=== PATIENT | female | born 1970 | race Caucasian/White ===

== ENCOUNTER 2024-07-04 08:12 | Outpatient (AMB) | payer OTHER, SELFPAY ==
--- NOTE | 2024-07-04 10:08 | MHC.OFFVISWM ---
Intake Visit Reasons: TV Gastric Balloon *[phone]* Allergies No Known Allergies Allergy (Unknown, Verified 07/04/24 10:08) U Medication List - Last Reconciled 07/04/24 by Anup Montenegro MD hydrochlorothiazide mg PO DAILY lorazepam mg PO melatonin mg PO thyroid (pork) ([place] Thyroid) mg PO DAILY [vitamin b12 PO] HPI HPI TV Gastric Balloon *[phone]*: Details: Start time: 10.01am, End time: 11.01am ?I spent 55 minutes speaking with the patient on the phone plus an additional 5 minutes reviewing and updating records for a total of 60 minutes HPI Comments Details: Previous weight loss efforts: self diet and exercise Wakes up: 5am, Sleeps: 9pm Breakfast: 9am (yogurt and granola bar, waffles x2) Lunch: 1pm (chicken salad, or tuna sandwich) Dinner: 5-6pm (pork chops or cereal) Snacks: 11am (Kind bar), 4pm (Kind bar or cheese with crackers), 7pm (popcorn, dips with crackers) Exercise: stationary bike and rowing machine at home Fluids: Coffee: (2 cups per day with sweetener, or hazelnut creamer), tea: 3-4/wk (plain), soda: rarely, juice: 8oz/day, ETOH: from none to 5 glasses/week PFSH Medical History (Updated 07/04/24 @ 10:57 by nAup Montenegro MD) Hypothyroidism Hyperlipidemia Hypertension Insomnia Obesity Surgical History (Updated 06/28/24 @ 09:06 by Mirella Romero CMA) Hx of cone biopsy of cervix Hx of cosmetic surgery History of wisdom tooth extraction, class I edentulism Family History (Updated 06/28/24 @ 08:17 by Mirella Romero CMA) Mother Cancer of kidney Hyperthyroidism Father Diabetes Social History (Updated 06/28/24 @ 08:16 by Mirella Romero CMA) Alcohol intake: current Alcohol intake frequency: a few times a month Patient Tobacco Use Status: Never used Tobacco Telehealth Telehealth Telehealth Platform: Telephone Location of provider rendering services: practice address Location of patient: address on file Patient Identification confirmed using: Name, : Yes Telehealth method: voice only Patient verbally consented to treatment: Yes Patient verbally consented to billing insurance company: Yes Patient informed of any privacy concerns related to visit: Yes Minutes spent on Phone/Video with Pt.: 60 Assessment & Plan Assessment & Plan (1) Obesity: Code(s): E66.9 - Obesity, unspecified Category: Medical Qualifiers: Obesity type: due to excess calories Obesity classification: adult class 1 (BMI 30 - 34.9) Serious obesity comorbidity presence: with serious comorbidity Body mass index: BMI 34.0-34.9 Qualified Code(s): E66.811 - Obesity, class 1; E66.09 - Other obesity due to excess calories; Z68.34 - Body mass index [BMI] 34.0-34.9, adult Plan: We discussed in detail the options of GLP-1 agonists, sleeve gastrectomy as well as the gastric balloon. For GLP-1 agonists, she would need to participate in a 3 month MWL program first. We discussed the preop lifestyle program for surgery and testing as well as the recovery time. We also discussed the weight loss results with the Orbera balloon, as well as the possibility of premature removal and symptoms of nausea, vomiting and cramping after placement. We also discussed the need for an endoscopy to have it placed and removed. All questions were answered. The patient will get back to me when she decides which option she would like to follow.
== END 2024-07-04 11:02 | disposition home or self-care (01) ==
LOC: HO.HBS 08:12
PROVIDERS: PCP Nurse Practitioner Acute Care; Visit Provider Surgery
DX: E66.811 Obesity, class 1 (principal); Z68.34 Body mass index [BMI] 34.0-34.9, adult
CPT/HCPCS: 98011

== ENCOUNTER 2024-07-13 07:56 | Outpatient (AMB) | payer OTHER, SELFPAY ==
--- OUTSIDE RECORDS SUMMARY | 2024-07-13 08:00 | XMS_ITS | Clinical Summary ---
Author Organization [facility] Address [address] [place] [address] Phone Care Team Providers Care President Educational Institution Name Role Phone Harry Coto MD Primary Care Provider [phone] Encounters Date Type Department Care Team Description 04/23/2024 12:55 PM EST - 04/23/2024 11:59 PM EST Hospital Encounter [facility] Ultrasound [address] [place] [address] Breast nodule Discharge Disposition: Home or Self Care from Last 3 Months Social History Tobacco Use Types Packs/Day Years Used Date Smoking Tobacco: Never Assessed Sex and Gender Information Value Date Recorded Sex Assigned at Not on file Gender Identity Not on file Sexual Orientation Not on file Job Start Date Occupation Industry Not on file Not on file Not on file Plan of Treatment Upcoming Encounters Date Type Department Care Team (Late st Contact Info) Description 10/23/2024 8:00 AM EDT [facility]ointment [facility] [address] [place] [address] Health Maintenance Due Date Last Done Comments Pneumococcal Vaccine: Pediatrics (0 to 5 Years) and At-Risk Patients (6 to 64 Years) (1 of 2 - PCV) 1978 DTaP,Tdap,and Td Vaccines (1 - Tdap) 12/17/1991 Hepatitis B Vaccines (1 of 3 - 19+ 3-dose series) 12/17/1991 Zoster Vaccines (1 of 2) 12/17/1991 Cervical Cancer Screening: Pap Smear 1993 COVID-19 Vaccine (3 - Pfizer risk series) 02/19/2021 01/22/2021, 01/01/2021 Cholesterol Screening (Lipid Panel) 05/15/2022 Colorectal Cancer Screening: Colonoscopy 05/15/2022 Depression Screening 05/15/2022 HIV Screening 05/15/2022 Hepatitis C Screening 05/15/2022 Social Influencers of Health Screening 05/15/2022 Influenza Vaccine (#1) 2024 04/06/2023 Breast Cancer Screening 04/11/2026 04/11/20 24, 09/25/2022, 05/04/2021, Additional history exists HIB Vaccines Aged Out No longer eligi ble based on patient's age to complete this topic HPV Vaccines Aged Out No longer eligi ble based on patient's age to complete this topic Hepatitis A Vaccines Aged Out No long er eligible based on patient's age to complete this topic IPV Vaccines Aged Out No longer eligi ble based on patient's age to complete this topic MMR Vaccines Aged Out No longer eligi ble based on patient's age to complete this topic Meningococcal ACWY Vaccine Aged Out N o longer eligible based on patient's age to complete this topic RSV Immunization Patients Under 20 months Aged Out No longer eligible based on patient's age to complete this topic Varicella Vaccines Aged Out No longer eligible based on patient's age to complete this topic Procedures Procedure Name Priority Date/Time Associated Diagnosis Comments US BREAST LIMITED LEFT Routine 04/23/2024 1:34 PM EST Breast nodule VANNA SCREENING DIGITAL Routine 04/11/2024 1:36 PM EDT from Last 3 Months or Most Recently Relevant to Health Maintenance Results * US Breast Limited Left (04/23/2024 1:34 PM EST) Anatomical Region Laterality Modality Breast Left Ultrasound 04/23/2024 1:33 PM EST Impressions 04/23/2024 1:36 PM EST 1. 7 mm simple cyst in the 6:00 position of the left breast, likely accounting for the larger of the 2 mammographic findings, benign. 2. No sonographic correlate for the smaller, probably benign retroareolar nodule is seen. A follow-up left mammogram is recommended in 6 months. BI-RADS CATEGORY: 3 - PROBABLY BENIGN RECOMMENDATION: Short Interval Follow-up is recommended for the left breast in 6 months. -------- FINAL REPORT -------- Dictated By: Rayna Alanis Dictated Date: 04/23/2024 13:33 ET Assigned Physician: Rayna Alanis Reviewed and Electronically Signed By: Rayna Alanis Signed Date: 04/23/2024 13:36 ET Workstation ID: [id number] Transcribed By: Self Edit Transcribed Date: 04/23/2024 13:33 ET Narrative 04/23/2024 1:36 PM EST HISTORY: Abnormal screening mammogram showing 2 subcentimeter left breast nodules. The patient returns for targeted ultrasound. COMPARISON: Screening mammogram 04/11/24 ?? TECHNIQUE: High resolution real-time imaging of the left breast was performed, targeted to the areas of mammographic concern. FINDINGS: A 7 x 3 x 3 mm simple cyst is present at 6:00, approximately 2 to 3 cm from the nipple, likely accounting for the larger of the 2 mammographic findings. There is no definite sonographic correlate for the smaller, 4 mm nodule in the retroareolar area. The mammographic features suggest a benign process. A follow-up left mammogram is recommended in 6 months to reassess these areas. Procedure Note Rayna Alanis MD - 04/23/2024 HISTORY: Abnormal screening mammogram showing 2 subcentimeter left breastnodules. The patient returns for targeted ultrasound. COMPARISON: Screening mammogram 04/11/24 TECHNIQUE: High resolution real-time imaging of the left breast wasperformed, targeted to the areas of mammographic concern. FINDINGS: A 7 x 3 x 3 mm simple cyst is present at 6:00, approximately 2 to 3 cmfrom the nipple, likely accounting for the larger of the 2 mammographicfindings. There is no definite sonographic correlate for the smaller, 4 mm nodule inthe retroareolar area. The mammographic features suggest a benignprocess. A follow-up left mammogram is recommended in 6 months to reassess theseareas. IMPRESSION: 1. 7 mm simple cyst in the 6:00 position of the left breast, likelyaccounting for the larger of the 2 mammographic findings, benign. 2. No sonographic correlate for the smaller, probably benign retroareolarnodule is seen. A follow-up left mammogram is recommended in 6 months. BI-RADS CATEGORY: 3 - PROBABLY BENIGN RECOMMENDATION: Short Interval Follow-up is recommended for the left breast in 6 months. -------- FINAL REPORT -------- Dictated By: Rayna Alanis Dictated Date: 04/23/2024 13:33 ET Assigned Physician: Rayna Alanis Reviewed and Electronically Signed By: Rayna Alanis Signed Date: 04/23/2024 13:36 ET Workstation ID: [id number] Transcribed By: Self Edit Transcribed Date: 04/23/2024 13:33 ET Rayna Alanis MD IMG US PROCEDURES * VANNA SCREENING DIGITAL (04/11/2024 1:36 PM EDT) Anatomical Region Laterality Modality Mammography 04/11/2024 9:56 AM EDT Narrative 04/11/2024 1:[address] [facility] Diagnostic Imaging Department [address] [place] [address] Patient: ??RENNY SAMPSON ?/Age/Sex: 1970 - Unit#: ??[id number] ? Location/Status: ??SPDIMAM/REG CLI ? Mnemonic/Ordering Site: ??DIGSC/SPMAM Ordering Physician: ??LINA COTO MD [facility] Screening Digital - 04/11/24 - 1025 Report Status:Signed EXAM: [facility] Screening Digital EXAM DATE AND TIME: 04/11/2024 10:26 AM HISTORY: ??Screening. Paternal cousin had breast carcinoma. COMPARISON: ??09/22/22, 05/04/21, 05/02/20, 09/08/18, 07/22/17 TECHNIQUE: Bilateral digital breast tomosynthesis was performed in the CC and MLO projections. Computer aided detection with USB Promos 3D 3.1 was employed. TISSUE DENSITY: b. There are scattered areas of fibroglandular density. FINDINGS: Two circumscribed subcentimeter nodules are seen in the anterior left breast, for which targeted ultrasound is recommended. These include a 4 mm nodule in the retroareolar approximately 9:00 area and a 7 mm nodule at 6-7 o'clock, 4 cm from the nipple. Nodular asymmetry in the upper outer left breast is long-term stable, considered benign. No grouped microcalcifications or areas of architectural distortion are seen. The skin and vascularity are unremarkable. IMPRESSION: 1. 2 subcentimeter left breast nodules, for which targeted ultrasound is recommended. The patient will be called back. 2. Stable mammographic appearance of the right breast. No evidence of malignancy is seen. BI-RADS: ??Category 0: Incomplete - Need Additional Imaging Evaluation RECOMMENDATION(S): 1: Ultrasound follow-up LEFT Mammogram performed at [facility] [address] [place] [address] Dictating Physician: ??RAYNA ALANIS MD Electronically Signed by: ??RAYNA ALANIS MD Dic Date/Time: ??04/11/24 1331 Sign date/Time: ??04/11/24 1336 Procedure Note Rayna Alanis MD - 04/14/2024 [facility] Diagnostic Imaging Department [address] [place] [id number] Patient: RENNY SAMPSON /Age/Sex: 1970 - 53 - F Unit#: [id number] Location/Status: SPDIMAM/REG CLI Mnemonic/Ordering Site: [facility] Ordering Physician: LINA COTO MD [facility] Screening Digital - 04/11/24 - 1025 Report Status:Signed EXAM: [facility] Screening Digital EXAM DATE AND TIME: 04/11/2024 10:26 AM HISTORY: Screening. Paternal cousin had breast carcinoma. COMPARISON: 09/22/22, 05/04/21, 05/02/20, 09/08/18, 07/22/17 TECHNIQUE: Bilateral digital breast tomosynthesis was performed in the CCand MLO projections. Computer aided detection with USB Promos 3D 3.1was employed. TISSUE DENSITY: b. There are scattered areas of fibroglandular density. FINDINGS: Two circumscribed subcentimeter nodules are seen in the anterior leftbreast, for which targeted ultrasound is recommended. These include a 4 mm nodulein the retroareolar approximately 9:00 area and a 7 mm nodule at 6-7 o'clock, 4cm from the nipple. Nodular asymmetry in the upper outer left breast is long-term stable, considered benign. No grouped microcalcifications or areas ofarchitectural distortion are seen. The skin and vascularity are unremarkable. IMPRESSION: 1. 2 subcentimeter left breast nodules, for which targeted ultrasound is recommended. The patient will be called back. 2. Stable mammographic appearance of the right breast. No evidence of malignancy is seen. BI-RADS: Category 0: Incomplete - Need Additional Imaging Evaluation RECOMMENDATION(S): 1: Ultrasound follow-up LEFT Mammogram performed at [facility] [address], [place] [address] Dictating Physician: RAYNA ALANIS MD Electronically Signed by: RAYNA ALANIS MD Dic Date/Time: 04/11/24 1331 Sign date/Time: 04/11/24 1336 Lina Coto MD IMG BI PROCEDURES from Last 3 Months or Most Recently Relevant to Health Maintenance Care Teams President Educational Institution Relationship Specialty Start Date End Date Harry Coto MD [address] [facility] [address] [place] [address] PCP - General 05/03/22
[2024-07-13 12:43] VITALS: BMI 34.0
--- NOTE | 2024-07-13 12:43 | A.OFFVIS_ITS ---
VS Expanded 07/13/24 12:43 Height 5 ft 5 in Weight 204 lb 6 oz BMI 34.0 Intake Visit Reasons: TV Follow Up SWL *[phone]* Allergies No Known Allergies Allergy (Unknown, Verified 07/04/24 10:08) U HPI HPI TV Follow Up SWL *[phone]*: Details: Start time: 12.30pm, End time: 1pm ?I spent 25 minutes speaking with the patient on the phone plus an additional 5 minutes reviewing and updating records for a total of 30 minutes [facility] Medical History (Updated 07/04/24 @ 10:57 by Anup Montenegro MD) Hypothyroidism Hyperlipidemia Hypertension Insomnia Obesity Surgical History (Updated 06/28/24 @ 09:06 by Mirella Romero CMA) Hx of cone biopsy of cervix Hx of cosmetic surgery History of wisdom tooth extraction, class I edentulism Family History (Updated 06/28/24 @ 08:17 by Mirella Romero CMA) Mother Cancer of kidney Hyperthyroidism Father Diabetes Social History (Updated 06/28/24 @ 08:16 by Mirella Romero CMA) Alcohol intake: current Alcohol intake frequency: a few times a month Patient Tobacco Use Status: Never used Tobacco Telehealth Telehealth Telehealth Platform: Telephone Location of provider rendering services: practice address Location of patient: address on file Patient Identification confirmed using: Name, : Yes Telehealth method: voice only Patient verbally consented to treatment: Yes Patient verbally consented to billing insurance company: Yes Patient informed of any privacy concerns related to visit: Yes Minutes spent on Phone/Video with Pt.: 30 Assessment & Plan Assessment & Plan (1) Obesity: Code(s): E66.9 - Obesity, unspecified Category: Medical Qualifiers: Obesity type: due to excess calories Obesity classification: adult class 1 (BMI 30 - 34.9) Serious obesity comorbidity presence: with serious comorbidity Body mass index: BMI 34.0-34.9 Qualified Code(s): E66.811 - Obesity, class 1; E66.09 - Other obesity due to excess calories; Z68.34 - Body mass index [BMI] 34.0-34.9, adult Plan: 1.? Plan for lap sleeve gastrectomy. If diaphragmatic or ventral hernias are present at time of surgery, these will be repaired laparoscopically as well. I emphasized the importance of close follow-up, adherence to instructions and good communication. The surgery does not replace the need to change your lifestlyle which is the cause of the obesity problem. The surgery provides the motivation to try again to change your lifestyle, it reduces the appetite and make the transition to a better lifestyle easier and doubles the amount of weight you would lose compared to doing the lifestyle change without the surgery. You will need to be on a liquid diet with protein shakes for 2 weeks before surgery to maximize weight loss and boost your nutritional status to recover better from surgery and also for the first two weeks after surgery to let the stomach heal before we introduce other foods. After the first 2 weeks we will introduce protein bars and soft foods like scrambled eggs, cottage cheese and yogurt and after the 6th week will introduce meat, fish and cooked vegetables in small amounts. Over time you should be able to eat everything in small amounts. Side effects like nausea, vomiting, heartburn or abdominal pain are not common in the practice unless you are not following in the practice. This operation requires lifetime commitment to following in our practice and communication with me. You will much less weight and experience side effects if you don?t communicate or not following in the practice. Complications are rare and in our practice is about 1/10 of the national average. However, you can develop bleeding that may require transfusion (hasn?t happened for year in the practice), you may from complications (we did not have any deaths in the practice) and infections. Infections are usually a result of breakdown in communication or not understanding or following directions correctly. They are difficult to treat, they can happen during the first 6 weeks, they may require to be in the hospital for weeks or even months, not being able to eat by mouth and you may have drains and surgeries to try and correct the issue. Other risks and complications include possible conversion to an open procedure, leaks, small bowel obstruction, blood clots, cardiac, or pulmonary complications, as chair car attendant complications such as ulcers, insufficient weight loss and vitamin deficiencies. 2. You will receive a link of our software tate to generate an individualized nutritional and exercise plan specific for you. Please send me a screenshot of the plans you will generate Meal to include lean meat (beef, fish, pork, turkey, chicken), or z[place]an yogurt, or egg whites, or beans with a salad with olive oil and fruits (berries, pears, apples, kiwi). Avoid salt, breads, potatoes, rice, pasta, desserts. ?3. If you choose shakes, each shake would be drunk slowly, like coffee in a pe riod of 2 hours. ?4. If you choose bars, cut each bar in 4 pieces and eat each piece in 30min ?to make each bar last 2 hours. ?5. I emphasized the importance of measuring accurately the food portion and measure it when serving the food in plate ?6. The meal portions include a specific number of forks of meat and salad. You always eat the meat portion but you can replace up to half of salad/vegetables portion with rice, potatoes or pasta, or a fruit ?if you like. The less you do it the better weight loss will be. ?7. One full-size fork is what it can be scooped on the fork without falling a side and not what can be bit with the fork. Use regular forks like those you find in a typical restaurant. ?8.? Please buy the body composition scale we discussed and send me weight measurements as soon as possible and then once a week. Always include your diet and exercise plan. 9. The best choice would be to purchase a stationary bike, elliptical or treadmill at home that can track calories. Let me know if you do so I can give you an exercise plan. ?10.?It is important of avoiding and for at least 18 months postoperatively and has been discussed at the infosession. ?11. Goal is to lose at least 1.5-2lbs per week ?12. Goal to lose 10% of your weight before surgery, which is about 20lbs. Ultimate weight goal: 184lbs before surgery 13. Please follow the diet plan exactly without any change. If you don't like something about the plan or you feel hungry you need to communicate with me so I can help you revise the plan. You should not change the plan yourself. 14. To be scheduled for EGD to assess the stomach's anatomy. The possibility of biopsies was discussed. Patient needs to avoid use of NSAIDs and aspirin for 1 week prior to EGD. You must be on liquids only the day before your endoscopy. Risks of perforation and bleeding was discussed with the patient. This will be an outpatient procedure with IV sedation. Orders: Orders Hemoglobin A1c Today E03.9 - Hypothyroidism, unspecified, E66.09 - Other obesity due to excess calories, E66.811 - Obesity, class 1, E78.5 - Hyperlipidemia, unspecified, I10 - Essential (primary) hypertension, Z68.34 - Body mass index [BMI] 34.0-34.9, adult Comprehensive Met. Panel Today E03.9 - Hypothyroidism, unspecified, E66.09 - Other obesity due to excess calories, E66.811 - Obesity, class 1, E78.5 - Hyperlipidemia, unspecified, I10 - Essential (primary) hypertension, Z68.34 - B desean mass index [BMI] 34.0-34.9, adult Zinc Today E03.9 - Hypothyroidism, unspecified, E66.09 - Other obesity due to excess calories, E66.811 - Obesity, class 1, E78.5 - Hyperlipidemia, unspecified, I10 - Essential (primary) hypertension, Z68.34 - Body mass index [BMI] 34.0-34.9, adult TSH reflex Free T4 Today E03.9 - Hypothyroidism, unspecified, E66.09 - Other obesity due to excess calories, E66.811 - Obesity, class 1, E78.5 - Hyperlipidemia, unspecified, I10 - Essential (primary) hypertension, Z68.34 - Body mass index [BMI] 34.0-34.9, adult Ferritin Today E03.9 - Hypothyroidism, unspecified, E66.09 - Other obesity due to excess calories, E66.811 - Obesity, class 1, E78.5 - Hyperlipidemia, unspecified, I10 - Essential (primary) hypertension, Z68.34 - Body mass index [BMI] 34.0-34.9, adult Vitamin D 25-OH Total Today E03.9 - Hypothyroidism, unspecified, E66.09 - Other obesity due to excess calories, E66.811 - Obesity, class 1, E78.5 - Hyperlipidemia, unspecified, I10 - Essential (primary) hypertension, Z68.34 - Body mass index [BMI] 34.0-34.9, adult Insulin Today E03.9 - Hypothyroidism, unspecified, E66.09 - Other obesity due to excess calories, E66.811 - Obesity, class 1, E78.5 - Hyperlipidemia, unspecified, I10 - Essential (primary) hypertension, Z68.34 - Body mass index [BMI] 34.0-34.9, adult H Pylori Breath Test Today E03.9 - Hypothyroidism, unspecified, E66.09 - Other obesity due to excess calories, E66.811 - Obesity, class 1, E78.5 - Hyperlipidemia, unspecified, I10 - Essential (primary) hypertension, Z68.34 - Body mass index [BMI] 34.0-34.9, adult Complete Blood Count Auto Diff Today E03.9 - Hypothyroidism, unspecified, E66.09 - Other obesity due to excess calories, E66.811 - Obesity, class 1, E78.5 - Hyperlipidemia, unspecified, I10 - Essential (primary) hypertension, Z68.34 - Body mass index [BMI] 34.0-34.9, adult Lipid Panel Today E03.9 - Hypothyroidism, unspecified, E66.09 - Other obesity due to excess calories, E66.811 - Obesity, class 1, E78.5 - Hyperlipidemia, unspecified, I10 - Essential (primary) hypertension, Z68.34 - Body mass index [BMI] 34.0-34.9, adult IRON PROFILE Today E03.9 - Hypothyroidism, unspecified, E66.09 - Other obesity due to excess calories, E66.811 - Obesity, class 1, E78.5 - Hyperlipidemia, unspecified, I10 - Essential (primary) hypertension, Z68.34 - Body mass index [BMI] 34.0-34.9, adult Vitamin B12 and Folate Today E03.9 - Hypothyroidism, unspecified, E66.09 - Other obesity due to excess calories, E66.811 - Obesity, class 1, E78.5 - Hyperlipidemia, unspecified, I10 - Essential (primary) hypertension, Z68.34 - Body mass index [BMI] 34.0-34.9, adult C Reactive Protein Today E03.9 - Hypothyroidism, unspecified, E66.09 - Other obesity due to excess calories, E66.811 - Obesity, class 1, E78.5 - Hyperlipidemia, unspecified, I10 - Essential (primary) hypertension, Z68.34 - Body mass index [BMI] 34.0-34.9, adult Vitamin B1 Today E03.9 - Hypothyroidism, unspecified, E66.09 - Other obesity due to excess calories, E66.811 - Obesity, class 1, E78.5 - Hyperlipidemia, unspecified, I10 - Essential (primary) hypertension, Z68.34 - Body mass index [BMI] 34.0-34.9, adult Vitamin A Today E03.9 - Hypothyroidism, unspecified, E66.09 - Other obesity due to excess calories, E66.811 - Obesity, class 1, E78.5 - Hyperlipidemia, unspecified, I10 - Essential (primary) hypertension, Z68.34 - Body mass index [BMI] 34.0-34.9, adult US abdomen comp w elastography Today E03.9 - Hypothyroidism, unspecified, E66.09 - Other obesity due to excess calories, E66.811 - Obesity, class 1, E78.5 - Hyperlipidemia, unspecified, I10 - Essential (primary) hypertension, Z68.34 - Body mass index [BMI] 34.0-34.9, adult XR chest 2V Today E03.9 - Hypothyroidism, unspecified, E66.09 - Other obesity due to excess calories, E66.811 - Obesity, class 1, E78.5 - Hyperlipidemia, unspecified, I10 - Essential (primary) hypertension, Z68.34 - Body mass index [BMI] 34.0-34.9, adult ECG 12 lead EKG Today E03.9 - Hypothyroidism, unspecified, E66.09 - Other obesity due to excess calories, E66.811 - Obesity, class 1, E78.5 - Hyperlipidemia, unspecified, I10 - Essential (primary) hypertension, Z68.34 - Body mass index [BMI] 34.0-34.9, adult FL upper GI w air Today E03.9 - Hypothyroidism, unspecified, E66.09 - Other obesity due to excess calories, E66.811 - Obesity, class 1, E78.5 - Hyperlipi demia, unspecified, I10 - Essential (primary) hypertension, Z68.34 - Body mass index [BMI] 34.0-34.9, adult Referrals Behavioral Health Referral E03.9 - Hypothyroidism, unspecified, E66.09 - Other obesity due to excess calories, E66.811 - Obesity, class 1, E78.5 - Hyperlipidemia, unspecified, I10 - Essential (primary) hypertension, Z68.34 - B desean mass index [BMI] 34.0-34.9, adult Nutrition/Dietitian Referral E03.9 - Hypothyroidism, unspecified, E66.09 - Other obesity due to excess calories, E66.811 - Obesity, class 1, E78.5 - Hyperlipidemia, unspecified, I10 - Essential (primary) hypertension, Z68.34 - Body mass index [BMI] 34.0-34.9, adult
== END 2024-07-13 13:01 | disposition home or self-care (01) ==
LOC: HO.HBS 07:56
PROVIDERS: PCP Nurse Practitioner Acute Care; Visit Provider Surgery
DX: E66.811 Obesity, class 1 (principal); Z68.34 Body mass index [BMI] 34.0-34.9, adult
CPT/HCPCS: 98013

== ENCOUNTER → 2024-07-25 12:32 | Outpatient (BNV) | payer OTHER, SELFPAY | PROVIDERS: PCP Internal Medicine; Visit Provider Surgery | DX: K44.9 Diaphragmatic hernia without obstruction or gangrene (principal) | CPT/HCPCS: 43239 ==

== ENCOUNTER → 2024-07-25 12:32 | Day surgery (SDC) | payer OTHER, SELFPAY ==
[2024-07-23 13:12] VITALS: BMI 33.9
--- NOTE | 2024-07-24 09:49 | P.CONAN_ITS ---
HPI - Anesthesia Eval Consult details Narrative: 53yo F for Upper Endoscopy PMFSH Active Problems Active Problems: All Active Problems Hypothyroidism (Acute) Hyperlipidemia (Acute) Hypertension (Acute) Insomnia (Acute) BMI 34.0-34.9,adult (Acute) Obesity (Acute) Past Medical History Medical History (System 07/18/24 @ 14:36 by Sylwia Ceja) Hypothyroidism Hyperlipidemia Hypertension Insomnia Obesity Family History Family History (System 07/18/24 @ 14:36 by Sylwia Ceja) Mother Cancer of kidney Hyperthyroidism Father Diabetes Surgical History Surgical History (System 07/18/24 @ 14:36 by Sylwia Ceja) Hx of cone biopsy of cervix Hx of cosmetic surgery History of wisdom tooth extraction, class I edentulism Social History Social History (System 07/18/24 @ 14:36 by Sylwia Ceja) Alcohol intake: current Alcohol intake frequency: a few times a month Patient Tobacco Use Status: Never used Tobacco Meds Allergies Allergy/AdvReac Type Severity Reaction Status Date / Time No Known Allergies Allergy Unknown U Verified 07/18/24 14:36 Home Medications ?Medication ?Instructions ?Recorded ?Confirmed ?Last Taken ?Type hydrochlorothiazide 12.5 mg tablet mg PO DAILY 06/28/24 07/04/24 Unknown History lorazepam 0.5 mg tablet mg PO 06/28/24 07/04/24 Unknown History melatonin 5 mg capsule mg PO 06/28/24 07/04/24 Unknown History thyroid (pork) 90 mg tablet mg PO DAILY 06/28/24 07/04/24 Unknown History ([place] Thyroid) vitamin b12 PO 06/28/24 07/04/24 Unknown History Exam Height,Weight and Vital Signs: Height 5 ft 5 in Weight 92.533 kg Assessment and Plan Assessment Anesthesia Assessment: Chart Reviewed
[2024-07-25 13:38] VITALS: BMI 33.0
[2024-07-25 13:40] VITALS: BP 150/95; PULSE 78; RESP 16; TEMP 37.3; O2SAT 98
[2024-07-25] MEDS: Lactated Ringers 1,000 ML 80 ML IVCONT (13:42)
--- OUTSIDE RECORDS SUMMARY | 2024-07-25 13:58 | XMS_ITS | Encounter Summary ---
Author Organization [facility] Address [address] [place] [address] Care Team Providers Care Neck Cutter Name Role Phone Harry Coto MD Primary Care Provider [phone] Encounter Details Date Type Department Care Team (Latest Contact Info) Description 07/19/2024 8:46 AM EST - 07/19/2024 11:59 PM EST Hospital Encounter [facility] [address] [place] [id number] Obesity, class 1; Other obesity due to excess calories; Body mass index (BMI) 34.0-34.9, adult; Hypothyroidism, unspecified; Hyperlipidemia, unspecified; Essential (primary) hypertension Discharge Disposition: Home or Self Care Social History Tobacco Use Types Packs/Day Years Used Date Smoking Tobacco: Never Assessed Comments Unknown Sex and Gender Information Value Date Recorded Sex Assigned at Not on file Legal Sex Female 9:31 PM EST Gender Identity Not on file Sexual Orientation Not on file documented as of this encounter Discharge Disposition Disposition Code Departure Means Destination Home or Self Care documented in this encounter Plan of Treatment Upcoming Encounters Date Type Department Care Team (Late st Contact Info) Description 10/23/2024 8:00 AM EDT Appointment [facility] [address] [place] [address] documented as of this encounter Procedures Procedure Name Priority Date/Time Associated Diagnosis Comments ECG 12-LEAD Routine 07/19/2024 9:04 AM EST Obesity, class 1 Other obesity due to excess calories Body mass index (BMI) 34.0-34.9, adult Hypothyroidism, unspecified Hyperlipidemia, unspecified Essential (primary) hypertension documented in this encounter Results * ECG 12 lead (07/19/2024 9:04 AM EST) Ventricular Rate ECG 74 BPM GEMUSE Atrial Rate 74 BPM GEMUSE P-R Interval 164 ms GEMUSE QRS Duration 80 ms GEMUSE Q-T Interval 386 ms GEMUSE QTc 428 ms GEMUSE P Wave [place] 20 degrees GEMUSE R [place] -97 degrees GEMUSE T [place] 29 degrees GEMUSE ECG Interpretation Normal sinus rhythm Right superior axis deviation Low voltage QRS Poor R wave progression Abnormal ECG When compared with ECG of 20-JUL-2023 13:24, No significant change was found Confirmed by Diego GRIMM YUFENG ([id number]) on 07/19/2024 3:09:35 PM GEMUSE 07/19/2024 9:04 AM EST 07/19/2024 3:09 PM EST us Anup Montenegro MD ECG ORDERABLES Final Res ult GEMUSE documented in this encounter Visit Diagnoses Diagnosis Obesity, class 1 Other obesity due to excess calories Body mass index (BMI) 34.0-34.9, adult Hypothyroidism, unspecified Hyperlipidemia, unspecified Essential (primary) hypertension Unspecified essential hypertension documented in this encounter Care Teams Neck Cutter Relationship Specialty Start Date End Date Harry Coto MD [address] [place] [address] PCP - General 05/03/22 documented as of this encounter
--- OUTSIDE RECORDS SUMMARY | 2024-07-25 13:59 | XMS_ITS | Clinical Summary ---
Author Organization [facility] Address [address] [place] [address] Phone Care Team Providers Care Germ Drier Name Role Phone Harry Coot MD Primary Care Provider [phone] Encounters Date Type Department Care Team Description 07/19/2024 8:46 AM EST - 07/19/2024 11:59 PM EST Hospital Encounter [facility] Non-Invasive Cardiology [address] [place] [phone] Obesity, class 1; Other obesity due to excess calories; Body mass index (BMI) 34.0-34.9, adult; Hypothyroidism, unspecified; Hyperlipidemia, unspecified; Essential (primary) hypertension Discharge Disposition: Home or Self Care 07/19/2024 8:43 AM EST - 07/19/2024 11:59 PM EST Hospital Encounter [facility] Xray [address] [place] [phone] Bariatric surgery status Discharge Disposition: Home or Self Care from Last 3 Months Social History Tobacco Use Types Packs/Day Years Used Date Smoking Tobacco: Never Assessed Comments Unknown Sex and Gender Information Value Date Recorded Sex Assigned at Not on file Legal Sex Female 9:31 PM EST Gender Identity Not on file Sexual Orientation Not on file Plan of Treatment Upcoming Encounters Date Type Department Care Team (Late st Contact Info) Description 10/23/2024 8:00 AM EDT Appointment [facility] at [address] [phone] Health Maintenance Due Date Last Done Comments DTaP,Tdap,and Td Vaccines (1 - Tdap) 12/17/1991 Hepatitis B Vaccines (1 of 3 - 19+ 3-dose series) 12/17/1991 Pneumococcal Vaccine: 50+ Years (1 of 2 - PCV) 12/17/1991 Pneumococcal Vaccine: Pediatrics (0 to 5 Years) and At-Risk Patients (6 to 64 Years) (1 of 2 - PCV) 12/17/1991 Zoster Vaccines (1 of 2) 12/17/1991 Cervical Cancer Screening: Pap Smear 1993 COVID-19 Vaccine (3 - Pfizer risk series) 02/19/2021 01/22/2021, 01/01/2021 Colorectal Cancer Screening: Colonoscopy 05/15/2022 Depression Screening 05/15/2022 HIV Screening 05/15/2022 Hepatitis C Screening 05/15/2022 Social Influencers of Health Screening 05/15/2022 Influenza Vaccine (#1) 2024 04/06/2023 Hypertension/CHF/CAD Annual BMP Blood Test 07/19/2025 07/19/2024 Breast Cancer Screening 04/11/2026 04/11/20 24, 09/25/2022, 05/04/2021, Additional history exists Cholesterol Screening (Lipid Panel) 07/19/2029 07/19/2024 HIB Vaccines Aged Out No longer eligi [...] patient's age to complete this topic Meningococcal B Vacine Aged Out No lo nger eligible based on patient's age to complete this topic RSV Immunization Patients Under 20 months Aged Out No longer eligible based on patient's age to complete this topic Varicella Vaccines Aged Out No longer eligible based on patient's age to complete this topic Procedures Procedure Name Priority Date/Time Associated Diagnosis Comments XR UGI W AIR CONTRAST Routine 07/19/2024 9:27 AM EST Bariatric surgery status XR CHEST 2 VIEWS Routine 07/19/2024 9:27 AM EST Obesity, class 1 Other obesity due to excess calories Body mass index (BMI) 34.0-34.9, adult Hypothyroidism, unspecified Hyperlipidemia, unspecified Essential (primary) hypertension ECG 12-LEAD Routine 07/19/2024 9:04 AM EST Obesity, class 1 Other obesity due to excess calories Body mass index (BMI) 34.0-34.9, adult Hypothyroidism, unspecified Hyperlipidemia, unspecified Essential (primary) hypertension TRIIODOTHYRONINE FREE Routine 07/19/2024 8:12 AM EST Obesity, Class I, BMI 30-34.9 Obesity due to excess calories Body mass index 34.0-34.9, adult Hypothyroidism, adult Hyperlipemia Hypertension, essential FREE THYROXINE WITH REFLEX TO FREE TRIIODOTHYRONINE Routine 07/19/2024 8:12 AM EST Obesity, Class I, BMI 30-34.9 Obesity due to excess calories Body mass index 34.0-34.9, adult Hypothyroidism, adult Hyperlipemia Hypertension, essential COMPREHENSIVE METABOLIC PANEL Routine 07/19/2024 8:12 AM EST Obesity, Class I, BMI 30-34.9 Obesity due to excess calories Body mass index 34.0-34.9, adult Hypothyroidism, adult Hyperlipemia Hypertension, essential LIPID PANEL WITH REFLEX TO DIRECT LDL Routine 07/19/2024 8:12 AM EST Obesity, Class I, BMI 30-34.9 Obesity due to excess calories Body mass index 34.0-34.9, adult Hypothyroidism, adult Hyperlipemia Hypertension, essential FOLATE Routine 07/19/2024 8:12 AM EST Obesity, Class I, BMI 30-34.9 Obesity due to excess calories Body mass index 34.0-34.9, adult Hypothyroidism, adult Hyperlipemia Hypertension, essential VITAMIN B12 Routine 07/19/2024 8:12 AM EST Obesity, Class I, BMI 30-34.9 Obesity due to excess calories Body mass index 34.0-34.9, adult Hypothyroidism, adult Hyperlipemia Hypertension, essential ZINC Routine 07/19/2024 8:12 AM EST Obesity, Class I, BMI 30-34.9 Obesity due to excess calories Body mass index 34.0-34.9, adult Hypothyroidism, adult Hyperlipemia Hypertension, essential VITAMIN D 25 HYDROXY Routine 07/19/2024 8:12 AM EST Obesity, Class I, BMI 30-34.9 Obesity due to excess calories Body mass index 34.0-34.9, adult Hypothyroidism, adult Hyperlipemia Hypertension, essential FERRITIN Routine 07/19/2024 8:12 AM EST Obesity, Class I, BMI 30-34.9 Obesity due to excess calories Body mass index 34.0-34.9, adult Hypothyroidism, adult Hyperlipemia Hypertension, essential THYROID STIMULATING HORMONE WITH REFLEX TO FREE T4 AND FREE T3 Routine 07/19/2024 8:12 AM EST Obesity, Class I, BMI 30-34.9 Obesity due to excess calories Body mass index 34.0-34.9, adult Hypothyroidism, adult Hyperlipemia Hypertension, essential IRON Routine 07/19/2024 8:12 AM EST Obesity, Class I, BMI 30-34.9 Obesity due to excess calories Body mass index 34.0-34.9, adult Hypothyroidism, adult Hyperlipemia Hypertension, essential C-REACTIVE PROTEIN Routine 07/19/2024 8: 12 AM EST Obesity, Class I, BMI 30-34.9 Obesity due to excess calories Body mass index 34.0-34.9, adult Hypothyroidism, adult Hyperlipemia Hypertension, essential VITAMIN A Routine 07/19/2024 8:12 AM EST Obesity, Class I, BMI 30-34.9 Obesity due to excess calories Body mass index 34.0-34.9, adult Hypothyroidism, adult Hyperlipemia Hypertension, essential COMPLETE BLOOD COUNT Routine 07/19/2024 8:12 AM EST Obesity, Class I, BMI 30-34.9 Obesity due to excess calories Body mass index 34.0-34.9, adult Hypothyroidism, adult Hyperlipemia Hypertension, essential HEMOGLOBIN A1C Routine 07/19/2024 8:12 AM EST Obesity, Class I, BMI 30-34.9 Obesity due to excess calories Body mass index 34.0-34.9, adult Hypothyroidism, adult Hyperlipemia Hypertension, essential INSULIN ANTIBODY Routine 07/19/2024 8:12 AM EST Obesity, Class I, BMI 30-34.9 Obesity due to excess calories Body mass index 34.0-34.9, adult Hypothyroidism, adult Hyperlipemia Hypertension, essential VITAMIN B1 Routine 07/19/2024 8:12 AM EST Obesity, Class I, BMI 30-34.9 Obesity due to excess calories Body mass index 34.0-34.9, adult Hypothyroidism, adult Hyperlipemia Hypertension, essential VANNA SCREENING DIGITAL Routine 04/11/2024 1:36 PM EDT from Last 3 Months or Most Recently Relevant to Health Maintenance Results * XR UGI w Air Contrast (07/19/2024 9:27 AM EST) Anatomical Region Laterality Modality Body Radiographic Iris ging 07/19/2024 10:2 6 AM EST Impressions 07/19/2024 10:33 AM EST 1. Tiny, sliding, axial hiatal hernia with associated small, nonobstructing distal esophageal web and small amounts of spontaneous gastroesophageal reflux. 2. Otherwise normal double contrast upper GI exam. CT Teleradiology -------- FINAL REPORT -------- Dictated By: Sydnie David Dictated Date: 07/19/2024 10:26 ET Assigned Physician: Brenden Morocho Reviewed and Electronically Signed By: Brenden Morocho Signed Date: 07/19/2024 10:33 ET Workstation ID: [id number] Transcribed By: Self Edit Transcribed Date: 07/19/2024 10:30 ET Resident/PA/SERVICE PARTS COORDINATOR: Sydnie David Narrative 07/19/2024 10:33 AM EST FINDINGS: Double contrast UGI performed. COMPARISON: None. HISTORY: Patient is a 53-year-old female with no significant past medical history. Preop bariatric surgery. IMPLEMENTATION DIRECTOR radiographs: Shirt Hemmer AP radiograph of the abdomen obtained. Bowel gas pattern is nonobstructive. Osseous structures are overall unremarkable. FINDINGS: Effervescent crystals were administered orally. Thick and thin barium was then administered orally under fluoroscopic control. Esophagus: Normal distensibility, motility and mucosal pattern. There is no evidence of obstruction. There is a tiny, sliding axial hiatal hernia with associated small, nonobstructing distal esophageal web. Stomach: Normal distensibility and motility. Prompt passage of contrast from the stomach into the duodenal bulb and sweep. No gastric mass or ulceration. Visualization of proximal small bowel is within normal limits. ?? Gastroesophageal reflux: Small amounts of spontaneous gastroesophageal reflux visualized DAP: 955.2 Gycm^2 Procedure Note Brenden Morocho MD - 07/19/2024 FINDINGS: Double contrast UGI performed. COMPARISON: None. HISTORY: Patient is a 53-year-old female with no significant past medicalhistory. Preop bariatric surgery. IMPLEMENTATION DIRECTOR radiographs: Shirt Hemmer AP radiograph of the abdomen obtained. Bowel gaspattern is nonobstructive. Osseous structures are overall unremarkable. FINDINGS: Effervescent crystals were administered orally. Thick and thinbarium was then administered orally under fluoroscopic control. Esophagus: Normal distensibility, motility and mucosal pattern. There isno evidence of obstruction. There is a tiny, sliding axial hiatal herniawith associated small, nonobstructing distal esophageal web. Stomach: Normal distensibility and motility. Prompt passage of contrastfrom the stomach into the duodenal bulb and sweep. No gastric mass orulceration. Visualization of proximal small bowel is within normal limits. Gastroesophageal reflux: Small amounts of spontaneous gastroesophagealreflux visualized DAP: 955.2 Gycm^2 IMPRESSION: 1. Tiny, sliding, axial hiatal hernia with associated small,nonobstructing distal esophageal web and small amounts of spontaneousgastroesophageal reflux. 2. Otherwise normal double contrast upper GI exam. CT Teleradiology -------- FINAL REPORT -------- Dictated By: Sydnie David Dictated Date: 07/19/2024 10:26 ET Assigned Physician: Brenden Morocho Reviewed and Electronically Signed By: Brenden Morocho Signed Date: 07/19/2024 10:33 ET Workstation ID: [id number] Transcribed By: Self Edit Transcribed Date: 07/19/2024 10:30 ET Resident/PA/SERVICE PARTS COORDINATOR: Sydnie David us Anup Montenegro MD IMG FLUOROSCOPY PROCEDURE S Final Result * XR Chest 2 Views (07/19/2024 9:27 AM EST) Anatomical Region Laterality Modality Body Radiographic Iris ging 07/19/2024 9:34 AM EST Addenda Addendum by Brenden Morocho MD on 07/19/2024 9:[address] Teleradiology -------- ADDENDUM -------- Dictated By: Brenden Morocho Dictated Date: 07/19/2024 09:53 ET Assigned Physician: Brenden Mroocho Reviewed and Electronically Signed By: Brenden Morocho Signed Date: 07/19/2024 09:53 ET Workstation ID: [id number] Transcribed By: Self Edit Transcribed Date: 07/19/2024 09:53 ET Impressions 07/19/2024 9:35 AM EST Normal examination. ??No change since the prior study performed 07/20/2023. Code 09286 -------- FINAL REPORT -------- Dictated By: Brenden Morocho Dictated Date: 07/19/2024 09:34 ET Assigned Physician: Brenden Morocho Reviewed and Electronically Signed By: Brenden Morocho Signed Date: 07/19/2024 09:35 ET Workstation ID: [id number] Transcribed By: Self Edit Transcribed Date: 07/19/2024 09:34 ET Narrative 07/19/2024 9:35 AM EST HISTORY: The patient is a 53-year-old female with hypertension. FINDINGS: PA and lateral radiographs of the chest demonstrate normal appearance of the bony structures. ??The cardiac and mediastinal contours are within normal limits. ??The lungs and costophrenic angles are clear. Procedure Note Brenden Morocho MD - 07/19/2024 HISTORY: The patient is a 53-year-old female with hypertension. FINDINGS: PA and lateral radiographs of the chest demonstrate normalappearance of the bony structures. The cardiac and mediastinal contoursare within normal limits. The lungs and costophrenic angles are clear. IMPRESSION: Normal examination. No change since the prior study performed 07/20/2023. Code 28236 -------- FINAL REPORT -------- Dictated By: Brenden Morocho Dictated Date: 07/19/2024 09:34 ET Assigned Physician: Brenden Morocho Reviewed and Electronically Signed By: Brenden Morocho Signed Date: 07/19/2024 09:35 ET Workstation ID: [id number] Transcribed By: Self Edit Transcribed Date: 07/19/2024 09:34 ET Anup Montenegro MD IMG XR PROCEDURES Edited Result - Final * ECG 12 lead (07/19/2024 9:04 AM EST) Ventricular Rate ECG 74 BPM GEMUSE Atrial Rate 74 BPM GEMUSE P-R Interval 164 ms GEMUSE QRS Duration 80 ms GEMUSE Q-T Interval 386 ms GEMUSE QTc 428 ms GEMUSE P Wave Buford 20 degrees GEMUSE R Buford -97 degrees GEMUSE T Buford 29 degrees GEMUSE ECG Interpretation Normal sinus rhythm Right superior axis deviation Low voltage QRS Poor R wave progression Abnormal ECG When compared with ECG of 20-JUL-2023 13:24, No significant change was found Confirmed by Diego GRMIM, STACY ([id number]) on 07/19/2024 3:09:35 PM GEMUSE 07/19/2024 9:04 AM EST 07/19/2024 3:09 PM EST us Anup Montenegro MD ECG ORDERABLES Final Res ult KAREEMUSE * (ABNORMAL) Thyroid stimulating hormone with reflex to free t4 and free t3 (07/19/2024 8:12 AM EST) TSH 12.06(H) 0.40 - 4.00 mcIU/mL LAB CHEMISTRY METHOD 07/19/2024 9:17 AM EST [facility] Blood Venous blood specimen / Unknown Venipuncture / Unknown 07/19/2024 8:12 AM EST 07/19/2024 8:28 AM EST Anup Montenegro MD LAB BLOOD ORDERABLES Suyapa l Result Performing Organization Address [facility] [[email or web address]] de Phone Number [facility] [address] [place] [address], [place] [phone] * Free thyroxine with reflex to free triiodothyronine (07/19/2024 8:12 AM EST) [facility] Free T4 0.78 0.70 - 1.80 ng/dL LAB CHEMISTRY METHOD 07/19/2024 9:44 AM EST [facility] Blood Venous blood specimen / Unknown Venipuncture / Unknown 07/19/2024 8:12 AM EST 07/19/2024 8:28 AM EST Anup Montenegro MD LAB BLOOD ORDERABLES Suyapa l Result Performing Organization Address [facility] [[email or web address]] de Phone Number [facility] [address] [place] [address], [place] [phone] * (ABNORMAL) Lipid panel with reflex to direct LDL (07/19/2024 8:12 AM EST) Cholesterol 282(H) 0 - 200 mg/dL LAB CHEMISTRY METHOD 07/19/2024 9:11 AM EST [facility] Triglycerides 102 0 - 150 mg/dL LAB CHEMISTRY METHOD 07/19/2024 9:11 AM EST [facility] HDL 109 >=40 mg/dL LAB CHEMISTRY METHOD 07/19/2024 9:11 AM EST [facility] LDL Calculated 153(H) 0 - 100 mg/dL LAB CHEMISTRY METHOD 07/19/2024 9:[address] [facility] VLDL Cholesterol Ruddy 20.4 mg/dL LAB CHEMISTRY METHOD 07/19/2024 9:[address] [facility] Non HDL Chol. (LDL+VLDL) 173(H) <145 mg/dL LAB CHEMISTRY METHOD 07/19/2024 9:[address] [facility] Chol/HDL Ratio 2.6 0.0 - 4.4 LAB CHEMISTRY METHOD 07/19/2024 9:[address] [facility] Blood Venous blood specimen / Unknown Venipuncture / Unknown 07/19/2024 8:12 AM EST 07/19/2024 8:28 AM EST Anup Montenegro MD LAB BLOOD ORDERABLES Suyapa l Result [facility] [address] [place] [address], * Insulin antibody (07/19/2024 8:12 AM EST) Insulin Antibody <0.4 0.0 - 0.4 U/mL 07/23/2024 11:51 PM EST [facility] Comment: INTERPRETIVE INFORMATION: Insulin Antibody A value greater than 0.4 Kronus Units/mL is considered positive for Insulin Antibody. Kronus units are arbitrary. Kronus Units = U/mL. This assay is intended for the semi-quantitative determination of antibodies to endogenous insulin or antibodies to exogenous insulin in human serum. Antibodies to exogenous insulin therapies may be detected using this method. The magnitude of the measured result is not related to disease progression. Results should be interpreted within the context of clinical symptoms. Performed By: [facility] [address] [place] [address] [employer] Specialist: Krishan Villagomez MD, PhD CLIA Number: [id number] Blood Venous blood specimen / Unknown Venipuncture / Unknown 07/19/2024 8:12 AM EST 07/19/2024 8:28 AM EST Anup Montenegro MD LAB BLOOD ORDERABLES Suyapa l Result Performing Organization Address [facility] Co de Phone Number [facility] [address] [place] [address] * Zinc (07/19/2024 8:12 AM EST) Zinc 86 60 - 130 ug/dL 07/23/2024 12:57 PM EST [facility] Comment: Elevated results may be due to sample collected in a non-certified trace element-free tube. This test was developed and the performance characteristics determined by [facility]. It has not been cleared or approved by the FDA. The laboratory is regulated under CLIA as qualified to perform high-complexity testing. This test is used for patient testing purposes. It should not be regarded as investigational or for research. Test performed at [facility], [address], [place] ??[address] ? [phone] Shwetha Donahue MD, PhD - [employer] Blood Venous blood specimen / Unknown Venipuncture / Unknown 07/19/2024 8:12 AM EST 07/19/2024 8:28 AM EST Anup Montenegro MD LAB BLOOD ORDERABLES Suyapa l Result Performing Organization Address [facility]/ZIP Co de Phone Number [facility] [address] [place] [address] * Vitamin A (07/19/2024 8:12 AM EST) Vitamin A 56 38 - 106 ug/dL 07/25/2024 6:21 AM EST [facility] Comment: This test was developed and the performance characteristics determined by [facility]. It has not been cleared or approved by the FDA. The laboratory is regulated under CLIA as qualified to perform high-complexity testing. This test is used for patient testing purposes. It should not be regarded as investigational or for research. Test performed at [facility], [address] , [place], [place] ??[address] ? [phone] Shwetha Donahue MD, PhD - [employer] Blood Venous blood specimen / Unknown Venipuncture / Unknown 07/19/2024 8:12 AM EST 07/19/2024 8:29 AM EST Anup Montenegro MD LAB BLOOD ORDERABLES Suyapa l Result [facility] [address] [place] [address] * (ABNORMAL) Vitamin D 25 hydroxy (07/19/2024 8:12 AM EST) Vit D, 25-Hydroxy 24.6(L) 30.0 - 80.0 ng/mL LAB CHEMISTRY METHOD 07/19/2024 9:17 AM EST [facility] Blood Venous blood specimen / Unknown Venipuncture / Unknown 07/19/2024 8:12 AM EST 07/19/2024 8:28 AM EST Anup Montenegro MD LAB BLOOD ORDERABLES Suyapa l Result Performing Organization Address City/[facility]/ZIP Co de Phone Number [facility] [address] [place] [address], [place] [phone] * (ABNORMAL) Complete blood count (07/19/2024 8:12 AM EST) WBC 4.6(L) 4.8 - 10.8 K/[facility] LAB HEMETOLOGY METHOD 07/19/2024 8:43 AM EST [facility] RBC 4.80 3.80 - 4.80 M/mcL LAB HEMETOLOGY METHOD 07/19/2024 8:43 AM EST [facility] Hemoglobin 15.0 11.5 - 16.0 g/dL LAB HEMETOLOGY METHOD 07/19/2024 8:[address] [facility] Hematocrit 43.7 35.0 - 47.0 % LAB HEMETOLOGY METHOD 07/19/2024 8:[address] [facility] MCV 90.7 79.0 - 98.0 FL LAB HEMETOLOGY METHOD 07/19/2024 8:[address] [facility] MCH 31.1 27.0 - 32.0 pcg LAB HEMETOLOGY METHOD 07/19/2024 8:[address] [facility] MCHC 34.3 32.0 - 37.0 g/dL LAB HEMETOLOGY METHOD 07/19/2024 8:[address] [facility] RDW 12.9 11.0 - 15.0 % LAB HEMETOLOGY METHOD 07/19/2024 8:[address] [facility] Platelets 301 130 - 400 K/mcL LAB HEMETOLOGY METHOD 07/19/2024 8:[address] [facility] MPV 10.9 7.0 - 11.0 FL LAB HEMETOLOGY METHOD 07/19/2024 8:[address] [facility] NRBC 0.0 <1.0 % LAB HEMETOLOGY METHOD 07/19/2024 8:[address] [facility] NRBC Absolute 0.00 <0.10 K/mcL LAB HEMETOLOGY METHOD 07/19/2024 8:[address] [facility] Blood Venous blood specimen / Unknown Venipuncture / Unknown 07/19/2024 8:12 AM EST 07/19/2024 8:28 AM EST us Anup Montenegro MD LAB BLOOD ORDERABLES Suyapa l Result [facility] [address] [place] [address], * (ABNORMAL) C-reactive protein (07/19/2024 8:12 AM EST) [facility] C-Reactive Protein 0.79(H) <=0.50 mg/dL LAB CHEMISTRY METHOD 07/19/2024 9:10 AM EST [facility] Blood Venous blood specimen / Unknown Venipuncture / Unknown 07/19/2024 8:12 AM EST 07/19/2024 8:28 AM EST Anup Montenegro MD LAB BLOOD ORDERABLES Suyapa l Result Performing Organization Address City/[facility]/ZIP Co de Phone Number [facility] [address] [place] [address], * Triiodothyronine free (07/19/2024 8:12 AM EST) [facility] T3, Free 270 230 - 420 pcg/dL LAB CHEMISTRY METHOD 07/19/2024 10:10 AM EST [facility] Blood Venous blood specimen / Unknown Venipuncture / Unknown 07/19/2024 8:12 AM EST 07/19/2024 8:28 AM EST Anup Montenegro MD LAB BLOOD ORDERABLES Suyapa l Result Performing Organization Address City/[facility]/ZIP Co de Phone Number [facility] [address] [place] [address], [place] [phone] * Vitamin B1 (07/19/2024 8:12 AM EST) [facility] Vitamin B1 Whole Blood 101 38 - 122 ug/L 07/24/2024 5:27 AM EST [facility] Comment: This test was developed and the performance characteristics determined by [facility]. It has not been cleared or approved by the FDA. The laboratory is regulated under CLIA as qualified to perform high-complexity testing. This test is used for patient testing purposes. It should not be regarded as investigational or for research. Test performed at [facility], [address], [place], [place] ??[address] ? [phone] Shwetha Donahue MD, PhD - [employer] Blood Venous blood specimen / Unknown Venipuncture / Unknown 07/19/2024 8:12 AM EST 07/19/2024 8:28 AM EST Anup Montenegro MD LAB BLOOD ORDERABLES Suyapa l Result [facility] [address] [place] [address] * Iron (07/19/2024 8:12 AM EST) Pathologist [facility] Iron 146 40 - 150 mcg/dL LAB CHEMISTRY METHOD 07/19/2024 9:10 AM EST [facility] Blood Venous blood specimen / Unknown Venipuncture / Unknown 07/19/2024 8:12 AM EST 07/19/2024 8:28 AM EST Anup Montenegro MD LAB BLOOD ORDERABLES Suyapa l Result [facility] [address] [place] [address], [place] [phone] * Hemoglobin A1c (07/19/2024 8:12 AM EST) [facility] Hemoglobin A1C 5.5 <6.5 % LAB CHEMISTRY METHOD 07/19/2024 12:00 PM EST [facility] Mean Bld Glu Estim. 111 mg/dL LAB CHEMISTRY METHOD 07/19/2024 12:00 PM EST [facility] Blood Venous blood specimen / Unknown Venipuncture / Unknown 07/19/2024 8:12 AM EST 07/19/2024 8:28 AM EST Anup Montenegro MD LAB BLOOD ORDERABLES Suyapa l Result Performing Organization Address [facility]/ZIP Co de Phone Number [facility] [address] [place] [address], * (ABNORMAL) Folate (07/19/2024 8:12 AM EST) [facility] Folate >20.0(H) 2.8 - 17.0 ng/ml LAB CHEMISTRY METHOD 07/19/2024 9:32 AM EST [facility] Blood Venous blood specimen / Unknown Venipuncture / Unknown 07/19/2024 8:12 AM EST 07/19/2024 8:28 AM EST Anup Montenegro MD LAB BLOOD ORDERABLES Suyapa l Result Performing Organization Address [facility] Co de Phone Number [facility] [address] [place] [address], * Ferritin (07/19/2024 8:12 AM EST) [facility] Ferritin 108 8 - 252 ng/mL LAB CHEMISTRY METHOD 07/19/2024 9:32 AM EST [facility] Blood Venous blood specimen / Unknown Venipuncture / Unknown 07/19/2024 8:12 AM EST 07/19/2024 8:28 AM EST Anup Montenegro MD LAB BLOOD ORDERABLES Suyapa l Result Performing Organization Address City/[facility]/ZIP Co de Phone Number [facility] [address] [place] [address], [place] [phone] * Vitamin B12 (07/19/2024 8:12 AM EST) [facility] Vitamin B-12 723 250 - 900 pcg/mL LAB CHEMISTRY METHOD 07/19/2024 9:32 AM EST [facility] Blood Venous blood specimen / Unknown Venipuncture / Unknown 07/19/2024 8:12 AM EST 07/19/2024 8:28 AM EST Anup Montenegro MD LAB BLOOD ORDERABLES Suyapa jin Result [facility] [address] [place] [address], [place] [phone] * Comprehensive metabolic panel (07/19/2024 8:12 AM EST) Sodium 138 133 - 145 mmol/L LAB CHEMISTRY METHOD 07/19/2024 9:[address] [facility] Potassium 3.9 3.5 - 5.5 mmol/L LAB CHEMISTRY METHOD 07/19/2024 9:[address] [facility] Chloride 105 96 - 110 mmol/L LAB CHEMISTRY METHOD 07/19/2024 9:[address] [facility] CO2 27 21 - 32 mmol/L LAB CHEMISTRY METHOD 07/19/2024 9:[address] [facility] Anion Gap 6 3 - 11 LAB CHEMISTRY METHOD 07/19/2024 9:[address] [facility] Glucose 93 70 - 100 mg/dL LAB CHEMISTRY METHOD 07/19/2024 9:[address] [facility] BUN 7 5 - 25 mg/dL LAB CHEMISTRY METHOD 07/19/2024 9:[address] [facility] Creatinine 0.92 0.50 - 1.10 mg/dL LAB CHEMISTRY METHOD 07/19/2024 9:[address] [facility] eGFR 76 >=60 mL/min/1. 73m2 LAB CHEMISTRY METHOD 07/19/2024 9:[address] [facility] Comment:Calculation based on the??Chronic Kidney Disease Epidemiology Collaboration (CKD-EPI) equation refit??without adjustment for race. BUN/Creatinine Ratio 7.6 LAB CHEMISTRY METHOD 07/19/2024 9:[address] [facility] Calcium 9.4 8.5 - 10.5 mg/dL LAB CHEMISTRY METHOD 07/19/2024 9:[address] [facility] AST (SGOT) 26 10 - 42 unit/L LAB CHEMISTRY METHOD 07/19/2024 9:[address] [facility] ALT (SGPT) 47 10 - 60 unit/L LAB CHEMISTRY METHOD 07/19/2024 9:[address] [facility] Alkaline Phosphatase 80 42 - 121 unit/L LAB CHEMISTRY METHOD 07/19/2024 9:[address] [facility] Total Protein 7.5 6.0 - 8.0 g/dL LAB CHEMISTRY METHOD 07/19/2024 9:[address] [facility] Albumin 4.2 3.2 - 5.0 g/dL LAB CHEMISTRY METHOD 07/19/2024 9:[address] [facility] Total Bilirubin 0.7 0.0 - 1.4 mg/dL LAB CHEMISTRY METHOD 07/19/2024 9:[address] [facility] Blood Venous blood specimen / Unknown Venipuncture / Unknown 07/19/2024 8:12 AM EST 07/19/2024 8:28 AM EST us Anup Montenegro MD LAB BLOOD ORDERABLES Suyapa l Result [facility] [address] [place] [address], * VANNA SCREENING DIGITAL (04/11/2024 1:36 PM EDT) Anatomical Region Laterality Modality Mammography 04/11/2024 9:56 AM EDT Narrative 04/11/2024 1:36 PM EDT [facility] Diagnostic Imaging Department [address] [place] [address] Patient: ??RENNY SAMPSON ?/Age/Sex: 1970 - 53 - F Unit#: ??[id number] ? Location/Status: ??SPDIMAM/REG CLI ? Mnemonic/Ordering Site: ??DIGSC/SPMAM Ordering Physician: ??LINA COTO MD Vanna Screening Digital - 04/11/24 - 1025 Report Status:Signed EXAM: [facility] Screening Digital EXAM DATE AND TIME: 04/11/2024 10:26 AM HISTORY: ??Screening. Paternal cousin had breast carcinoma. COMPARISON: ??09/22/22, 05/04/21, 05/02/20, 09/08/18, 07/22/17 TECHNIQUE: Bilateral digital breast tomosynthesis was performed in the CC and MLO projections. Computer aided detection with [employer] 3D 3.1 was employed. TISSUE DENSITY: b. [...] Mammogram performed at [facility] [address] [place] [address] Dictating Physician: ??RAYNA ALANIS MD Electronically Signed by: ??RAYNA ALANIS MD Dic Date/Time: ??04/11/24 1331 Sign date/Time: ??04/11/24 1336 Procedure Note Rayna Alanis MD - 04/14/2024 [facility] Diagnostic Imaging Department [address] [place] [address] Patient: SHADIJustinoRENNY VOGEL D.O.B./Age/Sex: 1970 - 53 - F Unit#: [id number] Location/Status: [facility] Mnemonic/Ordering Site: [facility] Ordering Physician: LINA COTO MD [facility] Screening Digital - 04/11/24 - 1025 Report Status:Signed EXAM: [facility] Screening Digital EXAM DATE AND TIME: 04/11/2024 10:26 AM HISTORY: Screening. Paternal cousin had breast carcinoma. COMPARISON: 09/22/22, 05/04/21, 05/02/20, 09/08/18, 07/22/17 TECHNIQUE: Bilateral digital breast tomosynthesis was performed in the CCand MLO projections. Computer aided detection with [employer] AI 3D 3.1was employed. TISSUE DENSITY: b. There [...] Mammogram performed at [place] [address] Dictating Physician: RAYNA ALANIS MD Electronically Signed by: RAYNA ALANIS MD Dic Date/Time: 04/11/24 1331 Sign date/Time: 04/11/24 1336 Lina Coto MD IMG BI PROCEDURES Final Result from Last 3 Months or Most Recently Relevant to Health Maintenance Insurance [facility] Care Teams Germ Drier Relationship Specialty Start Date End Date Harry Coto MD [address] [place] [id number] PCP - General 05/03/22
--- OUTSIDE RECORDS SUMMARY | 2024-07-25 13:59 | XMS_ITS | Patient Health Record ---
Author Organization [facility] Address [address] [place] [address] Care Team Providers Care Special Investigation Unit Investigator Name Role Phone YUNG DAMICO Unavailable [phone] CHRISTINE DAVENPORT Unavailable [phone] ALLERGIES No Known Allergies RESULTS Component Value Reference Range Notes Vanna Screening Digital Reviewed date:04/12/2024 11:27:03 AM Interpretation: Performing Lab: Notes/Report: Original Ordering Provider: CHRISTINE DAVENPORT MD [facility] REASON FOR REFERRAL No Information MEDICATIONS Medication SIG (Take, Route, Frequency, Duration) Notes Start Date End Date Status Nystatin 065845 UNIT/ML 4 mL Mouth/Throa t Four times a day for 14 day(s) 09/15/2023 Active Escitalopram Oxalate 10 MG 1 tablet Oral ly Once a day for 90 days Active LORazepam 0.5 MG 1 tablet at bedtime as needed Orally Once a day for 90 days 01/31/2024 Active Vitamin B Complex - as directed Orally Active Wegovy 1 MG/0.5ML 1mg Subcutaneous weekly for 30 days Not-Taking hydroCHLOROthiazide 12.5 MG 1 tablet in the morning Orally Once a day for 90 days 01/31/2024 Active Torrey Thyroid 90 MG 1 tablet on an empt y stomach Orally Once a day for 90 days 11/03/2022 Active SOCIAL HISTORY Tobacco Use: Social History Observation Description Date Details (start date - stop date) Never Smoker NA - NA Sex Assigned At : Social History Observation Description Sex Assigned At Unknown Tobacco Use/Smoking Question Answer Notes Are you a nonsmoker PROBLEMS Problem Type ICD Code Onset Dates Problem Status W/U Status Risk SNOMED Code Notes Problem Vitamin D deficiency, unspecified (E55.9) Active confirmed Vitamin D deficiency (53373798) Problem Encounter for general adult medical examination without abnormal findings (Z00.00) Active confirmed Adult heal th examination (056706706) Problem Encounter for screening for diabetes mellitus (Z13.1) Active confirmed 371155628 Problem Pure hypercholesterole chasity, unspecified (E78.00) Active confirmed 966246774 Problem Hyperlipidemia, unspecified hyperlipidemia type (E78.5) Active confirmed Hyperlipidaemia (65894374) Problem Acquired hypothyroidism (E03.9) Active confirmed 100792914 Problem Obesity (BMI 30.0-34.9) (E66.9) Active confirmed [id number] Problem Pre-diabetes (R73.03) Active confirmed Prediabetes (636652664) Problem Vitamin B 12 deficiency (E53.8) Active confirmed Vitamin B12 deficiency (non anemic) (51208121) Problem BMI 33.0-33.9,adult (Z68.33) Active confirmed 545400370 Problem BMI 32.0-32.9,adult (Z68.32) Active confirmed 319623412 Problem Anemia due to vitamin B12 deficiency, unspecified B12 deficiency type (D51.9) Active confirmed 70436180 Problem BMI 34.0-34.9,adult (Z68.34) Active confirmed 914076039 VITAL SIGNS Heart Rate 85 /min 01/31/2024 Oximetry 99 % 01/31/2024 Blood pressure diastolic 70 mm Hg 01/31/2024 Height 65 in 01/31/2024 Blood pressure systolic 116 mm Hg 01/31/2024 Weight 203 lbs 01/31/2024 BMI 33.78 kg/m2 01/31/2024 Encounters Encounter Location Date Provider Diagnosis [facility] [address] [place] [address] 08/02/2023 CHRISTINE DAVENPORT [facility] [address] [facility] [address] [address] 09/02/[address] [facility] [address] [facility] [address] [address] 10/18/2023 YUNG DAMICO Acquired hypothyroid ism E03.9 ; Obesity (BMI 30.0-34.9) E66.9 ; Pure hypercholesterolemia, unspecified E78.00 ; BMI 32.0-32.9,adult Z68.32 and Vitamin B [address] [facility] [address] [facility] [address] [address] 12/07/2023 [facility] [address] [place] [address] 06/09/2024 [facility] [address] [facility] [address] [place] [address] 08/02/2023 CHRISTINE DAVENPORT Palpitations R00.2 a nd Acquired hypothyroidism E03.9 [facility] [address] [facility] [address] [address] 09/01/2023 [facility] Acquired hypothyroid ism E03.9 ; Obesity (BMI 30.0-34.9) E66.9 ; Pure hypercholesterolemia, unspecified E78.00 ; Vitamin D deficiency, unspecified E55.9 ; BMI 32.0-32.9,adult Z68.32 and Vitamin B 12 deficiency E53.8 [facility] [address] [facility] [address] 01/31/2024 [facility] BMI 33.0-33.9,adult Z68.33 ; Obesity (BMI 30.0-34.9) E66.9 ; Dietary counseling and surveillance Z71.3 ; Acquired hypothyroidism E03.9 ; Pure hypercholesterolemia, unspecified E78.00 and Vitamin B 12 deficiency E53.8 [facility] [address] [facility] [address] [address] 07/20/[address] [facility] [address] [facility] [address] [facility] [address] [address] 08/26/2023 [facility] [address] [facility] [address] [address] 09/01/2023 [facility] [address] [place] [address] 09/08/2023 [facility] [address] [facility] [address] [address] 09/15/2023 [facility] [address] [facility] [address] [address] 06/08/2024 [facility] [address] [facility] [address] [address] 09/15/2023 YUNG DAMICO ASSESSMENTS Encounter Date Diagnosis Assessment Notes Treatment Notes Treatment Clinical Notes Section Notes 08/02/2023 Palpitations (ICD-10 - R00.2) .Palpitations c ould always be from atrial fibrillation another without arrhythmias heart disease needs to be ruled out as well discussed differential diagnosis but for now it seems like stress and anxiety with treatment lorazepam as needed but will need to monitor this problem 08/02/2023 Acquired hypothyroidism (ICD-10 - E03.9) .Palpitations c ould always be from atrial fibrillation another without arrhythmias heart disease needs to be ruled out as well discussed differential diagnosis but for now it seems like stress and anxiety with treatment lorazepam as needed but will need to monitor this problem 09/01/2023 Acquired hypothyroidism (ICD-10 - E03.9) #Weight Management 09/02/2023 Continue Ativan as needed Discussed other SSRI options Will transition to Wegovy 1 mg PA will be required likely Discussed importance of protein consumption for muscle maintenance, strength and resistance training as well as probiotics, B12 complex biotin , iron and other nutrients, To also help avoid telogen effluvium while on weight loss medications f/u scheduled for 6 weeks Total time spent today was 30 minutes of which greater than 50% was spent on coordinating and counseling Patient has been found to be obese with a BMI of (32). Patient has class (1) obesity. We are a board certified obesity and weight management practice Patient has trialed behavioral modification, dietary restrictions and exercise for a minimum of 6 months The most recent [place] [employer] of clinical endocrinologists and [place] [employer] endocrin[employer] guidelines recommend patients who have overweight BMI or obesity BMI, who also have metabolic syndrome, prediabetes, HLD, and other comorbidities or at risk of developing type 2 diabetes should aim for a weight loss goal of at least 10% of the baseline body weight Patient counseled regarding effects of GLP/GIP-1 agonists, and other FDA approved wgt loss meds with regards to a multifactorial approach of weight loss as mentioned above and not solely appetite suppression. We have discussed the mechanism of GLP-1's/GIP, dual incretins, appetitite suppressants I think this would be fantastic option for her given her metabolic workup and body composition We have discussed the risks and benefits and side effects including/and not limited to Sarcopenia, intestinal obstruction, constipation, nausea, lethargy, headache Discussed importance of protein consumption for muscle maintenance as well as strength and resistance training ,probiotics, B12 complex biotin , iron and other nutrients, To help avoid telogen effluvium We have discussed the lifelong requirement of nutritional supplementation And adherence to an exercise regimen as well as importance of follow-up The patient understands and agrees There is no history of medullary thyroid cancer or multiple endocrine neoplasia There is also no history of cardiovascular disease, hypertension, palpitations, or arrhythmias In the setting of potential stimulant/amphetami ne use such as phentermine We have also discussed risks and benefits, and the use of compounded medications to help offset the national shortages as well as financial implications vs trade name drugs Patient was reassured and welcomed to the practice. We discussed that we stress a hollistic medical approach with emphasis on lifestyle modification. Patient was informed that a healthy lifestyle with exercise and good eating habits can help reduce his risk of medical complications. He is explained that obesity increases his risk of diabetes, cardiovascular disease, or organ damage. We spent a lot of time discussing the relationship between food, exercise, sleep, mental health and obesity. Patient was counseled on the importance EATING local, organic food when possible. Patient was educated on clean 15 and dirty dozen. I provided information about reading books called The Food Rules by Prateek Rodriguez and Eat Fat Get Lean by Dr Freddy Leroy. Self education is important in the journey for weight management. Patient was offered diagnostic testing. We want to measure visceral adiposity, advanced body composition, adverse lipids, fatty acid balance, risk for heart disease and atherosclerosis, markers of inflammation and genetic susceptibility. Patient was counseled on weight management and was advised to lose weight using A. Meal Replacement Products We discussed the lifelong requirement of nutritional supplementation and adherence to an exercise regimen as well as importance of dietary follow-up Patient was educated on the replacement products called optifast. This is a good way of taking fixed amount of calories. It has been shown in studies to be ineffective weight management tool. We also recommend maintaining adequate protein intake and muscle composition, 1.5mg/kg This however has to be coupled with lifestyle intervention as well as laboratory data and EKG monitoring. It is impossible to know how a person will tolerate complete meal replacement. The side effects of meal replacement and weight loss could include syncopal attacks, dizziness, gallstones, potential cholecystectomy, possible heart attack and even . The benefits of meal replacement would be potential weight loss but no guarantees can be made. Meal replacement products are not covered by insurance. Once the patient has bought these products we cannot return them B. Lifestyle management which includes several strategies as below 1. Eat a low carbohydrate good fat good protein diet. Eliminate refined carbohydrates from the diet. Continue blood sugar and sugared beverages. Eat local organic when possible. Cook your own meals. Read food labels. None about healthy snacks. Portion control and food with low glycemic index 2. Exercise regularly. Try to get at least 6000 steps a day. Use a predominant to track activity level. Consider using apps like Appfolio, [employer], lose it, stick as needed for self-monitoring and weight management. Consider group exercises. Consider hiring a personal lines account manager. Regular exercise is felton to sustainable health and prevents as a buffer against weight regain 3. Sleep is most important for healing. Tried to sleep at least 8 hours a night. A good quality sleep needs a sleep ritual with ideal room temperature of around 68. It might help to take a shower and have no electronics in the room and sleep in a very dark room without artificial light. Start her sleep routine and get up early in the morning and go to bed on time 4. Make a social connection. Surround yourself with positive people with positive energy. Connect with friends and family. 5. Get into the habit of meditating and mindfulness while doing everything. 6. Go outside and connect with nature. C. Prescription medications Patient was educated on the use of prescription medications for medical weight loss. This is a growing list and includes phentermine, Topamax,Qsymia, contrave, belviq and saxenda. All prescription medications could have side effects including but not limited to kidney stones, seizure disorder cardiac arrhythmias heart attack pancreatitis etc. etc.. Patient was encouraged to read the prescription insert and have coaching with their pharmacist and make an informed decision about taking medication and know that these medications are being prescribed with good intentions and we do not know how a patient would react to her medication. Sudden medications are FDA approved for weight loss and there is also off label use depending on patient's inability to afford medications in an attempt to lose weight D. Behavioral counseling was done to establish a relationship between food and an mood. Patient was provided information about local counseling and psychiatry and Dr Gloria at [email or web address]. We would like to cover regular topics and build on low glycemic eating exercise mindful eating, using yoga and meditation along with deep breathing and connecting with friends and family. E. MASS PAT reviewed, Patient's current medications were reviewed and opinion was given on medication that can cause weight gain and can be substituted F. Patient was assessed for risk with obesity including and not limiting to atherosclerosis heart disease stroke kidney disease, restrictive lung disease, irritable bowel syndrome and overall mortality. Risk of developing prediabetes diabetes and metabolic syndrome was discussed G. Therapeutic plan: We have decided to make therapeutic plan which would include choosing wisely on calories restricting portion getting active, tracking weight, getting good quality sleep and working on time management H. Patient will follow up in (4) weeks for weight management Safety and Effectiveness of Longer-Term Phentermine Use: Clinical Outcomes from an Electronic Health Record CohortMethods: Obesity ([place]es). 2019 Sep;27(4):591-602. doi: [email or web address].[email or web address] Using electronic health record data [id number] adults were identified with a first phentermine fill in 2009 to 2014, creating exposure categories according to a patient's duration of use (referent: = 3 months). Multivariable linear models were used to compare percent weight loss across categories at 6, 12, and 24 months, and García proportional hazards models were used to compare risk of composite CVD or , up to 3 years after starting phentermine. Results: The cohort was 84% female and 45% white, with a mean (SD) baseline age 43.5 (10.7) years and BMI of 37.8 (7.2) kg/m2 .In multivariable models, longer-term users of phentermine experienced more weight loss; patients using continuously for > 12 months lost 7.4% more than the referent group at 24 months (P < 0.001) .The composite CVD or outcome was rare (0.3%, 41 events), with no significant difference in hazard ratios between groups. Conclusions: Greater weight loss without increased risk of incident CVD or was observed in patients using phentermine monotherapy for longer than 3 months. Despite the limitations of the observational design, this study supports the effectiveness and safety of longer-term phentermine use for low-risk individuals. (c) 2019 The Obesity Society. Of note, some information is being carried forward from prior records for informational purposes only and is being cited so that efficiency, safety and quality of the patient's care is not compromised This note was prepared using voice recognition software and direct typing Please excuse inadvertent electric trucker or typing errors, or uncorrected word substitutions Although every attempt has been made by the provider to proofread this document, occasional misspellings and typographical errors may still be present Due to the previous pandemic, and the use of personal protective equipment (PPE) This may decrease voice recognition accuracy Inadvertent electric trucker errors may occur 09/01/2023 Obesity (BMI 30.0-34.9) (ICD-10 - E66.9) #Weight Management 09/02/2023 Continue Ativan as needed Discussed other SSRI options Will transition to Wegovy 1 mg PA will be required likely Discussed importance of protein consumption for muscle maintenance, strength and resistance training as well as probiotics, B12 complex biotin , iron and other nutrients, To also help avoid telogen effluvium while on weight loss medications f/u scheduled for 6 weeks Total time spent today was 30 minutes of which greater than 50% was spent on coordinating and counseling Patient has been found to be obese with a BMI of (32). Patient has class (1) obesity. We are a board certified obesity and weight management practice Patient has trialed behavioral modification, dietary restrictions and exercise for a minimum of 6 months The most recent [place] [employer] of clinical endocrinologists and [place] [employer] of endocrinology guidelines recommend patients who have overweight BMI or obesity BMI, who also have metabolic syndrome, prediabetes, HLD, and other comorbidities or at risk of developing type 2 diabetes should aim for a weight loss goal of at least 10% of the baseline body weight Patient counseled regarding effects of GLP/GIP-1 agonists, and other FDA approved wgt loss meds with regards to a multifactorial approach of weight loss as mentioned above and not solely appetite suppression. We have discussed the mechanism of GLP-1's/GIP, dual incretins, appetitite suppressants I think this would be fantastic option for her given her metabolic workup and body composition We have discussed the risks and benefits and side effects including/and not limited to Sarcopenia, intestinal obstruction, constipation, nausea, lethargy, headache Discussed importance of protein consumption for muscle maintenance as well as strength and resistance training ,probiotics, B12 complex biotin , iron and other nutrients, To help avoid telogen effluvium We have discussed the lifelong requirement of nutritional supplementation And adherence to an exercise regimen as well as importance of follow-up The patient understands and agrees There is no history of medullary thyroid cancer or multiple endocrine neoplasia There is also no history of cardiovascular disease, hypertension, palpitations, or arrhythmias In the setting of potential stimulant/amphetami ne use such as phentermine We have also discussed risks and benefits, and the use of compounded medications to help offset the national shortages as well as financial implications vs trade name drugs Patient was reassured and welcomed to the practice. We discussed that we stress a hollistic medical approach with emphasis on lifestyle modification. Patient was informed that a healthy lifestyle with exercise and good eating habits can help reduce his risk of medical complications. He is explained that obesity increases his risk of diabetes, cardiovascular disease, or organ damage. We spent a lot of time discussing the relationship between food, exercise, sleep, mental health and obesity. Patient was counseled on the importance EATING local, organic food when possible. Patient was educated on clean 15 and dirty dozen. I provided information about reading books called The Food Rules by Prateek Rodriguez and Eat Fat Get Lean by Dr Freddy Leroy. Self education is important in the journey for weight management. Patient was offered diagnostic testing. We want to measure visceral adiposity, advanced body composition, adverse lipids, fatty acid balance, risk for heart disease and atherosclerosis, markers of inflammation and genetic susceptibility. Patient was counseled on weight management and was advised to lose weight using A. Meal Replacement Products We discussed the lifelong requirement of nutritional supplementation and adherence to an exercise regimen as well as importance of dietary follow-up Patient was educated on the replacement products called optifast. This is a good way of taking fixed amount of calories. It has been shown in studies to be ineffective weight management tool. We also recommend maintaining adequate protein intake and muscle composition, 1.5mg/kg This however has to be coupled with lifestyle intervention as well as laboratory data and EKG monitoring. It is impossible to know how a person will tolerate complete meal replacement. The side effects of meal replacement and weight loss could include syncopal attacks, dizziness, gallstones, potential cholecystectomy, possible heart attack and even . The benefits of meal replacement would be potential weight loss but no guarantees can be made. Meal replacement products are not covered by insurance. Once the patient has bought these products we cannot return them B. Lifestyle management which includes several strategies as below 1. Eat a low carbohydrate good fat good protein diet. Eliminate refined carbohydrates from the diet. Continue blood sugar and sugared beverages. Eat local organic when possible. Cook your own meals. Read food labels. None about healthy snacks. Portion control and food with low glycemic index 2. Exercise regularly. Try to get at least 6000 steps a day. Use a predominant to track activity level. Consider using apps like Appfolio, [employer] System[employer], lose it, stick as needed for self-monitoring and weight management. Consider group exercises. Consider hiring a personal lines account manager. Regular exercise is felton to sustainable health and prevents as a buffer against weight regain 3. Sleep is most important for healing. Tried to sleep at least 8 hours a night. A good quality sleep needs a sleep ritual with ideal room temperature of around 68. It might help to take a shower and have no electronics in the room and sleep in a very dark room without artificial light. Start her sleep routine and get up early in the morning and go to bed on time 4. Make a social connection. Surround yourself with positive people with positive energy. Connect with friends and family. 5. Get into the habit of meditating and mindfulness while doing everything. 6. Go outside and connect with nature. C. Prescription medications Patient was educated on the use of prescription medications for medical weight loss. This is a growing list and includes phentermine, Topamax,Qsymia, contrave, belviq and saxenda. All prescription medications could have side effects including but not limited to kidney stones, seizure disorder cardiac arrhythmias heart attack pancreatitis etc. etc.. Patient was encouraged to read the prescription insert and have coaching with their pharmacist and make an informed decision about taking medication and know that these medications are being prescribed with good intentions and we do not know how a patient would react to her medication. Sudden medications are FDA approved for weight loss and there is also off label use depending on patient's inability to afford medications in an attempt to lose weight D. Behavioral counseling was done to establish a relationship between food and an mood. Patient was provided information about local counseling and psychiatry and Dr Gloria at [employer]. We would like to cover regular topics and build on low glycemic eating exercise mindful eating, using yoga and meditation along with deep breathing and connecting with friends and family. E. MASS PAT reviewed, Patient's current medications were reviewed and opinion was given on medication that can cause weight gain and can be substituted F. Patient was assessed for risk with obesity including and not limiting to atherosclerosis heart disease stroke kidney disease, restrictive lung disease, irritable bowel syndrome and overall mortality. Risk of developing prediabetes diabetes and metabolic syndrome was discussed G. Therapeutic plan: We have decided to make therapeutic plan which would include choosing wisely on calories restricting portion getting active, tracking weight, getting good quality sleep and working on time management H. Patient will follow up in (4) weeks for weight management Safety and Effectiveness of Longer-Term Phentermine Use: Clinical Outcomes from an Electronic Health Record CohortMethods: Obesity ([place]). 2019 Sep;27(4):591-602. doi: [email or web address] Using electronic health record data [id number] adults were identified with a first phentermine fill in 2009 to 2014, creating exposure categories according to a patient's duration of use (referent: = 3 months). Multivariable linear models were used to compare percent weight loss across categories at 6, 12, and 24 months, and García proportional hazards models were used to compare risk of composite CVD or , up to 3 years after starting phentermine. Results: The cohort was 84% female and 45% white, with a mean (SD) baseline age 43.5 (10.7) years and BMI of 37.8 (7.2) kg/m2 .In multivariable models, longer-term users of phentermine experienced more weight loss; patients using continuously for > 12 months lost 7.4% more than the referent group at 24 months (P < 0.001) .The composite CVD or outcome was rare (0.3%, 41 events), with no significant difference in hazard ratios between groups. Conclusions: Greater weight loss without increased risk of incident CVD or was observed in patients using phentermine monotherapy for longer than 3 months. Despite the limitations of the observational design, this study supports the effectiveness and safety of longer-term phentermine use for low-risk individuals. (c) 2019 The Obesity Society. Of note, some information is being carried forward from prior records for informational purposes only and is being cited so that efficiency, safety and quality of the patient's care is not compromised This note was prepared using voice recognition software and direct typing Please excuse inadvertent electric trucker or typing errors, or uncorrected word substitutions Although every attempt has been made by the provider to proofread this document, occasional misspellings and typographical errors may still be present Due to the previous pandemic, and the use of personal protective equipment (PPE) This may decrease voice recognition accuracy Inadvertent electric trucker errors may occur 10/18/2023 Acquired hypothyroidism (ICD-10 - E03.9) #Weight Management 10/18/2023 Continue Ativan as needed Discussed other SSRI options Will transition to Wegovy 1 mg PA will be required likely Discussed importance of protein consumption for muscle maintenance, strength and resistance training as well as probiotics, B12 complex biotin , iron and other nutrients, To also help avoid telogen effluvium while on weight loss medications f/u scheduled for 6 weeks Total time spent today was 30 minutes of which greater than 50% was spent on coordinating and counseling Patient has been found to be obese with a BMI of (32). Patient has class (1) obesity. We are a board certified obesity and weight management practice Patient has trialed behavioral modification, dietary restrictions and exercise for a minimum of 6 months The most recent [place] [employer] endocrinologists and [place] [employer] guidelines recommend patients who have overweight BMI or obesity BMI, who also have metabolic syndrome, prediabetes, HLD, and other comorbidities or at risk of developing type 2 diabetes should aim for a weight loss goal of at least 10% of the baseline body weight Patient counseled regarding effects of GLP/GIP-1 agonists, and other FDA approved wgt loss meds with regards to a multifactorial approach of weight loss as mentioned above and not solely appetite suppression. We have discussed the mechanism of GLP-1's/GIP, dual incretins, appetitite suppressants I think this would be fantastic option for her given her metabolic workup and body composition We have discussed the risks and benefits and side effects including/and not limited to Sarcopenia, intestinal obstruction, constipation, nausea, lethargy, headache Discussed importance of protein consumption for muscle maintenance as well as strength and resistance training ,probiotics, B12 complex biotin , iron and other nutrients, To help avoid telogen effluvium We have discussed the lifelong requirement of nutritional supplementation And adherence to an exercise regimen as well as importance of follow-up The patient understands and agrees There is no history of medullary thyroid cancer or multiple endocrine neoplasia There is also no history of cardiovascular disease, hypertension, palpitations, or arrhythmias In the setting of potential stimulant/amphetami ne use such as phentermine We have also discussed risks and benefits, and the use of compounded medications to help offset the national shortages as well as financial implications vs trade name drugs Patient was reassured and welcomed to the practice. We discussed that we stress a hollistic medical approach with emphasis on lifestyle modification. Patient was informed that a healthy lifestyle with exercise and good eating habits can help reduce his risk of medical complications. He is explained that obesity increases his risk of diabetes, cardiovascular disease, or organ damage. We spent a lot of time discussing the relationship between food, exercise, sleep, mental health and obesity. Patient was counseled on the importance EATING local, organic food when possible. Patient was educated on clean 15 and dirty dozen. I provided information about reading books called The Food Rules by Prateek Rodriguez and Eat Fat Get Lean by Dr Freddy Leroy. Self education is important in the journey for weight management. Patient was offered diagnostic testing. We want to measure visceral adiposity, advanced body composition, adverse lipids, fatty acid balance, risk for heart disease and atherosclerosis, markers of inflammation and genetic susceptibility. Patient was counseled on weight management and was advised to lose weight using A. Meal Replacement Products We discussed the lifelong requirement of nutritional supplementation and adherence to an exercise regimen as well as importance of dietary follow-up Patient was educated on the replacement products called optifast. This is a good way of taking fixed amount of calories. It has been shown in studies to be ineffective weight management tool. We also recommend maintaining adequate protein intake and muscle composition, 1.5mg/kg This however has to be coupled with lifestyle intervention as well as laboratory data and EKG monitoring. It is impossible to know how a person will tolerate complete meal replacement. The side effects of meal replacement and weight loss could include syncopal attacks, dizziness, gallstones, potential cholecystectomy, possible heart attack and even . The benefits of meal replacement would be potential weight loss but no guarantees can be made. Meal replacement products are not covered by insurance. Once the patient has bought these products we cannot return them B. Lifestyle management which includes several strategies as below 1. Eat a low carbohydrate good fat good protein diet. Eliminate refined carbohydrates from the diet. Continue blood sugar and sugared beverages. Eat local organic when possible. Cook your own meals. Read food labels. None about healthy snacks. Portion control and food with low glycemic index 2. Exercise regularly. Try to get at least 6000 steps a day. Use a predominant to track activity level. Consider using apps like Appfolio, myfitnesspal, lose it, stick as needed for self-monitoring and weight management. Consider group exercises. Consider hiring a personal lines account manager. Regular exercise is felton to sustainable health and prevents as a buffer against weight regain 3. Sleep is most important for healing. Tried to sleep at least 8 hours a night. A good quality sleep needs a sleep ritual with ideal room temperature of around 68. It might help to take a shower and have no electronics in the room and sleep in a very dark room without artificial light. Start her sleep routine and get up early in the morning and go to bed on time 4. Make a social connection. Surround yourself with positive people with positive energy. Connect with friends and family. 5. Get into the habit of meditating and mindfulness while doing everything. 6. Go outside and connect with nature. C. Prescription medications Patient was educated on the use of prescription medications for medical weight loss. This is a growing list and includes phentermine, Topamax,Qsymia, contrave, belviq and saxenda. All prescription medications could have side effects including but not limited to kidney stones, seizure disorder cardiac arrhythmias heart attack pancreatitis etc. etc.. Patient was encouraged to read the prescription insert and have coaching with their pharmacist and make an informed decision about taking medication and know that these medications are being prescribed with good intentions and we do not know how a patient would react to her medication. Sudden medications are FDA approved for weight loss and there is also off label use depending on patient's inability to afford medications in an attempt to lose weight D. Behavioral counseling was done to establish a relationship between food and an mood. Patient was provided information about local counseling and psychiatry and Dr Gloria at [facility]. We would like to cover regular topics and build on low glycemic eating exercise mindful eating, using yoga and meditation along with deep breathing and connecting with friends and family. E. MASS PAT reviewed, Patient's current medications were reviewed and opinion was given on medication that can cause weight gain and can be substituted F. Patient was assessed for risk with obesity including and not limiting to atherosclerosis heart disease stroke kidney disease, restrictive lung disease, irritable bowel syndrome and overall mortality. Risk of developing prediabetes diabetes and metabolic syndrome was discussed G. Therapeutic plan: We have decided to make therapeutic plan which would include choosing wisely on calories restricting portion getting active, tracking weight, getting good quality sleep and working on time management H. Patient will follow up in (4) weeks for weight management Safety and Effectiveness of Longer-Term Phentermine Use: Clinical Outcomes from an Electronic Health Record CohortMethods: Obesity ([facility]es). 2019 Sep;27(4):591-602. doi: [email or web address] Using electronic health record data [id number] adults were identified with a first phentermine fill in 2009 to 2014, creating exposure categories according to a patient's duration of use (referent: = 3 months). Multivariable linear models were used to compare percent weight loss across categories at 6, 12, and 24 months, and García proportional hazards models were used to compare risk of composite CVD or , up to 3 years after starting phentermine. Results: The cohort was 84% female and 45% white, with a mean (SD) baseline age 43.5 (10.7) years and BMI of 37.8 (7.2) kg/m2 .In multivariable models, longer-term users of phentermine experienced more weight loss; patients using continuously for > 12 months lost 7.4% more than the referent group at 24 months (P < 0.001) .The composite CVD or outcome was rare (0.3%, 41 events), with no significant difference in hazard ratios between groups. Conclusions: Greater weight loss without increased risk of incident CVD or was observed in patients using phentermine monotherapy for longer than 3 months. Despite the limitations of the observational design, this study supports the effectiveness and safety of longer-term phentermine use for low-risk individuals. (c) 2019 The Obesity Society. Of note, some information is being carried forward from prior records for informational purposes only and is being cited so that efficiency, safety and quality of the patient's care is not compromised This note was prepared using voice recognition software and direct typing Please excuse inadvertent electric trucker or typing errors, or uncorrected word substitutions Although every attempt has been made by the provider to proofread this document, occasional misspellings and typographical errors may still be present Due to the previous pandemic, and the use of personal protective equipment (PPE) This may decrease voice recognition accuracy Inadvertent electric trucker errors may occur 01/31/2024 BMI 33.0-33.9,adult (ICD-10 - Z68.33) #Weight Management 01/31/2024 Continue Ativan as needed _update thyroid function labs and other comprehensive labs CPE in the upcoming months Of note, some information is being carried forward from prior records for informational purposes only and is being cited so that efficiency, safety and quality of the patient's care is not compromised This note was prepared using voice recognition software and direct typing Please excuse inadvertent electric trucker or typing errors, or uncorrected word substitutions Although every attempt has been made by the provider to proofread this document, occasional misspellings and typographical errors may still be present Due to the previous pandemic, and the use of personal protective equipment (PPE) This may decrease voice recognition accuracy Inadvertent electric trucker errors may occur 01/31/2024 Obesity (BMI 30.0-34.9) (ICD-10 - E66.9) #Weight Management 01/31/2024 Continue Ativan as needed _update thyroid function labs and other comprehensive labs CPE in the upcoming months Of note, some information is being carried forward from prior records for informational purposes only and is being cited so that efficiency, safety and quality of the patient's care is not compromised This note was prepared using voice recognition software and direct typing Please excuse inadvertent electric trucker or typing errors, or uncorrected word substitutions Although every attempt has been made by the provider to proofread this document, occasional misspellings and typographical errors may still be present Due to the previous pandemic, and the use of personal protective equipment (PPE) This may decrease voice recognition accuracy Inadvertent electric trucker errors may occur 10/18/2023 Obesity (BMI 30.0-34.9) (ICD-10 - E66.9) #Weight Management 10/18/2023 Continue Ativan as needed Discussed other SSRI options Will transition to Wegovy 1 mg PA will be required likely Discussed importance of protein consumption for muscle maintenance, strength and resistance training as well as probiotics, B12 complex biotin , iron and other nutrients, To also help avoid telogen effluvium while on weight loss medications f/u scheduled for 6 weeks Total time spent today was 30 minutes of which greater than 50% was spent on coordinating and counseling Patient has been found to be obese with a BMI of (32). Patient has class (1) obesity. We are a board certified obesity and weight management practice Patient has trialed behavioral modification, dietary restrictions and exercise for a minimum of 6 months The most recent [place] [employer] clinical endocrinologists and [place] [employer] guidelines recommend patients who have overweight BMI or obesity BMI, who also have metabolic syndrome, prediabetes, HLD, and other comorbidities or at risk of developing type 2 diabetes should aim for a weight loss goal of at least 10% of the baseline body weight Patient counseled regarding effects of GLP/GIP-1 agonists, and other FDA approved wgt loss meds with regards to a multifactorial approach of weight loss as mentioned above and not solely appetite suppression. We have discussed the mechanism of GLP-1's/GIP, dual incretins, appetitite suppressants I think this would be fantastic option for her given her metabolic workup and body composition We have discussed the risks and benefits and side effects including/and not limited to Sarcopenia, intestinal obstruction, constipation, nausea, lethargy, headache Discussed importance of protein consumption for muscle maintenance as well as strength and resistance training ,probiotics, B12 complex biotin , iron and other nutrients, To help avoid telogen effluvium We have discussed the lifelong requirement of nutritional supplementation And adherence to an exercise regimen as well as importance of follow-up The patient understands and agrees There is no history of medullary thyroid cancer or multiple endocrine neoplasia There is also no history of cardiovascular disease, hypertension, palpitations, or arrhythmias In the setting of potential stimulant/amphetami ne use such as phentermine We have also discussed risks and benefits, and the use of compounded medications to help offset the national shortages as well as financial implications vs trade name drugs Patient was reassured and welcomed to the practice. We discussed that we stress a hollistic medical approach with emphasis on lifestyle modification. Patient was informed that a healthy lifestyle with exercise and good eating habits can help reduce his risk of medical complications. He is explained that obesity increases his risk of diabetes, cardiovascular disease, or organ damage. We spent a lot of time discussing the relationship between food, exercise, sleep, mental health and obesity. Patient was counseled on the importance EATING local, organic food when possible. Patient was educated on clean 15 and dirty dozen. I provided information about reading books called The Food Rules by Prateek Rodriguez and Eat Fat Get Lean by Dr Freddy Leroy. Self education is important in the journey for weight management. Patient was offered diagnostic testing. We want to measure visceral adiposity, advanced body composition, adverse lipids, fatty acid balance, risk for heart disease and atherosclerosis, markers of inflammation and genetic susceptibility. Patient was counseled on weight management and was advised to lose weight using A. Meal Replacement Products We discussed the lifelong requirement of nutritional supplementation and adherence to an exercise regimen as well as importance of dietary follow-up Patient was educated on the replacement products called optifast. This is a good way of taking fixed amount of calories. It has been shown in studies to be ineffective weight management tool. We also recommend maintaining adequate protein intake and muscle composition, 1.5mg/kg This however has to be coupled with lifestyle intervention as well as laboratory data and EKG monitoring. It is impossible to know how a person will tolerate complete meal replacement. The side effects of meal replacement and weight loss could include syncopal attacks, dizziness, gallstones, potential cholecystectomy, possible heart attack and even . The benefits of meal replacement would be potential weight loss but no guarantees can be made. Meal replacement products are not covered by insurance. Once the patient has bought these products we cannot return them B. Lifestyle management which includes several strategies as below 1. Eat a low carbohydrate good fat good protein diet. Eliminate refined carbohydrates from the diet. Continue blood sugar and sugared beverages. Eat local organic when possible. Cook your own meals. Read food labels. None about healthy snacks. Portion control and food with low glycemic index 2. Exercise regularly. Try to get at least 6000 steps a day. Use a predominant to track activity level. Consider using apps like Appfolio, [employer] Systemsp[employer], lose it, stick as needed for self-monitoring and weight management. Consider group exercises. Consider hiring a personal lines account manager. Regular exercise is fel[place] to sustainable health and prevents as a buffer against weight regain 3. Sleep is most important for healing. Tried to sleep at least 8 hours a night. A good quality sleep needs a sleep ritual with ideal room temperature of around 68. It might help to take a shower and have no electronics in the room and sleep in a very dark room without artificial light. Start her sleep routine and get up early in the morning and go to bed on time 4. Make a social connection. Surround yourself with positive people with positive energy. Connect with friends and family. 5. Get into the habit of meditating and mindfulness while doing everything. 6. Go outside and connect with nature. C. Prescription medications Patient was educated on the use of prescription medications for medical weight loss. This is a growing list and includes phentermine, Topamax,Qsymia, contrave, belviq and saxenda. All prescription medications could have side effects including but not limited to kidney stones, seizure disorder cardiac arrhythmias heart attack pancreatitis etc. etc.. Patient was encouraged to read the prescription insert and have coaching with their pharmacist and make an informed decision about taking medication and know that these medications are being prescribed with good intentions and we do not know how a patient would react to her medication. Sudden medications are FDA approved for weight loss and there is also off label use depending on patient's inability to afford medications in an attempt to lose weight D. Behavioral counseling was done to establish a relationship between food and an mood. Patient was provided information about local counseling and psychiatry and Dr Gloria at [facility]. We would like to cover regular topics and build on low glycemic eating exercise mindful eating, using yoga and meditation along with deep breathing and connecting with friends and family. E. MASS PAT reviewed, Patient's current medications were reviewed and opinion was given on medication that can cause weight gain and can be substituted F. Patient was assessed for risk with obesity including and not limiting to atherosclerosis heart disease stroke kidney disease, restrictive lung disease, irritable bowel syndrome and overall mortality. Risk of developing prediabetes diabetes and metabolic syndrome was discussed G. Therapeutic plan: We have decided to make therapeutic plan which would include choosing wisely on calories restricting portion getting active, tracking weight, getting good quality sleep and working on time management H. Patient will follow up in (4) weeks for weight management Safety and Effectiveness of Longer-Term Phentermine Use: Clinical Outcomes from an Electronic Health Record CohortMethods: Obesity ([place]es). 2019 Sep;27(4):591-602. doi: [email or web address] Using electronic health record data [id number] adults were identified with a first phentermine fill in 2009 to 2014, creating exposure categories according to a patient's duration of use (referent: = 3 months). Multivariable linear models were used to compare percent weight loss across categories at 6, 12, and 24 months, and García proportional hazards models were used to compare risk of composite CVD or , up to 3 years after starting phentermine. Results: The cohort was 84% female and 45% white, with a mean (SD) baseline age 43.5 (10.7) years and BMI of 37.8 (7.2) kg/m2 .In multivariable models, longer-term users of phentermine experienced more weight loss; patients using continuously for > 12 months lost 7.4% more than the referent group at 24 months (P < 0.001) .The composite CVD or outcome was rare (0.3%, 41 events), with no significant difference in hazard ratios between groups. Conclusions: Greater weight loss without increased risk of incident CVD or was observed in patients using phentermine monotherapy for longer than 3 months. Despite the limitations of the observational design, this study supports the effectiveness and safety of longer-term phentermine use for low-risk individuals. (c) 2019 The [employer]. Of note, some information is being carried forward from prior records for informational purposes only and is being cited so that efficiency, safety and quality of the patient's care is not compromised This note was prepared using voice recognition software and direct typing Please excuse inadvertent electric trucker or typing errors, or uncorrected word substitutions Although every attempt has been made by the provider to proofread this document, occasional misspellings and typographical errors may still be present Due to the previous pandemic, and the use of personal protective equipment (PPE) This may decrease voice recognition accuracy Inadvertent electric trucker errors may occur 01/31/2024 Dietary counseling and surveillance (ICD-10 - Z71.3) #Weight Management 01/31/2024 Continue Ativan as needed _update thyroid function labs and other comprehensive labs CPE in the upcoming months Of note, some information is being carried forward from prior records for informational purposes only and is being cited so that efficiency, safety and quality of the patient's care is not compromised This note was prepared using voice recognition software and direct typing Please excuse inadvertent electric trucker or typing errors, or uncorrected word substitutions Although every attempt has been made by the provider to proofread this document, occasional misspellings and typographical errors may still be present Due to the previous pandemic, and the use of personal protective equipment (PPE) This may decrease voice recognition accuracy Inadvertent electric trucker errors may occur 09/01/2023 Pure hypercholesterole chasity, unspecified (ICD-10 - E78.00) #Weight Management 09/02/2023 Continue Ativan as needed Discussed other SSRI options Will transition to Wegovy 1 mg PA will be required likely Discussed importance of protein consumption for muscle maintenance, strength and resistance training as well as probiotics, B12 complex biotin , iron and other nutrients, To also help avoid telogen effluvium while on weight loss medications f/u scheduled for 6 weeks Total time spent today was 30 minutes of which greater than 50% was spent on coordinating and counseling Patient has been found to be obese with a BMI of (32). Patient has class (1) obesity. We are a board certified obesity and weight management practice Patient has trialed behavioral modification, dietary restrictions and exercise for a minimum of 6 months The most recent [place] [employer] endocrinologists and [place] [employer] guidelines recommend patients who have overweight BMI or obesity BMI, who also have metabolic syndrome, prediabetes, HLD, and other comorbidities or at risk of developing type 2 diabetes should aim for a weight loss goal of at least 10% of the baseline body weight Patient counseled regarding effects of GLP/GIP-1 agonists, and other FDA approved wgt loss meds with regards to a multifactorial approach of weight loss as mentioned above and not solely appetite suppression. We have discussed the mechanism of GLP-1's/GIP, dual incretins, appetitite suppressants I think this would be fantastic option for her given her metabolic workup and body composition We have discussed the risks and benefits and side effects including/and not limited to Sarcopenia, intestinal obstruction, constipation, nausea, lethargy, headache Discussed importance of protein consumption for muscle maintenance as well as strength and resistance training ,probiotics, B12 complex biotin , iron and other nutrients, To help avoid telogen effluvium We have discussed the lifelong requirement of nutritional supplementation And adherence to an exercise regimen as well as importance of follow-up The patient understands and agrees There is no history of medullary thyroid cancer or multiple endocrine neoplasia There is also no history of cardiovascular disease, hypertension, palpitations, or arrhythmias In the setting of potential stimulant/amphetami ne use such as phentermine We have also discussed risks and benefits, and the use of compounded medications to help offset the national shortages as well as financial implications vs trade name drugs Patient was reassured and welcomed to the practice. We discussed that we stress a hollistic medical approach with emphasis on lifestyle modification. Patient was informed that a healthy lifestyle with exercise and good eating habits can help reduce his risk of medical complications. He is explained that obesity increases his risk of diabetes, cardiovascular disease, or organ damage. We spent a lot of time discussing the relationship between food, exercise, sleep, mental health and obesity. Patient was counseled on the importance EATING local, organic food when possible. Patient was educated on clean 15 and dirty dozen. I provided information about reading books called The Food Rules by Prateek Rodriguez and Eat Fat Get Lean by Dr Freddy Leroy. Self education is important in the journey for weight management. Patient was offered diagnostic testing. We want to measure visceral adiposity, advanced body composition, adverse lipids, fatty acid balance, risk for heart disease and atherosclerosis, markers of inflammation and genetic susceptibility. Patient was counseled on weight management and was advised to lose weight using A. Meal Replacement Products We discussed the lifelong requirement of nutritional supplementation and adherence to an exercise regimen as well as importance of dietary follow-up Patient was educated on the replacement products called optifast. This is a good way of taking fixed amount of calories. It has been shown in studies to be ineffective weight management tool. We also recommend maintaining adequate protein intake and muscle composition, 1.5mg/kg This however has to be coupled with lifestyle intervention as well as laboratory data and EKG monitoring. It is impossible to know how a person will tolerate complete meal replacement. The side effects of meal replacement and weight loss could include syncopal attacks, dizziness, gallstones, potential cholecystectomy, possible heart attack and even . The benefits of meal replacement would be potential weight loss but no guarantees can be made. Meal replacement products are not covered by insurance. Once the patient has bought these products we cannot return them B. Lifestyle management which includes several strategies as below 1. Eat a low carbohydrate good fat good protein diet. Eliminate refined carbohydrates from the diet. Continue blood sugar and sugared beverages. Eat local organic when possible. Cook your own meals. Read food labels. None about healthy snacks. Portion control and food with low glycemic index 2. Exercise regularly. Try to get at least 6000 steps a day. Use a predominant to track activity level. Consider using apps like Appfolio, Cranite Systemspal, lose it, stick as needed for self-monitoring and weight management. Consider group exercises. Consider hiring a personal lines account manager. Regular exercise is felton to sustainable health and prevents as a buffer against weight regain 3. Sleep is most important for healing. Tried to sleep at least 8 hours a night. A good quality sleep needs a sleep ritual with ideal room temperature of around 68. It might help to take a shower and have no electronics in the room and sleep in a very dark room without artificial light. Start her sleep routine and get up early in the morning and go to bed on time 4. Make a social connection. Surround yourself with positive people with positive energy. Connect with friends and family. 5. Get into the habit of meditating and mindfulness while doing everything. 6. Go outside and connect with nature. C. Prescription medications Patient was educated on the use of prescription medications for medical weight loss. This is a growing list and includes phentermine, Topamax,Qsymia, contrave, belviq and saxenda. All prescription medications could have side effects including but not limited to kidney stones, seizure disorder cardiac arrhythmias heart attack pancreatitis etc. etc.. Patient was encouraged to read the prescription insert and have coaching with their pharmacist and make an informed decision about taking medication and know that these medications are being prescribed with good intentions and we do not know how a patient would react to her medication. Sudden medications are FDA approved for weight loss and there is also off label use depending on patient's inability to afford medications in an attempt to lose weight D. Behavioral counseling was done to establish a relationship between food and an mood. Patient was provided information about local counseling and psychiatry and Dr Gloria at [facility]. We would like to cover regular topics and build on low glycemic eating exercise mindful eating, using yoga and meditation along with deep breathing and connecting with friends and family. E. MASS PAT reviewed, Patient's current medications were reviewed and opinion was given on medication that can cause weight gain and can be substituted F. Patient was assessed for risk with obesity including and not limiting to atherosclerosis heart disease stroke kidney disease, restrictive lung disease, irritable bowel syndrome and overall mortality. Risk of developing prediabetes diabetes and metabolic syndrome was discussed G. Therapeutic plan: We have decided to make therapeutic plan which would include choosing wisely on calories restricting portion getting active, tracking weight, getting good quality sleep and working on time management H. Patient will follow up in (4) weeks for weight management Safety and Effectiveness of Longer-Term Phentermine Use: Clinical Outcomes from an Electronic Health Record CohortMethods: Obesity ([place]). 2019 Sep;27(4):591-602. doi: [email or web address] Using electronic health record data [id number] adults were identified with a first phentermine fill in 2009 to 2014, creating exposure categories according to a patient's duration of use (referent: = 3 months). Multivariable linear models were used to compare percent weight loss across categories at 6, 12, and 24 months, and García proportional hazards models were used to compare risk of composite CVD or , up to 3 years after starting phentermine. Results: The cohort was 84% female and 45% white, with a mean (SD) baseline age 43.5 (10.7) years and BMI of 37.8 (7.2) kg/m2 .In multivariable models, longer-term users of phentermine experienced more weight loss; patients using continuously for > 12 months lost 7.4% more than the referent group at 24 months (P < 0.001) .The composite CVD or outcome was rare (0.3%, 41 events), with no significant difference in hazard ratios between groups. Conclusions: Greater weight loss without increased risk of incident CVD or was observed in patients using phentermine monotherapy for longer than 3 months. Despite the limitations of the observational design, this study supports the effectiveness and safety of longer-term phentermine use for low-risk individuals. (c) 2019 The Obesity Society. Of note, some information is being carried forward from prior records for informational purposes only and is being cited so that efficiency, safety and quality of the patient's care is not compromised This note was prepared using voice recognition software and direct typing Please excuse inadvertent electric trucker or typing errors, or uncorrected word substitutions Although every attempt has been made by the provider to proofread this document, occasional misspellings and typographical errors may still be present Due to the previous pandemic, and the use of personal protective equipment (PPE) This may decrease voice recognition accuracy Inadvertent electric trucker errors may occur 09/01/2023 Vitamin D deficiency, unspecified (ICD-10 - E55.9) #Weight Management 09/02/2023 Continue Ativan as needed Discussed other SSRI options Will transition to Wegovy 1 mg PA will be required likely Discussed importance of protein consumption for muscle maintenance, strength and resistance training as well as probiotics, B12 complex biotin , iron and other nutrients, To also help avoid telogen effluvium while on weight loss medications f/u scheduled for 6 weeks Total time spent today was 30 minutes of which greater than 50% was spent on coordinating and counseling Patient has been found to be obese with a BMI of (32). Patient has class (1) obesity. We are a board certified obesity and weight management practice Patient has trialed behavioral modification, dietary restrictions and exercise for a minimum of 6 months The most recent [place] [employer] of clinical endocrinologists and [place] [employer] guidelines recommend patients who have overweight BMI or obesity BMI, who also have metabolic syndrome, prediabetes, HLD, and other comorbidities or at risk of developing type 2 diabetes should aim for a weight loss goal of at least 10% of the baseline body weight Patient counseled regarding effects of GLP/GIP-1 agonists, and other FDA approved wgt loss meds with regards to a multifactorial approach of weight loss as mentioned above and not solely appetite suppression. We have discussed the mechanism of GLP-1's/GIP, dual incretins, appetitite suppressants I think this would be fantastic option for her given her metabolic workup and body composition We have discussed the risks and benefits and side effects including/and not limited to Sarcopenia, intestinal obstruction, constipation, nausea, lethargy, headache Discussed importance of protein consumption for muscle maintenance as well as strength and resistance training ,probiotics, B12 complex biotin , iron and other nutrients, To help avoid telogen effluvium We have discussed the lifelong requirement of nutritional supplementation And adherence to an exercise regimen as well as importance of follow-up The patient understands and agrees There is no history of medullary thyroid cancer or multiple endocrine neoplasia There is also no history of cardiovascular disease, hypertension, palpitations, or arrhythmias In the setting of potential stimulant/amphetami ne use such as phentermine We have also discussed risks and benefits, and the use of compounded medications to help offset the national shortages as well as financial implications vs trade name drugs Patient was reassured and welcomed to the practice. We discussed that we stress a hollistic medical approach with emphasis on lifestyle modification. Patient was informed that a healthy lifestyle with exercise and good eating habits can help reduce his risk of medical complications. He is explained that obesity increases his risk of diabetes, cardiovascular disease, or organ damage. We spent a lot of time discussing the relationship between food, exercise, sleep, mental health and obesity. Patient was counseled on the importance EATING local, organic food when possible. Patient was educated on clean 15 and dirty dozen. I provided information about reading books called The Food Rules by Prateek Rodriguez and Eat Fat Get Lean by Dr Freddy Leroy. Self education is important in the journey for weight management. Patient was offered diagnostic testing. We want to measure visceral adiposity, advanced body composition, adverse lipids, fatty acid balance, risk for heart disease and atherosclerosis, markers of inflammation and genetic susceptibility. Patient was counseled on weight management and was advised to lose weight using A. Meal Replacement Products We discussed the lifelong requirement of nutritional supplementation and adherence to an exercise regimen as well as importance of dietary follow-up Patient was educated on the replacement products called optifast. This is a good way of taking fixed amount of calories. It has been shown in studies to be ineffective weight management tool. We also recommend maintaining adequate protein intake and muscle composition, 1.5mg/kg This however has to be coupled with lifestyle intervention as well as laboratory data and EKG monitoring. It is impossible to know how a person will tolerate complete meal replacement. The side effects of meal replacement and weight loss could include syncopal attacks, dizziness, gallstones, potential cholecystectomy, possible heart attack and even . The benefits of meal replacement would be potential weight loss but no guarantees can be made. Meal replacement products are not covered by insurance. Once the patient has bought these products we cannot return them B. Lifestyle management which includes several strategies as below 1. Eat a low carbohydrate good fat good protein diet. Eliminate refined carbohydrates from the diet. Continue blood sugar and sugared beverages. Eat local organic when possible. Cook your own meals. Read food labels. None about healthy snacks. Portion control and food with low glycemic index 2. Exercise regularly. Try to get at least 6000 steps a day. Use a predominant to track activity level. Consider using apps like [employer] mionute exceAdTapsyise, myfitnesspal, lose it, stick as needed for self-monitoring and weight management. Consider group exercises. Consider hiring a personal lines account manager. Regular exercise is felton to sustainable health and prevents as a buffer against weight regain 3. Sleep is most important for healing. Tried to sleep at least 8 hours a night. A good quality sleep needs a sleep ritual with ideal room temperature of around 68. It might help to take a shower and have no electronics in the room and sleep in a very dark room without artificial light. Start her sleep routine and get up early in the morning and go to bed on time 4. Make a social connection. Surround yourself with positive people with positive energy. Connect with friends and family. 5. Get into the habit of meditating and mindfulness while doing everything. 6. Go outside and connect with nature. C. Prescription medications Patient was educated on the use of prescription medications for medical weight loss. This is a growing list and includes phentermine, Topamax,Qsymia, contrave, belviq and saxenda. All prescription medications could have side effects including but not limited to kidney stones, seizure disorder cardiac arrhythmias heart attack pancreatitis etc. etc.. Patient was encouraged to read the prescription insert and have coaching with their pharmacist and make an informed decision about taking medication and know that these medications are being prescribed with good intentions and we do not know how a patient would react to her medication. Sudden medications are FDA approved for weight loss and there is also off label use depending on patient's inability to afford medications in an attempt to lose weight D. Behavioral counseling was done to establish a relationship between food and an mood. Patient was provided information about local counseling and psychiatry and Dr Gloria at [facility]. We would like to cover regular topics and build on low glycemic eating exercise mindful eating, using yoga and meditation along with deep breathing and connecting with friends and family. E. MASS PAT reviewed, Patient's current medications were reviewed and opinion was given on medication that can cause weight gain and can be substituted F. Patient was assessed for risk with obesity including and not limiting to atherosclerosis heart disease stroke kidney disease, restrictive lung disease, irritable bowel syndrome and overall mortality. Risk of developing prediabetes diabetes and metabolic syndrome was discussed G. Therapeutic plan: We have decided to make therapeutic plan which would include choosing wisely on calories restricting portion getting active, tracking weight, getting good quality sleep and working on time management H. Patient will follow up in (4) weeks for weight management Safety and Effectiveness of Longer-Term Phentermine Use: Clinical Outcomes from an Electronic Health Record CohortMethods: Obesity ([place]). 2019 Sep;27(4):591-602. doi: [email or web address] Using electronic health record data [id number] adults were identified with a first phentermine fill in 2009 to 2014, creating exposure categories according to a patient's duration of use (referent: = 3 months). Multivariable linear models were used to compare percent weight loss across categories at 6, 12, and 24 months, and García proportional hazards models were used to compare risk of composite CVD or , up to 3 years after starting phentermine. Results: The cohort was 84% female and 45% white, with a mean (SD) baseline age 43.5 (10.7) years and BMI of 37.8 (7.2) kg/m2 .In multivariable models, longer-term users of phentermine experienced more weight loss; patients using continuously for > 12 months lost 7.4% more than the referent group at 24 months (P < 0.001) .The composite CVD or outcome was rare (0.3%, 41 events), with no significant difference in hazard ratios between groups. Conclusions: Greater weight loss without increased risk of incident CVD or was observed in patients using phentermine monotherapy for longer than 3 months. Despite the limitations of the observational design, this study supports the effectiveness and safety of longer-term phentermine use for low-risk individuals. (c) 2019 The Obesity Society. Of note, some information is being carried forward from prior records for informational purposes only and is being cited so that efficiency, safety and quality of the patient's care is not compromised This note was prepared using voice recognition software and direct typing Please excuse inadvertent electric trucker or typing errors, or uncorrected word substitutions Although every attempt has been made by the provider to proofread this document, occasional misspellings and typographical errors may still be present Due to the previous pandemic, and the use of personal protective equipment (PPE) This may decrease voice recognition accuracy Inadvertent electric trucker errors may occur 10/18/2023 Pure hypercholesterole chasity, unspecified (ICD-10 - E78.00) #Weight Management 10/18/2023 Continue Ativan as needed Discussed other SSRI options Will transition to Wegovy 1 mg PA will be required likely Discussed importance of protein consumption for muscle maintenance, strength and resistance training as well as probiotics, B12 complex biotin , iron and other nutrients, To also help avoid telogen effluvium while on weight loss medications f/u scheduled for 6 weeks Total time spent today was 30 minutes of which greater than 50% was spent on coordinating and counseling Patient has been found to be obese with a BMI of (32). Patient has class (1) obesity. We are a board certified obesity and weight management practice Patient has trialed behavioral modification, dietary restrictions and exercise for a minimum of 6 months The most recent [place] [employer] of clinical endocrinologists and [place] [employer] guidelines recommend patients who have overweight BMI or obesity BMI, who also have metabolic syndrome, prediabetes, HLD, and other comorbidities or at risk of developing type 2 diabetes should aim for a weight loss goal of at least 10% of the baseline body weight Patient counseled regarding effects of GLP/GIP-1 agonists, and other FDA approved wgt loss meds with regards to a multifactorial approach of weight loss as mentioned above and not solely appetite suppression. We have discussed the mechanism of GLP-1's/GIP, dual incretins, appetitite suppressants I think this would be fantastic option for her given her metabolic workup and body composition We have discussed the risks and benefits and side effects including/and not limited to Sarcopenia, intestinal obstruction, constipation, nausea, lethargy, headache Discussed importance of protein consumption for muscle maintenance as well as strength and resistance training ,probiotics, B12 complex biotin , iron and other nutrients, To help avoid telogen effluvium We have discussed the lifelong requirement of nutritional supplementation And adherence to an exercise regimen as well as importance of follow-up The patient understands and agrees There is no history of medullary thyroid cancer or multiple endocrine neoplasia There is also no history of cardiovascular disease, hypertension, palpitations, or arrhythmias In the setting of potential stimulant/amphetami ne use such as phentermine We have also discussed risks and benefits, and the use of compounded medications to help offset the national shortages as well as financial implications vs trade name drugs Patient was reassured and welcomed to the practice. We discussed that we stress a hollistic medical approach with emphasis on lifestyle modification. Patient was informed that a healthy lifestyle with exercise and good eating habits can help reduce his risk of medical complications. He is explained that obesity increases his risk of diabetes, cardiovascular disease, or organ damage. We spent a lot of time discussing the relationship between food, exercise, sleep, mental health and obesity. Patient was counseled on the importance EATING local, organic food when possible. Patient was educated on clean 15 and dirty dozen. I provided information about reading books called The Food Rules by Prateek Rodriguez and Eat Fat Get Lean by Dr Freddy Leroy. Self education is important in the journey for weight management. Patient was offered diagnostic testing. We want to measure visceral adiposity, advanced body composition, adverse lipids, fatty acid balance, risk for heart disease and atherosclerosis, markers of inflammation and genetic susceptibility. Patient was counseled on weight management and was advised to lose weight using A. Meal Replacement Products We discussed the lifelong requirement of nutritional supplementation and adherence to an exercise regimen as well as importance of dietary follow-up Patient was educated on the replacement products called optifast. This is a good way of taking fixed amount of calories. It has been shown in studies to be ineffective weight management tool. We also recommend maintaining adequate protein intake and muscle composition, 1.5mg/kg This however has to be coupled with lifestyle intervention as well as laboratory data and EKG monitoring. It is impossible to know how a person will tolerate complete meal replacement. The side effects of meal replacement and weight loss could include syncopal attacks, dizziness, gallstones, potential cholecystectomy, possible heart attack and even . The benefits of meal replacement would be potential weight loss but no guarantees can be made. Meal replacement products are not covered by insurance. Once the patient has bought these products we cannot return them B. Lifestyle management which includes several strategies as below 1. Eat a low carbohydrate good fat good protein diet. Eliminate refined carbohydrates from the diet. Continue blood sugar and sugared beverages. Eat local organic when possible. Cook your own meals. Read food labels. None about healthy snacks. Portion control and food with low glycemic index 2. Exercise regularly. Try to get at least 6000 steps a day. Use a predominant to track activity level. Consider using apps like Appfolio, myfitArtistForcepal, lose it, stick as needed for self-monitoring and weight management. Consider group exercises. Consider hiring a personal lines account manager. Regular exercise is fel[place] to sustainable health and prevents as a buffer against weight regain 3. Sleep is most important for healing. Tried to sleep at least 8 hours a night. A good quality sleep needs a sleep ritual with ideal room temperature of around 68. It might help to take a shower and have no electronics in the room and sleep in a very dark room without artificial light. Start her sleep routine and get up early in the morning and go to bed on time 4. Make a social connection. Surround yourself with positive people with positive energy. Connect with friends and family. 5. Get into the habit of meditating and mindfulness while doing everything. 6. Go outside and connect with nature. C. Prescription medications Patient was educated on the use of prescription medications for medical weight loss. This is a growing list and includes phentermine, Topamax,Qsymia, contrave, belviq and saxenda. All prescription medications could have side effects including but not limited to kidney stones, seizure disorder cardiac arrhythmias heart attack pancreatitis etc. etc.. Patient was encouraged to read the prescription insert and have coaching with their pharmacist and make an informed decision about taking medication and know that these medications are being prescribed with good intentions and we do not know how a patient would react to her medication. Sudden medications are FDA approved for weight loss and there is also off label use depending on patient's inability to afford medications in an attempt to lose weight D. Behavioral counseling was done to establish a relationship between food and an mood. Patient was provided information about local counseling and psychiatry and Dr Gloria at [facility]. We would like to cover regular topics and build on low glycemic eating exercise mindful eating, using yoga and meditation along with deep breathing and connecting with friends and family. E. MASS PAT reviewed, Patient's current medications were reviewed and opinion was given on medication that can cause weight gain and can be substituted F. Patient was assessed for risk with obesity including and not limiting to atherosclerosis heart disease stroke kidney disease, restrictive lung disease, irritable bowel syndrome and overall mortality. Risk of developing prediabetes diabetes and metabolic syndrome was discussed G. Therapeutic plan: We have decided to make therapeutic plan which would include choosing wisely on calories restricting portion getting active, tracking weight, getting good quality sleep and working on time management H. Patient will follow up in (4) weeks for weight management Safety and Effectiveness of Longer-Term Phentermine Use: Clinical Outcomes from an Electronic Health Record CohortMethods: Obesity ([place]). 2019 Sep;27(4):591-602. doi: [email or web address] Using electronic health record data [id number] adults were identified with a first phentermine fill in 2009 to 2014, creating exposure categories according to a patient's duration of use (referent: = 3 months). Multivariable linear models were used to compare percent weight loss across categories at 6, 12, and 24 months, and García proportional hazards models were used to compare risk of composite CVD or , up to 3 years after starting phentermine. Results: The cohort was 84% female and 45% white, with a mean (SD) baseline age 43.5 (10.7) years and BMI of 37.8 (7.2) kg/m2 .In multivariable models, longer-term users of phentermine experienced more weight loss; patients using continuously for > 12 months lost 7.4% more than the referent group at 24 months (P < 0.001) .The composite CVD or outcome was rare (0.3%, 41 events), with no significant difference in hazard ratios between groups. Conclusions: Greater weight loss without increased risk of incident CVD or was observed in patients using phentermine monotherapy for longer than 3 months. Despite the limitations of the observational design, this study supports the effectiveness and safety of longer-term phentermine use for low-risk individuals. (c) 2019 The Obesity Society. Of note, some information is being carried forward from prior records for informational purposes only and is being cited so that efficiency, safety and quality of the patient's care is not compromised This note was prepared using voice recognition software and direct typing Please excuse inadvertent electric trucker or typing errors, or uncorrected word substitutions Although every attempt has been made by the provider to proofread this document, occasional misspellings and typographical errors may still be present Due to the previous pandemic, and the use of personal protective equipment (PPE) This may decrease voice recognition accuracy Inadvertent electric trucker errors may occur 01/31/2024 Acquired hypothyroidism (ICD-10 - E03.9) #Weight Management 01/31/2024 Continue Ativan as needed _update thyroid function labs and other comprehensive labs CPE in the upcoming months Of note, some information is being carried forward from prior records for informational purposes only and is being cited so that efficiency, safety and quality of the patient's care is not compromised This note was prepared using voice recognition software and direct typing Please excuse inadvertent electric trucker or typing errors, or uncorrected word substitutions Although every attempt has been made by the provider to proofread this document, occasional misspellings and typographical errors may still be present Due to the previous pandemic, and the use of personal protective equipment (PPE) This may decrease voice recognition accuracy Inadvertent electric trucker errors may occur 10/18/2023 BMI 32.0-32.9,adult (ICD-10 - Z68.32) #Weight Management 10/18/2023 Continue Ativan as needed Discussed other SSRI options Will transition to Wegovy 1 mg PA will be required likely Discussed importance of protein consumption for muscle maintenance, strength and resistance training as well as probiotics, B12 complex biotin , iron and other nutrients, To also help avoid telogen effluvium while on weight loss medications f/u scheduled for 6 weeks Total time spent today was 30 minutes of which greater than 50% was spent on coordinating and counseling Patient has been found to be obese with a BMI of (32). Patient has class (1) obesity. We are a board certified obesity and weight management practice Patient has trialed behavioral modification, dietary restrictions and exercise for a minimum of 6 months The most recent [place] [employer] endocrinologists and [place] [employer] guidelines recommend patients who have overweight BMI or obesity BMI, who also have metabolic syndrome, prediabetes, HLD, and other comorbidities or at risk of developing type 2 diabetes should aim for a weight loss goal of at least 10% of the baseline body weight Patient counseled regarding effects of GLP/GIP-1 agonists, and other FDA approved wgt loss meds with regards to a multifactorial approach of weight loss as mentioned above and not solely appetite suppression. We have discussed the mechanism of GLP-1's/GIP, dual incretins, appetitite suppressants I think this would be fantastic option for her given her metabolic workup and body composition We have discussed the risks and benefits and side effects including/and not limited to Sarcopenia, intestinal obstruction, constipation, nausea, lethargy, headache Discussed importance of protein consumption for muscle maintenance as well as strength and resistance training ,probiotics, B12 complex biotin , iron and other nutrients, To help avoid telogen effluvium We have discussed the lifelong requirement of nutritional supplementation And adherence to an exercise regimen as well as importance of follow-up The patient understands and agrees There is no history of medullary thyroid cancer or multiple endocrine neoplasia There is also no history of cardiovascular disease, hypertension, palpitations, or arrhythmias In the setting of potential stimulant/amphetami ne use such as phentermine We have also discussed risks and benefits, and the use of compounded medications to help offset the national shortages as well as financial implications vs trade name drugs Patient was reassured and welcomed to the practice. We discussed that we stress a hollistic medical approach with emphasis on lifestyle modification. Patient was informed that a healthy lifestyle with exercise and good eating habits can help reduce his risk of medical complications. He is explained that obesity increases his risk of diabetes, cardiovascular disease, or organ damage. We spent a lot of time discussing the relationship between food, exercise, sleep, mental health and obesity. Patient was counseled on the importance EATING local, organic food when possible. Patient was educated on clean 15 and dirty dozen. I provided information about reading books called The Food Rules by Prateek Rodriguez and Eat Fat Get Lean by Dr Freddy Leroy. Self education is important in the journey for weight management. Patient was offered diagnostic testing. We want to measure visceral adiposity, advanced body composition, adverse lipids, fatty acid balance, risk for heart disease and atherosclerosis, markers of inflammation and genetic susceptibility. Patient was counseled on weight management and was advised to lose weight using A. Meal Replacement Products We discussed the lifelong requirement of nutritional supplementation and adherence to an exercise regimen as well as importance of dietary follow-up Patient was educated on the replacement products called optifast. This is a good way of taking fixed amount of calories. It has been shown in studies to be ineffective weight management tool. We also recommend maintaining adequate protein intake and muscle composition, 1.5mg/kg This however has to be coupled with lifestyle intervention as well as laboratory data and EKG monitoring. It is impossible to know how a person will tolerate complete meal replacement. The side effects of meal replacement and weight loss could include syncopal attacks, dizziness, gallstones, potential cholecystectomy, possible heart attack and even . The benefits of meal replacement would be potential weight loss but no guarantees can be made. Meal replacement products are not covered by insurance. Once the patient has bought these products we cannot return them B. Lifestyle management which includes several strategies as below 1. Eat a low carbohydrate good fat good protein diet. Eliminate refined carbohydrates from the diet. Continue blood sugar and sugared beverages. Eat local organic when possible. Cook your own meals. Read food labels. None about healthy snacks. Portion control and food with low glycemic index 2. Exercise regularly. Try to get at least 6000 steps a day. Use a predominant to track activity level. Consider using apps like Appfolio, Cran[employer] Systemspal, lose it, stick as needed for self-monitoring and weight management. Consider group exercises. Consider hiring a personal lines account manager. Regular exercise is fel[place] to sustainable health and prevents as a buffer against weight regain 3. Sleep is most important for healing. Tried to sleep at least 8 hours a night. A good quality sleep needs a sleep ritual with ideal room temperature of around 68. It might help to take a shower and have no electronics in the room and sleep in a very dark room without artificial light. Start her sleep routine and get up early in the morning and go to bed on time 4. Make a social connection. Surround yourself with positive people with positive energy. Connect with friends and family. 5. Get into the habit of meditating and mindfulness while doing everything. 6. Go outside and connect with nature. C. Prescription medications Patient was educated on the use of prescription medications for medical weight loss. This is a growing list and includes phentermine, Topamax,Qsymia, contrave, belviq and saxenda. All prescription medications could have side effects including but not limited to kidney stones, seizure disorder cardiac arrhythmias heart attack pancreatitis etc. etc.. Patient was encouraged to read the prescription insert and have coaching with their pharmacist and make an informed decision about taking medication and know that these medications are being prescribed with good intentions and we do not know how a patient would react to her medication. Sudden medications are FDA approved for weight loss and there is also off label use depending on patient's inability to afford medications in an attempt to lose weight D. Behavioral counseling was done to establish a relationship between food and an mood. Patient was provided information about local counseling and psychiatry and Dr Gloria at [facility]. We would like to cover regular topics and build on low glycemic eating exercise mindful eating, using yoga and meditation along with deep breathing and connecting with friends and family. E. MASS PAT reviewed, Patient's current medications were reviewed and opinion was given on medication that can cause weight gain and can be substituted F. Patient was assessed for risk with obesity including and not limiting to atherosclerosis heart disease stroke kidney disease, restrictive lung disease, irritable bowel syndrome and overall mortality. Risk of developing prediabetes diabetes and metabolic syndrome was discussed G. Therapeutic plan: We have decided to make therapeutic plan which would include choosing wisely on calories restricting portion getting active, tracking weight, getting good quality sleep and working on time management H. Patient will follow up in (4) weeks for weight management Safety and Effectiveness of Longer-Term Phentermine Use: Clinical Outcomes from an Electronic Health Record CohortMethods: Obesity ([place]). 2019 Sep;27(4):591-602. doi: [email or web address] Using electronic health record data [id number] adults were identified with a first phentermine fill in 2009 to 2014, creating exposure categories according to a patient's duration of use (referent: = 3 months). Multivariable linear models were used to compare percent weight loss across categories at 6, 12, and 24 months, and García proportional hazards models were used to compare risk of composite CVD or , up to 3 years after starting phentermine. Results: The cohort was 84% female and 45% white, with a mean (SD) baseline age 43.5 (10.7) years and BMI of 37.8 (7.2) kg/m2 .In multivariable models, longer-term users of phentermine experienced more weight loss; patients using continuously for > 12 months lost 7.4% more than the referent group at 24 months (P < 0.001) .The composite CVD or outcome was rare (0.3%, 41 events), with no significant difference in hazard ratios between groups. Conclusions: Greater weight loss without increased risk of incident CVD or was observed in patients using phentermine monotherapy for longer than 3 months. Despite the limitations of the observational design, this study supports the effectiveness and safety of longer-term phentermine use for low-risk individuals. (c) 2019 The Obesity Society. Of note, some information is being carried forward from prior records for informational purposes only and is being cited so that efficiency, safety and quality of the patient's care is not compromised This note was prepared using voice recognition software and direct typing Please excuse inadvertent electric trucker or typing errors, or uncorrected word substitutions Although every attempt has been made by the provider to proofread this document, occasional misspellings and typographical errors may still be present Due to the previous pandemic, and the use of personal protective equipment (PPE) This may decrease voice recognition accuracy Inadvertent electric trucker errors may occur 09/01/2023 BMI 32.0-32.9,adult (ICD-10 - Z68.32) #Weight Management 09/02/2023 Continue Ativan as needed Discussed other SSRI options Will transition to Wegovy 1 mg PA will be required likely Discussed importance of protein consumption for muscle maintenance, strength and resistance training as well as probiotics, B12 complex biotin , iron and other nutrients, To also help avoid telogen effluvium while on weight loss medications f/u scheduled for 6 weeks Total time spent today was 30 minutes of which greater than 50% was spent on coordinating and counseling Patient has been found to be obese with a BMI of (32). Patient has class (1) obesity. We are a board certified obesity and weight management practice Patient has trialed behavioral modification, dietary restrictions and exercise for a minimum of 6 months The most recent [place] [employer] clinical endocrinologists and [place] [employer] guidelines recommend patients who have overweight BMI or obesity BMI, who also have metabolic syndrome, prediabetes, HLD, and other comorbidities or at risk of developing type 2 diabetes should aim for a weight loss goal of at least 10% of the baseline body weight Patient counseled regarding effects of GLP/GIP-1 agonists, and other FDA approved wgt loss meds with regards to a multifactorial approach of weight loss as mentioned above and not solely appetite suppression. We have discussed the mechanism of GLP-1's/GIP, dual incretins, appetitite suppressants I think this would be fantastic option for her given her metabolic workup and body composition We have discussed the risks and benefits and side effects including/and not limited to Sarcopenia, intestinal obstruction, constipation, nausea, lethargy, headache Discussed importance of protein consumption for muscle maintenance as well as strength and resistance training ,probiotics, B12 complex biotin , iron and other nutrients, To help avoid telogen effluvium We have discussed the lifelong requirement of nutritional supplementation And adherence to an exercise regimen as well as importance of follow-up The patient understands and agrees There is no history of medullary thyroid cancer or multiple endocrine neoplasia There is also no history of cardiovascular disease, hypertension, palpitations, or arrhythmias In the setting of potential stimulant/amphetami ne use such as phentermine We have also discussed risks and benefits, and the use of compounded medications to help offset the national shortages as well as financial implications vs trade name drugs Patient was reassured and welcomed to the practice. We discussed that we stress a hollistic medical approach with emphasis on lifestyle modification. Patient was informed that a healthy lifestyle with exercise and good eating habits can help reduce his risk of medical complications. He is explained that obesity increases his risk of diabetes, cardiovascular disease, or organ damage. We spent a lot of time discussing the relationship between food, exercise, sleep, mental health and obesity. Patient was counseled on the importance EATING local, organic food when possible. Patient was educated on clean 15 and dirty dozen. I provided information about reading books called The Food Rules by Prateek Rodriguez and Eat Fat Get Lean by Dr Freddy Leroy. Self education is important in the journey for weight management. Patient was offered diagnostic testing. We want to measure visceral adiposity, advanced body composition, adverse lipids, fatty acid balance, risk for heart disease and atherosclerosis, markers of inflammation and genetic susceptibility. Patient was counseled on weight management and was advised to lose weight using A. Meal Replacement Products We discussed the lifelong requirement of nutritional supplementation and adherence to an exercise regimen as well as importance of dietary follow-up Patient was educated on the replacement products called optifast. This is a good way of taking fixed amount of calories. It has been shown in studies to be ineffective weight management tool. We also recommend maintaining adequate protein intake and muscle composition, 1.5mg/kg This however has to be coupled with lifestyle intervention as well as laboratory data and EKG monitoring. It is impossible to know how a person will tolerate complete meal replacement. The side effects of meal replacement and weight loss could include syncopal attacks, dizziness, gallstones, potential cholecystectomy, possible heart attack and even . The benefits of meal replacement would be potential weight loss but no guarantees can be made. Meal replacement products are not covered by insurance. Once the patient has bought these products we cannot return them B. Lifestyle management which includes several strategies as below 1. Eat a low carbohydrate good fat good protein diet. Eliminate refined carbohydrates from the diet. Continue blood sugar and sugared beverages. Eat local organic when possible. Cook your own meals. Read food labels. None about healthy snacks. Portion control and food with low glycemic index 2. Exercise regularly. Try to get at least 6000 steps a day. Use a predominant to track activity level. Consider using apps like Appfolio, myfitnesspal, lose it, stick as needed for self-monitoring and weight management. Consider group exercises. Consider hiring a personal lines account manager. Regular exercise is fel[place] to sustainable health and prevents as a buffer against weight regain 3. Sleep is most important for healing. Tried to sleep at least 8 hours a night. A good quality sleep needs a sleep ritual with ideal room temperature of around 68. It might help to take a shower and have no electronics in the room and sleep in a very dark room without artificial light. Start her sleep routine and get up early in the morning and go to bed on time 4. Make a social connection. Surround yourself with positive people with positive energy. Connect with friends and family. 5. Get into the habit of meditating and mindfulness while doing everything. 6. Go outside and connect with nature. C. Prescription medications Patient was educated on the use of prescription medications for medical weight loss. This is a growing list and includes phentermine, Topamax,Qsymia, contrave, belviq and saxenda. All prescription medications could have side effects including but not limited to kidney stones, seizure disorder cardiac arrhythmias heart attack pancreatitis etc. etc.. Patient was encouraged to read the prescription insert and have coaching with their pharmacist and make an informed decision about taking medication and know that these medications are being prescribed with good intentions and we do not know how a patient would react to her medication. Sudden medications are FDA approved for weight loss and there is also off label use depending on patient's inability to afford medications in an attempt to lose weight D. Behavioral counseling was done to establish a relationship between food and an mood. Patient was provided information about local counseling and psychiatry and Dr Gloria at [facility]. We would like to cover regular topics and build on low glycemic eating exercise mindful eating, using yoga and meditation along with deep breathing and connecting with friends and family. E. MASS PAT reviewed, Patient's current medications were reviewed and opinion was given on medication that can cause weight gain and can be substituted F. Patient was assessed for risk with obesity including and not limiting to atherosclerosis heart disease stroke kidney disease, restrictive lung disease, irritable bowel syndrome and overall mortality. Risk of developing prediabetes diabetes and metabolic syndrome was discussed G. Therapeutic plan: We have decided to make therapeutic plan which would include choosing wisely on calories restricting portion getting active, tracking weight, getting good quality sleep and working on time management H. Patient will follow up in (4) weeks for weight management Safety and Effectiveness of Longer-Term Phentermine Use: Clinical Outcomes from an Electronic Health Record CohortMethods: Obesity ([place]). 2019 Sep;27(4):591-602. doi: [email or web address] Using electronic health record data [id number] adults were identified with a first phentermine fill in 2009 to 2014, creating exposure categories according to a patient's duration of use (referent: = 3 months). Multivariable linear models were used to compare percent weight loss across categories at 6, 12, and 24 months, and García proportional hazards models were used to compare risk of composite CVD or , up to 3 years after starting phentermine. Results: The cohort was 84% female and 45% white, with a mean (SD) baseline age 43.5 (10.7) years and BMI of 37.8 (7.2) kg/m2 .In multivariable models, longer-term users of phentermine experienced more weight loss; patients using continuously for > 12 months lost 7.4% more than the referent group at 24 months (P < 0.001) .The composite CVD or outcome was rare (0.3%, 41 events), with no significant difference in hazard ratios between groups. Conclusions: Greater weight loss without increased risk of incident CVD or was observed in patients using phentermine monotherapy for longer than 3 months. Despite the limitations of the observational design, this study supports the effectiveness and safety of longer-term phentermine use for low-risk individuals. (c) 2019 The Obesity Society. Of note, some information is being carried forward from prior records for informational purposes only and is being cited so that efficiency, safety and quality of the patient's care is not compromised This note was prepared using voice recognition software and direct typing Please excuse inadvertent electric trucker or typing errors, or uncorrected word substitutions Although every attempt has been made by the provider to proofread this document, occasional misspellings and typographical errors may still be present Due to the previous pandemic, and the use of personal protective equipment (PPE) This may decrease voice recognition accuracy Inadvertent electric trucker errors may occur 01/31/2024 Pure hypercholesterole chasity, unspecified (ICD-10 - E78.00) #Weight Management 01/31/2024 Continue Ativan as needed _update thyroid function labs and other comprehensive labs CPE in the upcoming months Of note, some information is being carried forward from prior records for informational purposes only and is being cited so that efficiency, safety and quality of the patient's care is not compromised This note was prepared using voice recognition software and direct typing Please excuse inadvertent electric trucker or typing errors, or uncorrected word substitutions Although every attempt has been made by the provider to proofread this document, occasional misspellings and typographical errors may still be present Due to the previous pandemic, and the use of personal protective equipment (PPE) This may decrease voice recognition accuracy Inadvertent electric trucker errors may occur 10/18/2023 Vitamin B 12 deficiency (ICD-10 - E53.8) #Weight Management 10/18/2023 Continue Ativan as needed Discussed other SSRI options Will transition to Wegovy 1 mg PA will be required likely Discussed importance of protein consumption for muscle maintenance, strength and resistance training as well as probiotics, B12 complex biotin , iron and other nutrients, To also help avoid telogen effluvium while on weight loss medications f/u scheduled for 6 weeks Total time spent today was 30 minutes of which greater than 50% was spent on coordinating and counseling Patient has been found to be obese with a BMI of (32). Patient has class (1) obesity. We are a board certified obesity and weight management practice Patient has trialed behavioral modification, dietary restrictions and exercise for a minimum of 6 months The most recent [place] [employer] endocrin[employer] and [place] [employer] guidelines recommend patients who have overweight BMI or obesity BMI, who also have metabolic syndrome, prediabetes, HLD, and other comorbidities or at risk of developing type 2 diabetes should aim for a weight loss goal of at least 10% of the baseline body weight Patient counseled regarding effects of GLP/GIP-1 agonists, and other FDA approved wgt loss meds with regards to a multifactorial approach of weight loss as mentioned above and not solely appetite suppression. We have discussed the mechanism of GLP-1's/GIP, dual incretins, appetitite suppressants I think this would be fantastic option for her given her metabolic workup and body composition We have discussed the risks and benefits and side effects including/and not limited to Sarcopenia, intestinal obstruction, constipation, nausea, lethargy, headache Discussed importance of protein consumption for muscle maintenance as well as strength and resistance training ,probiotics, B12 complex biotin , iron and other nutrients, To help avoid telogen effluvium We have discussed the lifelong requirement of nutritional supplementation And adherence to an exercise regimen as well as importance of follow-up The patient understands and agrees There is no history of medullary thyroid cancer or multiple endocrine neoplasia There is also no history of cardiovascular disease, hypertension, palpitations, or arrhythmias In the setting of potential stimulant/amphetami ne use such as phentermine We have also discussed risks and benefits, and the use of compounded medications to help offset the national shortages as well as financial implications vs trade name drugs Patient was reassured and welcomed to the practice. We discussed that we stress a hollistic medical approach with emphasis on lifestyle modification. Patient was informed that a healthy lifestyle with exercise and good eating habits can help reduce his risk of medical complications. He is explained that obesity increases his risk of diabetes, cardiovascular disease, or organ damage. We spent a lot of time discussing the relationship between food, exercise, sleep, mental health and obesity. Patient was counseled on the importance EATING local, organic food when possible. Patient was educated on clean 15 and dirty dozen. I provided information about reading books called The Food Rules by Prateek Rodriguez and Eat Fat Get Lean by Dr Freddy Leroy. Self education is important in the journey for weight management. Patient was offered diagnostic testing. We want to measure visceral adiposity, advanced body composition, adverse lipids, fatty acid balance, risk for heart disease and atherosclerosis, markers of inflammation and genetic susceptibility. Patient was counseled on weight management and was advised to lose weight using A. Meal Replacement Products We discussed the lifelong requirement of nutritional supplementation and adherence to an exercise regimen as well as importance of dietary follow-up Patient was educated on the replacement products called optifast. This is a good way of taking fixed amount of calories. It has been shown in studies to be ineffective weight management tool. We also recommend maintaining adequate protein intake and muscle composition, 1.5mg/kg This however has to be coupled with lifestyle intervention as well as laboratory data and EKG monitoring. It is impossible to know how a person will tolerate complete meal replacement. The side effects of meal replacement and weight loss could include syncopal attacks, dizziness, gallstones, potential cholecystectomy, possible heart attack and even . The benefits of meal replacement would be potential weight loss but no guarantees can be made. Meal replacement products are not covered by insurance. Once the patient has bought these products we cannot return them B. Lifestyle management which includes several strategies as below 1. Eat a low carbohydrate good fat good protein diet. Eliminate refined carbohydrates from the diet. Continue blood sugar and sugared beverages. Eat local organic when possible. Cook your own meals. Read food labels. None about healthy snacks. Portion control and food with low glycemic index 2. Exercise regularly. Try to get at least 6000 steps a day. Use a predominant to track activity level. Consider using apps like Appfolio, myfitnesspal, lose it, stick as needed for self-monitoring and weight management. Consider group exercises. Consider hiring a personal lines account manager. Regular exercise is fel[place] to sustainable health and prevents as a buffer against weight regain 3. Sleep is most important for healing. Tried to sleep at least 8 hours a night. A good quality sleep needs a sleep ritual with ideal room temperature of around 68. It might help to take a shower and have no electronics in the room and sleep in a very dark room without artificial light. Start her sleep routine and get up early in the morning and go to bed on time 4. Make a social connection. Surround yourself with positive people with positive energy. Connect with friends and family. 5. Get into the habit of meditating and mindfulness while doing everything. 6. Go outside and connect with nature. C. Prescription medications Patient was educated on the use of prescription medications for medical weight loss. This is a growing list and includes phentermine, Topamax,Qsymia, contrave, belviq and saxenda. All prescription medications could have side effects including but not limited to kidney stones, seizure disorder cardiac arrhythmias heart attack pancreatitis etc. etc.. Patient was encouraged to read the prescription insert and have coaching with their pharmacist and make an informed decision about taking medication and know that these medications are being prescribed with good intentions and we do not know how a patient would react to her medication. Sudden medications are FDA approved for weight loss and there is also off label use depending on patient's inability to afford medications in an attempt to lose weight D. Behavioral counseling was done to establish a relationship between food and an mood. Patient was provided information about local counseling and psychiatry and Dr Gloria at [facility]. We would like to cover regular topics and build on low glycemic eating exercise mindful eating, using yoga and meditation along with deep breathing and connecting with friends and family. E. MASS PAT reviewed, Patient's current medications were reviewed and opinion was given on medication that can cause weight gain and can be substituted F. Patient was assessed for risk with obesity including and not limiting to atherosclerosis heart disease stroke kidney disease, restrictive lung disease, irritable bowel syndrome and overall mortality. Risk of developing prediabetes diabetes and metabolic syndrome was discussed G. Therapeutic plan: We have decided to make therapeutic plan which would include choosing wisely on calories restricting portion getting active, tracking weight, getting good quality sleep and working on time management H. Patient will follow up in (4) weeks for weight management Safety and Effectiveness of Longer-Term Phentermine Use: Clinical Outcomes from an Electronic Health Record CohortMethods: Obesity ([place]). 2019 Sep;27(4):591-602. doi: [email or web address] Using electronic health record data [id number] adults were identified with a first phentermine fill in 2009 to 2014, creating exposure categories according to a patient's duration of use (referent: = 3 months). Multivariable linear models were used to compare percent weight loss across categories at 6, 12, and 24 months, and García proportional hazards models were used to compare risk of composite CVD or , up to 3 years after starting phentermine. Results: The cohort was 84% female and 45% white, with a mean (SD) baseline age 43.5 (10.7) years and BMI of 37.8 (7.2) kg/m2 .In multivariable models, longer-term users of phentermine experienced more weight loss; patients using continuously for > 12 months lost 7.4% more than the referent group at 24 months (P < 0.001) .The composite CVD or outcome was rare (0.3%, 41 events), with no significant difference in hazard ratios between groups. Conclusions: Greater weight loss without increased risk of incident CVD or was observed in patients using phentermine monotherapy for longer than 3 months. Despite the limitations of the observational design, this study supports the effectiveness and safety of longer-term phentermine use for low-risk individuals. (c) 2019 The Obesity Society. Of note, some information is being carried forward from prior records for informational purposes only and is being cited so that efficiency, safety and quality of the patient's care is not compromised This note was prepared using voice recognition software and direct typing Please excuse inadvertent electric trucker or typing errors, or uncorrected word substitutions Although every attempt has been made by the provider to proofread this document, occasional misspellings and typographical errors may still be present Due to the previous pandemic, and the use of personal protective equipment (PPE) This may decrease voice recognition accuracy Inadvertent electric trucker errors may occur 09/01/2023 Vitamin B 12 deficiency (ICD-10 - E53.8) #Weight Management 09/02/2023 Continue Ativan as needed Discussed other SSRI options Will transition to Wegovy 1 mg PA will be required likely Discussed importance of protein consumption for muscle maintenance, strength and resistance training as well as probiotics, B12 complex biotin , iron and other nutrients, To also help avoid telogen effluvium while on weight loss medications f/u scheduled for 6 weeks Total time spent today was 30 minutes of which greater than 50% was spent on coordinating and counseling Patient has been found to be obese with a BMI of (32). Patient has class (1) obesity. We are a board certified obesity and weight management practice Patient has trialed behavioral modification, dietary restrictions and exercise for a minimum of 6 months The most recent [place] [employer] of clinical endocrinologists and [place] [employer] guidelines recommend patients who have overweight BMI or obesity BMI, who also have metabolic syndrome, prediabetes, HLD, and other comorbidities or at risk of developing type 2 diabetes should aim for a weight loss goal of at least 10% of the baseline body weight Patient counseled regarding effects of GLP/GIP-1 agonists, and other FDA approved wgt loss meds with regards to a multifactorial approach of weight loss as mentioned above and not solely appetite suppression. We have discussed the mechanism of GLP-1's/GIP, dual incretins, appetitite suppressants I think this would be fantastic option for her given her metabolic workup and body composition We have discussed the risks and benefits and side effects including/and not limited to Sarcopenia, intestinal obstruction, constipation, nausea, lethargy, headache Discussed importance of protein consumption for muscle maintenance as well as strength and resistance training ,probiotics, B12 complex biotin , iron and other nutrients, To help avoid telogen effluvium We have discussed the lifelong requirement of nutritional supplementation And adherence to an exercise regimen as well as importance of follow-up The patient understands and agrees There is no history of medullary thyroid cancer or multiple endocrine neoplasia There is also no history of cardiovascular disease, hypertension, palpitations, or arrhythmias In the setting of potential stimulant/amphetami ne use such as phentermine We have also discussed risks and benefits, and the use of compounded medications to help offset the national shortages as well as financial implications vs trade name drugs Patient was reassured and welcomed to the practice. We discussed that we stress a hollistic medical approach with emphasis on lifestyle modification. Patient was informed that a healthy lifestyle with exercise and good eating habits can help reduce his risk of medical complications. He is explained that obesity increases his risk of diabetes, cardiovascular disease, or organ damage. We spent a lot of time discussing the relationship between food, exercise, sleep, mental health and obesity. Patient was counseled on the importance EATING local, organic food when possible. Patient was educated on clean 15 and dirty dozen. I provided information about reading books called The Food Rules by Parteek Rodriguez and Eat Fat Get Lean by Dr Freddy Leroy. Self education is important in the journey for weight management. Patient was offered diagnostic testing. We want to measure visceral adiposity, advanced body composition, adverse lipids, fatty acid balance, risk for heart disease and atherosclerosis, markers of inflammation and genetic susceptibility. Patient was counseled on weight management and was advised to lose weight using A. Meal Replacement Products We discussed the lifelong requirement of nutritional supplementation and adherence to an exercise regimen as well as importance of dietary follow-up Patient was educated on the replacement products called optifast. This is a good way of taking fixed amount of calories. It has been shown in studies to be ineffective weight management tool. We also recommend maintaining adequate protein intake and muscle composition, 1.5mg/kg This however has to be coupled with lifestyle intervention as well as laboratory data and EKG monitoring. It is impossible to know how a person will tolerate complete meal replacement. The side effects of meal replacement and weight loss could include syncopal attacks, dizziness, gallstones, potential cholecystectomy, possible heart attack and even . The benefits of meal replacement would be potential weight loss but no guarantees can be made. Meal replacement products are not covered by insurance. Once the patient has bought these products we cannot return them B. Lifestyle management which includes several strategies as below 1. Eat a low carbohydrate good fat good protein diet. Eliminate refined carbohydrates from the diet. Continue blood sugar and sugared beverages. Eat local organic when possible. Cook your own meals. Read food labels. None about healthy snacks. Portion control and food with low glycemic index 2. Exercise regularly. Try to get at least 6000 steps a day. Use a predominant to track activity level. Consider using apps like Appfolio, [employer] Systemspal, lose it, stick as needed for self-monitoring and weight management. Consider group exercises. Consider hiring a personal lines account manager. Regular exercise is fel[place] to sustainable health and prevents as a buffer against weight regain 3. Sleep is most important for healing. Tried to sleep at least 8 hours a night. A good quality sleep needs a sleep ritual with ideal room temperature of around 68. It might help to take a shower and have no electronics in the room and sleep in a very dark room without artificial light. Start her sleep routine and get up early in the morning and go to bed on time 4. Make a social connection. Surround yourself with positive people with positive energy. Connect with friends and family. 5. Get into the habit of meditating and mindfulness while doing everything. 6. Go outside and connect with nature. C. Prescription medications Patient was educated on the use of prescription medications for medical weight loss. This is a growing list and includes phentermine, Topamax,Qsymia, contrave, belviq and saxenda. All prescription medications could have side effects including but not limited to kidney stones, seizure disorder cardiac arrhythmias heart attack pancreatitis etc. etc.. Patient was encouraged to read the prescription insert and have coaching with their pharmacist and make an informed decision about taking medication and know that these medications are being prescribed with good intentions and we do not know how a patient would react to her medication. Sudden medications are FDA approved for weight loss and there is also off label use depending on patient's inability to afford medications in an attempt to lose weight D. Behavioral counseling was done to establish a relationship between food and an mood. Patient was provided information about local counseling and psychiatry and Dr Gloria at [facility]. We would like to cover regular topics and build on low glycemic eating exercise mindful eating, using yoga and meditation along with deep breathing and connecting with friends and family. E. MASS PAT reviewed, Patient's current medications were reviewed and opinion was given on medication that can cause weight gain and can be substituted F. Patient was assessed for risk with obesity including and not limiting to atherosclerosis heart disease stroke kidney disease, restrictive lung disease, irritable bowel syndrome and overall mortality. Risk of developing prediabetes diabetes and metabolic syndrome was discussed G. Therapeutic plan: We have decided to make therapeutic plan which would include choosing wisely on calories restricting portion getting active, tracking weight, getting good quality sleep and working on time management H. Patient will follow up in (4) weeks for weight management Safety and Effectiveness of Longer-Term Phentermine Use: Clinical Outcomes from an Electronic Health Record CohortMethods: Obesity (Hayes). 2019 Sep;27(4):591-602. doi: 10.1002/marva.83756 Using electronic health record data 13,972 adults were identified with a first phentermine fill in 2009 to 2014, creating exposure categories according to a patient's duration of use (referent: = 3 months). Multivariable linear models were used to compare percent weight loss across categories at 6, 12, and 24 months, and García proportional hazards models were used to compare risk of composite CVD or , up to 3 years after starting phentermine. Results: The cohort was 84% female and 45% white, with a mean (SD) baseline age 43.5 (10.7) years and BMI of 37.8 (7.2) kg/m2 .In multivariable models, longer-term users of phentermine experienced more weight loss; patients using continuously for > 12 months lost 7.4% more than the referent group at 24 months (P < 0.001) .The composite CVD or outcome was rare (0.3%, 41 events), with no significant difference in hazard ratios between groups. Conclusions: Greater weight loss without increased risk of incident CVD or was observed in patients using phentermine monotherapy for longer than 3 months. Despite the limitations of the observational design, this study supports the effectiveness and safety of longer-term phentermine use for low-risk individuals. (c) 2019 The Obesity Society. Of note, some information is being carried forward from prior records for informational purposes only and is being cited so that efficiency, safety and quality of the patient's care is not compromised This note was prepared using voice recognition software and direct typing Please excuse inadvertent electric trucker or typing errors, or uncorrected word substitutions Although every attempt has been made by the provider to proofread this document, occasional misspellings and typographical errors may still be present Due to the previous pandemic, and the use of personal protective equipment (PPE) This may decrease voice recognition accuracy Inadvertent electric trucker errors may occur 01/31/2024 Vitamin B 12 deficiency (ICD-10 - E53.8) #Weight Management 01/31/2024 Continue Ativan as needed _update thyroid function labs and other comprehensive labs CPE in the upcoming months Of note, some information is being carried forward from prior records for informational purposes only and is being cited so that efficiency, safety and quality of the patient's care is not compromised This note was prepared using voice recognition software and direct typing Please excuse inadvertent electric trucker or typing errors, or uncorrected word substitutions Although every attempt has been made by the provider to proofread this document, occasional misspellings and typographical errors may still be present Due to the previous pandemic, and the use of personal protective equipment (PPE) This may decrease voice recognition accuracy Inadvertent electric trucker errors may occur PLAN OF TREATMENT Pending Test Test Name Order Date 25OH VITAMIN D 09/16/2022 CBC (COMPLETE BLOOD COUNT) 09/16/2022 COMPREHENSIVE METABOLIC PANEL 09/16/2022 HEMOGLOBIN A1C 09/16/2022 LIPID PANEL 09/16/2022 T4, TOTAL 09/16/2022 T4, TOTAL 11/03/2022 T4, TOTAL 05/18/2023 TSH 11/03/2022 TSH 05/18/2023 TSH 09/16/2022 VITAMIN B12 09/16/2022 VITAMIN B12 05/18/2023 Insulin Level 09/16/2022 LIPID PANEL, STANDARD 01/31/2024 COMPREHENSIVE METABOLIC PANEL 01/31/2024 CBC (INCLUDES DIFF/PLT) 01/31/2024 URINALYSIS, COMPLETE 01/31/2024 HEMOGLOBIN A1c 01/31/2024 VITAMIN B12 01/31/2024 T4, FREE 01/31/2024 TSH 01/31/2024 VITAMIN D,25-OH,TOTAL,IA 01/31/2024 COMPLETE URINALYSIS 09/16/2022 Next Appt Details Provider Name:YUNG DAMICO, 08/02/2024 08:15:00 AM, [address] [place] [address] [address], [place], [address], Insurance Providers Payer Name Payer Address Payer Phone Subscriber Number Group Number Insured Name Patient Relationship to Insured Coverage Start Date Coverage End Date [facility] [address] [place] [address] [id number] Kanika Staton Self - patient is the insured 3 MEDICATIONS ADMINISTERED Medication Instructions Date of Administration Dosage Notes MICC B12 INJECTION 02/03/2023 MEDICAL (GENERAL) HISTORY Medical History History ICD Code high cholesterol seasonal allergies thyroid disease depression Surgical History Surgery Date(Month/Year) wisdom teeth extraction 1989
--- OUTSIDE RECORDS SUMMARY | 2024-07-25 13:59 | XMS_ITS ---
Author Organization [facility] Address [address] [place] [address] Care Team Providers Care Project Accountant Name Role Phone JADIELMaritza YUNG Unavailable [phone] Encounters Encounter Location Date Provider Diagnosis [facility] [address] [facility] [address] [place] [address] 07/20/2024 YUNG DAMICO PLAN OF TREATMENT Next Appt Details Provider Name:YUNG DAMICO, 08/02/2024 08:15:00 AM, [address] [facility], [facility] 119, [place], [address], Progress Notes * Kanika SAMPSONDOB: 3 (53 yo F)Acc No.[id number]:07/20/2024 Patient:??Kanika SAMPSON :1970?Age:53 Y?Sex:Fe male Address:[facility] [place] [address] * * Date:??
--- OUTSIDE RECORDS SUMMARY | 2024-07-25 13:59 | XMS_ITS ---
Author Organization [facility] Address [address] [place] [address] Care Team Providers Care Cleaning Manager Name Role Phone JADIELMaritza YUNG Unavailable [phone] Encounters Encounter Location Date Provider Diagnosis [facility] [address] [facility] [address] [place] [address] 06/08/2024 YUNG DAMICO PLAN OF TREATMENT Next Appt Details Provider Name:YUNG DAMICO, 08/02/2024 08:15:00 AM, [address] [facility], [facility] [address], [place], [address], Progress Notes * Kanika SAMPSONDOB: 3 (53 yo F)Acc No.[id number]:06/08/2024 Patient:??Kanika SAMPSON :1970?Age:53 Y?Sex:Fe male Address:[facility] [address] * true * Date:??
--- OUTSIDE RECORDS SUMMARY | 2024-07-25 13:59 | XMS_ITS | Encounter Summary ---
Author Organization [facility] Address [address] [place] [address] Care Team Providers Care Insulation Estimator Name Role Phone Harry Coto MD Primary Care Provider [phone] Reason for Visit * Imaging (Routine) - Pending Review Specialty Diagnoses / Procedures Referred By Tenzin krishna Referred To Contact Radiology Diagnoses Bariatric surgery status Procedures XR UGI w Air Contrast XR UGI w Single Contrast Anup Montenegro MD [address] [place] [address] [address] [place] [address] Phone: tel: fax: [facility] Referral ID Status Reason Start Date Expiration Date V isits Requested Visits Authorized [id number] Pending Review 07/18/2024 07/18/2025 1 1 Encounter Details Date Type Department Care Team (Latest Contact Info) Description 07/19/2024 8:43 AM EST - 07/19/2024 11:59 PM EST Hospital Encounter [facility] [address] [place] [phone] Bariatric surgery status Discharge Disposition: Home or Self Care Social [...] AM EDT Appointment [facility] at [address] [phone] documented as of this encounter Procedures Procedure Name Priority Date/Time Associated Diagnosis Comments XR CHEST 2 VIEWS Routine 07/19/2024 9:27 AM EST Obesity, class 1 Other obesity due to excess calories Body mass index (BMI) 34.0-34.9, adult Hypothyroidism, unspecified Hyperlipidemia, unspecified Essential (primary) hypertension XR UGI W AIR CONTRAST Routine 07/19/2024 9:27 AM EST Bariatric surgery status documented in this encounter Results * XR UGI w Air Contrast [...] Signed Date: 07/19/2024 10:33 ET Workstation ID: [id number] Transcribed By: Self Edit Transcribed Date: 07/19/2024 10:30 ET Resident/PA/BEEF BREAKER: Sydnie David Narrative 07/19/2024 10:33 AM EST FINDINGS: Double contrast UGI performed. COMPARISON: None. HISTORY: Patient is a 53-year-old female with no significant past medical history. Preop bariatric surgery. SHOVE UP radiographs: [employer] radiograph of the abdomen obtained. Bowel [...] no significant past medicalhistory. Preop bariatric surgery. SHOVE UP radiographs: [employer] radiograph of the abdomen obtained. Bowel [...] Signed Date: 07/19/2024 10:33 ET Workstation ID: [id number] Transcribed By: Self Edit Transcribed Date: 07/19/2024 10:30 ET Resident/PA/BEEF BREAKER: Sydnie David Anup Montenegro MD IMG FLUOROSCOPY PROCEDURE S Final Result documented in this encounter Visit Diagnoses Diagnosis Bariatric surgery status documented in this encounter Administered Medications Inactive Administered Medications - up to 3 most recent administrations Medication Order MAR Action Action Date Dose Rate Site barium sulfate (E-Z-HD) 98 % suspension 143 mL 143 mL (rounded from 142.8571 mL = 340 g), oral, Once in imaging, Starting on Frida 07/19/24 at 0927, For 1 dose Given 07/19/2024 9:29 AM EST 143 mL barium sulfate (E-Z-PAQUE) 96 % (w/w) suspension 183 mL 183 mL (rounded from 183.3333 mL = 176 g), oral, Once in imaging, Starting on Frida 07/19/24 at 0928, For 1 dose Given 07/19/2024 9:28 AM EST 183 mL sod bicarb-citric ac-simeth 2.21-1.53 gram/4 gram packet 2 packet 2 packet, oral, Once, On Frida 07/19/24 at 0945, For 1 dose, Dissolve the contents of a half of a packet on the back of the tongue, wash down with 15 mL of water or juice and repeat with remaining contents. Given 07/19/2024 9:28 AM EST 2 packets documented in this encounter Care Teams Insulation Estimator Relationship Specialty Start Date End Date Harry Coto MD [address] [place] [address] PCP - General 05/03/22 documented as of this encounter
--- OUTSIDE RECORDS SUMMARY | 2024-07-25 14:00 | XMS_ITS ---
Author Organization [facility] Address [address] [place] [address] Care Team Providers Care Skein Dyer Name Role Phone YUNG DAMICO Unavailable [phone] REASON FOR VISIT flu like snptoms Encounters Encounter Location Date Provider Diagnosis [facility] [address] [place] [address] 06/09/2024 YUNG DAMICO PLAN OF TREATMENT Next Appt Details Provider Name:YUNG DAMICO, 08/02/2024 08:15:00 AM, [address] [facility], [facility] 119, [place], [address], Progress Notes * Kanika SAMPSONDOB: 3 (53 yo F)Acc No.[id number]:06/09/2024 Progress Notes Patient:??Kanika SAMPSON Provider:??YUNG DAMICO NP :1970?Age:53 Y?Sex:Fe male Date:06/09/2024 Address:[id number] Subjective: * Chief Complaints: * ?1. Flu like snptoms. * Medical History:?? Objective: Assessment: Plan: * Treatment: Care Plan: * Problems:?? * Images: Billing Information: * Visit Code:?? * Procedure Codes:?? Care Plan Details* * Sign off status: Pending * Provider:??YUNG DAMICO NP Date:??05/14
--- NOTE | 2024-07-25 14:06 | MHC.SHP ---
Pre-Procedural Eval Section A - 24 Hr Update-Section A only Date of Service: 07/25/24 The patient is an INPATIENT: No The patient has been examined within 24 hours of the surgical procedure. The History & Physical has been completed within 30 days and I have reviewed it.: Yes Section B - Complete if H&P > 30 days Chief Complaint: Obesity, unspecified Relevant Family History (Specify if Yes): No Relevant Social History: None Present Medications: None Medical History: No relevant PMH History of Previous Operations: No relevant previous surgery Allergies: Allergies Allergy/AdvReac Type Severity Reaction Status Date / Time No Known Allergies Allergy Unknown U Verified 07/18/24 14:36 Review of Systems Sugical H&P ROS: Negative: Constitution, Cardiovascular, Respiratory, Neurological, Psychiatric, Hem-Onc, Allergic/Immunologic, Gastrointestinal, Genitourinary, Musculoskeletal, Integumentary, Endocrine and Eyes/Ears/Nose/Throat Exam Surgical H&P Exam: Normal: HEENT, Normal: Heart, Normal: Lungs, Normal: Extremities, Normal: Abdomen, Normal: Skin and Normal: Neurological Plan Diagnosis/Plan: Unchanged (EGD to assess the stomach's anatomy. Risks of bleeding and perforation were discussed with the patient and she is in agreement with the plan.) I have reviewed the history and physical and performed a pertinent physical examination on my patient. No changes have occurred unless specified. Time Spent With Patient Time: Total time managing care of this patient today ____ minutes.
--- NOTE | 2024-07-25 14:07 | P.BOP_ITS ---
Brief Operative Note Date of Service: 07/25/24 Pre-op diagnosis: Obesity Post-op diagnosis: same Procedure: PROCEDURE DATE: 07/25/2024 PREOPERATIVE DIAGNOSIS: Obesity POSTOPERATIVE DIAGNOSIS: ?Same as above. 1) small hiatal hernia PROCEDURE: Qfdqfdvb-qdvsdl-eyaqgnltqdms with biopsies Surgeon: Paul Montenegro M.D.. Ph.D. [employer]room Foundry Laborer: None ? Anesthesia: IV sedation Estimated blood loss: ?Minimal FINDINGS AND PROCEDURE: ? OPERATIVE INDICATIONS: ?The patient is a 53 year old female known to me who is interested in bariatric surgery. Based on this information I recommended an upper endoscopy to evaluate the stomach's anatomy. Risks and complications of the surgery were discussed with the patient in advance particularly the possibility of perforation or bleeding that may require surgical intervention. The patient understood the risks and was in agreement with the plan. ? PROCEDURE: After informed consent was obtained by the patient, the patient was ?transferred to the Operating Room and was placed in the supine position.? After successful induction of IV sedation, a mouth block was inserted and the patient was placed in the left lateral decubitus position. An upper endoscopy was performed next, the oropharynx and esophagus appeared within the normal limits. There was a small 1-2cm hiatal hernia. The z-line was smooth. Two biopsies were obtained from the distal esophagus 2-3 cm proximal to the GE junction and two additional biopsies from the GE junction. The stomach was entered and it appeared to be of normal size. There was no gastritis. There was no stricture or ulcer. A biopsy was obtained from the gastric fundus and the antrum. No significant bleeding was noted from any of the biopsy sites. Retroflexion of the scope confirmed the presence of a small diaphragmatic hernia. The scope was then advanced into the duodenum which appeared to be normal as well. At that point the duodenum ?and the stomach were decompressed and the scope was withdrawn from the patient's mouth. The patient extubated and was transferred in stable condition to the Recovery Room for further care. I was present and performed all steps of the procedure. There were no residents to assist with this case. Lew Montenegro M.D., Ph.D. Surgeon: Anup Montenegro MD Anesthesia: MAC Was an Coreroom Foundry Laborer used for this Procedure?: No Estimated blood loss (mL): 0 IV fluids (mL): 400 Urine output (mL): 0 (No Barrett to record output) Pathology: other (1) antrum x1, 2) fundus x1, 3) GE junction x2, 4) distal esophagus x2) Condition: stable Disposition: PACU
[2024-07-25 14:31] VITALS: BP 117/70; PULSE 102; RESP 18; TEMP 36.5; O2SAT 99
[2024-07-25 14:46] VITALS: BP 134/66; PULSE 90; RESP 20; TEMP 36.4; O2SAT 99
== END | disposition home or self-care (01) ==
PROVIDERS: PCP Internal Medicine; Visit Provider Surgery
PROC: 0DJ08ZZ Inspection of Upper Intestinal Tract, Via Natural or Artificial Opening Endoscopic (ICD-10-PCS; CPT 43235; principal; 2024-07-25 15:40)
DX: E66.09 Other obesity due to excess calories (principal); Z68.34 Body mass index [BMI] 34.0-34.9, adult; K44.9 Diaphragmatic hernia without obstruction or gangrene; E78.5 Hyperlipidemia, unspecified; I10 Essential (primary) hypertension; E03.9 Hypothyroidism, unspecified; G47.00 Insomnia, unspecified; Z79.899 Other long term (current) drug therapy; Z98.890 Other specified postprocedural states
CPT/HCPCS: 43239; 88305; 88313; 88342; J2003; J2704

== ENCOUNTER 2024-08-01 11:09 | Outpatient (AMB) | payer OTHER, SELFPAY ==
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
--- OUTSIDE RECORDS SUMMARY | 2024-08-01 11:54 | XMS_ITS ---
Author Organization [facility] Address [address] [place] [address] Care Team Providers Care Kick Boxer Name Role Phone JADIELMaritza YUNG Unavailable [phone] Encounters Encounter Location Date Provider Diagnosis [facility] [address] [facility] [address] [place] [address] 06/08/2024 YUNG DAMICO PLAN OF TREATMENT Next Appt Details Provider Name:YUNG DAMICO, 08/02/2024 08:15:00 AM, [address] [facility], [facility] [address], [place], [address], Progress Notes * Kanika SAMPSONDOB: 3 (53 yo F)Acc No.[id number]:06/08/2024 Patient:??Kanika SAMPSON :1970?Age:53 Y?Sex:Fe male Address:[facility] [place] [address] * true * Date:??
--- OUTSIDE RECORDS SUMMARY | 2024-08-01 11:54 | XMS_ITS | Encounter Summary ---
Author Organization [facility] Address [address] [place] [address] Care Team Providers Care Director Of Philanthropy Name Role Phone Harry Coto MD Primary Care Provider [phone] Reason for Visit * Imaging (Routine) - Pending Review Specialty Diagnoses / Procedures Referred By Tenzin krishna Referred To Contact Radiology Diagnoses Bariatric surgery status Procedures XR UGI w Air Contrast XR UGI w Single Contrast Anup Montenegro MD [address] [place] [address] [address] [place] [address] Phone: tel: fax: [facility] Referral ID Status Reason Start Date Expiration Date V isits Requested Visits Authorized [id number] Pending Review 07/18/2024 07/18/2025 1 1 Encounter Details Date Type Department Care Team (Latest Contact Info) Description 07/19/2024 8:43 AM EST - 07/19/2024 11:59 PM EST Hospital Encounter [facility] Xray [address] [place] [phone] Bariatric surgery status Discharge Disposition: Home or [...] AM EDT Appointment [facility] at [address] [phone] documented as of this encounter Procedures Procedure [...] Signed Date: 07/19/2024 10:33 ET Workstation ID: [id number] Transcribed By: Self Edit Transcribed Date: 07/19/2024 10:30 ET Resident/PA/FIELD REPRESENTATIVE/HEALTH EDUCATION: Sydnie David Narrative 07/19/2024 10:33 AM EST FINDINGS: Double contrast UGI performed. COMPARISON: None. HISTORY: Patient is a 53-year-old female with no significant past medical history. Preop bariatric surgery. PHOTOCOPY OPERATOR radiographs: Operations Chief AP radiograph of the abdomen obtained. Bowel [...] no significant past medicalhistory. Preop bariatric surgery. PHOTOCOPY OPERATOR radiographs: Operations Chief AP radiograph of the abdomen obtained. Bowel [...] Signed Date: 07/19/2024 10:33 ET Workstation ID: [id number] Transcribed By: Self Edit Transcribed Date: 07/19/2024 10:30 ET Resident/PA/FIELD REPRESENTATIVE/HEALTH EDUCATION: Sydnie David Anup Montenegro MD IMG FLUOROSCOPY [...] packets documented in this encounter Care Teams Director Of Philanthropy Relationship Specialty Start Date End Date Harry Coto MD [address] [place] [address] PCP - General 05/03/22 documented as of this encounter
--- OUTSIDE RECORDS SUMMARY | 2024-08-01 11:54 | XMS_ITS | Clinical Summary ---
Author Organization [facility] Address [address] [place] [address] Phone Care Team Providers Care Section Hand Helper Name Role Phone Harry Coto MD Primary Care Provider [phone] Encounters Date Type Department Care Team Description 07/19/2024 8:46 AM EST - 07/19/2024 11:59 PM EST Hospital Encounter [facility] Non-Invasive Cardiology [address] [place] [phone] Obesity, class 1; Other obesity due to excess calories; Body mass index (BMI) 34.0-34.9, adult; Hypothyroidism, unspecified; Hyperlipidemia, unspecified; Essential (primary) hypertension Discharge Disposition: Home or Self Care 07/19/2024 8:43 AM EST - 07/19/2024 11:59 PM EST Hospital Encounter [facility] Xray [address] [place] [phone] Bariatric surgery status Discharge Disposition: Home or [...] AM EDT [facility]ment [facility] [address] [address] Health Maintenance Due Date Last [...] Signed Date: 07/19/2024 10:33 ET Workstation ID: [id number] Transcribed By: Self Edit Transcribed Date: 07/19/2024 10:30 ET Resident/PA/CARPENTER ROUGH: Sydnie David Narrative 07/19/2024 10:33 AM EST FINDINGS: Double contrast UGI performed. COMPARISON: None. HISTORY: Patient is a 53-year-old female with no significant past medical history. Preop bariatric surgery. LENS POLISHER HAND radiographs: Security Officer Supervisor AP radiograph of the abdomen obtained. Bowel [...] no significant past medicalhistory. Preop bariatric surgery. LENS POLISHER HAND radiographs: Security Officer Supervisor AP radiograph of the abdomen obtained. Bowel [...] Signed Date: 07/19/2024 10:33 ET Workstation ID: [id number] Transcribed By: Self Edit Transcribed Date: 07/19/2024 10:30 ET Resident/PA/CARPENTER ROUGH: Sydnie David us Anup Montenegro MD IMG FLUOROSCOPY PROCEDURE S Final Result * XR Chest 2 Views (07/19/2024 9:27 AM EST) Anatomical Region Laterality Modality Body Radiographic Iris ging 07/19/2024 9:34 AM EST Addenda Addendum by Brenden Morocho MD on 07/19/2024 9:[address] Teleradiology -------- ADDENDUM -------- Dictated By: Brenden Morocho Dictated Date: 07/19/2024 09:53 ET Assigned Physician: Brenden Morocoh Reviewed and Electronically Signed By: Brenden Morocho Signed Date: 07/19/2024 09:53 ET Workstation ID: [id number] Transcribed By: Self Edit Transcribed Date: 07/19/2024 09:53 ET Impressions 07/19/2024 9:35 AM EST Normal examination. ??No change since the prior study performed 07/20/2023. Code 77766 -------- FINAL REPORT -------- Dictated By: Brenden Morocho Dictated Date: 07/19/2024 09:34 ET Assigned Physician: Brenden Morocho Reviewed and Electronically Signed By: Brenden Morocho Signed Date: 07/19/2024 09:35 ET Workstation ID: [id number] Transcribed By: Self Edit Transcribed Date: 07/19/2024 [...] since the prior study performed 07/20/2023. Code 85298 -------- FINAL REPORT -------- Dictated By: Brenden Morocho Dictated Date: 07/19/2024 09:34 ET Assigned Physician: Brenden Morocho Reviewed and Electronically Signed By: Brenden Morocho Signed Date: 07/19/2024 09:35 ET Workstation ID: [id number] Transcribed By: Self Edit Transcribed Date: 07/19/2024 09:34 ET Anup Montenegro MD IMG XR PROCEDURES Edited Result - Final * ECG 12 lead (07/19/2024 9:04 AM EST) Ventricular Rate ECG 74 BPM GEMUSE Atrial Rate 74 BPM GEMUSE P-R Interval 164 ms GEMUSE QRS Duration 80 ms GEMUSE Q-T Interval 386 ms GEMUSE QTc 428 ms GEMUSE P Wave [place] 20 degrees GEMUSE R [place] -97 degrees GEMUSE T [place] 29 degrees GEMUSE ECG Interpretation Normal sinus rhythm Right superior axis deviation Low voltage QRS Poor R wave progression Abnormal ECG When compared with ECG of 20-JUL-2023 13:24, No significant change was found Confirmed by Diego GRIMM, STACY ([id number]) on 07/19/2024 3:09:35 PM GEMUSE 07/19/2024 9:04 AM EST 07/19/2024 3:09 PM EST us Anup Montenegro MD ECG ORDERABLES Final Res ult KAREEMUSE * (ABNORMAL) Thyroid stimulating hormone with reflex to free t4 and free t3 (07/19/2024 8:12 AM EST) TSH 12.06(H) 0.40 - 4.00 mcIU/mL LAB CHEMISTRY METHOD 07/19/2024 9:17 AM EST [facility] Blood Venous blood specimen / Unknown Venipuncture / Unknown 07/19/2024 8:12 AM EST 07/19/2024 8:28 AM EST Anup Montenegro MD LAB BLOOD ORDERABLES Suyapa l Result Performing Organization Address [facility] de Phone Number [facility] [address] [place] [address], [place] [phone] * Free thyroxine with reflex to free triiodothyronine (07/19/2024 8:12 AM EST) [facility] Free T4 0.78 0.70 - 1.80 ng/dL LAB CHEMISTRY METHOD 07/19/2024 9:44 AM EST [facility] Blood Venous blood specimen / Unknown Venipuncture / Unknown 07/19/2024 8:12 AM EST 07/19/2024 8:28 AM EST Anup Montenegro MD LAB BLOOD ORDERABLES Suyapa l Result Performing Organization Address [facility] de Phone Number [facility] [address] [place] [address], [place] [phone] * (ABNORMAL) Lipid panel with reflex to direct LDL (07/19/2024 8:12 AM EST) Cholesterol 282(H) 0 - 200 mg/dL LAB CHEMISTRY METHOD 07/19/2024 9:11 AM EST [facility] Triglycerides 102 0 - 150 mg/dL LAB CHEMISTRY METHOD 07/19/2024 9:11 AM EST [facility] HDL 109 >=40 mg/dL LAB CHEMISTRY METHOD 07/19/2024 9:11 AM EST [facility] LDL Calculated 153(H) 0 - 100 mg/dL LAB CHEMISTRY METHOD 07/19/2024 9:11 AM [facility] VLDL Cholesterol Ruddy 20.4 mg/dL LAB CHEMISTRY METHOD 07/19/2024 9:11 AM [facility] Non HDL Chol. (LDL+VLDL) 173(H) <145 mg/dL LAB CHEMISTRY METHOD 07/19/2024 9:11 AM [facility] Chol/HDL Ratio 2.6 0.0 - 4.4 LAB CHEMISTRY METHOD 07/19/2024 9:11 AM [facility] Blood Venous blood specimen / Unknown Venipuncture / Unknown 07/19/2024 8:12 AM EST 07/19/2024 8:28 AM EST Anup Montenegro MD LAB BLOOD ORDERABLES Suyapa l Result [facility] [address] [place] [address], * Insulin antibody (07/19/2024 8:12 AM EST) [...] the context of clinical symptoms. Performed By: [employer] [address] [place] [address] Diversity Specialist: Krishan Villagomez MD, PhD CLIA Number: [id number] Blood Venous blood specimen / Unknown Venipuncture / Unknown 07/19/2024 8:12 AM EST 07/19/2024 8:28 AM EST Anup Montenegro MD LAB BLOOD ORDERABLES Suyapa l Result Performing Organization Address [facility] Co de Phone Number [facility] [address] [place] [address] * Zinc (07/19/2024 8:12 AM EST) Zinc 86 60 - 130 ug/dL 07/23/2024 12:57 PM EST [facility] Comment: Elevated results may be due to sample collected in a non-certified trace element-free tube. This test was developed and the performance characteristics determined by [facility]. It has not been cleared or approved by the FDA. The laboratory is regulated under CLIA as qualified to perform high-complexity testing. This test is used for patient testing purposes. It should not be regarded as investigational or for research. Test performed at [facility], [address], [place] ??[address] ? [phone] Shwetha Donahue MD, PhD - Host Hostess Blood Venous blood specimen / Unknown Venipuncture / Unknown 07/19/2024 8:12 AM EST 07/19/2024 8:28 AM EST Anup Montenegro MD LAB BLOOD ORDERABLES Suyapa l Result Performing Organization Address [facility]/ZIP Co de Phone Number [facility] [address] [place] [address] * Vitamin A (07/19/2024 8:12 AM EST) Vitamin A 56 38 - 106 ug/dL 07/25/2024 6:21 AM EST [facility] Comment: This test was developed and the performance characteristics determined by [facility]. It has not been cleared or approved by the FDA. The laboratory is regulated under CLIA as qualified to perform high-complexity testing. This test is used for patient testing purposes. It should not be regarded as investigational or for research. Test performed at [facility], [address] , [place], [place] ??[address] ? [phone] Shwetha Donahue MD, PhD - Host Hostess Blood Venous blood specimen / Unknown Venipuncture / Unknown 07/19/2024 8:12 AM EST 07/19/2024 8:29 AM EST Anup Montenegro MD LAB BLOOD ORDERABLES Suyapa l Result [facility] [address] [place] [address] * (ABNORMAL) Vitamin D 25 hydroxy (07/19/2024 8:12 AM EST) Vit D, 25-Hydroxy 24.6(L) 30.0 - 80.0 ng/mL LAB CHEMISTRY METHOD 07/19/2024 9:17 AM EST [facility] Blood Venous blood specimen / Unknown Venipuncture / Unknown 07/19/2024 8:12 AM EST 07/19/2024 8:28 AM EST Anup Montenegro MD LAB BLOOD ORDERABLES Suyapa l Result Performing Organization Address City/[facility]/ZIP Co de Phone Number [facility] [address] [place] [address], [place] [phone] * (ABNORMAL) Complete blood count (07/19/2024 8:12 AM EST) WBC 4.6(L) 4.8 - 10.8 K/[facility] LAB HEMETOLOGY METHOD 07/19/2024 8:43 AM EST [facility] RBC 4.80 3.80 - 4.80 M/mcL LAB HEMETOLOGY METHOD 07/19/2024 8:43 AM EST [facility] Hemoglobin 15.0 11.5 - 16.0 g/dL LAB HEMETOLOGY METHOD 07/19/2024 8:43 AM [facility] Hematocrit 43.7 35.0 - 47.0 % LAB HEMETOLOGY METHOD 07/19/2024 8:43 AM [facility] MCV 90.7 79.0 - 98.0 FL LAB HEMETOLOGY METHOD 07/19/2024 8:43 AM [facility] MCH 31.1 27.0 - 32.0 pcg LAB HEMETOLOGY METHOD 07/19/2024 8:43 AM [facility] MCHC 34.3 32.0 - 37.0 g/dL LAB HEMETOLOGY METHOD 07/19/2024 8:43 AM [facility] RDW 12.9 11.0 - 15.0 % LAB HEMETOLOGY METHOD 07/19/2024 8:43 AM [facility] Platelets 301 130 - 400 K/mcL LAB HEMETOLOGY METHOD 07/19/2024 8:43 AM [facility] MPV 10.9 7.0 - 11.0 FL LAB HEMETOLOGY METHOD 07/19/2024 8:43 AM [facility] NRBC 0.0 <1.0 % LAB HEMETOLOGY METHOD 07/19/2024 8:43 AM [facility] NRBC Absolute 0.00 <0.10 K/mcL LAB HEMETOLOGY METHOD 07/19/2024 8:43 AM [facility] Blood Venous blood specimen / Unknown Venipuncture / Unknown 07/19/2024 8:12 AM EST 07/19/2024 8:28 AM EST us Anup Montenegro MD LAB BLOOD ORDERABLES Suyapa l Result [facility] [address] [place] [address], * (ABNORMAL) C-reactive protein (07/19/2024 8:12 AM EST) [facility] C-Reactive Protein 0.79(H) <=0.50 mg/dL LAB CHEMISTRY METHOD 07/19/2024 9:10 AM EST [facility] Blood Venous blood specimen / Unknown Venipuncture / Unknown 07/19/2024 8:12 AM EST 07/19/2024 8:28 AM EST Anup Montenegro MD LAB BLOOD ORDERABLES Suyapa l Result Performing Organization Address City/[facility]/ZIP Co de Phone Number [facility] [address] [place] [address], * Triiodothyronine free (07/19/2024 8:12 AM EST) [facility] T3, Free 270 230 - 420 pcg/dL LAB CHEMISTRY METHOD 07/19/2024 10:10 AM EST [facility] Blood Venous blood specimen / Unknown Venipuncture / Unknown 07/19/2024 8:12 AM EST 07/19/2024 8:28 AM EST Anup Montenegro MD LAB BLOOD ORDERABLES Suyapa l Result Performing Organization Address City/[facility]/ZIP Co de Phone Number [facility] [address] [place] [address], [place] [phone] * Vitamin B1 (07/19/2024 8:12 AM EST) [facility] Vitamin B1 Whole Blood 101 38 - 122 ug/L 07/24/2024 5:27 AM EST [facility] Comment: This test was developed and the performance characteristics determined by [facility]. It has not been cleared or approved by the FDA. The laboratory is regulated under CLIA as qualified to perform high-complexity testing. This test is used for patient testing purposes. It should not be regarded as investigational or for research. Test performed at [facility], [address], [place], [place] ??[address] ? [phone] Shwetha Donahue MD, PhD - Host Hostess Blood Venous blood specimen / Unknown Venipuncture / Unknown 07/19/2024 8:12 AM EST 07/19/2024 8:28 AM EST Anup Montenegro MD LAB BLOOD ORDERABLES Suyapa l Result [facility] [address] [place] [address] * Iron (07/19/2024 8:12 AM EST) Pathologist [facility] Iron 146 40 - 150 mcg/dL LAB CHEMISTRY METHOD 07/19/2024 9:10 AM EST [facility] Blood Venous blood specimen / Unknown Venipuncture / Unknown 07/19/2024 8:12 AM EST 07/19/2024 8:28 AM EST Anup Montenegro MD LAB BLOOD ORDERABLES Suyapa l Result [facility] [address] [place] [address], [place] [phone] * Hemoglobin A1c (07/19/2024 8:12 AM EST) [facility] Hemoglobin A1C 5.5 <6.5 % LAB CHEMISTRY METHOD 07/19/2024 12:00 PM EST [facility] Mean Bld Glu Estim. 111 mg/dL LAB CHEMISTRY METHOD 07/19/2024 12:00 PM EST [facility] Blood Venous blood specimen / Unknown Venipuncture / Unknown 07/19/2024 8:12 AM EST 07/19/2024 8:28 AM EST Anup Montenegro MD LAB BLOOD ORDERABLES Suyapa l Result Performing Organization Address [facility]/ZIP Co de Phone Number [facility] [address] [place] [address], * (ABNORMAL) Folate (07/19/2024 8:12 AM EST) [facility] Folate >20.0(H) 2.8 - 17.0 ng/ml LAB CHEMISTRY METHOD 07/19/2024 9:32 AM EST [facility] Blood Venous blood specimen / Unknown Venipuncture / Unknown 07/19/2024 8:12 AM EST 07/19/2024 8:28 AM EST Anup Montenegro MD LAB BLOOD ORDERABLES Suyapa l Result Performing Organization Address [facility] Co de Phone Number [facility] [address] [place] [address], * Ferritin (07/19/2024 8:12 AM EST) [facility] Ferritin 108 8 - 252 ng/mL LAB CHEMISTRY METHOD 07/19/2024 9:32 AM EST [facility] Blood Venous blood specimen / Unknown Venipuncture / Unknown 07/19/2024 8:12 AM EST 07/19/2024 8:28 AM EST Anup Montenegro MD LAB BLOOD ORDERABLES Suyapa l Result Performing Organization Address City/[facility]/ZIP Co de Phone Number [facility] [address] [place] [address], [place] [phone] * Vitamin B12 (07/19/2024 8:12 AM EST) [facility] Vitamin B-12 723 250 - 900 pcg/mL LAB CHEMISTRY METHOD 07/19/2024 9:32 AM EST [facility] Blood Venous blood specimen / Unknown Venipuncture / Unknown 07/19/2024 8:12 AM EST 07/19/2024 8:28 AM EST Anup Montenegro MD LAB BLOOD ORDERABLES Suyapa jin Result [facility] [address] [place] [address], [place] [phone] * Comprehensive metabolic panel (07/19/2024 8:12 AM EST) Sodium 138 133 - 145 mmol/L LAB CHEMISTRY METHOD 07/19/2024 9:10 AM [facility] Potassium 3.9 3.5 - 5.5 mmol/L LAB CHEMISTRY METHOD 07/19/2024 9:10 AM [facility] Chloride 105 96 - 110 mmol/L LAB CHEMISTRY METHOD 07/19/2024 9:10 AM [facility] CO2 27 21 - 32 mmol/L LAB CHEMISTRY METHOD 07/19/2024 9:10 AM [facility] Anion Gap 6 3 - 11 LAB CHEMISTRY METHOD 07/19/2024 9:10 AM [facility] Glucose 93 70 - 100 mg/dL LAB CHEMISTRY METHOD 07/19/2024 9:10 AM [facility] BUN 7 5 - 25 mg/dL LAB CHEMISTRY METHOD 07/19/2024 9:10 AM [facility] Creatinine 0.92 0.50 - 1.10 mg/dL LAB CHEMISTRY METHOD 07/19/2024 9:10 AM [facility] eGFR 76 >=60 mL/min/1. 73m2 LAB CHEMISTRY METHOD 07/19/2024 9:10 AM [facility] Comment:Calculation based on the??Chronic Kidney Disease Epidemiology Collaboration (CKD-EPI) equation refit??without adjustment for race. BUN/Creatinine Ratio 7.6 LAB CHEMISTRY METHOD 07/19/2024 9:10 AM [facility] Calcium 9.4 8.5 - 10.5 mg/dL LAB CHEMISTRY METHOD 07/19/2024 9:10 AM [facility] AST (SGOT) 26 10 - 42 unit/L LAB CHEMISTRY METHOD 07/19/2024 9:10 AM [facility] ALT (SGPT) 47 10 - 60 unit/L LAB CHEMISTRY METHOD 07/19/2024 9:10 AM [facility] Alkaline Phosphatase 80 42 - 121 unit/L LAB CHEMISTRY METHOD 07/19/2024 9:10 AM [facility] Total Protein 7.5 6.0 - 8.0 g/dL LAB CHEMISTRY METHOD 07/19/2024 9:10 AM [facility] Albumin 4.2 3.2 - 5.0 g/dL LAB CHEMISTRY METHOD 07/19/2024 9:10 AM [facility] Total Bilirubin 0.7 0.0 - 1.4 mg/dL LAB CHEMISTRY METHOD 07/19/2024 9:10 AM [facility] Blood Venous blood specimen / Unknown Venipuncture / Unknown 07/19/2024 8:12 AM EST 07/19/2024 8:28 AM EST us Anup Montenegro MD LAB BLOOD ORDERABLES Suyapa l Result [facility] [address] [place] [address], * VANNA SCREENING DIGITAL (04/11/2024 1:36 PM EDT) Anatomical Region Laterality Modality Mammography 04/11/2024 9:56 AM EDT Narrative 04/11/2024 1:36 PM EDT [facility] Diagnostic Imaging Department [address] [place] [address] Patient: ??RENNY SAMPSON ?/Age/Sex: 1970 - 53 - F Unit#: ??[id number] ? Location/Status: ??SPDIMAM/REG CLI ? Mnemonic/Ordering Site: ??DIGSC/SPMAM Ordering Physician: ??LINA COTO MD Vanna Screening Digital - 04/11/24 - 1025 Report Status:Signed EXAM: [facility] Screening Digital EXAM DATE AND TIME: 04/11/2024 10:26 AM HISTORY: ??Screening. Paternal cousin had breast carcinoma. COMPARISON: ??09/22/22, 05/04/21, 05/02/20, 09/08/18, 07/22/17 TECHNIQUE: Bilateral digital breast tomosynthesis was performed in the CC and MLO projections. Computer aided detection with RedLasso 3D 3.1 was employed. TISSUE DENSITY: b. [...] Mammogram performed at [facility] [address] [place] [address] Dictating Physician: ??RAYNA ALANIS MD Electronically Signed by: ??RAYNA ALANIS MD Dic Date/Time: ??04/11/24 1331 Sign date/Time: ??04/11/24 1336 Procedure Note Rayna Alanis MD - 04/14/2024 [facility] Diagnostic Imaging Department [address] [place] [address] Patient: SHADIJustinoRENNY VOGEL D.O.B./Age/Sex: 1970 - 53 - F Unit#: [id number] Location/Status: [facility] Mnemonic/Ordering Site: [facility] Ordering Physician: LINA COTO MD [facility] Screening Digital - 04/11/24 - 1025 Report Status:Signed EXAM: [facility] Screening Digital EXAM DATE AND TIME: [...] Mammogram performed at [facility] [place] [address] Dictating Physician: RAYNA ALANIS MD Electronically Signed by: RAYNA ALANIS MD Dic Date/Time: 04/11/24 1331 Sign date/Time: 04/11/24 1336 Lina Coto MD IMG BI PROCEDURES Final Result from Last 3 Months or Most Recently Relevant to Health Maintenance Insurance [facility] Care Teams Section Hand Helper Relationship Specialty Start Date End Date Harry Coto MD [address] [place] [id number] PCP - General 05/03/22
--- OUTSIDE RECORDS SUMMARY | 2024-08-01 11:54 | XMS_ITS | Encounter Summary ---
Author Organization [employer] Address [address] [place] [address] Care Team Providers Care Strip Polisher Name Role Phone Harry Coto MD Primary Care Provider [phone] Encounter Details Date Type Department Care Team (Latest Contact Info) Description 07/19/2024 8:46 AM EST - 07/19/2024 11:59 PM EST Hospital Encounter [facility] Non-Invasive Cardiology [address] [place] [phone] Obesity, class 1; Other obesity due [...] AM EDT Appointment [facility] [address] [place] [address] documented as of this encounter [...] GEMUSE QTc 428 ms GEMUSE P Wave [place] 20 degrees GEMUSE R [place] -97 degrees GEMUSE T [place] 29 degrees GEMUSE ECG Interpretation Normal sinus [...] hypertension documented in this encounter Care Teams Strip Polisher Relationship Specialty Start Date End Date Harry Coto MD [address] [place] [address] PCP - General 05/03/22 documented as of this encounter
--- OUTSIDE RECORDS SUMMARY | 2024-08-01 11:54 | XMS_ITS | Patient Health Record ---
Author Organization [facility] Address [address] [place] [address] Care Team Providers Care Document Control Supervisor Name Role Phone YUNG DAMICO Unavailable [phone] CHRISTINE DAVENPORT Unavailable [phone] ALLERGIES No Known Allergies RESULTS Component Value Reference Range Notes Vanna Screening Digital Reviewed date:04/12/2024 11:27:03 AM Interpretation: Performing Lab: Notes/Report: Original Ordering Provider: CHRISTINE DAVENPORT MD [facility] REASON FOR REFERRAL No Information MEDICATIONS Medication SIG (Take, Route, Frequency, Duration) Notes Start Date End Date Status Nystatin 228459 UNIT/ML 4 mL Mouth/Throa t Four times [...] a day for 90 days 01/31/2024 Active [place] Thyroid 90 MG 1 tablet on an empt y stomach Orally Once a day for 90 days 11/03/2022 Active Levothyroxine Sodium 88 MCG 1 tablet in the morning on an empty stomach Orally Once a day for 30 days 07/25/2024 Active SOCIAL HISTORY Tobacco Use: Social History [...] unspecified (E55.9) Active confirmed Vitamin D deficiency (17475258) Problem Encounter for general adult medical examination without abnormal findings (Z00.00) Active confirmed Adult heal th examination (061207672) Problem Encounter for screening for diabetes mellitus (Z13.1) Active confirmed 458291523 Problem Pure hypercholesterole chasity, unspecified (E78.00) Active confirmed 668031346 Problem Hyperlipidemia, unspecified hyperlipidemia type (E78.5) Active confirmed Hyperlipidaemia (66644368) Problem Acquired hypothyroidism (E03.9) Active confirmed 699420325 Problem Obesity (BMI 30.0-34.9) (E66.9) Active confirmed [id number] Problem Pre-diabetes (R73.03) Active confirmed Prediabetes (255629098) Problem Vitamin B 12 deficiency (E53.8) Active confirmed Vitamin B12 deficiency (non anemic) (95306069) Problem BMI 33.0-33.9,adult (Z68.33) Active confirmed 634752921 Problem BMI 32.0-32.9,adult (Z68.32) Active confirmed 444321206 Problem Anemia due to vitamin B12 deficiency, unspecified B12 deficiency type (D51.9) Active confirmed 77857785 Problem BMI 34.0-34.9,adult (Z68.34) Active confirmed 194265997 VITAL SIGNS Heart Rate 85 /min 01/31/2024 Oximetry 99 % 01/31/2024 Blood pressure diastolic 70 mm Hg 01/31/2024 Height 65 in 01/31/2024 Blood pressure systolic 116 mm Hg 01/31/2024 Weight 203 lbs 01/31/2024 BMI 33.78 kg/m2 01/31/2024 Encounters Encounter Location Date Provider Diagnosis [facility] [address] [place] [address] 08/02/[address] [address] [facility] [address] [place] [address] 09/02/[address] [facility] [address] [place] [address] 10/18/2023 YUNG DAMICO Acquired hypothyroid ism E03.9 ; Obesity (BMI 30.0-34.9) E66.9 ; Pure hypercholesterolemia, unspecified E78.00 ; BMI 32.0-32.9,adult Z68.32 and Vitamin B 12 deficiency E53.8 [facility] [address] [address] 12/07/2023 [facility] [address] [place] [address] 06/09/2024 [facility] [address] [place] [address] 08/02/2023 CHRISTINE DAVENPORT Palpitations R00.2 a nd Acquired hypothyroidism E03.9 [facility] [address] 09/01/2023 [facility] Acquired hypothyroid ism E03.9 ; Obesity (BMI 30.0-34.9) E66.9 ; Pure hypercholesterolemia, unspecified E78.00 ; Vitamin D deficiency, unspecified E55.9 ; BMI 32.0-32.9,adult Z68.32 and Vitamin B 12 deficiency E53.8 [facility] [address] [address] 01/31/2024 [facility] BMI 33.0-33.9,adult Z68.33 ; Obesity (BMI 30.0-34.9) E66.9 ; Dietary counseling and surveillance Z71.3 ; Acquired hypothyroidism E03.9 ; Pure hypercholesterolemia, unspecified E78.00 and Vitamin B 12 deficiency E53.8 [facility] [address] [address] 08/26/2023 [facility] [address] [address] 09/01/2023 [facility] [address] [place] [address] 09/08/2023 [facility] [address] [address] 09/15/2023 [facility] [address] [address] 06/08/2024 [facility] [address] [address] 07/20/2024 YUNG DAMICO Acquired hypothyroid ism E03.9 [address] [facility] [address] [place] [address] 09/15/2023 YUNG DUVALLMaritza ASSESSMENTS Encounter Date Diagnosis Assessment Notes Treatment [...] minimum of 6 months The most recent [place] [employer] of clinical endocrinologists and [place] [employer] of endocrin[employer] guidelines recommend patients who [...] track activity level. Consider using apps like [employer], KnowNowpal, lose it, stick as needed for self-monitoring and weight management. Consider group exercises. Consider hiring a program trainer. Regular exercise is [place] to sustainable health [...] counseling and psychiatry and Dr Gloria at [facility]. We would like to cover regular topics [...] from an Electronic Health Record CohortMethods: Obesity ([place]). 2019 Sep;27(4):591-602. doi: [email or web address] Using electronic health record data 13,972 adults [...] software and direct typing Please excuse inadvertent employee communications specialist or typing errors, or uncorrected word substitutions Although every attempt has been made by the provider to proofread this document, occasional misspellings and typographical errors may still be present Due to the previous pandemic, and the use of personal protective equipment (PPE) This may decrease voice recognition accuracy Inadvertent employee communications specialist errors may occur 09/01/2023 Obesity (BMI 30.0-34.9) [...] minimum of 6 months The most recent [place] [employer] of clinical endocrinologists and [place] [employer] of endocrin[employer] guidelines recommend patients who [...] track activity level. Consider using apps like [employer], KnowNowpal, lose it, stick as needed for self-monitoring and weight management. Consider group exercises. Consider hiring a program trainer. Regular exercise is [place] to sustainable health [...] counseling and psychiatry and Dr Gloria at [facility]. We would like to cover regular topics [...] from an Electronic Health Record CohortMethods: Obesity ([place]). 2019 Sep;27(4):591-602. doi: [email or web address].57363 Using electronic health record data 13,972 adults [...] software and direct typing Please excuse inadvertent employee communications specialist or typing errors, or uncorrected word substitutions Although every attempt has been made by the provider to proofread this document, occasional misspellings and typographical errors may still be present Due to the previous pandemic, and the use of personal protective equipment (PPE) This may decrease voice recognition accuracy Inadvertent employee communications specialist errors may occur 10/18/2023 Acquired hypothyroidism (ICD-10 [...] minimum of 6 months The most recent [place] [employer] of clinical endocrinologists and [place] [employer] of endocrinology guidelines recommend patients who [...] track activity level. Consider using apps like [employer], KnowNowpal, lose it, stick as needed for self-monitoring and weight management. Consider group exercises. Consider hiring a program trainer. Regular exercise is [place] to sustainable health [...] counseling and psychiatry and Dr Gloria at [facility]. We would like to cover regular topics [...] from an Electronic Health Record CohortMethods: Obesity ([place]). 2019 Sep;27(4):591-602. doi: [email or web address].18889 Using electronic health record data 13,972 adults [...] software and direct typing Please excuse inadvertent employee communications specialist or typing errors, or uncorrected word substitutions Although every attempt has been made by the provider to proofread this document, occasional misspellings and typographical errors may still be present Due to the previous pandemic, and the use of personal protective equipment (PPE) This may decrease voice recognition accuracy Inadvertent employee communications specialist errors may occur 01/31/2024 BMI 33.0-33.9,adult (ICD-10 [...] software and direct typing Please excuse inadvertent employee communications specialist or typing errors, or uncorrected word substitutions Although every attempt has been made by the provider to proofread this document, occasional misspellings and typographical errors may still be present Due to the previous pandemic, and the use of personal protective equipment (PPE) This may decrease voice recognition accuracy Inadvertent employee communications specialist errors may occur 07/20/2024 Acquired hypothyroidism (ICD-10 - E03.9) 01/31/2024 Obesity (BMI 30.0-34.9) (ICD-10 - E66.9) [...] software and direct typing Please excuse inadvertent employee communications specialist or typing errors, or uncorrected word substitutions Although every attempt has been made by the provider to proofread this document, occasional misspellings and typographical errors may still be present Due to the previous pandemic, and the use of personal protective equipment (PPE) This may decrease voice recognition accuracy Inadvertent employee communications specialist errors may occur 10/18/2023 Obesity (BMI 30.0-34.9) [...] minimum of 6 months The most recent [place] [employer] of clinical endocrinologists and [place] [employer] of endocrinology guidelines recommend patients who [...] track activity level. Consider using apps like [employer] miwishkickerise, myfitnesspal, lose it, stick as needed for self-monitoring and weight management. Consider group exercises. Consider hiring a program trainer. Regular exercise is [place] to sustainable health [...] counseling and psychiatry and Dr Gloria at [facility]. We would like to cover regular topics [...] from an Electronic Health Record CohortMethods: Obesity ([place]). 2019 Sep;27(4):591-602. doi: [email or web address].00501 Using electronic health record data 13,972 adults [...] software and direct typing Please excuse inadvertent employee communications specialist or typing errors, or uncorrected word substitutions Although every attempt has been made by the provider to proofread this document, occasional misspellings and typographical errors may still be present Due to the previous pandemic, and the use of personal protective equipment (PPE) This may decrease voice recognition accuracy Inadvertent employee communications specialist errors may occur 01/31/2024 Dietary counseling and [...] software and direct typing Please excuse inadvertent employee communications specialist or typing errors, or uncorrected word substitutions Although every attempt has been made by the provider to proofread this document, occasional misspellings and typographical errors may still be present Due to the previous pandemic, and the use of personal protective equipment (PPE) This may decrease voice recognition accuracy Inadvertent employee communications specialist errors may occur 09/01/2023 Pure hypercholesterole chasity, [...] minimum of 6 months The most recent [place] [employer] of clinical endocrinologists and [place] [employer] of endocrinology guidelines recommend patients who [...] track activity level. Consider using apps like [employer] [email or web address] excercise, myfitnesspal, lose it, stick as needed for self-monitoring and weight management. Consider group exercises. Consider hiring a program trainer. Regular exercise is [place] to sustainable health [...] counseling and psychiatry and Dr Gloria at [facility]. We would like to cover regular topics [...] from an Electronic Health Record CohortMethods: Obesity ([place]). 2019 Sep;27(4):591-602. doi: [email or web address].48556 Using electronic health record data 13,972 adults [...] software and direct typing Please excuse inadvertent employee communications specialist or typing errors, or uncorrected word substitutions Although every attempt has been made by the provider to proofread this document, occasional misspellings and typographical errors may still be present Due to the previous pandemic, and the use of personal protective equipment (PPE) This may decrease voice recognition accuracy Inadvertent employee communications specialist errors may occur 09/01/2023 Vitamin D deficiency, [...] minimum of 6 months The most recent [place] [employer] of clinical endocrinologists and [place] [employer] of endocrinology guidelines recommend patients who [...] track activity level. Consider using apps like [employer], KnowNowpal, lose it, stick as needed for self-monitoring and weight management. Consider group exercises. Consider hiring a program trainer. Regular exercise is fel[place] to sustainable health [...] counseling and psychiatry and Dr Gloria at [facility]. We would like to cover regular topics [...] from an Electronic Health Record CohortMethods: Obesity ([place]). 2019 Sep;27(4):591-602. doi: [email or web address].22212 Using electronic health record data 13,972 adults [...] software and direct typing Please excuse inadvertent employee communications specialist or typing errors, or uncorrected word substitutions Although every attempt has been made by the provider to proofread this document, occasional misspellings and typographical errors may still be present Due to the previous pandemic, and the use of personal protective equipment (PPE) This may decrease voice recognition accuracy Inadvertent employee communications specialist errors may occur 10/18/2023 Pure hypercholesterole chasity, [...] minimum of 6 months The most recent [place] [employer] of clinical endocrinologists and [place] [employer] of endocrinology guidelines recommend patients who [...] track activity level. Consider using apps like Plain Vanillaise, myfitnesspal, lose it, stick as needed for self-monitoring and weight management. Consider group exercises. Consider hiring a program trainer. Regular exercise is fel[place] to sustainable health [...] counseling and psychiatry and Dr Gloria at [facility]. We would like to cover regular topics [...] from an Electronic Health Record CohortMethods: Obesity ([place]). 2019 Sep;27(4):591-602. doi: [email or web address].36583 Using electronic health record data 13,972 adults [...] software and direct typing Please excuse inadvertent employee communications specialist or typing errors, or uncorrected word substitutions Although every attempt has been made by the provider to proofread this document, occasional misspellings and typographical errors may still be present Due to the previous pandemic, and the use of personal protective equipment (PPE) This may decrease voice recognition accuracy Inadvertent employee communications specialist errors may occur 01/31/2024 Acquired hypothyroidism (ICD-10 [...] software and direct typing Please excuse inadvertent employee communications specialist or typing errors, or uncorrected word substitutions Although every attempt has been made by the provider to proofread this document, occasional misspellings and typographical errors may still be present Due to the previous pandemic, and the use of personal protective equipment (PPE) This may decrease voice recognition accuracy Inadvertent employee communications specialist errors may occur 10/18/2023 BMI 32.0-32.9,adult (ICD-10 [...] minimum of 6 months The most recent [place] [employer] of clinical endocrinologists and [place] [employer] of endocrinology guidelines recommend patients who [...] track activity level. Consider using apps like [employer], myfitnesspal, lose it, stick as needed for self-monitoring and weight management. Consider group exercises. Consider hiring a program trainer. Regular exercise is fel[place] to sustainable health [...] counseling and psychiatry and Dr Gloria at [facility]. We would like to cover regular topics [...] from an Electronic Health Record CohortMethods: Obesity ([place]). 2019 Sep;27(4):591-602. doi: [email or web address].26787 Using electronic health record data 13,972 adults [...] software and direct typing Please excuse inadvertent employee communications specialist or typing errors, or uncorrected word substitutions Although every attempt has been made by the provider to proofread this document, occasional misspellings and typographical errors may still be present Due to the previous pandemic, and the use of personal protective equipment (PPE) This may decrease voice recognition accuracy Inadvertent employee communications specialist errors may occur 09/01/2023 BMI 32.0-32.9,adult (ICD-10 [...] minimum of 6 months The most recent [place] [employer] of clinical endocrinologists and [place] [employer] of endocrinology guidelines recommend patients who [...] track activity level. Consider using apps like [employer] Machine mionute exceGraphenicsise, KnowNowpal, lose it, stick as needed for self-monitoring and weight management. Consider group exercises. Consider hiring a program trainer. Regular exercise is fel[place] to sustainable health [...] counseling and psychiatry and Dr Gloria at [facility]. We would like to cover regular topics [...] from an Electronic Health Record CohortMethods: Obesity ([place]). 2019 Sep;27(4):591-602. doi: [email or web address].67132 Using electronic health record data 13,972 adults [...] software and direct typing Please excuse inadvertent employee communications specialist or typing errors, or uncorrected word substitutions Although every attempt has been made by the provider to proofread this document, occasional misspellings and typographical errors may still be present Due to the previous pandemic, and the use of personal protective equipment (PPE) This may decrease voice recognition accuracy Inadvertent employee communications specialist errors may occur 01/31/2024 Pure hypercholesterole chasity, [...] software and direct typing Please excuse inadvertent employee communications specialist or typing errors, or uncorrected word substitutions Although every attempt has been made by the provider to proofread this document, occasional misspellings and typographical errors may still be present Due to the previous pandemic, and the use of personal protective equipment (PPE) This may decrease voice recognition accuracy Inadvertent employee communications specialist errors may occur 10/18/2023 Vitamin B 12 [...] minimum of 6 months The most recent [place] [employer] of clinical endocrinologists and [place] [employer] of endocrinology guidelines recommend patients who [...] track activity level. Consider using apps like [employer], KnowNowpal, lose it, stick as needed for self-monitoring and weight management. Consider group exercises. Consider hiring a program trainer. Regular exercise is fel[place] to sustainable health [...] counseling and psychiatry and Dr Gloria at [facility]. We would like to cover regular topics [...] from an Electronic Health Record CohortMethods: Obesity ([place]). 2019 Sep;27(4):591-602. doi: [email or web address].13556 Using electronic health record data 13,972 adults [...] software and direct typing Please excuse inadvertent employee communications specialist or typing errors, or uncorrected word substitutions Although every attempt has been made by the provider to proofread this document, occasional misspellings and typographical errors may still be present Due to the previous pandemic, and the use of personal protective equipment (PPE) This may decrease voice recognition accuracy Inadvertent employee communications specialist errors may occur 09/01/2023 Vitamin B 12 [...] minimum of 6 months The most recent [place] [employer] of clinical endocrinologists and [place] [employer] of endocrinology guidelines recommend patients who [...] track activity level. Consider using apps like [employer], myfitnesspal, lose it, stick as needed for self-monitoring and weight management. Consider group exercises. Consider hiring a program trainer. Regular exercise is fel[place] to sustainable health [...] counseling and psychiatry and Dr Gloria at [facility]. We would like to cover regular topics [...] from an Electronic Health Record CohortMethods: Obesity ([place]). 2019 Sep;27(4):591-602. doi: [email or web address].53362 Using electronic health record data 13,972 adults [...] software and direct typing Please excuse inadvertent employee communications specialist or typing errors, or uncorrected word substitutions Although every attempt has been made by the provider to proofread this document, occasional misspellings and typographical errors may still be present Due to the previous pandemic, and the use of personal protective equipment (PPE) This may decrease voice recognition accuracy Inadvertent employee communications specialist errors may occur 01/31/2024 Vitamin B 12 [...] software and direct typing Please excuse inadvertent employee communications specialist or typing errors, or uncorrected word substitutions Although every attempt has been made by the provider to proofread this document, occasional misspellings and typographical errors may still be present Due to the previous pandemic, and the use of personal protective equipment (PPE) This may decrease voice recognition accuracy Inadvertent employee communications specialist errors may occur PLAN OF TREATMENT Pending Test Test Name Order Date 25OH VITAMIN D 09/16/2022 CBC (COMPLETE BLOOD COUNT) 09/16/2022 COMPREHENSIVE METABOLIC PANEL 09/16/2022 HEMOGLOBIN A1C 09/16/2022 LIPID PANEL 09/16/2022 T4, TOTAL 09/16/2022 T4, TOTAL 11/03/2022 T4, TOTAL 05/18/2023 TSH 11/03/2022 TSH 05/18/2023 TSH 09/16/2022 TSH 07/20/2024 TSH WITH REFLEX TO FT4 07/20/2024 VITAMIN B12 09/16/2022 VITAMIN B12 05/18/2023 Insulin Level 09/16/2022 LIPID PANEL, STANDARD 01/31/2024 COMPREHENSIVE METABOLIC PANEL 01/31/2024 CBC (INCLUDES DIFF/PLT) 01/31/2024 URINALYSIS, COMPLETE 01/31/2024 HEMOGLOBIN A1c 01/31/2024 VITAMIN B12 01/31/2024 T4, FREE 01/31/2024 TSH 01/31/2024 VITAMIN D,25-OH,TOTAL,IA 01/31/2024 COMPLETE URINALYSIS 09/16/2022 Next Appt Details Provider Name:YUNG MOOKIE, 08/02/2024 08:15:00 AM, [address] [facility] [address], [place], [address], Insurance Providers Payer Name Payer Address Payer Phone Subscriber Number Group Number Insured Name Patient Relationship to Insured Coverage Start Date Coverage End Date [facility] [address] [place] [address] [id number] Kanika Staton Self - patient is the insured 3 MEDICATIONS ADMINISTERED Medication Instructions Date of Administration Dosage Notes MICC B12 INJECTION 02/03/2023 MEDICAL (GENERAL) HISTORY Medical History History ICD Code high cholesterol seasonal allergies thyroid disease depression Surgical History Surgery Date(Month/Year) wisdom teeth extraction 1989
--- OUTSIDE RECORDS SUMMARY | 2024-08-01 11:55 | XMS_ITS ---
Author Organization [facility] Address [address] [place] [address] Care Team Providers Care Application Design Engineer Name Role Phone YUNG DAMICO Unavailable [phone] REASON FOR VISIT flu like snptoms Encounters Encounter Location Date Provider Diagnosis [facility] [address] [place] [address] 06/09/2024 YUNG DAMICO PLAN OF TREATMENT Next Appt Details Provider Name:YUNG DAMICO, 08/02/2024 08:15:00 AM, [address] [facility], [facility] [address], [place], [address], Progress Notes * Kanika SAMPSONDOB: 3 (53 yo F)Acc No.[id number]:06/09/2024 Progress Notes Patient:??Kanika SAMPSON Provider:??YUNG DAMICO NP :1970?Age:53 Y?Sex:Fe male Date:06/09/2024 Address:[address] [id number] Subjective: * Chief Complaints: * ?1. Flu like snptoms. * Medical History:?? Objective: Assessment: Plan: * Treatment: Care Plan: * Problems:?? * Images: Billing Information: * Visit Code:?? * Procedure Codes:?? Care Plan Details* * Sign off status: Pending * Provider:??YUNG DAMICO NP Date:??05/14
--- OUTSIDE RECORDS SUMMARY | 2024-08-01 11:55 | XMS_ITS ---
Author Organization [facility] Address [address] [place] [address] Care Team Providers Care Agricultural Education Professor Name Role Phone YUNG DAMICO Unavailable [phone] MEDICATIONS Medication SIG (Take, Route, Frequency, Duration) Notes Start Date End Date Status Levothyroxine Sodium 88 MCG 1 tablet in the morning on an empty stomach Orally Once a day for 30 days 07/25/2024 Active Encounters Encounter Location Date Provider Diagnosis [facility] [address] [facility] [address] [place] [address] 07/20/2024 YUNG DAMICO Acquired hypothyroid ism E03.9 ASSESSMENTS Encounter Date Diagnosis Assessment Notes Treatment Notes Treatment Clinical Notes Section Notes 07/20/2024 Acquired hypothyroidism (ICD-10 - E03.9) PLAN OF TREATMENT Medication Medication Name Sig Start Date Stop Date Notes Levothyroxine Sodium 88 MCG 1 tablet in the morning on an empty stomach Orally Once a day for 30 days 07/25/2024 Pending Test Test Name Order Date TSH 07/20/2024 TSH WITH REFLEX TO FT4 07/20/2024 Next Appt Details Provider Name:YUNG DAMICO, 08/02/2024 08:15:00 AM, [address] [facility], [facility] [address], [place], [address], Progress Notes * Kanika STATONDOB: 3 (53 yo F)Acc No.[id number]:07/20/2024 Patient:??Kanika STATON :1970?Age:53 Y?Sex:Fe male Address:[address] [place], [place] [address]ris[place] [address] * Refills?? Start Levothyroxine Sodium Tablet, 88 MCG, Orally, 30 Tablet, 1 tablet in the morning on an empty stomach, Once a day, 30 days, Refills=1 Subjective: * Chief Complaints: * ? * Medical History:?? * Surgical History:?? * Hospitalization/Major Diagno stic Procedure:?? * Medications:?? Objective: Assessment: * Assessment: 1.??Acquired hypothyroidism - E03.9?? Plan: * Treatment: 2.??Others?? Start Levothyroxine Sodium Tablet, 88 MCG, 1 tablet in the morning on an empty stomach, Orally, Once a day, 30 days, 30 Tablet, Refills 1.? * Procedure Codes:?? * true * Date:??
== END 2024-08-01 13:16 | disposition home or self-care (01) ==
LOC: HO.HBST 11:09
PROVIDERS: PCP Internal Medicine; Visit Provider Counselor Mental Health
DX: F43.10 Post-traumatic stress disorder, unspecified (principal)
CPT/HCPCS: 90791

== ENCOUNTER 2024-08-16 07:58 | Outpatient (REF) | payer OTHER, SELFPAY ==
--- NOTE | ~2024-08-16 | US_ITS ---
EXAMINATION: US ABDOMEN COMPLETE WITH LIVER ELASTOGRAPHY HISTORY: E66.811 - Obesity, class 1 TECHNIQUE: Real-time grayscale ultrasound imaging of the abdomen was performed and images were reviewed. COMPARISON: There are no prior studies for comparison. FINDINGS: Liver: The right lobe of the liver measures 15.0 cm in size. The left lobe of the liver measures 10.1 cm in size. The liver demonstrates increased echotexture, consistent with steatosis. There is a 1.7 x 1.0 x 1.4 cm cyst in the right lobe demonstrating thin septations. A 2.3 x 1.3 x 2.1 cm cyst in the left lobe also demonstrates thin septations. An additional 2.1 x 1.8 x 1.9 cm simple cyst is noted in the right lobe. No intrahepatic biliary ductal dilatation is identified. There is normal hepatopedal flow in the portal vein. Ultrasound elastography of the liver was performed with 10 separate measurements of the liver parenchyma with the patient in the supine position. Measurements were obtained approximately 2 cm below Colten's capsule and perpendicular to the capsule. Images are of satisfactory quality. The median shear wave velocity is 0.95 m/s. The interquartile range/median (IQR/median) is 0.05. Gallbladder and biliary tree: The gallbladder is unremarkable, without evidence of calculi, wall thickening, or pericholecystic fluid. There is no sonographic Ramesh sign. The common bile duct is normal in caliber measuring 2 mm. Kidneys: The right kidney measures 10.8 cm in length and demonstrates a 7 x 6 x 7 mm rounded echogenic lesion at the lower pole which could represent an angiomyolipoma. There is no hydronephrosis. The left kidney measures 10.7 cm in length and demonstrates a 4 x 4 by 4 mm echogenic focus at the lower pole which could represent an angiomyolipoma. There is no hydronephrosis. Pancreas: The pancreatic head, neck, and body are unremarkable. The pancreatic tail is obscured by bowel gas. Spleen: The spleen is normal in size and contour, measuring 8.8 cm in length. Abdominal aorta and inferior vena cava: The visualized portions of the abdominal aorta and inferior vena cava are normal in caliber. There is no free fluid in the abdomen. US/US abdomen comp w elastography IMPRESSION: 1. Mild hepatomegaly. Mildly complicated hepatic cysts as described. Follow-up is recommended. 2. Subcentimeter echogenic lesions in both kidneys which could represent angiomyolipomas. CT or MRI is suggested for confirmation. The median shear wave velocity of the liver is 0.95 m/s, corresponding to a median liver stiffness of 2.7 kPa. The IQR/median value is 0.05. This is indicative of a quality data set. Findings are indicative of a normal elastography value with a low likelihood of severe fibrosis or cirrhosis. REFERENCE: Society of Radiologists in Ultrasound Liver Stiffness Thresholds (2020): LIVER STIFFNESS THRESHOLDS: *Shear wave velocity less than 1.3 m/s (Liver Stiffness equal or less than 5 kPa): High probability of being normal. *Shear wave velocity less than 1.7 m/s (Liver Stiffness less than 9 kPa): In the absence of other known clinical signs, rules out compensated advanced chronic liver disease. *Shear wave velocity between 1.7-2.1 m/s (Liver Stiffness 9-13 kPa): Suggestive of compensated advanced chronic liver disease but need further test for confirmation. *Shear wave velocity between 2.1-2.4 m/s (Liver Stiffness 13-17 kPa): Rules in compensated advanced chronic liver disease. *Shear wave velocity greater than 2.4 m/s (Liver Stiffness over 17 kPa): Suggestive of clinically significant portal hypertension. QUALITY OF DATA SET: *IQR/Median value equal or less than 0.15 implies a quality data set. *IQR/Median value over 0.15 implies a poor quality data set. SIGNIFICANT CHANGE FROM PRIOR EXAM: Significant change if liver stiffness measurement is 10% or greater from prior exam. OTHER CONSIDERATIONS: The stage of liver fibrosis may be overestimated in the setting of acute hepatitis, liver inflammation, elevated liver function tests, hepatic vascular congestion, obstructive cholestasis, non-fasting state, and infiltrative diseases such as amyloidosis and lymphoma. In some patients with NAFLD, the liver stiffness thresholds for compensated advanced chronic liver disease may be lower. In causes other than viral hepatitis and NAFLD, liver stiffness thresholds are not well established. Electronically signed by: Ian Smalls MD 08/17/2024 08:17 AM [facility]
--- OUTSIDE RECORDS SUMMARY | 2024-08-16 08:05 | XMS_ITS | Encounter Summary ---
Author Organization [facility] Address [address] [place] [address] Care Team Providers Care Shoes Hand Sewer Name Role Phone Harry Coto MD Primary Care Provider [phone] Encounter Details Date Type Department Care Team (Latest Contact Info) Description 07/19/2024 8:46 AM EST - 07/19/2024 11:59 PM EST Hospital Encounter [facility] Non-Invasive Cardiology [address] [place] [phone] Obesity, class 1; Other obesity due [...] EDT Appointment [facility] [address] [place] [address] documented as of this encounter [...] GEMUSE QTc 428 ms GEMUSE P Wave Warner 20 degrees GEMUSE R Warner -97 degrees GEMUSE T Warner 29 degrees GEMUSE ECG Interpretation Normal sinus [...] hypertension documented in this encounter Care Teams Shoes Hand Sewer Relationship Specialty Start Date End Date Harry Coto MD [address] [place] [address] PCP - General 05/03/22 08/01/24 documented as of this encounter
--- OUTSIDE RECORDS SUMMARY | 2024-08-16 08:05 | XMS_ITS | Encounter Summary ---
Author Organization [facility] Address [address] [place] [address] Care Team Providers Care Web Production Designer Name Role Phone Harry Coto MD Primary Care Provider [phone] Reason for Visit * Imaging (Routine) - Pending Review Specialty Diagnoses / Procedures Referred By Tenzin krishna Referred To Contact Radiology Diagnoses Bariatric surgery status Procedures XR UGI w Air Contrast XR UGI w Single Contrast Anup Montenegro MD [address] [place] [address] [address] [place] [address] Phone: tel: fax: [facility] Referral ID Status Reason Start Date Expiration Date V isits Requested Visits Authorized [id number] Pending Review 07/18/2024 07/18/2025 1 1 Encounter Details Date Type Department Care Team (Latest Contact Info) Description 07/19/2024 8:43 AM EST - 07/19/2024 11:59 PM EST Hospital Encounter [facility] Xray [address] [place] [id number] Bariatric surgery status Discharge Disposition: Home or [...] AM EDT Appointment [facility] [address] [phone] documented as of this encounter Procedures Procedure [...] Signed Date: 07/19/2024 10:33 ET Workstation ID: [id number] Transcribed By: Self Edit Transcribed Date: 07/19/2024 10:30 ET Resident/PA/HAND TOOL FILER: Sydnie David Narrative 07/19/2024 10:33 AM EST FINDINGS: Double contrast UGI performed. COMPARISON: None. HISTORY: Patient is a 53-year-old female with no significant past medical history. Preop bariatric surgery. TECHNICAL APPLICATIONS SCIENTIST radiographs: Chicken Cleaner AP radiograph of the abdomen obtained. Bowel [...] no significant past medicalhistory. Preop bariatric surgery. TECHNICAL APPLICATIONS SCIENTIST radiographs: Chicken Cleaner AP radiograph of the abdomen obtained. Bowel [...] Signed Date: 07/19/2024 10:33 ET Workstation ID: [id number] Transcribed By: Self Edit Transcribed Date: 07/19/2024 10:30 ET Resident/PA/HAND TOOL FILER: Sydnie David Anup Montenegro MD IMG FLUOROSCOPY [...] packets documented in this encounter Care Teams Web Production Designer Relationship Specialty Start Date End Date Harry Coto MD [address] [place] [address] PCP - General 05/03/22 08/01/24 documented as of this encounter
--- OUTSIDE RECORDS SUMMARY | 2024-08-16 08:05 | XMS_ITS ---
Author Organization [facility] Address [address] [place] [address] Care Team Providers Care Garde Manager Name Role Phone YUNG DAMICO Unavailable [phone] MEDICATIONS Medication SIG (Take, Route, Frequency, Duration) Notes Start Date End Date Status Levothyroxine Sodium 88 MCG 1 tablet in the morning on an empty stomach Orally Once a day for 30 days 07/25/2024 Active Encounters Encounter Location Date Provider Diagnosis [facility] [address] [facility] [address] [place] [address] 07/20/2024 YUNG DAMICO Acquired hypothyroid ism E03.9 [...] 07/20/2024 Next Appt Details Provider Name:YUNG DAMICO, 11/30/2024 08:15:00 AM, [address] [facility], [facility] [address], [place], [address], Progress Notes * Kanika STATONDOB: 3 (53 yo F)Acc No.[id number]:07/20/2024 Patient:??Kanika STATON :1970?Age:53 Y?Sex:Fe male Address:[address] [place], [place] [address] [address] * Refills?? Start Levothyroxine Sodium Tablet, 88 [...]
--- OUTSIDE RECORDS SUMMARY | 2024-08-16 08:05 | XMS_ITS | Patient Health Record ---
Author Organization [facility] Address [address] [place] [address] Care Team Providers [employer] Name Role Phone YUNG DAMICO Unavailable [phone] ALLERGIES No Known Allergies RESULTS Component Value Reference Range Notes Vanna Screening Digital Reviewed date:04/12/2024 11:27:03 AM Interpretation: Performing Lab: Notes/Report: Original Ordering Provider: CHRISTINE DAVENPORT MD [facility] REASON FOR REFERRAL No Information MEDICATIONS Medication SIG (Take, Route, Frequency, Duration) Notes Start Date End Date Status Levothyroxine Sodium 88 MCG 1 tablet in the morning on an empty stomach Orally Once a day for 30 days 07/25/2024 Active Millsap Thyroid 90 MG 1 tablet on an empt y stomach Orally Once a day for 90 days Active hydroCHLOROthiazide 12.5 MG 1 tablet in the morning Orally Once a day for 90 days Active LORazepam 0.5 MG 1 tablet at bedtime as needed Orally Once a day for 90 days Active Vitamin B Complex - as directed Orally Active SOCIAL HISTORY Tobacco Use: Social History [...] unspecified (E55.9) Active confirmed Vitamin D deficiency (42392531) Problem Encounter for general adult medical examination without abnormal findings (Z00.00) Active confirmed Adult heal th examination (429259460) Problem Encounter for screening for diabetes mellitus (Z13.1) Active confirmed 620478378 Problem Pure hypercholesterole chasity, unspecified (E78.00) Active confirmed 783018149 Problem Hyperlipidemia, unspecified hyperlipidemia type (E78.5) Active confirmed Hyperlipidaemia (56799161) Problem Acquired hypothyroidism (E03.9) Active confirmed 641703138 Problem Obesity (BMI 30.0-34.9) (E66.9) Active confirmed 110432370091447 Problem Pre-diabetes (R73.03) Active confirmed Prediabetes (933210991) Problem Vitamin B 12 deficiency (E53.8) Active confirmed Vitamin B12 deficiency (non anemic) (71785735) Problem BMI 33.0-33.9,adult (Z68.33) Active confirmed 127326003 Problem BMI 32.0-32.9,adult (Z68.32) Active confirmed 481325008 Problem Anemia due to vitamin B12 deficiency, unspecified B12 deficiency type (D51.9) Active confirmed 23571733 Problem BMI 34.0-34.9,adult (Z68.34) Active confirmed 311322920 VITAL SIGNS Heart Rate 75 /min 08/02/2024 Oximetry 98 % 08/02/2024 Blood pressure diastolic 82 mm Hg 08/02/2024 Height 65 in 08/02/2024 Blood pressure systolic 126 mm Hg 08/02/2024 Weight 196 lbs 08/02/2024 BMI 32.61 kg/m2 08/02/2024 Encounters Encounter Location Date Provider Diagnosis [place] [address] [address] 09/02/2023 YUNG DAMICO [place] [address] [address] 10/18/2023 YUNG DAMICO Acquired hypothyroid ism E03.9 ; Obesity (BMI 30.0-34.9) E66.9 ; Pure hypercholesterolemia, unspecified E78.00 ; BMI 32.0-32.9,adult Z68.32 and Vitamin B 12 deficiency E53.8 [place] [address] [address] 12/07/2023 YUNG DAMICO [facility] [address] [place] [address] 06/09/2024 YUNG DAMICO [place] [address] [address] 09/01/2023 YUNG DAMICO Acquired hypothyroid ism E03.9 ; Obesity (BMI 30.0-34.9) E66.9 ; Pure hypercholesterolemia, unspecified E78.00 ; Vitamin D deficiency, unspecified E55.9 ; BMI 32.0-32.9,adult Z68.32 and Vitamin B 12 deficiency E53.8 [place] [address] [address] 01/31/2024 YUNG DUVALL BMI 33.0-33.9,adult Z68.33 ; Obesity (BMI 30.0-34.9) E66.9 ; Dietary counseling and surveillance Z71.3 ; Acquired hypothyroidism E03.9 ; Pure hypercholesterolemia, unspecified E78.00 and Vitamin B 12 deficiency E53.8 [place] [address] [address] 08/02/2024 YUNG DUVALL Obesity (BMI 30.0-34 .9) E66.9 ; Annual physical exam Z00.00 ; Dietary counseling and surveillance Z71.3 ; Acquired hypothyroidism E03.9 ; Pure hypercholesterolemia, unspecified E78.00 and Vitamin B 12 deficiency E53.8 [place] [address] [address] 08/26/2023 [facility] [address] [address] 09/01/2023 [facility] [address] [place] [address] 09/08/2023 [facility] [address] [address] 09/15/2023 [place] [address] [address] 06/08/2024 [place] [address] [address] 07/20/2024 YUNG DUVALL Acquired hypothyroid ism E03.9 [address] [address] 09/15/2023 YUNG DAMICO ASSESSMENTS Encounter Date Diagnosis Assessment Notes Treatment Notes Treatment Clinical Notes Section Notes 09/01/2023 Acquired hypothyroidism (ICD-10 - E03.9) #Weight [...] minimum of 6 months The most recent [place] Association of clinical endocrinologists and [place] College of endocrinology guidelines recommend patients who [...] track activity level. Consider using apps like Liligo.com, Embarkepal, lose it, stick as needed for self-monitoring and weight management. Consider group exercises. Consider hiring a personal driver. Regular exercise is fel[place] to sustainable health [...] counseling and psychiatry and Dr Gloria at [facility]. We would like to cover regular topics [...] from an Electronic Health Record CohortMethods: Obesity ([place]). 2019 Sep;27(4):591-602. doi: [email or web address].75937 Using electronic health record data 13,972 adults [...] software and direct typing Please excuse inadvertent retail salesman or typing errors, or uncorrected word substitutions Although every attempt has been made by the provider to proofread this document, occasional misspellings and typographical errors may still be present Due to the previous pandemic, and the use of personal protective equipment (PPE) This may decrease voice recognition accuracy Inadvertent retail salesman errors may occur 09/01/2023 Obesity (BMI 30.0-34.9) [...] minimum of 6 months The most recent [place] Association of clinical endocrinologists and [place] College of endocrinology guidelines recommend patients who [...] track activity level. Consider using apps like Playrcart[employer], [email or web address], lose it, stick as needed for self-monitoring and weight management. Consider group exercises. Consider hiring a personal driver. Regular exercise is fel[place] to sustainable health [...] counseling and psychiatry and Dr Gloria at [facility]. We would like to cover regular topics [...] from an Electronic Health Record CohortMethods: Obesity ([place]). 2019 Sep;27(4):591-602. doi: [email or web address].54895 Using electronic health record data 13,972 adults [...] software and direct typing Please excuse inadvertent retail salesman or typing errors, or uncorrected word substitutions Although every attempt has been made by the provider to proofread this document, occasional misspellings and typographical errors may still be present Due to the previous pandemic, and the use of personal protective equipment (PPE) This may decrease voice recognition accuracy Inadvertent retail salesman errors may occur 10/18/2023 Acquired hypothyroidism (ICD-10 [...] minimum of 6 months The most recent [place] Association of clinical endocrinologists and [place] College of endocrinology guidelines recommend patients who [...] track activity level. Consider using apps like Liligo.com, myfitnesspal, lose it, stick as needed for self-monitoring and weight management. Consider group exercises. Consider hiring a personal driver. Regular exercise is fel[place] to sustainable health [...] counseling and psychiatry and Dr Gloria at [facility]. We would like to cover regular topics [...] from an Electronic Health Record CohortMethods: Obesity ([place]). 2019 Apr;27(4):591-602. doi: [email or web address].69044 Using electronic health record data 13,972 adults [...] software and direct typing Please excuse inadvertent retail salesman or typing errors, or uncorrected word substitutions Although every attempt has been made by the provider to proofread this document, occasional misspellings and typographical errors may still be present Due to the previous pandemic, and the use of personal protective equipment (PPE) This may decrease voice recognition accuracy Inadvertent retail salesman errors may occur 01/31/2024 BMI 33.0-33.9,adult (ICD-10 [...] software and direct typing Please excuse inadvertent retail salesman or typing errors, or uncorrected word substitutions Although every attempt has been made by the provider to proofread this document, occasional misspellings and typographical errors may still be present Due to the previous pandemic, and the use of personal protective equipment (PPE) This may decrease voice recognition accuracy Inadvertent retail salesman errors may occur 07/20/2024 Acquired hypothyroidism (ICD-10 - E03.9) 08/02/2024 Obesity (BMI 30.0-34.9) (ICD-10 - E66.9) Acute Concerns/Problem List: 08/02/2024 Comprehensive labs reviewed as well as bariatric workup Will update thyroid function studies 3 to 4 weeks likely getting sleeve gastrectomy in the near future Of note, some information is being carried forward from prior records for informational purposes only and is being cited so that efficiency, safety and quality of the patient's care is not compromised This note was prepared using voice recognition software and direct typing Please excuse inadvertent retail salesman or typing errors, or uncorrected word substitutions Although every attempt has been made by the provider to proofread this document, occasional misspellings and typographical errors may still be present Due to the previous pandemic, and the use of personal protective equipment (PPE) This may decrease voice recognition accuracy Inadvertent retail salesman errors may occur 08/02/2024 Annual physical exam (ICD-10 - Z00.00) Acute Concerns/Problem List: 08/02/2024 Comprehensive labs reviewed as well as bariatric workup Will update thyroid function studies 3 to 4 weeks likely getting sleeve gastrectomy in the near future Of note, some information is being carried forward from prior records for informational purposes only and is being cited so that efficiency, safety and quality of the patient's care is not compromised This note was prepared using voice recognition software and direct typing Please excuse inadvertent retail salesman or typing errors, or uncorrected word substitutions Although every attempt has been made by the provider to proofread this document, occasional misspellings and typographical errors may still be present Due to the previous pandemic, and the use of personal protective equipment (PPE) This may decrease voice recognition accuracy Inadvertent retail salesman errors may occur 08/02/2024 Dietary counseling and surveillance (ICD-10 - Z71.3) Acute Concerns/Problem List: 08/02/2024 Comprehensive labs reviewed as well as bariatric workup Will update thyroid function studies 3 to 4 weeks likely getting sleeve gastrectomy in the near future Of note, some information is being carried forward from prior records for informational purposes only and is being cited so that efficiency, safety and quality of the patient's care is not compromised This note was prepared using voice recognition software and direct typing Please excuse inadvertent retail salesman or typing errors, or uncorrected word substitutions Although every attempt has been made by the provider to proofread this document, occasional misspellings and typographical errors may still be present Due to the previous pandemic, and the use of personal protective equipment (PPE) This may decrease voice recognition accuracy Inadvertent retail salesman errors may occur 01/31/2024 Obesity (BMI 30.0-34.9) [...] software and direct typing Please excuse inadvertent retail salesman or typing errors, or uncorrected word substitutions Although every attempt has been made by the provider to proofread this document, occasional misspellings and typographical errors may still be present Due to the previous pandemic, and the use of personal protective equipment (PPE) This may decrease voice recognition accuracy Inadvertent retail salesman errors may occur 10/18/2023 Obesity (BMI 30.0-34.9) [...] minimum of 6 months The most recent [place] Association of clinical endocrinologists and [place] College of endocrinology guidelines recommend patients who [...] track activity level. Consider using apps like Liligo.com, Embarkepal, lose it, stick as needed for self-monitoring and weight management. Consider group exercises. Consider hiring a personal driver. Regular exercise is fel[place] to sustainable health [...] counseling and psychiatry and Dr Gloria at [facility]. We would like to cover regular topics [...] from an Electronic Health Record CohortMethods: Obesity ([place]). 2019 Sep;27(4):591-602. doi: [email or web address].16743 Using electronic health record data 13,972 adults [...] software and direct typing Please excuse inadvertent retail salesman or typing errors, or uncorrected word substitutions Although every attempt has been made by the provider to proofread this document, occasional misspellings and typographical errors may still be present Due to the previous pandemic, and the use of personal protective equipment (PPE) This may decrease voice recognition accuracy Inadvertent retail salesman errors may occur 01/31/2024 Dietary counseling and [...] software and direct typing Please excuse inadvertent retail salesman or typing errors, or uncorrected word substitutions Although every attempt has been made by the provider to proofread this document, occasional misspellings and typographical errors may still be present Due to the previous pandemic, and the use of personal protective equipment (PPE) This may decrease voice recognition accuracy Inadvertent retail salesman errors may occur 09/01/2023 Pure hypercholesterole chasity, [...] minimum of 6 months The most recent [place] Association of clinical endocrinologists and [place] College of endocrinology guidelines recommend patients who [...] track activity level. Consider using apps like Liligo.com, myfitnesspal, lose it, stick as needed for self-monitoring and weight management. Consider group exercises. Consider hiring a personal driver. Regular exercise is fel[place] to sustainable health [...] counseling and psychiatry and Dr Gloria at [facility]. We would like to cover regular topics [...] from an Electronic Health Record CohortMethods: Obesity ([place]). 2019 Apr;27(4):591-602. doi: [email or web address].89281 Using electronic health record data 13,972 adults [...] software and direct typing Please excuse inadvertent retail salesman or typing errors, or uncorrected word substitutions Although every attempt has been made by the provider to proofread this document, occasional misspellings and typographical errors may still be present Due to the previous pandemic, and the use of personal protective equipment (PPE) This may decrease voice recognition accuracy Inadvertent retail salesman errors may occur 09/01/2023 Vitamin D deficiency, [...] minimum of 6 months The most recent [place] Association of clinical endocrinologists and [place] College of endocrinology guidelines recommend patients who [...] track activity level. Consider using apps like Liligo.com, myfitgamesGRABRpal, lose it, stick as needed for self-monitoring and weight management. Consider group exercises. Consider hiring a personal driver. Regular exercise is fel[place] to sustainable health [...] counseling and psychiatry and Dr Gloria at [facility]. We would like to cover regular topics [...] from an Electronic Health Record CohortMethods: Obesity ([place]). 2019 Sep;27(4):591-602. doi: [email or web address].98647 Using electronic health record data 13,972 adults [...] software and direct typing Please excuse inadvertent retail salesman or typing errors, or uncorrected word substitutions Although every attempt has been made by the provider to proofread this document, occasional misspellings and typographical errors may still be present Due to the previous pandemic, and the use of personal protective equipment (PPE) This may decrease voice recognition accuracy Inadvertent retail salesman errors may occur 10/18/2023 Pure hypercholesterole chasity, [...] minimum of 6 months The most recent [place] Association of clinical endocrinologists and [place] College of endocrinology guidelines recommend patients who [...] track activity level. Consider using apps like Liligo.com, [employer], lose it, stick as needed for self-monitoring and weight management. Consider group exercises. Consider hiring a personal driver. Regular exercise is felton to sustainable health [...] counseling and psychiatry and Dr Gloria at [facility]. We would like to cover regular topics [...] from an Electronic Health Record CohortMethods: Obesity ([place]). 2019 Sep;27(4):591-602. doi: [email or web address].77945 Using electronic health record data 13,972 adults [...] software and direct typing Please excuse inadvertent retail salesman or typing errors, or uncorrected word substitutions Although every attempt has been made by the provider to proofread this document, occasional misspellings and typographical errors may still be present Due to the previous pandemic, and the use of personal protective equipment (PPE) This may decrease voice recognition accuracy Inadvertent retail salesman errors may occur 01/31/2024 Acquired hypothyroidism (ICD-10 [...] software and direct typing Please excuse inadvertent retail salesman or typing errors, or uncorrected word substitutions Although every attempt has been made by the provider to proofread this document, occasional misspellings and typographical errors may still be present Due to the previous pandemic, and the use of personal protective equipment (PPE) This may decrease voice recognition accuracy Inadvertent retail salesman errors may occur 08/02/2024 Acquired hypothyroidism (ICD-10 - E03.9) Acute Concerns/Problem List: 08/02/2024 Comprehensive labs reviewed as well as bariatric workup Will update thyroid function studies 3 to 4 weeks likely getting sleeve gastrectomy in the near future Of note, some information is being carried forward from prior records for informational purposes only and is being cited so that efficiency, safety and quality of the patient's care is not compromised This note was prepared using voice recognition software and direct typing Please excuse inadvertent retail salesman or typing errors, or uncorrected word substitutions Although every attempt has been made by the provider to proofread this document, occasional misspellings and typographical errors may still be present Due to the previous pandemic, and the use of personal protective equipment (PPE) This may decrease voice recognition accuracy Inadvertent retail salesman errors may occur 10/18/2023 BMI 32.0-32.9,adult (ICD-10 [...] minimum of 6 months The most recent [place] Association of clinical endocrinologists and [place] College of endocrinology guidelines recommend patients who [...] track activity level. Consider using apps like Liligo.com, myfitnesspal, lose it, stick as needed for self-monitoring and weight management. Consider group exercises. Consider hiring a personal driver. Regular exercise is fel[place] to sustainable health [...] counseling and psychiatry and Dr Gloria at [facility]. We would like to cover regular topics [...] from an Electronic Health Record CohortMethods: Obesity ([place]). 2019 Sep;27(4):591-602. doi: [email or web address].18057 Using electronic health record data 13,972 adults [...] software and direct typing Please excuse inadvertent retail salesman or typing errors, or uncorrected word substitutions Although every attempt has been made by the provider to proofread this document, occasional misspellings and typographical errors may still be present Due to the previous pandemic, and the use of personal protective equipment (PPE) This may decrease voice recognition accuracy Inadvertent retail salesman errors may occur 08/02/2024 Pure hypercholesterole chasity, unspecified (ICD-10 - E78.00) Acute Concerns/Problem List: 08/02/2024 Comprehensive labs reviewed as well as bariatric workup Will update thyroid function studies 3 to 4 weeks likely getting sleeve gastrectomy in the near future Of note, some information is being carried forward from prior records for informational purposes only and is being cited so that efficiency, safety and quality of the patient's care is not compromised This note was prepared using voice recognition software and direct typing Please excuse inadvertent retail salesman or typing errors, or uncorrected word substitutions Although every attempt has been made by the provider to proofread this document, occasional misspellings and typographical errors may still be present Due to the previous pandemic, and the use of personal protective equipment (PPE) This may decrease voice recognition accuracy Inadvertent retail salesman errors may occur 09/01/2023 BMI 32.0-32.9,adult (ICD-10 [...] minimum of 6 months The most recent [place] Association of clinical endocrinologists and [place] College of endocrinology guidelines recommend patients who [...] track activity level. Consider using apps like Liligo.com, Embarkepal, lose it, stick as needed for self-monitoring and weight management. Consider group exercises. Consider hiring a personal driver. Regular exercise is fel[place] to sustainable health [...] counseling and psychiatry and Dr Gloria at [facility]. We would like to cover regular topics [...] from an Electronic Health Record CohortMethods: Obesity ([place]). 2019 Sep;27(4):591-602. doi: [email or web address].42212 Using electronic health record data 13,972 adults [...] software and direct typing Please excuse inadvertent retail salesman or typing errors, or uncorrected word substitutions Although every attempt has been made by the provider to proofread this document, occasional misspellings and typographical errors may still be present Due to the previous pandemic, and the use of personal protective equipment (PPE) This may decrease voice recognition accuracy Inadvertent retail salesman errors may occur 01/31/2024 Pure hypercholesterole chasity, [...] software and direct typing Please excuse inadvertent retail salesman or typing errors, or uncorrected word substitutions Although every attempt has been made by the provider to proofread this document, occasional misspellings and typographical errors may still be present Due to the previous pandemic, and the use of personal protective equipment (PPE) This may decrease voice recognition accuracy Inadvertent retail salesman errors may occur 10/18/2023 Vitamin B 12 [...] minimum of 6 months The most recent [place] Association of clinical endocrinologists and [place] College of endocrinology guidelines recommend patients who [...] track activity level. Consider using apps like Liligo.com, Embarkepal, lose it, stick as needed for self-monitoring and weight management. Consider group exercises. Consider hiring a personal driver. Regular exercise is fel[place] to sustainable health [...] counseling and psychiatry and Dr Gloria at [facility]. We would like to cover regular topics [...] from an Electronic Health Record CohortMethods: Obesity ([place]). 2019 Sep;27(4):591-602. doi: [email or web address].13469 Using electronic health record data 13,972 adults [...] software and direct typing Please excuse inadvertent retail salesman or typing errors, or uncorrected word substitutions Although every attempt has been made by the provider to proofread this document, occasional misspellings and typographical errors may still be present Due to the previous pandemic, and the use of personal protective equipment (PPE) This may decrease voice recognition accuracy Inadvertent retail salesman errors may occur 09/01/2023 Vitamin B 12 [...] minimum of 6 months The most recent [place] Association of clinical endocrinologists and [place] College of endocrinology guidelines recommend patients who [...] track activity level. Consider using apps like [email or web address], Embarkepal, lose it, stick as needed for self-monitoring and weight management. Consider group exercises. Consider hiring a personal driver. Regular exercise is [place] to sustainable health [...] counseling and psychiatry and Dr Gloria at [facility]. We would like to cover regular topics [...] from an Electronic Health Record CohortMethods: Obesity ([place]). 2019 Sep;27(4):591-602. doi: [email or web address] Using electronic health record data 13,972 adults [...] software and direct typing Please excuse inadvertent retail salesman or typing errors, or uncorrected word substitutions Although every attempt has been made by the provider to proofread this document, occasional misspellings and typographical errors may still be present Due to the previous pandemic, and the use of personal protective equipment (PPE) This may decrease voice recognition accuracy Inadvertent retail salesman errors may occur 01/31/2024 Vitamin B 12 [...] software and direct typing Please excuse inadvertent retail salesman or typing errors, or uncorrected word substitutions Although every attempt has been made by the provider to proofread this document, occasional misspellings and typographical errors may still be present Due to the previous pandemic, and the use of personal protective equipment (PPE) This may decrease voice recognition accuracy Inadvertent retail salesman errors may occur 08/02/2024 Vitamin B 12 deficiency (ICD-10 - E53.8) Acute Concerns/Problem List: 08/02/2024 Comprehensive labs reviewed as well as bariatric workup Will update thyroid function studies 3 to 4 weeks likely getting sleeve gastrectomy in the near future Of note, some information is being carried forward from prior records for informational purposes only and is being cited so that efficiency, safety and quality of the patient's care is not compromised This note was prepared using voice recognition software and direct typing Please excuse inadvertent retail salesman or typing errors, or uncorrected word substitutions Although every attempt has been made by the provider to proofread this document, occasional misspellings and typographical errors may still be present Due to the previous pandemic, and the use of personal protective equipment (PPE) This may decrease voice recognition accuracy Inadvertent retail salesman errors may occur PLAN OF TREATMENT Pending Test Test Name Order Date 25OH VITAMIN D 09/16/2022 CBC (COMPLETE BLOOD COUNT) 09/16/2022 COMPREHENSIVE METABOLIC PANEL 09/16/2022 HEMOGLOBIN A1C 09/16/2022 LIPID PANEL 09/16/2022 T4, TOTAL 09/16/2022 T4, TOTAL 11/03/2022 T4, TOTAL 05/18/2023 TSH 11/03/2022 TSH 05/18/2023 TSH 09/16/2022 TSH 07/20/2024 TSH WITH REFLEX TO FT4 07/20/2024 VITAMIN B12 09/16/2022 VITAMIN B12 05/18/2023 Insulin Level 09/16/2022 TOTAL T4 08/02/2024 LIPID PANEL, STANDARD 01/31/2024 COMPREHENSIVE METABOLIC PANEL 01/31/2024 CBC (INCLUDES DIFF/PLT) 01/31/2024 URINALYSIS, COMPLETE 01/31/2024 HEMOGLOBIN A1c 01/31/2024 VITAMIN B12 01/31/2024 T4, FREE 01/31/2024 TSH 08/02/2024 TSH 01/31/2024 VITAMIN D,25-OH,TOTAL,IA 01/31/2024 COMPLETE URINALYSIS 09/16/2022 Next Appt Details Provider Name:YUNG DAMICO, 11/30/2024 08:15:00 AM, [address] [place] [address], [id number], Insurance Providers Payer Name Payer Address Payer Phone Subscriber Number Group Number Insured Name Patient Relationship to Insured Coverage Start Date Coverage End Date [facility] [address] [place] [address] [id number] Kanika Staton Self - patient is the insured 3 MEDICATIONS ADMINISTERED Medication Instructions Date of Administration Dosage Notes MICC B12 INJECTION 02/03/2023 MEDICAL (GENERAL) HISTORY Medical History History ICD Code high cholesterol seasonal allergies thyroid disease depression Surgical History Surgery Date(Month/Year) wisdom teeth extraction 1989
--- OUTSIDE RECORDS SUMMARY | 2024-08-16 08:05 | XMS_ITS | Clinical Summary ---
Author Organization [facility] Address [address] [place] [address] Phone Care Team Providers Care Steam Pressure Chamber Operator Name Role Phone Christine Coto MD Primary Care Provider [phone] Medications Hospital, Clinic, or Other Facility Administered Medication Ordered Dose Route Frequency Start Date End Date Status perflutren lipid microsphere (DEFINITY) 1.3 mL in sodium chloride 0.9% 8.7 mL injection 10 mL IV Once in imaging 08/08/2024 08/08/2024 Ended perflutren lipid microsphere (DEFINITY) 1.3 mL in sodium chloride 0.9% 8.7 mL injectionIndications:Ab normal electrocardiogram 10 mL IV Once 08/14/2024 08/14/2024 Ended Encounters Date Type Department Care Team Description 08/14/2024 3:30 PM EST Ancillary Procedure [facility] - [address] [place] [address] [place] [phone] Abnormal electrocardiogram 08/08/2024 2:30 PM EST Ancillary Procedure [facility] - [address] [place] [address] [place] [phone] Abnormal electrocardiogram 07/19/2024 8:46 AM EST - 07/19/2024 11:59 PM EST Hospital Encounter [facility] Non-Invasive Cardiology [address] [place] [address] Obesity, class 1; Other obesity due to excess calories; Body mass index (BMI) 34.0-34.9, adult; Hypothyroidism, unspecified; Hyperlipidemia, unspecified; Essential (primary) hypertension Discharge Disposition: Home or Self Care 07/19/2024 8:43 AM EST - 07/19/2024 11:59 PM EST Hospital Encounter [facility] Xray [address] [place] [address] Bariatric surgery status Discharge Disposition: Home or Self Care from Last 3 Months Social History Tobacco Use Types Packs/Day Years Used Date Smoking Tobacco: Never Assessed Comments Unknown Sex and Gender Information Value Date Recorded Sex Assigned at Not on file Legal Sex Female 9:31 PM EST Gender Identity Not on file Sexual Orientation Not on file Last Filed Vital Signs Vital Sign Reading Time Taken Comments Blood Pressure 112/72 08/14/2024 3:51 PM EST Pulse - - Temperature - - Respiratory Rate - - Oxygen Saturation - - Inhaled Oxygen Concentration - - Weight 88.9 kg (196 lb) 08/14/2024 3:51 PM EST Height 165.1 cm (5' 5 ) 08/14/2024 3:51 PM EST Body Mass Index 32.62 08/14/2024 3:51 PM EST Plan of Treatment Upcoming Encounters Date Type Department Care Team (Late st Contact Info) Description 10/23/2024 8:00 AM EDT Appointment [facility] at [address] [phone] Health Maintenance Due Date Last Done Comments [...] Procedure Name Priority Date/Time Associated Diagnosis Comments TRANSTHORACIC ECHOCARDIOGRAM (TTE) COMPLETE W/ CONTRAST Routine 08/14/2024 4:10 PM EST Abnormal electrocardiogram STRESS ECHOCARDIOGRAM EXERCISE WITH CONTRAST Routine 08/08/2024 3:37 PM EST Abnormal electrocardiogram Procedure Note - Ge Rubio MD / Jes aZmora PA - 08/08/2024 3:37 PM ESTThis note is in progress. ? ? Stress ECG was normal. ? ? Exercise stress test was performed. Patient reported no symptoms duringthe stress test. Exercise capacity was average. Normal blood pressureresponse. Findings Study Details Overall the study quality was adequate. Definity contrast was given to enhance imaging. Study was difficult due to: poor endocardial visualization. Stress Findings A Evan protocol stress test was performed. Overall, the patient's exercise capacity was average. Total stress time was 6 min and 51 sec. The patient experienced no angina during the test. The test was stopped because the patient experienced fatigue. The Franklin Treadmill Score is 7. The patient's hemodynamic response was adequate for diagnosis. Blood pressure demonstrated a normal response. Heart rate demonstrated a normal response. The patient reported no symptoms during the stress test. ECG 53 yo female with abnormal EKG. The ECG shows normal sinus rhythm. Poor R wave progression across precordial leads. R axis deviation. Low voltage. There were no arrhythmias during stress. There is no ST segment changes during stress. There were no arrhythmias during recovery. The result of the stress ECG was negative for ischemia. XR UGI W AIR CONTRAST Routine 07/19/2024 [...] Hyperlipemia Hypertension, essential C-REACTIVE PROTEIN Routine 07/19/2024 8:12 AM EST Obesity, Class [...] Recently Relevant to Health Maintenance Results * TRANSTHORACIC ECHOCARDIOGRAM (TTE) COMPLETE W/ CONTRAST (08/14/2024 4:10 PM EST) Left Atrium Minor [place] 5.3 cm CV PACS Left Atrium Major [place] 5.4 cm CV PACS LA Area Sys (A2C) 16 cm2 CV PACS LA Area Sys (A4C) 18 cm2 CV PACS LA Volume (BP) 44 mL CV PACS RA Area 13.8 cm2 CV PACS RA 2D Volume 33 mL CV PACS AV Mean Gradient 2 mmHg CV PACS Ao VTI 23.8 cm CV PACS AV Peak Oz 1.0 m/s CV PACS AV Peak Gradient 4 mmHg CV PACS AV Area Continuity Equation 2.6 cm2 CV PACS AV Area Peak Velocity 2.6 cm2 CV PACS Aortic Arch 2.6 cm CV PACS Ascending Aorta 3.0 cm CV PACS Aortic Sinus Valsalva 2.7 cm CV PACS IVC Proximal 1.3 cm CV PACS IVSD 0.9 0.6 - 0.9 cm CV PACS LVIDD 4.5 3.8 - 5.2 cm CV PACS LVIDS 2.7 2.2 - 3.5 cm CV PACS LVOT Diameter 2.0 cm CV PACS LVOT Mean Oz 0.6 m/s CV PACS LVOT Mean Grad 2 mmHg CV PACS LVOT Peak VTI 20.0 cm CV PACS LVOT Peak Oz 0.8 m/s CV PACS LVOT Peak Gradient 3 mmHg CV PACS LVPWD 0.9 0.6 - 0.9 cm CV PACS MV E' Tissue Velocity Lateral 9 cm/s CV PACS MV E' Tissue Velocity Septal 9 cm/s CV PACS LVOT Area 3.1 cm2 CV PACS LVOT Stroke Volume 63 mL CV PACS MV Deceleration [place] 3.9 m/s2 CV PACS E Wave Deceleration Time 218 119 - 242 ms CV PACS MV PHT 64 ms CV PACS MV Peak A Oz 0.68 m/s CV PACS MV Peak E Oz 0.85 m/s CV PACS MV Area PHT 3.4 cm2 CV PACS PV Acceleration Time 180 ms CV PACS RV Diastolic Basal Dimension 3.8 2.5 - 4.1 cm CV PACS RV S' 12 cm/s CV PACS TAPSE 25 mm CV PACS E/E' Ratio Septal 9 CV PACS E/E' Ratio Averaged 9 CV PACS LVOT Stroke Index 32 mL/m2 CV PACS Relative Wall Thickness ratio 0.40 CV PACS LVOT:AV VTI Index 0.84 CV PACS FS 40 % CV PACS LV Mass 2D 133 g CV PACS Ascending Aorta Index 1.53 cm/m2 CV PACS LVOT flow 188 mL/s CV PACS RA 2D Volume Index 17 mL/m2 CV PACS MILES Index (VTI) 1.35 cm2/m2 CV PACS MILES Index (Pk Oz) 1.33 cm2/m2 CV PACS LVIDD Index 2.30 cm/m2 CV PACS LVIDS Index 1.38 cm/m2 CV PACS AV Velocity Ratio 0.80 CV PACS E/A Ratio 1.3 CV PACS E/E' Ratio Lateral 9 CV PACS LA Volume Index (BP) 22 mL/m2 CV PACS LV Mass Index 2D 68 g/m2 CV PACS BSA 2.02 m2 CV PACS Anatomical Region Laterality Modality Ultrasound Narrative 08/15/2024 2:00 PM EST ?Left??Ventricle: Left ventricle cavity size is normal. Wall thickness is normal. Systolic function is normal with an ejection fraction of 60-65%. There are no regional LV wall motion abnormalities. There is no diastolic dysfunction. ?Left??Atrium: Left atrium cavity size is normal. ?Right??Ventricle: Right ventricle cavity appears normal. Systolic function is normal. ?Right??Atrium: Right atrium cavity is normal. ?Mitral??Valve: There is trace regurgitation. Left Ventricle Left ventricle cavity size is normal. Wall thickness is normal. Systolic function is normal with an ejection fraction of 60-65%. There are no regional LV wall motion abnormalities. There is no diastolic dysfunction. Right Ventricle Right ventricle cavity appears normal. Systolic function is normal. Left Atrium Left atrium cavity size is normal. Right Atrium Right atrium cavity is normal. IVC/SVC RA pressures is estimated to be 3 mmHg (IVC diameter <21 mm and decreases >50% during inspiration). Mitral Valve The leaflets are mildly thickened. There is annular calcification. There is trace regurgitation. There is no evidence of mitral valve stenosis. Tricuspid Valve Tricuspid valve structure is normal. Tricuspid regurgitation is inadequate for estimation of right ventricular systolic pressure. Aortic Valve The aortic valve is trileaflet. There is no regurgitation or stenosis. Pulmonic Valve Pulmonic valve structure is normal. There is trace pulmonic valve regurgitation. Ascending Aorta The aorta appears normal in size. Pericardium Pericardium appears normal. There is no pericardial effusion. Study Details Overall the study quality was adequate. Definity contrast was given to enhance imaging. Anup Montenegro MD CV ECHO PROCEDURES Final Result * XR UGI w Air Contrast (07/19/2024 [...] Signed Date: 07/19/2024 10:33 ET Workstation ID: [id number] Transcribed By: Self Edit Transcribed Date: 07/19/2024 10:30 ET Resident/PA/ENGINE TESTING SUPERVISOR: Sydnie David Narrative 07/19/2024 10:33 AM EST FINDINGS: Double contrast UGI performed. COMPARISON: None. HISTORY: Patient is a 53-year-old female with no significant past medical history. Preop bariatric surgery. FOREST ENGINEER radiographs: Plastic Card Grader Cardroom AP radiograph of the abdomen obtained. Bowel [...] no significant past medicalhistory. Preop bariatric surgery. FOREST ENGINEER radiographs: Plastic Card Grader Cardroom AP radiograph of the abdomen obtained. Bowel [...] Signed Date: 07/19/2024 10:33 ET Workstation ID: [id number] Transcribed By: Self Edit Transcribed Date: 07/19/2024 10:30 ET Resident/PA/ENGINE TESTING SUPERVISOR: Sydnie David us Anup Montenegro MD IMG FLUOROSCOPY PROCEDURE S Final Result * XR Chest 2 Views (07/19/2024 9:27 AM EST) Anatomical Region Laterality Modality Body Radiographic Iris ging 07/19/2024 9:34 AM EST Addenda Addendum by Brenden Morocho MD on 07/19/2024 9:[address] Teleradiology -------- ADDENDUM -------- Dictated By: Brenden Morocho Dictated Date: 07/19/2024 09:53 ET Assigned Physician: Brenden Morocho Reviewed and Electronically Signed By: Brenden Morocho Signed Date: 07/19/2024 09:53 ET Workstation ID: [id number] Transcribed By: Self Edit Transcribed Date: 07/19/2024 09:53 ET Impressions 07/19/2024 9:35 AM EST Normal examination. ??No change since the prior study performed 07/20/2023. Code 05965 -------- FINAL REPORT -------- Dictated By: Brenden Morocho Dictated Date: 07/19/2024 09:34 ET Assigned Physician: Brenden Morocho Reviewed and Electronically Signed By: Brenden Morocho Signed Date: 07/19/2024 09:35 ET Workstation ID: [id number] Transcribed By: Self Edit Transcribed Date: 07/19/2024 [...] since the prior study performed 07/20/2023. Code 24235 -------- FINAL REPORT -------- Dictated By: Brenden Morocho Dictated Date: 07/19/2024 09:34 ET Assigned Physician: Brenden Morocho Reviewed and Electronically Signed By: Brenden Morocho Signed Date: 07/19/2024 09:35 ET Workstation ID: [id number] Transcribed By: Self Edit Transcribed Date: 07/19/2024 09:34 ET Anup Montenegro MD IMG XR PROCEDURES Edited Result - Final * ECG 12 lead (07/19/2024 9:04 AM EST) Ventricular Rate ECG 74 BPM GEMUSE Atrial Rate 74 BPM GEMUSE P-R Interval 164 ms GEMUSE QRS Duration 80 ms GEMUSE Q-T Interval 386 ms GEMUSE QTc 428 ms GEMUSE P Wave [place] 20 degrees GEMUSE R [place] -97 degrees GEMUSE T [place] 29 degrees GEMUSE ECG Interpretation Normal sinus rhythm Right superior axis deviation Low voltage QRS Poor R wave progression Abnormal ECG When compared with ECG of 20-JUL-2023 13:24, No significant change was found Confirmed by Diego GRIMM YUFENG ([id number]) on 07/19/2024 3:09:35 PM GEMUSE 07/19/2024 9:04 AM EST 07/19/2024 3:09 PM EST Anup Montenegro MD ECG ORDERABLES Final Res ult GEMUSE * (ABNORMAL) Thyroid stimulating hormone with reflex to free t4 and free t3 (07/19/2024 8:12 AM EST) TSH 12.06(H) 0.40 - 4.00 mcIU/mL LAB CHEMISTRY METHOD 07/19/2024 9:17 AM EST [facility] Blood Venous blood specimen / Unknown Venipuncture / Unknown 07/19/2024 8:12 AM EST 07/19/2024 8:28 AM EST Anup Montenegro MD LAB BLOOD ORDERABLES Suyapa l Result [facility] [address] [place] [address], [place] [phone] * Free thyroxine with reflex to free triiodothyronine (07/19/2024 8:12 AM EST) Free T4 0.78 0.70 - 1.80 ng/dL LAB CHEMISTRY METHOD 07/19/2024 9:44 AM [facility] Blood Venous blood specimen / Unknown Venipuncture / Unknown 07/19/2024 8:12 AM EST 07/19/2024 8:28 AM EST us Anup Montenegro MD LAB BLOOD ORDERABLES Suyapa l Result [facility] [address] [place] [address], [place] [phone] * (ABNORMAL) Lipid panel with reflex to direct LDL (07/19/2024 8:12 AM EST) Cholesterol 282(H) 0 - 200 mg/dL LAB CHEMISTRY METHOD 07/19/2024 9:11 AM [facility] Triglycerides 102 0 - 150 mg/dL LAB CHEMISTRY METHOD 07/19/2024 9:11 AM [facility] HDL 109 >=40 mg/dL LAB CHEMISTRY METHOD 07/19/2024 9:11 AM [facility] LDL Calculated 153(H) 0 - 100 mg/dL LAB CHEMISTRY METHOD 07/19/2024 9:11 AM [facility] VLDL Cholesterol Ruddy 20.4 mg/dL LAB CHEMISTRY METHOD 07/19/2024 9:11 AM [facility] Non HDL Chol. (LDL+VLDL) 173(H) <145 mg/dL LAB CHEMISTRY METHOD 07/19/2024 9:11 AM [facility] Chol/HDL Ratio 2.6 0.0 - 4.4 LAB CHEMISTRY METHOD 07/19/2024 9:11 AM [facility] Blood Venous blood specimen / Unknown Venipuncture / Unknown 07/19/2024 8:12 AM EST 07/19/2024 8:28 AM EST Anup Montenegro MD LAB BLOOD ORDERABLES Suyapa l Result Performing Organization Address City/[facility] Co de Phone Number [facility] [address] [place] [address], * Insulin antibody (07/19/2024 8:12 AM EST) Insulin Antibody <0.4 0.0 - 0.4 U/mL 07/23/2024 11:51 PM EST [facility] Comment: INTERPRETIVE INFORMATION: Insulin Antibody A [...] the context of clinical symptoms. Performed By: [facility] [address] [place] [id number] Marketing Representative: Krishan Villagomez MD, PhD CLIA Number: [id number] Blood Venous blood specimen / Unknown Venipuncture / Unknown 07/19/2024 8:12 AM EST 07/19/2024 8:28 AM EST Anup Montenegro MD LAB BLOOD ORDERABLES Suyapa l Result Performing Organization Address City/[facility] Co de Phone Number [facility] [address] [place] [address] * Zinc (07/19/2024 8:12 AM EST) Zinc 86 60 - 130 ug/dL 07/23/2024 12:57 PM EST [facility] Comment: Elevated results may be due to sample collected in a non-certified trace element-free tube. This test was developed and the performance characteristics determined by [facility]. It has not been cleared or approved by the FDA. The laboratory is regulated under CLIA as qualified to perform high-complexity testing. This test is used for patient testing purposes. It should not be regarded as investigational or for research. Test performed at [facility], [address] [place] [address], [place] ??[address] ? [phone] Shwetha Donahue MD, PhD - Pocket And Pulley Machine Operator Blood Venous blood specimen / Unknown Venipuncture / Unknown 07/19/2024 8:12 AM EST 07/19/2024 8:28 AM EST Anup Montenegro MD LAB BLOOD ORDERABLES Suyapa l Result Performing Organization Address City/[facility]/ZIP Co de Phone Number [facility] [address] [place] [address] * Vitamin A (07/19/2024 8:12 AM EST) Pathologist [facility] Vitamin A 56 38 - 106 ug/dL 07/25/2024 6:21 AM EST [facility] Comment: This test was developed and the performance characteristics determined by [facility]. It has not been cleared or approved by the FDA. The laboratory is regulated under CLIA as qualified to perform high-complexity testing. This test is used for patient testing purposes. It should not be regarded as investigational or for research. Test performed at [facility], [address], [place] ??[address] ? [phone] Shwetha Donahue MD, PhD - Pocket And Pulley Machine Operator Blood Venous blood specimen / Unknown Venipuncture / Unknown 07/19/2024 8:12 AM EST 07/19/2024 8:29 AM EST Anup Montenegro MD LAB BLOOD ORDERABLES Suyapa l Result [facility] [address], [place] [id number] * (ABNORMAL) Vitamin D 25 hydroxy (07/19/2024 8:12 AM EST) Vit D, 25-Hydroxy 24.6(L) 30.0 - 80.0 ng/mL LAB CHEMISTRY METHOD 07/19/2024 9:17 AM [facility] Blood Venous blood specimen / Unknown Venipuncture / Unknown 07/19/2024 8:12 AM EST 07/19/2024 8:28 AM EST us Anup Montenegro MD LAB BLOOD ORDERABLES Suyapa l Result [facility] [address] [place] [address], * (ABNORMAL) Complete blood count (07/19/2024 8:12 AM EST) WBC 4.6(L) 4.8 - 10.8 K/mcL LAB HEMETOLOGY METHOD 07/19/2024 8:43 AM [facility] RBC 4.80 3.80 - 4.80 M/mcL LAB HEMETOLOGY METHOD 07/19/2024 8:43 AM [facility] Hemoglobin 15.0 11.5 - 16.0 g/dL LAB HEMETOLOGY METHOD 07/19/2024 8:43 AM [facility] Hematocrit 43.7 35.0 - 47.0 % LAB HEMETOLOGY METHOD 07/19/2024 8:43 AM [facility] MCV 90.7 79.0 - 98.0 FL LAB HEMETOLOGY METHOD 07/19/2024 8:43 AM [facility] MCH 31.1 27.0 - 32.0 pcg LAB HEMETOLOGY METHOD 07/19/2024 8:43 AM [facility] MCHC 34.3 32.0 - 37.0 g/dL LAB HEMETOLOGY METHOD 07/19/2024 8:43 AM [facility] RDW 12.9 11.0 - 15.0 % LAB HEMETOLOGY METHOD 07/19/2024 8:43 AM [facility] Platelets 301 130 - 400 K/mcL LAB HEMETOLOGY METHOD 07/19/2024 8:43 AM EST [facility] MPV 10.9 7.0 - 11.0 FL LAB HEMETOLOGY METHOD 07/19/2024 8:43 AM EST [facility] NRBC 0.0 <1.0 % LAB HEMETOLOGY METHOD 07/19/2024 8:43 AM EST [facility] NRBC Absolute 0.00 <0.10 K/mcL LAB HEMETOLOGY METHOD 07/19/2024 8:43 AM EST [facility] Blood Venous blood specimen / Unknown Venipuncture / Unknown 07/19/2024 8:12 AM EST 07/19/2024 8:28 AM EST Anup Montenegro MD LAB BLOOD ORDERABLES Suyapa l Result [facility] [address] [place] [address], [place] [phone] * (ABNORMAL) C-reactive protein (07/19/2024 8:12 AM EST) [facility] C-Reactive Protein 0.79(H) <=0.50 mg/dL LAB CHEMISTRY METHOD 07/19/2024 9:10 AM EST [facility] Blood Venous blood specimen / Unknown Venipuncture / Unknown 07/19/2024 8:12 AM EST 07/19/2024 8:28 AM EST Anpu Montenegro MD LAB BLOOD ORDERABLES Suyapa l Result [facility] [address] [place] [address], [place] [phone] * Triiodothyronine free (07/19/2024 8:12 AM EST) T3, Free 270 230 - 420 pcg/dL LAB CHEMISTRY METHOD 07/19/2024 10:10 AM EST [facility] Blood Venous blood specimen / Unknown Venipuncture / Unknown 07/19/2024 8:12 AM EST 07/19/2024 8:28 AM EST Anup Montenegro MD LAB BLOOD ORDERABLES Suyapa l Result [facility] [address] [place] [address], * Vitamin B1 (07/19/2024 8:12 AM EST) [facility] Vitamin B1 Whole Blood 101 38 - 122 ug/L 07/24/2024 5:27 AM EST [facility] Comment: This test was developed and the performance characteristics determined by [facility]. It has not been cleared or approved by the FDA. The laboratory is regulated under CLIA as qualified to perform high-complexity testing. This test is used for patient testing purposes. It should not be regarded as investigational or for research. Test performed at [facility], [address] , [place], [place] ??[address] ? [phone] Shwetha Donahue MD, PhD - Pocket And Pulley Machine Operator Blood Venous blood specimen / Unknown Venipuncture / Unknown 07/19/2024 8:12 AM EST 07/19/2024 8:28 AM EST Anup Montenegro MD LAB BLOOD ORDERABLES Suyapa l Result [facility] [address] [place] [address] * Iron (07/19/2024 8:12 AM EST) [facility] Iron 146 40 - 150 mcg/dL LAB CHEMISTRY METHOD 07/19/2024 9:10 AM EST [facility] Blood Venous blood specimen / Unknown Venipuncture / Unknown 07/19/2024 8:12 AM EST 07/19/2024 8:28 AM EST Anup Montenegro MD LAB BLOOD ORDERABLES Suyapa l Result [facility] [address] [place] [address], [place] [phone] * Hemoglobin A1c (07/19/2024 8:12 AM EST) Pathologist [facility] Hemoglobin A1C 5.5 <6.5 % LAB CHEMISTRY METHOD 07/19/2024 12:00 PM EST [facility] Mean Bld Glu Estim. 111 mg/dL LAB CHEMISTRY METHOD 07/19/2024 12:00 PM EST [facility] Blood Venous blood specimen / Unknown Venipuncture / Unknown 07/19/2024 8:12 AM EST 07/19/2024 8:28 AM EST Anup Montenegro MD LAB BLOOD ORDERABLES Suyapa l Result Performing Organization Address City/[facility]/ZIP Co de Phone Number [facility] [address] [place] [address], [place] [phone] * (ABNORMAL) Folate (07/19/2024 8:12 AM EST) Pathologist [facility] Folate >20.0(H) 2.8 - 17.0 ng/ml LAB CHEMISTRY METHOD 07/19/2024 9:32 AM EST [facility] Blood Venous blood specimen / Unknown Venipuncture / Unknown 07/19/2024 8:12 AM EST 07/19/2024 8:28 AM EST Anup Montenegro MD LAB BLOOD ORDERABLES Suyapa l Result [facility] [address] [place] [address], [place] [phone] * Ferritin (07/19/2024 8:12 AM EST) Pathologist [facility] Ferritin 108 8 - 252 ng/mL LAB CHEMISTRY METHOD 07/19/2024 9:32 AM EST [facility] Blood Venous blood specimen / Unknown Venipuncture / Unknown 07/19/2024 8:12 AM EST 07/19/2024 8:28 AM EST Anup Montenegro MD LAB BLOOD ORDERABLES Suyapa l Result Performing Organization Address City/[facility]/ZIP Co de Phone Number [facility] [address] [place] [address], [place] [phone] * Vitamin B12 (07/19/2024 8:12 AM EST) [facility] Vitamin B-12 723 250 - 900 pcg/mL LAB CHEMISTRY METHOD 07/19/2024 9:32 AM EST [facility] Blood Venous blood specimen / Unknown Venipuncture / Unknown 07/19/2024 8:12 AM EST 07/19/2024 8:28 AM EST Anup Montenegro MD LAB BLOOD ORDERABLES Suyapa l Result Performing Organization Address City/[facility]/ZIP Co de Phone Number [facility] [address] [place] [address], [place] [phone] * Comprehensive metabolic panel (07/19/2024 8:12 AM EST) Pathologist [facility] Sodium 138 133 - 145 mmol/L LAB CHEMISTRY METHOD 07/19/2024 9:10 AM EST [facility] Potassium 3.9 3.5 - 5.5 mmol/L LAB CHEMISTRY METHOD 07/19/2024 9:10 AM EST [facility] Chloride 105 96 - 110 mmol/L LAB CHEMISTRY METHOD 07/19/2024 9:10 AM EST [facility] CO2 27 21 - 32 mmol/L LAB CHEMISTRY METHOD 07/19/2024 9:10 AM [facility] Anion Gap 6 3 - 11 LAB CHEMISTRY METHOD 07/19/2024 9:10 AM [facility] Glucose 93 70 - 100 mg/dL LAB CHEMISTRY METHOD 07/19/2024 9:10 AM [facility] BUN 7 5 - 25 mg/dL LAB CHEMISTRY METHOD 07/19/2024 9:10 AM [facility] Creatinine 0.92 0.50 - 1.10 mg/dL LAB CHEMISTRY METHOD 07/19/2024 9:10 AM [facility] eGFR 76 >=60 mL/min/1. 73m2 LAB CHEMISTRY METHOD 07/19/2024 9:10 AM [facility] Comment:Calculation based on the??Chronic Kidney Disease Epidemiology Collaboration (CKD-EPI) equation refit??without adjustment for race. BUN/Creatinine Ratio 7.6 LAB CHEMISTRY METHOD 07/19/2024 9:10 AM [facility] Calcium 9.4 8.5 - 10.5 mg/dL LAB CHEMISTRY METHOD 07/19/2024 9:10 AM [facility] AST (SGOT) 26 10 - 42 unit/L LAB CHEMISTRY METHOD 07/19/2024 9:10 AM [facility] ALT (SGPT) 47 10 - 60 unit/L LAB CHEMISTRY METHOD 07/19/2024 9:10 AM [facility] Alkaline Phosphatase 80 42 - 121 unit/L LAB CHEMISTRY METHOD 07/19/2024 9:10 AM [facility] Total Protein 7.5 6.0 - 8.0 g/dL LAB CHEMISTRY METHOD 07/19/2024 9:10 AM [facility] Albumin 4.2 3.2 - 5.0 g/dL LAB CHEMISTRY METHOD 07/19/2024 9:10 AM [facility] Total Bilirubin 0.7 0.0 - 1.4 mg/dL LAB CHEMISTRY METHOD 07/19/2024 9:10 AM EST [facility] Blood Venous blood specimen / Unknown Venipuncture / Unknown 07/19/2024 8:12 AM EST 07/19/2024 8:28 AM EST us Anup Montenegro MD LAB BLOOD ORDERABLES Suyapa l Result [facility] ([facility]) [facility] [address] [place] [address], * VANNA SCREENING DIGITAL (04/11/2024 1:36 PM EDT) Anatomical Region Laterality Modality Mammography 04/11/2024 9:56 AM EDT Narrative 04/11/2024 1:36 PM EDT [facility] Diagnostic Imaging Department [address] [place] [address] Patient: ??RENNY SAMPSON ?/Age/Sex: 1970 - 53 - F Unit#: ??[id number] ? Location/Status: ??SPDIMAM/REG CLI ? Mnemonic/Ordering Site: ??DIGSC/SPMAM Ordering Physician: ??CHRISTINE COTO MD Vanna Screening Digital - 04/11/24 - 5 Report Status:Signed EXAM: Vanna Screening Digital EXAM DATE AND TIME: 04/11/2024 10:26 AM HISTORY: ??Screening. Paternal cousin had breast carcinoma. COMPARISON: ??09/22/22, 05/04/21, 05/02/20, 09/08/18, 07/22/17 TECHNIQUE: Bilateral digital breast tomosynthesis was performed in the CC and MLO projections. Computer aided detection with [employer] 3D 3.1 was employed. TISSUE DENSITY: b. [...] Mammogram performed at [facility] [place] [address] Dictating Physician: ??RAYNA ALANIS MD Electronically Signed by: ??RAYNA ALANIS MD Dic Date/Time: ??04/11/24 1331 Sign date/Time: ??04/11/24 1336 Procedure Note Rayna Alanis MD - 04/14/2024 [facility] Diagnostic Imaging Department [address] [place] [address] Patient: RENNY SAMPSON /Age/Sex: 1970 - 53 - F Unit#: [id number] Location/Status: SPDIMAM/REG CLI Mnemonic/Ordering Site: [facility] Ordering Physician: CHRISTINE COTO MD [facility] Screening Digital - 04/11/24 - 1025 Report Status:Signed EXAM: [facility] Screening Digital EXAM DATE AND TIME: 04/11/2024 10:26 AM HISTORY: Screening. Paternal cousin had breast carcinoma. COMPARISON: 09/22/22, 05/04/21, 05/02/20, 09/08/18, 07/22/17 TECHNIQUE: Bilateral digital breast tomosynthesis was performed in the CCand MLO projections. Computer aided detection with [employer] 3D 3.1was employed. TISSUE DENSITY: b. There [...] Mammogram performed at [facility] [place] [address] Dictating Physician: RAYNA ALANIS MD Electronically Signed by: RAYNA ALANIS MD Dic Date/Time: 04/11/24 1331 Sign date/Time: 04/11/24 1336 Christine Coto MD IMG BI PROCEDURES Final Result from Last 3 Months or Most Recently Relevant to Health Maintenance Insurance [facility] Care Teams Steam Pressure Chamber Operator Relationship Specialty Start Date End Date Christine Coto MD [address] [place] [address] [phone] PCP - General Internal Medicine 08/02/24
--- OUTSIDE RECORDS SUMMARY | 2024-08-16 08:06 | XMS_ITS | Encounter Summary ---
Author Organization [facility] [facility] Address [address] [place] [address] Care Team Providers Care Hot Tar Roofer Helper Name Role Phone Lina Coto MD Primary Care Provider [phone] Reason for Visit * Imaging (Routine) - Closed Specialty Diagnoses / Procedures Referred By Tenzin krishna Referred To Contact Cardiology Diagnoses Abnormal electrocardiogram Procedures Stress echocardiogram (TTE) exercise with PRN contrast, bubble, strain, and 3D order panel DC ECHOCARDIOGRAPHY TRANSTHORACIC 2D REST & STRESS W INTERPRETATION/REPORT DC ECHOCARDIOGRAPHY TRANSTHORACIC 2D REST & STRESS W/M-MODE DC DOPPLER ECHO COMPLETE DC ECHOCARDIOGRAPHY DOPPLER COLOR FLOW MAPPING DC CV TMST/BIKE MAX/SUBMAX CONTINUOUS ECG MON/PHARM STRESS SUPVSR ONLY DC TEST STRESS CARDIOVASCULAR TRACING ONLY DC CV STRESS TEST/BIKE CONT ECG MON/PHARM STRESS INTERP & REPORT ONLY Anup Montenegro MD [address] [place] [address] [address] [place] [address] Phone: tel: fax: [facility] Referral ID Status Reason Start Date Expiration Date Visits Re quested Visits Authorized [id number] Closed 07/31/2024 07/31/2025 1 1 Encounter Details Date Type Department Care Team (Latest Contact Info) Description 08/08/2024 2:30 PM EST Ancillary Procedure [facility] [address] [place] [address] Abnormal electrocardiogram Social History Tobacco Use Types Packs/Day Years Used Date Smoking Tobacco: Never Assessed Comments Unknown Sex and Gender Information Value Date Recorded Sex Assigned at Not on file Legal Sex Female 9:31 PM EST Gender Identity Not on file Sexual Orientation Not on file documented as of this encounter Last Filed Vital Signs Vital Sign Reading Time Taken Comments Blood Pressure 110/70 08/08/2024 2:45 PM EST Pulse - - Temperature - - Respiratory Rate - - Oxygen Saturation - - Inhaled Oxygen Concentration - - Weight 86.6 kg (191 lb) 08/08/2024 2:45 PM EST Height 165.1 cm (5' 5 ) 08/08/2024 2:45 PM EST Body Mass Index 31.78 08/08/2024 2:45 PM EST documented in this encounter Plan of Treatment Upcoming Encounters Date Type Department Care Team (Late st Contact Info) Description 10/23/2024 8:00 AM EDT Appointment [facility] [address] [phone] Pending Results Name Type Priority Associated Diagnoses Date /Time Stress echocardiogram (TTE) exercise with PRN contrast, bubble, strain, and 3D order panel Stress Echocardiography Routine Abnormal electrocardiogram 08/08/2024 3:37 PM EST documented as of this encounter Procedures Procedure Name Priority Date/Time Associated Diagnosis Comments STRESS ECHOCARDIOGRAM EXERCISE WITH CONTRAST Routine 08/08/2024 3:37 PM EST Abnormal electrocardiogram Procedure Note - Ge Rubio MD / Jes Zamora PA - 08/08/2024 3:37 PM ESTThis note [...] the stress ECG was negative for ischemia. documented in this encounter Visit Diagnoses Diagnosis Abnormal electrocardiogram Nonspecific abnormal electrocardiogram (ECG) (EKG) documented in this encounter Administered Medications Inactive Administered Medications - up to 3 most recent administrations Medication Order MAR Action Action Date Dose Rate Site perflutren lipid microsphere (DEFINITY) 1.3 mL in sodium chloride 0.9% 8.7 mL injection 10 mL, intravenous, Administer over 10 Minutes, Once in imaging, Starting on Tue08/08/24 at 1516, For 1 dose Given 08/08/2024 3:17 PM EST 4 mL documented in this encounter Care Teams Hot Tar Roofer Helper Relationship Specialty Start Date End Date Lina Coto MD [address] [place] [id number] PCP - General Internal Medicine 08/02/24 documented as of this encounter
--- OUTSIDE RECORDS SUMMARY | 2024-08-16 08:06 | XMS_ITS | Encounter Summary ---
Author Organization [employer] Address [address] [place] [address] Care Team Providers Care Licensed Loan Officer Assistant Name Role Phone Lina Coto MD Primary Care Provider [phone] Reason for Visit * Imaging (Routine) - Authorized Specialty Diagnoses / Procedures Referred By Tenzin krishna Referred To Contact Cardiology Diagnoses Abnormal electrocardiogram Procedures Transthoracic echocardiogram (TTE) complete with PRN contrast, bubble, strain, and 3D order panel OK TTE W 2D IMAGE COMPLETE W DOPPLER ECHO & COLOR FLOW DOPPLER ECHO OK CHELO 2D COMPLETE W/CONTRAST OR W & WO CONTRAST WITH DOPPLER Anup Montenegro MD [address] [place] [address] [address] [place] [address] Phone: tel: fax: [facility] Referral ID Status Reason Start Date Expiration Date V isits Requested Visits Authorized [id number] Authorized 07/31/2024 07/31/2025 1 1 Encounter Details Date Type Department Care Team (Latest Contact Info) Description 08/14/2024 3:30 PM EST Ancillary Procedure [facility] - [address] [place] [address] Abnormal electrocardiogram Social History Tobacco Use Types [...] Mass Index 32.62 08/14/2024 3:51 PM EST documented in this encounter Plan of Treatment Upcoming Encounters Date Type Department Care Team (Late st Contact Info) Description 10/23/2024 8:00 AM EDT Appointment [facility] [address] [phone] documented as of this encounter Procedures Procedure Name Priority Date/Time Associated Diagnosis Comments TRANSTHORACIC ECHOCARDIOGRAM (TTE) COMPLETE W/ CONTRAST Routine 08/14/2024 4:10 PM EST Abnormal electrocardiogram documented in this encounter Results * TRANSTHORACIC ECHOCARDIOGRAM (TTE) COMPLETE W/ CONTRAST (08/14/2024 4:10 PM EST) Left Atrium Minor [place] 5.3 cm CV PACS Left Atrium Major [place] 5.4 cm CV PACS LA Area Sys [...] Volume 63 mL CV PACS MV Deceleration [place] 3.9 m/s2 CV PACS E Wave Deceleration [...] Montenegro MD CV ECHO PROCEDURES Final Result documented in this encounter Visit Diagnoses Diagnosis Abnormal electrocardiogram Nonspecific abnormal electrocardiogram (ECG) (EKG) documented in this encounter Administered Medications Inactive Administered Medications - up to 3 most recent administrations Medication Order MAR Action Action Date Dose Rate Site perflutren lipid microsphere (DEFINITY) 1.3 mL in sodium chloride 0.9% 8.7 mL injection 10 mL, intravenous, Administer over 10 Minutes, Once, On Tue08/14/24 at 1630, For 1 doseIndications:Abnormal electrocardiogram Given 08/14/2024 4:12 PM EST 10 mL documented in this encounter Orders Medications Ordered That Nicola ht Not Have Been Administered Count Last Ordered Date First Ordered Date perflutren lipid microsphere (DEFINITY) 1.3 mL in sodium chloride 0.9% 8.7 mL injection 1 08/14/2024 documented in this encounter Care Teams Licensed Loan Officer Assistant Relationship Specialty Start Date End Date Lina Coto MD [address] [place] [id number] PCP - General Internal Medicine 08/02/24 documented as of this encounter
--- OUTSIDE RECORDS SUMMARY | 2024-08-16 08:06 | XMS_ITS ---
Author Organization [facility] Address [address] [place] [address] Care Team Providers Care Home Energy Rater Name Role Phone YUNG DAMICO Unavailable [phone] REASON FOR VISIT flu like snptoms Encounters Encounter Location Date Provider Diagnosis [facility] [address] [place] [address] 06/09/2024 YUNG DAMICO PLAN OF TREATMENT Next Appt Details Provider Name:YUNG DAMICO, 11/30/2024 08:15:00 AM, [address] [facility], [facility], [place], [address], Progress Notes * Kanika SAMPSONDOB: 3 (53 yo F)Acc No.[id number]:06/09/2024 Progress Notes Patient:??Kanika SAMPSON Provider:??YUNG DAMICO NP :1970?Age:53 Y?Sex:Fe male Date:06/09/2024 Address:[id number] Subjective: * Chief Complaints: * ?1. Flu like snptoms. * Medical History:?? Objective: Assessment: Plan: * Treatment: Care Plan: * Problems:?? * Images: Billing Information: * Visit Code:?? * Procedure Codes:?? Care Plan Details* * Sign off status: Pending * Provider:??YUNG DAMICO NP Date:??05/14
--- OUTSIDE RECORDS SUMMARY | 2024-08-16 08:06 | XMS_ITS ---
Author Organization [facility] Address [address] [place] [id number] Care Team Providers Care Software Asset Management Analyst Name Role Phone MOOKIE YUNG Unavailable [phone] ALLERGIES No Known Allergies REASON FOR VISIT Pt here for CPE, pt has no concerns. MEDICATIONS Medication SIG (Take, Route, Frequency, Duration) Notes Start Date End Date Status Levothyroxine Sodium 88 MCG 1 tablet in the morning on an empty stomach Orally Once a day for 30 days 07/25/2024 Active Hometown Thyroid 90 MG 1 tablet on an [...] Question Answer Notes Are you a nonsmoker VITAL SIGNS Blood pressure systolic 126 mm Hg 08/02/19 25 Blood pressure diastolic 82 mm Hg 025 Heart Rate 75 /min 08/02/2024 Height 65 in 08/02/2024 Weight 196 lbs 08/02/2024 BMI 32.61 kg/m2 08/02/2024 Oximetry 98 % 08/02/2024 Encounters Encounter Location Date Provider Diagnosis [facility] [address] [facility] [address] [facility] [address] [place] [address] 08/02/2024 YUNG DAMICO Obesity (BMI 30.0-34 .9) E66.9 ; Annual physical exam Z00.00 ; Dietary counseling and surveillance Z71.3 ; Acquired hypothyroidism E03.9 ; Pure hypercholesterolemia, unspecified E78.00 and Vitamin B 12 deficiency E53.8 ASSESSMENTS Encounter Date Diagnosis Assessment Notes Treatment Notes Treatment Clinical Notes Section Notes 08/02/2024 Obesity (BMI 30.0-34.9) (ICD-10 - E66.9) [...] software and direct typing Please excuse inadvertent epic specialist or typing errors, or uncorrected word substitutions Although every attempt has been made by the provider to proofread this document, occasional misspellings and typographical errors may still be present Due to the previous pandemic, and the use of personal protective equipment (PPE) This may decrease voice recognition accuracy Inadvertent epic specialist errors may occur 08/02/2024 Annual physical exam [...] software and direct typing Please excuse inadvertent epic specialist or typing errors, or uncorrected word substitutions Although every attempt has been made by the provider to proofread this document, occasional misspellings and typographical errors may still be present Due to the previous pandemic, and the use of personal protective equipment (PPE) This may decrease voice recognition accuracy Inadvertent epic specialist errors may occur 08/02/2024 Dietary counseling and [...] software and direct typing Please excuse inadvertent epic specialist or typing errors, or uncorrected word substitutions Although every attempt has been made by the provider to proofread this document, occasional misspellings and typographical errors may still be present Due to the previous pandemic, and the use of personal protective equipment (PPE) This may decrease voice recognition accuracy Inadvertent epic specialist errors may occur 08/02/2024 Acquired hypothyroidism (ICD-10 [...] software and direct typing Please excuse inadvertent epic specialist or typing errors, or uncorrected word substitutions Although every attempt has been made by the provider to proofread this document, occasional misspellings and typographical errors may still be present Due to the previous pandemic, and the use of personal protective equipment (PPE) This may decrease voice recognition accuracy Inadvertent epic specialist errors may occur 08/02/2024 Pure hypercholesterolem ia, unspecified (ICD-10 - E78.00) Acute Concerns/Problem List: [...] software and direct typing Please excuse inadvertent epic specialist or typing errors, or uncorrected word substitutions Although every attempt has been made by the provider to proofread this document, occasional misspellings and typographical errors may still be present Due to the previous pandemic, and the use of personal protective equipment (PPE) This may decrease voice recognition accuracy Inadvertent epic specialist errors may occur 08/02/2024 Vitamin B 12 [...] software and direct typing Please excuse inadvertent epic specialist or typing errors, or uncorrected word substitutions Although every attempt has been made by the provider to proofread this document, occasional misspellings and typographical errors may still be present Due to the previous pandemic, and the use of personal protective equipment (PPE) This may decrease voice recognition accuracy Inadvertent epic specialist errors may occur PLAN OF TREATMENT Medication Medication Name Sig Start Date Stop Date Notes Hometown Thyroid 90 MG 1 tablet on an empt y stomach Orally Once a day for 90 days hydroCHLOROthiazide 12.5 MG 1 tablet in the morning Orally Once a day for 90 days LORazepam 0.5 MG 1 tablet at bedtime as needed Orally Once a day for 90 days Pending Test Test Name Order Date TOTAL T4 08/02/2024 TSH 08/02/2024 Next Appt Details Provider Name:YUNG DAMICO, 11/30/2024 08:15:00 AM, [address] [place] [address], [id number], Progress Notes * Kanika SAMPSONDOB: 3 (53 yo F)Acc No.[id number]:08/02/2024 CPE Patient:??Kanika SAMPSON Provider:??YUNG DAMICO NP :1970?Age:53 Y?Sex:Fe male Date:08/02/2024 Address:[address] [place], [place] [id number] Subjective: * Chief Complaints: * ?1. Pt here for CPE, pt has no concerns.. * HPI: ?Constitutional:? Patient is here today for annual CPE ?Full past medical history, social history, family history, ?allergies and current medications were reviewed and updated. ?Acute Concerns/Problem List: ?08/02/2024 ?Patient recently had bariatric consultation with Dr. Chavira in [place] ?Plan is for sleeve gastrectomy in the near future ?She had comprehensive labs which are reviewed below ?She recently was taken off of Hometown Thyroid and transition to levothyroxine due to personal choice ?Most recent thyroid function is below ?She also had an upper GI series done as part of the bariatric workup which showed ? a very small axial hiatal hernia which is likely going to be repaired ?At the time of her bariatric surgery ?She also underwent EKG and chest x-ray which were unremarkable ?There was supposed and EKG changes but I reviewed there was nothing overly whelming ?She was however set up for a stress echo with PVC ?She previously was on weight loss medications through our practice however is not on any medications at the moment ?Her blood pressure stable, she takes her hydrochlorothiazide very intermittently and ? typically takes it around menstruation for edema management ?She is no longer on SSRIs or Wellbutrin ?We discussed her ASCVD risk and hyper lipids ?She was on statin many years ago and had intolerance as well as myalgias ?08/02/2024, Weight 196lbs , BMI (-7lbs) ?01/31/2024, Weight 203, BMI ?09/01/2023, Weight 193lbs , BMI ?07/13/2023, Weight 193lbs , BMI (+8lbs) ?05/18/23: 185 lbs, BMI 30 (-1 lb) ?03/23/23: 186 lbs BMI 30.9 (-2 lbs) ?02/03/23: 188 lbs, BMI 31 (-8 lbs) ?12/13/22: 196lbs, BMI 32, (-8lbs) ?11/03/22: 204lbs, BMI 33 ?09/16/22: 203lbs, 33.75 ?Comprehensive labs July 2024, epic ?Ordered by bariatric surgeon workup ?Total T4, 0.78 ?Free T3 270 ?TSH 12.06 ?Renal function electrolytes and LFTs are stable ?Total cholesterol 282, LDL 153, HDL 109, triglycerides 102 ?Vitamin B12 723 ?Zinc 86 ?Iron 146 CBC is stable ?Hemoglobin A1c 5.5 ?Social Hx: ?Smoke: no ?ETOH: intermittently once during the weekend 3-4 beverages ?: No ?No children: No ?Lives alone in house ?Health Maintenance: ?COVID MRNA: 2x Pfizer ?Flu 2023: Yes ?TDAP: unsure ?Gyno/Pap: 08/2022 ?Mammography: 04/2024, with left breast U/S, repeat 6 month 10/2024 ?Cscope: -Cologuard, repeat 3 yrs 2025. * ROS:?All Other Systems:?Review of Systems (ROS)??All others negative except those mentioned in HPI.? * Medical History:??High jennifer sterol, Seasonal allergies, Thyroid disease, Depression. * Surgical History:??wisdom te eth extraction 1989. * Family History:??Father: abhishek ve 81 yrs.??Mother: 78 yrs.??3 sister(s) - healthy. .?? * Social History:?Tobacco Use:??Tobacco Use/Smoking??Are you a??nonsmoker.?? * Medications:??Taking LORazep am 0.5 MG Tablet 1 tablet at bedtime as needed Orally Once a day , Taking Vitamin B Complex - Capsule as directed Orally , Taking hydroCHLOROthiazide 12.5 MG Tablet 1 tablet in the morning Orally Once a day , Taking Levothyroxine Sodium 88 MCG Tablet 1 tablet in the morning on an empty stomach Orally Once a day , Discontinued Nystatin 209922 UNIT/ML Suspension 4 mL Mouth/Throat Four times a day , Discontinued Escitalopram Oxalate 10 MG Tablet 1 tablet Orally Once a day , Discontinued Hometown Thyroid 90 MG Tablet 1 tablet on an empty stomach Orally Once a day , Discontinued Wegovy 1 MG/0.5ML Solution Auto-injector 1mg Subcutaneous weekly , Medication List reviewed and reconciled with the patient * Allergies:??N.K.D.A. Objective: * Vitals:??HR:75/min, BP:126/8 2mm Hg, Wt:196lbs, BMI:32.61Index, Ht: 65 in, Oxygen sat %:98%. * Examination: ?General Examination: ?GENERAL APPEARANCE:??in no acute distress, well developed, well nourished.??HEAD:??normocephalic, atraumatic.??EYES:??pupils equal, round, reactive to light and accommodation.??EARS:??normal.??ORAL CAVITY:??mucosa moist.??THROAT:??clear.??NECK/THYROID:??neck supple, full range of motion, no cervical lymphadenopathy.??SKIN:??no suspicious lesions, warm and dry.??HEART:??no murmurs, regular rate and rhythm, S1, S2 normal.??LUNGS:??clear to auscultation bilaterally.??ABDOMEN:??normal, bowel sounds present, soft, nontender, nondistended.??EXTREMITIES:??no clubbing, cyanosis, or edema.??NEUROLOGIC:??nonfocal, motor strength normal upper and lower extremities, sensory exam intact.? Assessment: * Assessment: 1.??Annual physical exam - Z 00.00 (Primary)??2.??Obesity (BMI 30.0-34.9) - E66.9??3.??Dietary counseling and surveillance - Z71.3??4.??Acquired hypothyroidism - E03.9??5.??Pure hypercholesterolemia, unspecified - E78.00??6.??Vitamin B 12 deficiency - E53.8?? Acute Concerns/Problem List: 08/02/2024 Comprehensive labs reviewed [...] software and direct typing Please excuse inadvertent epic specialist or typing errors, or uncorrected word substitutions Although every attempt has been made by the provider to proofread this document, occasional misspellings and typographical errors may still be present Due to the previous pandemic, and the use of personal protective equipment (PPE) This may decrease voice recognition accuracy Inadvertent epic specialist errors may occur. Plan: * Treatment: 2.??Acquired hypothyroidism? ? Refill LORazepam Tablet, 0.5 MG, 1 tablet at bedtime as needed, Orally, Once a day, 90 days, 90 Tablet, Refills 1.?LAB: TOTAL T4 ?LAB: TSH * Images: Billing Information: * Visit Code:?? 19149 Preventive Care Est Pt. Age 40-64. * Procedure Codes:?? Care Plan Details* * Sign off status: Completed true * Provider:??YUNG DAMICO NP Date:??07/15 History and Physical Notes * HPI (History of Present Illness) Category Sub-Category Detail Notes Category Not es Constitutional Patient is here today for annual CPE Full past medical history, social history, family history, allergies and current medications were reviewed and updated. Acute Concerns/Problem List: 08/02/2024 Patient recently had bariatric consultation with Dr. Chavira in [place] Plan is for sleeve gastrectomy in the near future She had comprehensive labs which are reviewed below She recently was taken off of Hometown Thyroid and transition to levothyroxine due to personal choice Most recent thyroid function is below She also had an upper GI series done as part of the bariatric workup which showed a very small axial hiatal hernia which is likely going to be repaired At the time of her bariatric surgery She also underwent EKG and chest x-ray which were unremarkable There was supposed and EKG changes but I reviewed there was nothing overly whelming She was however set up for a stress echo with PVC She previously was on weight loss medications through our practice however is not on any medications at the moment Her blood pressure stable, she takes her hydrochlorothiazide very intermittently and typically takes it around menstruation for edema management She is no longer on SSRIs or Wellbutrin We discussed her ASCVD risk and hyper lipids She was on statin many years ago and had intolerance as well as myalgias 08/02/2024, Weight 196lbs , BMI (-7lbs) 01/31/2024, Weight 203, BMI 09/01/2023, Weight 193lbs , BMI 07/13/2023, Weight 193lbs , BMI (+8lbs) 05/18/23: 185 lbs, BMI 30 (-1 lb) 03/23/23: 186 lbs BMI 30.9 (-2 lbs) 02/03/23: 188 lbs, BMI 31 (-8 lbs) 12/13/22: 196lbs, BMI 32, (-8lbs) 11/03/22: 204lbs, BMI 33 09/16/22: 203lbs, 33.75 Comprehensive labs July 2024, epic Ordered by bariatric surgeon workup Total T4, 0.78 Free T3 270 TSH 12.06 Renal function electrolytes and LFTs are stable Total cholesterol 282, LDL 153, HDL 109, triglycerides 102 Vitamin B12 723 Zinc 86 Iron 146 CBC is stable Hemoglobin A1c 5.5 Social Hx: Smoke: no ETOH: intermittently once during the weekend 3-4 beverages : No No children: No Lives alone in house Health Maintenance: COVID MRNA: 2x Pfizer Flu 2023: Yes TDAP: unsure Gyno/Pap: 08/2022 Mammography: 04/2024, with left breast U/S, repeat 6 month 10/2024 Cscope: -Cologuard, repeat 3 yrs 2025 Examination Category Sub-Category Detail Notes Category Not es General Examination GENERAL APPEARANCE: in no ac maximo distress, well developed, well nourished HEAD: normocephalic, atrau matic EYES: pupils equal, round, reactive to light and accommodation EARS: normal THROAT: clear NECK/THYROID: neck supple, full ra nge of motion, no cervical lymphadenopathy HEART: no murmurs, regular rate and rhythm, S1, S2 normal LUNGS: clear to auscultatio n bilaterally ABDOMEN: normal, bowel sounds present, soft, nontender, nondistended NEUROLOGIC: nonfocal, motor stre ngth normal upper and lower extremities, sensory exam intact SKIN: no suspicious lesion s, warm and dry EXTREMITIES: no clubbing, cyanosi s, or edema ORAL CAVITY: mucosa moist
== END 2024-08-16 07:59 | disposition home or self-care (01) ==
LOC: HO.US 07:58
PROVIDERS: PCP Nurse Practitioner Acute Care; Visit Provider Surgery
DX: E66.811 Obesity, class 1 (principal); E66.09 Other obesity due to excess calories; Z68.34 Body mass index [BMI] 34.0-34.9, adult; E03.9 Hypothyroidism, unspecified; E78.5 Hyperlipidemia, unspecified; I10 Essential (primary) hypertension
CPT/HCPCS: 76700; 76981

== ENCOUNTER → 2024-08-16 08:01 | Outpatient (BNV) | payer OTHER, SELFPAY | PROVIDERS: PCP Nurse Practitioner Acute Care; Visit Provider Radiology Diagnostic Radiology | DX: R16.0 Hepatomegaly, not elsewhere classified (principal); E66.811 Obesity, class 1; N28.1 Cyst of kidney, acquired | CPT/HCPCS: 76700; 76981 ==

== ENCOUNTER 2024-09-07 08:04 | Outpatient (AMB) | payer OTHER, SELFPAY ==
--- NOTE | 2024-09-07 09:26 | A.OFFVIS_ITS ---
VS Expanded 09/07/24 09:37 Height 5 ft 5 in Weight 182 lb 2 oz BMI 30.3 Body Fat % 38.2 Body Fat Mass 69.6 Fat Free Mass 112.6 Visceral Fat Rating 12 Body Water % 42.4 Body Water Mass 77.2 Basal Metabolic Rate/Score 1,473 Intake Visit Reasons: TV Pre Op LSG 09/19/24 *CALL [phone]* Allergies No Known Allergies Allergy (Unknown, Verified 09/07/24 09:26) U Medication List - Last Reconciled 09/07/24 by Anup Montenegro MD cholecalciferol (vitamin D3) 125 mcg PO DAILY hydrochlorothiazide mg PO DAILY levothyroxine 88 mcg PO DAILY lorazepam 0.5 mg PO DAILY PRN ondansetron 4 mg PO Q12H pantoprazole 40 mg PO DAILY polyethylene glycol 3350 (Miralax) 17 grams PO DAILY sucralfate 10 mL PO BID vitamin B complex 1 cap PO DAILY [vitamin b12 PO] HPI HPI TV Pre Op LSG 09/19/24 *CALL [phone]*: Details: Start time: 9.14am, End time: 9.44am ?I spent 25 minutes speaking with the patient on the phone plus an additional 5 minutes reviewing and updating records for a total of 30 minutes HPI Comments Details: Overall weight loss: 22.2lbs or 10.86% TBWL Is doind 2 Celebrate Rebuild protein shakes (1st with half scoop and one with one scoop in oatmilk), 2 Celebrate protein bars and one meal (6 forks of meat and 6 forks of salad) Exercise: is doing treadmill for 200 calories x5/week [facility] Medical History (Updated 07/24/24 @ 22:25 by Anup Montenegro MD) Hypothyroidism Hyperlipidemia Hypertension Insomnia Obesity Surgical History (Updated 09/04/24 @ 14:12 by Neela Duenas RN) History of esophagogastroduodenoscopy (EGD) (07/25/24) Hx of cone biopsy of cervix (~1992) Hx of cosmetic surgery History of wisdom tooth extraction, class I edentulism Family History (System 07/18/24 @ 14:36 by Sylwia Ceja) Mother Cancer of kidney Hyperthyroidism Father Diabetes Social History (Updated 09/04/24 @ 14:17 by Neela Duenas RN) Household Members: None Housing: House Are you a primary rn intensive care unit to a significant other at home: No Do you presently have visiting nurse or other home services: No 75 years or older and lives alone: No Alcohol intake: current Alcohol intake frequency: holidays/special occasions only Patient Tobacco Use Status: Never used Tobacco Use of substances other than those prescribed or required for medical reasons: No Advance Directives: No Advance Directives Information Provided: Yes Advance Directives on File: No Healthcare Proxy: No service: Yes 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 occupational status: employed 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 Platform: Telephone Location of provider rendering services: practice address Location of patient: address on file Patient Identification confirmed using: Name, : Yes Telehealth method: voice only Patient verbally consented to treatment: Yes Patient verbally consented to billing insurance company: Yes Patient informed of any privacy concerns related to visit: Yes Minutes spent on Phone/Video with Pt.: 30 Assessment & Plan Assessment & Plan (1) Obesity: Code(s): E66.9 - Obesity, unspecified Category: Medical Qualifiers: Obesity type: due to excess calories Obesity classification: adult class 1 (BMI 30 - 34.9) Serious obesity comorbidity presence: with serious comorbidity Body mass index: BMI 34.0-34.9 Qualified Code(s): E66.811 - O besity, class 1; E66.09 - Other obesity due to excess calories; Z68.34 - Body mass index [BMI] 34.0-34.9, adult Plan: 1. Plan for lap sleeve gastrectomy including upper GI endoscopy. All tests has been completed and reviewed and the patient is cleared for the surgery. ?If diaphragmatic or ventral hernias are present at time of surgery, these will be repaired laparoscopically as well. Risks and complications were discussed in detail including possible conversion to an open procedure, anastomotic leak, bleeding requiring transfusion, small bowel obstruction, , DVT and pulmonary embolism, cardiac, or pulmonary complications, as intermediate designer complications such as anastomotic ulcer, insufficient weight loss and vitamin deficiencies. I emphasized the importance of close follow-up, adherence to instructions and good communication. So far she has proven to be an excellent communicator and very compliant with all our directions accomplishing a great weight loss. I believe that she is an excellent candidate and she is ready. 2. Preop prescriptions were provided and explained the purpose of each one. Need to be purchased preop. Start Pantoprazole now as you get it from the pharmacy, 1 pill per day. Sucralfate and Zofran are for after surgery as needed. 3. Bowel prep: please do 7 packets ?of Miralax mixing each one with a an 8oz glass of water, crystal light, gatorade zero, or propel ?on 09/17/24 and the same amount on 09/18/24. The Miralax you begin with one packet at a time in 8oz water or crystal light, gatorade zero, or propel ?as early in the day as you can and you do them back to back until you finish them. Continue the protein shakes during ?the bowel prep. 4. Needs to purchase 1oz medicine cups . 5. Needs to purchase Children's liquid Tylenol for postop pain control. 6. Avoid aspirin, motrin, Advil, Aleve, Meloxicam, Excedrin, Ibuprofen, Naproxyn. Tylenol is OK. 7. She needs to purchase the Celebrate multivitamins from the hospital's gift shop. 8. Will do basic preop blood work-up any day between Tuesday09/10/24 and Tuesday09/14/24 fasting for 12 hours and is scheduled to see the Anesthesiologist prior to the day of surgery. 9. Importance of adherence to postop folllow-up and recommendations was underscored and she understands that. 10. Stop food and bars as of tomorrow 06/19/2024 and create an aggressive meal plan with the [employer] tate and send me a screenshot of the plan you will create 11. No soups, broths or V8 12. The patient's?medical?history has been reviewed and they are considered low risk for post op DVT and therefore DVT prophylaxis is not considered necessary. Travel after surgery was reviewed. The patient has not disclosed any travel plans during the first 30 days after surgery and they have been advised that within the first 30 days after surgery any bus, plane, train or car travel over 2 hours in duration is contraindicated due to the possibility of developing blood clots from immobility. Any travel, needs to include periods of ambulation of 10 minutes in duration every 2 hours.? Patient was instructed to discuss any plans for travel during this period with their bariatric surgeon.? 13. As of tomorrow, please check your blood pressure daily in the morning. If your blood pressure is: Below 120/70: do not take the Hydrochlorothiazide 121/71 to 135/85: take HALF Hydrochlorothiazide Over 136/86: take the whole Hydrochlorothiazide 14. Please take at the day of surgery the following medications: None 15. Stop any control pills and don't use them for one month after surgery 16. Absolutely no smoking or vaping, or marijuana until the surgery and for at least the first 4 weeks. Only nicotine patches are allowed. 17. Send me weight measurements on Tuesday09/14/24 and then on Tuesday09/19/24, the day of surgery before you go to the hospital. 18. Avoid any steroids by mouth for any reason. Let me know if someone prescribes them to you 19. These instructions supersede anything else you read in the handbook, anything you watched in videos or classes or you were told by any other provider. If there is any conflict, you follow the above instructions and nothing else. Orders: Orders Prothrombin Time INR Today E03.9 - Hypothyroidism, unspecified, E66.09 - Other obesity due to excess calories, E66.811 - Obesity, class 1, Z68.34 - Body mass index [BMI] 34.0-34.9, adult Type and Screen Today E03.9 - Hypothyroidism, unspecified, E66.09 - Other obesity due to excess calories, E66.811 - Obesity, class 1, Z68.34 - Body mass index [BMI] 34.0-34.9, adult Partial Thromboplastin Time Today E03.9 - Hypothyroidism, unspecified, E66.09 - Other obesity due to excess calories, E66.811 - Obesity, class 1, Z68.34 - Body mass index [BMI] 34.0-34.9, adult Lipid Panel Today E03.9 - Hypothyroidism, unspecified, E66.09 - Other obesity due to excess calories, E66.811 - Obesity, class 1, Z68.34 - Body mass index [BMI] 34.0-34.9, adult Hemoglobin A1c Today E03.9 - Hypothyroidism, unspecified, E66.09 - Other obesity due to excess calories, E66.811 - Obesity, class 1, Z68.34 - Body mass index [BMI] 34.0-34.9, adult Comprehensive Met. Panel Today E03.9 - Hypothyroidism, unspecified, E66.09 - Other obesity due to excess calories, E66.811 - Obesity, class 1, Z68.34 - Body mass index [BMI] 34.0-34.9, adult Complete Blood Count Auto Diff Today E03.9 - Hypothyroidism, unspecified, E66.09 - Other obesity due to excess calories, E66.811 - Obesity, class 1, Z68.34 - Body mass index [BMI] 34.0-34.9, adult Insulin Today E03.9 - Hypothyroidism, unspecified, E66.09 - Other obesity due to excess calories, E66.811 - Obesity, class 1, Z68.34 - Body mass index [BMI] 34.0-34.9, adult TSH reflex Free T4 Today E03.9 - Hypothyroidism, unspecified, E66.09 - Other obesity due to excess calories, E66.811 - Obesity, class 1, Z68.34 - Body mass index [BMI] 34.0-34.9, adult C Reactive Protein Today E03.9 - Hypothyroidism, unspecified, E66.09 - Other obesity due to excess calories, E66.811 - Obesity, class 1, Z68.34 - Body mass index [BMI] 34.0-34.9, adult Medications: New sucralfate 10 mL PO BID 600 mL 2RF K21.9 - Gastro-esophageal reflux disease without esophagitis ondansetron Only take one every 12 hours as needed if you have nausea 4 mg PO Q12H 20 tabs 0RF nausea and vomiting R11.0 - Nausea polyethylene glycol 3350 (Miralax) Mix each measuring cup with 8oz of water, Crystal light, or Gatorade zero, or Propel and do 7 measuring cups on 09/17/24 and another 7 measuring cups on 09/18/24 17 grams PO DAILY 14 ea 0RF Z01.818 - Encounter for other preprocedural examination pantoprazole 40 mg PO DAILY 90 tabs 0RF K21.9 - Gastro-esophageal reflux disease without esophagitis
[2024-09-07 09:37] VITALS: BMI 30.3
== END 2024-09-07 09:45 | disposition home or self-care (01) ==
PROVIDERS: PCP Nurse Practitioner Acute Care; Visit Provider Surgery
DX: E66.811 Obesity, class 1 (principal); Z68.34 Body mass index [BMI] 34.0-34.9, adult
CPT/HCPCS: 99499

== ENCOUNTER → 2024-09-07 08:04 | Outpatient (BNVA) | payer OTHER, SELFPAY | PROVIDERS: PCP Nurse Practitioner Acute Care; Visit Provider Surgery ==

== ENCOUNTER 2024-09-13 07:36 | Outpatient (REF) | payer OTHER, SELFPAY ==
--- OUTSIDE RECORDS SUMMARY | 2024-09-13 07:39 | XMS_ITS | Patient Health Record ---
Author Organization [facility] Address [address] [place] [address] Care Team Providers Care Galvanizing Pot Runner Name Role Phone YUNG DAMICO Unavailable [phone] ALLERGIES No Known Allergies RESULTS Component Value Reference Range Notes Vanna Screening Digital Reviewed date:04/12/2024 11:27:03 AM Interpretation: Performing Lab: Notes/Report: Original Ordering Provider: CHRISTINE DAVENPORT MD [facility] REASON FOR REFERRAL No Information MEDICATIONS Medication SIG (Take, Route, Frequency, Duration) Notes Start Date End Date Status Levothyroxine Sodium 88 MCG 1 tablet in the morning on an empty stomach Orally Once a day for 30 days 07/25/2024 Active [place] Thyroid 90 MG 1 tablet on an [...] unspecified (E55.9) Active confirmed Vitamin D deficiency (54477765) Problem Encounter for general adult medical examination without abnormal findings (Z00.00) Active confirmed Adult heal th examination (701566096) Problem Encounter for screening for diabetes mellitus (Z13.1) Active confirmed 304889873 Problem Pure hypercholesterole chasity, unspecified (E78.00) Active confirmed 421634421 Problem Hyperlipidemia, unspecified hyperlipidemia type (E78.5) Active confirmed Hyperlipidaemia (07031836) Problem Acquired hypothyroidism (E03.9) Active confirmed 549008053 Problem Obesity (BMI 30.0-34.9) (E66.9) Active confirmed [id number] Problem Pre-diabetes (R73.03) Active confirmed Prediabetes (560447452) Problem Vitamin B 12 deficiency (E53.8) Active confirmed Vitamin B12 deficiency (non anemic) (74520901) Problem BMI 33.0-33.9,adult (Z68.33) Active confirmed 057828396 Problem BMI 32.0-32.9,adult (Z68.32) Active confirmed 456012810 Problem Anemia due to vitamin B12 deficiency, unspecified B12 deficiency type (D51.9) Active confirmed 98951508 Problem BMI 34.0-34.9,adult (Z68.34) Active confirmed 637596829 VITAL SIGNS Heart Rate 75 /min 08/02/2024 Blood pressure diastolic 82 mm Hg 08/02/2024 Oximetry 98 % 08/02/2024 Height 65 in 08/02/2024 Blood pressure systolic 126 mm Hg 08/02/2024 Weight 196 lbs 08/02/2024 BMI 32.61 kg/m2 08/02/2024 Encounters Encounter Location Date Provider Diagnosis [place] [address] [address] 10/18/2023 YUNG DAMICO Acquired hypothyroid ism E03.9 ; Obesity (BMI 30.0-34.9) E66.9 ; Pure hypercholesterolemia, unspecified E78.00 ; BMI 32.0-32.9,adult Z68.32 and Vitamin B 12 deficiency E53.8 [place] [address] [address] 12/07/2023 YUNG DAMICO [facility] [address] [place] [address] 06/09/2024 YUNG DAMICO [place] [address] [address] 01/31/2024 YUNG DAMICO BMI 33.0-33.9,adult Z68.33 ; Obesity (BMI 30.0-34.9) E66.9 ; Dietary counseling and surveillance Z71.3 ; Acquired hypothyroidism E03.9 ; Pure hypercholesterolemia, unspecified E78.00 and Vitamin B [address] [facility] [address] [address] 08/02/2024 YUNG DAMICO Obesity (BMI 30.0-34 .9) E66.9 ; Annual physical exam Z00.00 ; Dietary counseling and surveillance Z71.3 ; Acquired hypothyroidism E03.9 ; Pure hypercholesterolemia, unspecified E78.00 and Vitamin B 12 deficiency E53.8 [address] [facility] [address] [address] 09/15/2023 YUNG DAMICO [facility] [address] [address] 06/08[facility] [facility] [address] [address] 07/20/2024 YUNG DAMICO Acquired hypothyroid ism E03.9 [address] [address] 09/15/2023 YUNGPÉREZ DUVALLMaritza ASSESSMENTS Encounter Date Diagnosis Assessment Notes Treatment Notes Treatment Clinical Notes Section Notes 10/18/2023 Acquired hypothyroidism (ICD-10 - E03.9) #Weight [...] minimum of 6 months The most recent [place] [employer] endocrinologists and [place] [employer] guidelines recommend patients who [...] track activity level. Consider using apps like 8Trip, FM Globalpal, lose it, stick as needed for self-monitoring and weight management. Consider group exercises. Consider hiring a personalized living manager nurse. Regular exercise is fel[place] to sustainable health [...] counseling and psychiatry and Dr Gloria at [facility]. We would like to cover regular topics [...] from an Electronic Health Record CohortMethods: Obesity ([place]). 2019 Apr;27(4):591-602. doi: [email or web address] Using electronic health record data 13,972 adults [...] software and direct typing Please excuse inadvertent probation manager or typing errors, or uncorrected word substitutions Although every attempt has been made by the provider to proofread this document, occasional misspellings and typographical errors may still be present Due to the previous pandemic, and the use of personal protective equipment (PPE) This may decrease voice recognition accuracy Inadvertent probation manager errors may occur 01/31/2024 BMI 33.0-33.9,adult (ICD-10 [...] software and direct typing Please excuse inadvertent probation manager or typing errors, or uncorrected word substitutions Although every attempt has been made by the provider to proofread this document, occasional misspellings and typographical errors may still be present Due to the previous pandemic, and the use of personal protective equipment (PPE) This may decrease voice recognition accuracy Inadvertent probation manager errors may occur 07/20/2024 Acquired hypothyroidism (ICD-10 [...] software and direct typing Please excuse inadvertent probation manager or typing errors, or uncorrected word substitutions Although every attempt has been made by the provider to proofread this document, occasional misspellings and typographical errors may still be present Due to the previous pandemic, and the use of personal protective equipment (PPE) This may decrease voice recognition accuracy Inadvertent probation manager errors may occur 08/02/2024 Annual physical exam [...] software and direct typing Please excuse inadvertent probation manager or typing errors, or uncorrected word substitutions Although every attempt has been made by the provider to proofread this document, occasional misspellings and typographical errors may still be present Due to the previous pandemic, and the use of personal protective equipment (PPE) This may decrease voice recognition accuracy Inadvertent probation manager errors may occur 08/02/2024 Dietary counseling and [...] software and direct typing Please excuse inadvertent probation manager or typing errors, or uncorrected word substitutions Although every attempt has been made by the provider to proofread this document, occasional misspellings and typographical errors may still be present Due to the previous pandemic, and the use of personal protective equipment (PPE) This may decrease voice recognition accuracy Inadvertent probation manager errors may occur 01/31/2024 Obesity (BMI 30.0-34.9) [...] software and direct typing Please excuse inadvertent probation manager or typing errors, or uncorrected word substitutions Although every attempt has been made by the provider to proofread this document, occasional misspellings and typographical errors may still be present Due to the previous pandemic, and the use of personal protective equipment (PPE) This may decrease voice recognition accuracy Inadvertent probation manager errors may occur 10/18/2023 Obesity (BMI 30.0-34.9) [...] minimum of 6 months The most recent [place] [employer] of clinical endocrinologists and [place] [employer] guidelines recommend patients who [...] track activity level. Consider using apps like 8Trip, FM Globalpal, lose it, stick as needed for self-monitoring and weight management. Consider group exercises. Consider hiring a personalized living manager nurse. Regular exercise is fel[place] to sustainable health [...] counseling and psychiatry and Dr Gloria at [facility]. We would like to cover regular topics [...] from an Electronic Health Record CohortMethods: Obesity (Hines). 2019 Sep;27(4):591-602. doi: [email or web address] Using electronic health record data 13,972 adults [...] software and direct typing Please excuse inadvertent probation manager or typing errors, or uncorrected word substitutions Although every attempt has been made by the provider to proofread this document, occasional misspellings and typographical errors may still be present Due to the previous pandemic, and the use of personal protective equipment (PPE) This may decrease voice recognition accuracy Inadvertent probation manager errors may occur 01/31/2024 Dietary counseling and [...] software and direct typing Please excuse inadvertent probation manager or typing errors, or uncorrected word substitutions Although every attempt has been made by the provider to proofread this document, occasional misspellings and typographical errors may still be present Due to the previous pandemic, and the use of personal protective equipment (PPE) This may decrease voice recognition accuracy Inadvertent probation manager errors may occur 10/18/2023 Pure hypercholesterole chasity, [...] minimum of 6 months The most recent [place] [employer] of clinical endocrinologists and [place] [employer] end[employer]in[employer] guidelines recommend patients who [...] track activity level. Consider using apps like 8Trip, FM Globalpal, lose it, stick as needed for self-monitoring and weight management. Consider group exercises. Consider hiring a personalized living manager nurse. Regular exercise is fel[place] to sustainable health [...] counseling and psychiatry and Dr Gloria at [facility]. We would like to cover regular topics [...] from an Electronic Health Record CohortMethods: Obesity (Hines). 2019 Sep;27(4):591-602. doi: [email or web address] Using electronic health record data 13,972 adults [...] software and direct typing Please excuse inadvertent probation manager or typing errors, or uncorrected word substitutions Although every attempt has been made by the provider to proofread this document, occasional misspellings and typographical errors may still be present Due to the previous pandemic, and the use of personal protective equipment (PPE) This may decrease voice recognition accuracy Inadvertent probation manager errors may occur 01/31/2024 Acquired hypothyroidism (ICD-10 [...] software and direct typing Please excuse inadvertent probation manager or typing errors, or uncorrected word substitutions Although every attempt has been made by the provider to proofread this document, occasional misspellings and typographical errors may still be present Due to the previous pandemic, and the use of personal protective equipment (PPE) This may decrease voice recognition accuracy Inadvertent probation manager errors may occur 08/02/2024 Acquired hypothyroidism (ICD-10 [...] software and direct typing Please excuse inadvertent probation manager or typing errors, or uncorrected word substitutions Although every attempt has been made by the provider to proofread this document, occasional misspellings and typographical errors may still be present Due to the previous pandemic, and the use of personal protective equipment (PPE) This may decrease voice recognition accuracy Inadvertent probation manager errors may occur 10/18/2023 BMI 32.0-32.9,adult (ICD-10 [...] minimum of 6 months The most recent [place] [employer] of clinical endocrinologists and [place] [employer] guidelines recommend patients who [...] track activity level. Consider using apps like 8Trip, myfitnesspal, lose it, stick as needed for self-monitoring and weight management. Consider group exercises. Consider hiring a personalized living manager nurse. Regular exercise is felton to sustainable health [...] counseling and psychiatry and Dr Gloria at [facility]. We would like to cover regular topics [...] from an Electronic Health Record CohortMethods: Obesity (Hines). 2019 Sep;27(4):591-602. doi: [email or web address] Using electronic health record data 13,972 adults [...] software and direct typing Please excuse inadvertent probation manager or typing errors, or uncorrected word substitutions Although every attempt has been made by the provider to proofread this document, occasional misspellings and typographical errors may still be present Due to the previous pandemic, and the use of personal protective equipment (PPE) This may decrease voice recognition accuracy Inadvertent probation manager errors may occur 08/02/2024 Pure hypercholesterole chasity, [...] software and direct typing Please excuse inadvertent probation manager or typing errors, or uncorrected word substitutions Although every attempt has been made by the provider to proofread this document, occasional misspellings and typographical errors may still be present Due to the previous pandemic, and the use of personal protective equipment (PPE) This may decrease voice recognition accuracy Inadvertent probation manager errors may occur 01/31/2024 Pure hypercholesterole chasity, [...] software and direct typing Please excuse inadvertent probation manager or typing errors, or uncorrected word substitutions Although every attempt has been made by the provider to proofread this document, occasional misspellings and typographical errors may still be present Due to the previous pandemic, and the use of personal protective equipment (PPE) This may decrease voice recognition accuracy Inadvertent probation manager errors may occur 10/18/2023 Vitamin B 12 [...] minimum of 6 months The most recent [place] [employer] of clinical endocrinologists and [place] [employer] endocrinology guidelines recommend patients who [...] track activity level. Consider using apps like 8Trip, myfitnesspal, lose it, stick as needed for self-monitoring and weight management. Consider group exercises. Consider hiring a personalized living manager nurse. Regular exercise is felton to sustainable health [...] counseling and psychiatry and Dr Gloria at [facility]. We would like to cover regular topics [...] from an Electronic Health Record CohortMethods: Obesity (Hines). 2019 Sep;27(4):591-602. doi: [email or web address].40627 Using electronic health record data 13,972 adults [...] software and direct typing Please excuse inadvertent probation manager or typing errors, or uncorrected word substitutions Although every attempt has been made by the provider to proofread this document, occasional misspellings and typographical errors may still be present Due to the previous pandemic, and the use of personal protective equipment (PPE) This may decrease voice recognition accuracy Inadvertent probation manager errors may occur 01/31/2024 Vitamin B 12 [...] software and direct typing Please excuse inadvertent probation manager or typing errors, or uncorrected word substitutions Although every attempt has been made by the provider to proofread this document, occasional misspellings and typographical errors may still be present Due to the previous pandemic, and the use of personal protective equipment (PPE) This may decrease voice recognition accuracy Inadvertent probation manager errors may occur 08/02/2024 Vitamin B 12 [...] software and direct typing Please excuse inadvertent probation manager or typing errors, or uncorrected word substitutions Although every attempt has been made by the provider to proofread this document, occasional misspellings and typographical errors may still be present Due to the previous pandemic, and the use of personal protective equipment (PPE) This may decrease voice recognition accuracy Inadvertent probation manager errors may occur PLAN OF TREATMENT Pending [...] Provider Name:YUNG DAMICO, 11/30/2024 08:15:00 AM, [address] [facility] [address], [facility] [address], [place], [address], Insurance Providers Payer Name Payer Address Payer Phone Subscriber Number Group Number Insured Name Patient Relationship to Insured Coverage Start Date Coverage End Date [facility] [address] [place] [address] [id number] Kanika Staton Self - patient is the insured 3 MEDICATIONS ADMINISTERED Medication Instructions Date of Administration Dosage Notes [facility] B12 INJECTION 02/03/2023 MEDICAL (GENERAL) HISTORY Medical History History ICD Code high cholesterol seasonal allergies thyroid disease depression Surgical History Surgery Date(Month/Year) wisdom teeth extraction 1989
--- OUTSIDE RECORDS SUMMARY | 2024-09-13 07:39 | XMS_ITS ---
Author Organization [facility] Address [address] [place] [address] Care Team Providers Care Blockman Name Role Phone YUNG DAMICO Unavailable [phone] MEDICATIONS Medication SIG (Take, Route, Frequency, Duration) Notes Start Date End Date Status Levothyroxine Sodium 88 MCG 1 tablet in the morning on an empty stomach Orally Once a day for 30 days 07/25/2024 Active Encounters Encounter Location Date Provider Diagnosis [facility] [address] [facility] [address] [place] [address] 07/20/2024 YUNG DAMICO Acquired hypothyroid ism E03.9 [...] Provider Name:YUNG DAMICO, 11/30/2024 08:15:00 AM, [address] [facility], [facility] [address], [place], [address], Progress Notes * Kanika STATONDOB: 3 (53 yo F)Acc No.[id number]:07/20/2024 Patient:??Kanika STATON :1970?Age:53 Y?Sex:Fe male Address:[address] [place], [place] [address]ris[place] [address] * Refills?? Start Levothyroxine Sodium Tablet, 88 [...]
--- OUTSIDE RECORDS SUMMARY | 2024-09-13 07:39 | XMS_ITS | Clinical Summary ---
Author Organization [facility] Address [address] [place] [address] Phone Care Team Providers Care University Lecturer Name Role Phone Christine Coto MD Primary Care Provider [phone] Medications Hospital, Clinic, or Other Facility Administered Medication Ordered Dose Route Frequency Start Date End Date Status perflutren lipid microsphere (DEFINITY) 1.3 mL in sodium chloride 0.9% 8.7 mL injectionIndications:Abnorm al electrocardiogram 10 mL IV Once 08/14/2024 08/14/2024 Ende d Encounters Date Type Department Care Team Description 08/14/2024 3:30 PM EST Ancillary Procedure [facility] - [address] [address] Abnormal electrocardiogram 08/08/2024 2:30 PM EST Ancillary Procedure [facility] - [facility] [address] [address] Abnormal electrocardiogram 07/19/2024 8:46 AM EST - 07/19/2024 11:59 PM EST Hospital Encounter [facility] Non-Invasive Cardiology [address] [place] [address] Obesity, class 1; Other obesity due to excess calories; Body mass index (BMI) 34.0-34.9, adult; Hypothyroidism, unspecified; Hyperlipidemia, unspecified; Essential (primary) hypertension Discharge Disposition: Home or Self Care 07/19/2024 8:43 AM EST - 07/19/2024 11:59 PM EST Hospital Encounter [facility] Xray [address] [place] [phone] Bariatric surgery status Discharge Disposition: Home or [...] AM EDT [facility]ointment [facility] [address] [address] Health Maintenance Due Date Last Done Comments [...] 34.0-34.9, adult Hypothyroidism, adult Hyperlipemia Hypertension, essential KALYAN SCREENING DIGITAL Routine 04/11/2024 1:36 PM EDT from Last 3 Months or Most Recently Relevant to Health Maintenance Results * TRANSTHORACIC ECHOCARDIOGRAM (TTE) COMPLETE W/ CONTRAST (08/14/2024 4:10 PM EST) Left Atrium Minor Hineston 5.3 cm CV PACS Left Atrium Major Hineston 5.4 cm CV PACS LA Area Sys [...] VTI 20.0 cm CV PACS LVOT Peak Zo 0.8 m/s CV PACS LVOT Peak Gradient 3 mmHg CV PACS LVPWD 0.9 0.6 - 0.9 cm CV PACS MV E' Tissue Velocity Lateral 9 cm/s CV PACS MV E' Tissue Velocity Septal 9 cm/s CV PACS LVOT Area 3.1 cm2 CV PACS LVOT Stroke Volume 63 mL CV PACS MV Deceleration Broome 3.9 m/s2 CV PACS E Wave Deceleration [...] Right ventricle systolic function is normal post-stress. Procedure Note Jes Zamora PA / eG Rubio MD - 08/20/2024 ? ? Stress ECG was normal. ? ? Exercise stress test was performed. Patient reported no symptoms duringthe stress test. Exercise capacity was average. Normal blood pressureresponse. The patient surpassed the target heart rate. Image quality was suboptimaleven with the use of contrast. But LV size and function appears to benormal at rest and there is normal augmentation of contractility in allwall segments with the appropriate decrease in internal cavitydimensions. us Anup Montenegro MD CV ECHO PROCEDURES [...] Signed Date: 07/19/2024 10:33 ET Workstation ID: [id number] Transcribed By: Self Edit Transcribed Date: 07/19/2024 10:30 ET Resident/PA/[employer] LABORER: Sydnie David Narrative 07/19/2024 10:33 AM EST FINDINGS: Double contrast UGI performed. COMPARISON: None. HISTORY: Patient is a 53-year-old female with no significant past medical history. Preop bariatric surgery. PROOFSHEET CORRECTOR radiographs: Weeder AP radiograph of the abdomen obtained. Bowel [...] no significant past medicalhistory. Preop bariatric surgery. PROOFSHEET CORRECTOR radiographs: Weeder AP radiograph of the abdomen obtained. Bowel [...] Signed Date: 07/19/2024 10:33 ET Workstation ID: [id number] Transcribed By: Self Edit Transcribed Date: 07/19/2024 10:30 ET Resident/PA/[employer] GUTTER LABORER: Sydnie David us Anup Montenegro MD IMG [...] Signed Date: 07/19/2024 09:53 ET Workstation ID: [id number] Transcribed By: Self Edit Transcribed Date: 07/19/2024 09:53 ET Impressions 07/19/2024 9:35 AM EST Normal examination. ??No change since the prior study performed 07/20/2023. Code 87101 -------- FINAL REPORT -------- Dictated By: Brenden Morocho Dictated Date: 07/19/2024 09:34 ET Assigned Physician: Brenden Morocho Reviewed and Electronically Signed By: Brenden Morocho Signed Date: 07/19/2024 09:35 ET Workstation ID: [id number] Transcribed By: Self Edit Transcribed Date: 07/19/2024 [...] since the prior study performed 07/20/2023. Code 82961 -------- FINAL REPORT -------- Dictated By: Brenden Morocho Dictated Date: 07/19/2024 09:34 ET Assigned Physician: Brenden Morocho Reviewed and Electronically Signed By: Brenden Morocho Signed Date: 07/19/2024 09:35 ET Workstation ID: [id number] Transcribed By: Self Edit Transcribed Date: 07/19/2024 09:34 ET Anup Montenegro MD IMG XR PROCEDURES Edited Result - Final * ECG 12 lead (07/19/2024 9:04 AM EST) Ventricular Rate ECG 74 BPM GEMUSE Atrial Rate 74 BPM GEMUSE P-R Interval 164 ms GEMUSE QRS Duration 80 ms GEMUSE Q-T Interval 386 ms GEMUSE QTc 428 ms GEMUSE P Wave Hineston 20 degrees GEMUSE R Hineston -97 degrees GEMUSE T Hineston 29 degrees GEMUSE ECG Interpretation Normal sinus [...] LAB CHEMISTRY METHOD 07/19/2024 9:17 AM EST [facility] Blood Venous blood specimen / Unknown Venipuncture / Unknown 07/19/2024 8:12 AM EST 07/19/2024 8:28 AM EST Anup Montenegro MD LAB BLOOD ORDERABLES Suyapa l Result Performing Organization Address City/[facility]/ZIP Co de Phone Number [facility] [address] [place] [address], [place] [phone] * Free thyroxine with reflex to free triiodothyronine (07/19/2024 8:12 AM EST) [facility] Free T4 0.78 0.70 - 1.80 ng/dL LAB CHEMISTRY METHOD 07/19/2024 9:44 AM EST [facility] Blood Venous blood specimen / Unknown Venipuncture / Unknown 07/19/2024 8:12 AM EST 07/19/2024 8:28 AM EST us Anup Montenegro MD LAB BLOOD ORDERABLES Suyapa l Result Performing Organization Address [facility] Co de Phone Number [facility] [address] [place] [address], [place] [phone] * (ABNORMAL) Lipid panel with reflex to direct LDL (07/19/2024 8:12 AM EST) Pathologist [facility] Cholesterol 282(H) 0 - 200 mg/dL LAB CHEMISTRY METHOD 07/19/2024 9:11 AM EST [facility] Triglycerides 102 0 - 150 mg/dL LAB CHEMISTRY METHOD 07/19/2024 9:11 AM EST [facility] HDL 109 >=40 mg/dL LAB CHEMISTRY METHOD 07/19/2024 9:11 AM EST [facility] LDL Calculated 153(H) 0 - 100 mg/dL LAB CHEMISTRY METHOD 07/19/2024 9:11 AM EST [facility] VLDL Cholesterol Ruddy 20.4 mg/dL LAB CHEMISTRY METHOD 07/19/2024 9:11 AM EST [facility] Non HDL Chol. (LDL+VLDL) 173(H) <145 mg/dL LAB CHEMISTRY METHOD 07/19/2024 9:11 AM EST [facility] Chol/HDL Ratio 2.6 0.0 - 4.4 LAB CHEMISTRY METHOD 07/19/2024 9:11 AM EST [facility] Blood Venous blood specimen / Unknown Venipuncture / Unknown 07/19/2024 8:12 AM EST 07/19/2024 8:28 AM EST Anup Montenegro MD LAB BLOOD ORDERABLES Suyapa l Result [facility] [address] [place] [address], * Insulin antibody (07/19/2024 8:12 AM EST) [...] the context of clinical symptoms. Performed By: [employer] [address] [place] [id number] Lead Printer: Krishan Villagomez MD, PhD CLIA Number: [id number] Blood Venous blood specimen / Unknown Venipuncture / Unknown 07/19/2024 8:12 AM EST 07/19/2024 8:28 AM EST Anup Montenegro MD LAB BLOOD ORDERABLES Suyapa l Result Performing Organization Address City/[facility]/ZIP Co de Phone Number [facility] [address] [place] [address] * Zinc (07/19/2024 8:12 AM EST) Zinc 86 60 - 130 ug/dL 07/23/2024 12:57 PM EST [facility] Comment: Elevated results may be due to sample collected in a non-certified trace element-free tube. This test was developed and the performance characteristics determined by [facility]. It has not been cleared or approved by the FDA. The laboratory is regulated under CLIA as qualified to perform high-complexity testing. This test is used for patient testing purposes. It should not be regarded as investigational or for research. Test performed at [facility], [address] [place], [place] ??[address] ? [phone] Shwetha Donahue MD, PhD - Lockstitch Front Maker Blood Venous blood specimen / Unknown Venipuncture / Unknown 07/19/2024 8:12 AM EST 07/19/2024 8:28 AM EST Anup Montenegro MD LAB BLOOD ORDERABLES Suyapa l Result Performing Organization Address [facility] Co de Phone Number [facility] [address] [place] [address] * Vitamin A (07/19/2024 8:12 AM EST) Vitamin A 56 38 - 106 ug/dL 07/25/2024 6:21 AM EST [facility] Comment: This test was developed and the performance characteristics determined by [facility]. It has not been cleared or approved by the FDA. The laboratory is regulated under CLIA as qualified to perform high-complexity testing. This test is used for patient testing purposes. It should not be regarded as investigational or for research. Test performed at [facility], [address] [place], [place] ??[address] ? [phone] Shwetha Donahue MD, PhD - Lockstitch Front Maker Blood Venous blood specimen / Unknown Venipuncture / Unknown 07/19/2024 8:12 AM EST 07/19/2024 8:29 AM EST Anup Montenegro MD LAB BLOOD ORDERABLES Suyapa l Result [facility] [address] [place] [address] * (ABNORMAL) Vitamin D 25 hydroxy (07/19/2024 8:12 AM EST) Vit D, 25-Hydroxy 24.6(L) 30.0 - 80.0 ng/mL LAB CHEMISTRY METHOD 07/19/2024 9:17 AM EST [facility] Blood Venous blood specimen / Unknown Venipuncture / Unknown 07/19/2024 8:12 AM EST 07/19/2024 8:28 AM EST Anup Montenegro MD LAB BLOOD ORDERABLES Suyapa l Result Performing Organization Address City/[facility]/ZIP Co de Phone Number [facility] [address] [place] [address], [place] [phone] * (ABNORMAL) Complete blood count (07/19/2024 8:12 AM EST) WBC 4.6(L) 4.8 - 10.8 K/mcL LAB HEMETOLOGY METHOD 07/19/2024 8:43 AM EST [facility] RBC 4.80 3.80 - 4.80 M/mcL LAB HEMETOLOGY METHOD 07/19/2024 8:43 AM EST [facility] Hemoglobin 15.0 11.5 - 16.0 g/dL LAB HEMETOLOGY METHOD 07/19/2024 8:43 AM EST [facility] Hematocrit 43.7 35.0 - 47.0 % LAB HEMETOLOGY METHOD 07/19/2024 8:43 AM EST [facility] MCV 90.7 79.0 - 98.0 FL LAB HEMETOLOGY METHOD 07/19/2024 8:43 AM [facility] MCH 31.1 27.0 - 32.0 pcg LAB HEMETOLOGY METHOD 07/19/2024 8:43 AM [facility] MCHC 34.3 32.0 - 37.0 g/dL LAB HEMETOLOGY METHOD 07/19/2024 8:43 AM EST [facility] RDW 12.9 11.0 - 15.0 % LAB HEMETOLOGY METHOD 07/19/2024 8:43 AM [facility] Platelets 301 130 - 400 K/mcL LAB HEMETOLOGY METHOD 07/19/2024 8:43 AM [facility] MPV 10.9 7.0 - 11.0 FL LAB HEMETOLOGY METHOD 07/19/2024 8:43 AM [facility] NRBC 0.0 <1.0 % LAB HEMETOLOGY METHOD 07/19/2024 8:43 AM [facility] NRBC Absolute 0.00 <0.10 K/mcL LAB HEMETOLOGY METHOD 07/19/2024 8:43 AM [facility] Blood Venous blood specimen / Unknown Venipuncture / Unknown 07/19/2024 8:12 AM EST 07/19/2024 8:28 AM EST us Anup Montenegro MD LAB BLOOD ORDERABLES Suyapa jin Result [facility] [address] [place] [address], * (ABNORMAL) C-reactive protein (07/19/2024 8:12 AM EST) C-Reactive Protein 0.79(H) <=0.50 mg/dL LAB CHEMISTRY METHOD 07/19/2024 9:10 AM EST [facility] Blood Venous blood specimen / Unknown Venipuncture / Unknown 07/19/2024 8:12 AM EST 07/19/2024 8:28 AM EST Anup Montenegro MD LAB BLOOD ORDERABLES Suyapa l Result Performing Organization Address City/[facility]/ZIP Co de Phone Number [facility] [address] [place] [address], [place] [phone] * Triiodothyronine free (07/19/2024 8:12 AM EST) Pathologist [facility] T3, Free 270 230 - 420 pcg/dL LAB CHEMISTRY METHOD 07/19/2024 10:10 AM EST [facility] Blood Venous blood specimen / Unknown Venipuncture / Unknown 07/19/2024 8:12 AM EST 07/19/2024 8:28 AM EST Anup Montenegro MD LAB BLOOD ORDERABLES Suyapa l Result Performing Organization Address [facility] Co de Phone Number [facility] [address] [place] [address], [place] [phone] * Vitamin B1 (07/19/2024 8:12 AM EST) Pathologist [facility] Vitamin B1 Whole Blood 101 38 - 122 ug/L 07/24/2024 5:27 AM EST [facility] Comment: This test was developed and the performance characteristics determined by [facility]. It has not been cleared or approved by the FDA. The laboratory is regulated under CLIA as qualified to perform high-complexity testing. This test is used for patient testing purposes. It should not be regarded as investigational or for research. Test performed at [facility], [address] [place], [place] ??[address] ? [phone] Shwetha Donahue MD, PhD - Lockstitch Front Maker Blood Venous blood specimen / Unknown Venipuncture / Unknown 07/19/2024 8:12 AM EST 07/19/2024 8:28 AM EST Anup Montenegro MD LAB BLOOD ORDERABLES Suyapa l Result [facility] [address] [place] [address] * Iron (07/19/2024 8:12 AM EST) Pathologist [facility] Iron 146 40 - 150 mcg/dL LAB CHEMISTRY METHOD 07/19/2024 9:10 AM EST [facility] Blood Venous blood specimen / Unknown Venipuncture / Unknown 07/19/2024 8:12 AM EST 07/19/2024 8:28 AM EST Anup Montenegro MD LAB BLOOD ORDERABLES Suypaa l Result Performing Organization Address [facility] de Phone Number [facility] [address] [place] [address], [place] [phone] * Hemoglobin A1c (07/19/2024 8:12 AM EST) [facility] Hemoglobin A1C 5.5 <6.5 % LAB CHEMISTRY METHOD 07/19/2024 12:00 PM EST [facility] Mean Bld Glu Estim. 111 mg/dL LAB CHEMISTRY METHOD 07/19/2024 12:00 PM EST [facility] Blood Venous blood specimen / Unknown Venipuncture / Unknown 07/19/2024 8:12 AM EST 07/19/2024 8:28 AM EST Anup Montenegro MD LAB BLOOD ORDERABLES Suyapa l Result Performing Organization Address [facility]/ZIP Co de Phone Number [facility] [address] [place] [address], [place] [phone] * (ABNORMAL) Folate (07/19/2024 8:12 AM EST) Folate >20.0(H) 2.8 - 17.0 ng/ml LAB CHEMISTRY METHOD 07/19/2024 9:32 AM EST [facility] Blood Venous blood specimen / Unknown Venipuncture / Unknown 07/19/2024 8:12 AM EST 07/19/2024 8:28 AM EST Anup Montenegro MD LAB BLOOD ORDERABLES Suyapa l Result Performing Organization Address [facility]/ZIP Co de Phone Number [facility] [address] [place] [address], [place] [phone] * Ferritin (07/19/2024 8:12 AM EST) Pathologist [facility] Ferritin 108 8 - 252 ng/mL LAB CHEMISTRY METHOD 07/19/2024 9:32 AM EST [facility] Blood Venous blood specimen / Unknown Venipuncture / Unknown 07/19/2024 8:12 AM EST 07/19/2024 8:28 AM EST Anup Montenegro MD LAB BLOOD ORDERABLES Suyapa l Result Performing Organization Address City/[facility]/ZIP Co de Phone Number [facility] [address] [place] [address], [place] [phone] * Vitamin B12 (07/19/2024 8:12 AM EST) Pathologist [facility] Vitamin B-12 723 250 - 900 pcg/mL LAB CHEMISTRY METHOD 07/19/2024 9:32 AM EST [facility] Blood Venous blood specimen / Unknown Venipuncture / Unknown 07/19/2024 8:12 AM EST 07/19/2024 8:28 AM EST us Anup Montenegro MD LAB BLOOD ORDERABLES Suyapa l Result [facility] [address] [place] [address], * Comprehensive metabolic panel (07/19/2024 8:12 AM EST) Sodium 138 133 - 145 mmol/L LAB CHEMISTRY METHOD 07/19/2024 9:10 AM [facility] Potassium 3.9 3.5 - 5.5 mmol/L LAB CHEMISTRY METHOD 07/19/2024 9:10 AM [facility] Chloride 105 96 - 110 mmol/L LAB CHEMISTRY METHOD 07/19/2024 9:10 AM [facility] CO2 27 21 - 32 mmol/L LAB CHEMISTRY METHOD 07/19/2024 9:10 AM [facility] Anion Gap 6 3 - 11 LAB CHEMISTRY METHOD 07/19/2024 9:10 AM [facility] Glucose 93 70 - 100 mg/dL LAB CHEMISTRY METHOD 07/19/2024 9:10 AM [facility] BUN 7 5 - 25 mg/dL LAB CHEMISTRY METHOD 07/19/2024 9:10 AM [facility] Creatinine 0.92 0.50 - 1.10 mg/dL LAB CHEMISTRY METHOD 07/19/2024 9:10 AM [facility] eGFR 76 >=60 mL/min/1. 73m2 LAB CHEMISTRY METHOD 07/19/2024 9:10 AM [facility] Comment:Calculation based on the??Chronic Kidney Disease Epidemiology Collaboration (CKD-EPI) equation refit??without adjustment for race. BUN/Creatinine Ratio 7.6 LAB CHEMISTRY METHOD 07/19/2024 9:10 AM [facility] Calcium 9.4 8.5 - 10.5 mg/dL LAB CHEMISTRY METHOD 07/19/2024 9:10 AM [facility] AST (SGOT) 26 10 - 42 unit/L LAB CHEMISTRY METHOD 07/19/2024 9:10 AM [facility] ALT (SGPT) 47 10 - 60 unit/L LAB CHEMISTRY METHOD 07/19/2024 9:10 AM [facility] Alkaline Phosphatase 80 42 - 121 unit/L LAB CHEMISTRY METHOD 07/19/2024 9:10 AM [facility] Total Protein 7.5 6.0 - 8.0 g/dL LAB CHEMISTRY METHOD 07/19/2024 9:10 AM [facility] Albumin 4.2 3.2 - 5.0 g/dL LAB CHEMISTRY METHOD 07/19/2024 9:10 AM [facility] Total Bilirubin 0.7 0.0 - 1.4 mg/dL LAB CHEMISTRY METHOD 07/19/2024 9:10 AM [facility] Blood Venous blood specimen / Unknown Venipuncture / Unknown 07/19/2024 8:12 AM EST 07/19/2024 8:28 AM EST us Anup Montenegro MD LAB BLOOD ORDERABLES Suyapa l Result [facility] [address] [place] [address], * KALYAN SCREENING DIGITAL (04/11/2024 1:36 PM EDT) Anatomical Region Laterality Modality Mammography 04/11/2024 9:56 AM EDT Narrative 04/11/2024 1:36 PM EDT [facility] Diagnostic Imaging Department [address] [place] [address] Patient: ??KOKOSZYN,RENNY T ?/Age/Sex: 1970 - 53 - F Unit#: ??[id number] ? Location/Status: ??SPDIMAM/REG CLI ? Mnemonic/Ordering Site: ??DIGSC/SPMAM Ordering Physician: ??CHRISTINE COTO MD [facility] Screening Digital - 04/11/24 - 1025 Report Status:Signed EXAM: [facility] Screening Digital EXAM DATE AND TIME: 04/11/2024 10:26 AM HISTORY: ??Screening. Paternal cousin had breast carcinoma. COMPARISON: ??09/22/22, 05/04/21, 05/02/20, 09/08/18, 07/22/17 TECHNIQUE: Bilateral digital breast tomosynthesis was performed in the CC and MLO projections. Computer aided detection with [employer] 3D 3.1 was employed. TISSUE DENSITY: b. [...] Mammogram performed at [place] [address] Dictating Physician: ??RAYNA ALANIS MD Electronically Signed by: ??RAYNA ALANIS MD Dic Date/Time: ??04/11/24 1331 Sign date/Time: ??04/11/24 1336 Procedure Note Rayna Alanis MD - 04/14/2024 [facility] Diagnostic Imaging Department [address] [place] [address] Patient: RENNY SAMPSON Maritza ScottB./Age/Sex: 1970 - 53 - F Unit#: [id number] Location/Status: [facility] CLI Mnemonic/Ordering Site: [facility] Ordering Physician: CHRISTINE COTO MD [facility] Screening Digital - 04/11/24 - 1025 Report Status:Signed EXAM: [facility] Screening Digital EXAM DATE AND TIME: 04/11/2024 10:26 AM HISTORY: Screening. Paternal cousin had breast carcinoma. COMPARISON: 09/22/22, 05/04/21, 05/02/20, 09/08/18, 07/22/17 TECHNIQUE: Bilateral digital breast tomosynthesis was performed in the CCand MLO projections. Computer aided detection with [employer] 3D 3.1was employed. TISSUE DENSITY: b. There [...] Mamm[facility] performed at [facility] at [address] [address] Dictating Physician: RAYNA ALANIS MD Electronically Signed by: RAYNA ALANIS MD Dic Date/Time: 04/11/24 1331 Sign date/Time: 04/11/24 1336 Christine Coto MD IMG BI PROCEDURES Final Result from Last 3 Months or Most Recently Relevant to Health Maintenance Insurance [facility] Care Teams University Lecturer Relationship Specialty Start Date End Date Christine Coto MD [address] [place] [address] PCP - General Internal Medicine 08/02/24
--- OUTSIDE RECORDS SUMMARY | 2024-09-13 07:40 | XMS_ITS ---
Author Organization [facility] Address [address] [place] [address] Care Team Providers Care Plant Production Manager Name Role Phone YUNG DAMICO Unavailable [phone] REASON FOR VISIT flu like snptoms Encounters Encounter Location Date Provider Diagnosis [facility] [address] [place] [address] 06/09/2024 YUNG DAMICO PLAN OF TREATMENT Next Appt Details Provider Name:YUNG DAMICO, 11/30/2024 08:15:00 AM, [address] [facility], [facility], [place], [address], Progress Notes * Kanika SAMPSONDOB: 3 (53 yo F)Acc No.[id number]:06/09/2024 Progress Notes Patient:??Kanika SAMPSON Provider:??YUNG DAMICO NP :1970?Age:53 Y?Sex:Fe male Date:06/09/2024 Address:[id number] Subjective: * Chief Complaints: * ?1. Flu like snptoms. * Medical History:?? Objective: Assessment: Plan: * Treatment: Care Plan: * Problems:?? * Images: Billing Information: * Visit Code:?? * Procedure Codes:?? Care Plan Details* * Sign off status: Pending * Provider:??YUNG DAMICO NP Date:??05/14
--- OUTSIDE RECORDS SUMMARY | 2024-09-13 07:40 | XMS_ITS ---
Author Organization [facility] Address [address] [place] [id number] Care Team Providers Care Ensemble Member Name Role Phone MOOKIE YUNG Unavailable [phone] ALLERGIES No Known Allergies REASON FOR VISIT Pt here for CPE, pt has no concerns. MEDICATIONS Medication SIG (Take, Route, Frequency, Duration) Notes Start Date End Date Status Levothyroxine Sodium 88 MCG 1 tablet in the morning on an empty stomach Orally Once a day for 30 days 07/25/2024 Active [place] Thyroid 90 MG 1 tablet on an [...] 08/02/2024 Encounters Encounter Location Date Provider Diagnosis [facility] [address] [facility] [address] [facility] [address] [place] [address] 08/02/2024 YUNG DAMICO Obesity (BMI 30.0-34 .9) [...] software and direct typing Please excuse inadvertent tire sorter or typing errors, or uncorrected word substitutions Although every attempt has been made by the provider to proofread this document, occasional misspellings and typographical errors may still be present Due to the previous pandemic, and the use of personal protective equipment (PPE) This may decrease voice recognition accuracy Inadvertent tire sorter errors may occur 08/02/2024 Annual physical exam [...] software and direct typing Please excuse inadvertent tire sorter or typing errors, or uncorrected word substitutions Although every attempt has been made by the provider to proofread this document, occasional misspellings and typographical errors may still be present Due to the previous pandemic, and the use of personal protective equipment (PPE) This may decrease voice recognition accuracy Inadvertent tire sorter errors may occur 08/02/2024 Dietary counseling and [...] software and direct typing Please excuse inadvertent tire sorter or typing errors, or uncorrected word substitutions Although every attempt has been made by the provider to proofread this document, occasional misspellings and typographical errors may still be present Due to the previous pandemic, and the use of personal protective equipment (PPE) This may decrease voice recognition accuracy Inadvertent tire sorter errors may occur 08/02/2024 Acquired hypothyroidism (ICD-10 [...] software and direct typing Please excuse inadvertent tire sorter or typing errors, or uncorrected word substitutions Although every attempt has been made by the provider to proofread this document, occasional misspellings and typographical errors may still be present Due to the previous pandemic, and the use of personal protective equipment (PPE) This may decrease voice recognition accuracy Inadvertent tire sorter errors may occur 08/02/2024 Pure hypercholesterolem ia, [...] software and direct typing Please excuse inadvertent tire sorter or typing errors, or uncorrected word substitutions Although every attempt has been made by the provider to proofread this document, occasional misspellings and typographical errors may still be present Due to the previous pandemic, and the use of personal protective equipment (PPE) This may decrease voice recognition accuracy Inadvertent tire sorter errors may occur 08/02/2024 Vitamin B 12 [...] software and direct typing Please excuse inadvertent tire sorter or typing errors, or uncorrected word substitutions Although every attempt has been made by the provider to proofread this document, occasional misspellings and typographical errors may still be present Due to the previous pandemic, and the use of personal protective equipment (PPE) This may decrease voice recognition accuracy Inadvertent tire sorter errors may occur PLAN OF TREATMENT Medication Medication Name Sig Start Date Stop Date Notes [place] Thyroid 90 MG 1 tablet on an [...] Details Provider Name:YUNG DAMICO, 11/30/2024 08:15:00 AM, [address] [place] [address], [phone], Progress Notes * Kanika SAMPSONDOB: 3 (53 yo F)Acc No.[id number]:08/02/2024 CPE Patient:??Kanika SAMPSON Provider:??YUNG DAMICO NP :1970?Age:53 Y?Sex:Fe male Date:08/02/2024 Address:[address] [place], [place] [id number] Subjective: * Chief Complaints: * ?1. Pt here for CPE, pt has no concerns.. * HPI: ?Constitutional:? Patient is here today for annual CPE ?Full past medical history, social history, family history, ?allergies and current medications were reviewed and updated. ?Acute Concerns/Problem List: ?08/02/2024 ?Patient recently had bariatric consultation with Dr. Chavira in [place] ?Plan is for sleeve gastrectomy in the near future ?She had comprehensive labs which are reviewed below ?She recently was taken off of [place] Thyroid and transition to levothyroxine due to [...] Orally Once a day , Discontinued Nystatin 333243 UNIT/ML Suspension 4 mL Mouth/Throat Four times a day , Discontinued Escitalopram Oxalate 10 MG Tablet 1 tablet Orally Once a day , Discontinued [place] Thyroid 90 MG Tablet 1 tablet on [...] software and direct typing Please excuse inadvertent tire sorter or typing errors, or uncorrected word substitutions Although every attempt has been made by the provider to proofread this document, occasional misspellings and typographical errors may still be present Due to the previous pandemic, and the use of personal protective equipment (PPE) This may decrease voice recognition accuracy Inadvertent tire sorter errors may occur. Plan: * Treatment: 2.??Acquired hypothyroidism? ? Refill LORazepam Tablet, 0.5 MG, 1 tablet at bedtime as needed, Orally, Once a day, 90 days, 90 Tablet, Refills 1.?LAB: TOTAL T4 ?LAB: TSH * Images: Billing Information: * Visit Code:?? 81492 Preventive Care Est Pt. Age 40-64. * [...] had bariatric consultation with Dr. Chavira in [place] Plan is for sleeve gastrectomy in the near future She had comprehensive labs which are reviewed below She recently was taken off of [place] Thyroid and transition to levothyroxine due to [...]
[2024-09-13 08:08] LABS: MANUAL DIFF FLAG NO
[2024-09-13 08:28] LABS: Basophils Absolute Auto 0.1 X10*3/uL (0.0-0.2); Basophils Percent Auto 0.8 % (0-2); Eosinophils Absolute Auto 0.2 X10*3/uL (0.0-0.4); Eosinophils Percent Auto 2.7 % (0-4); Hematocrit 43.1 % (37.0-47.0); Hemoglobin 15.9 g/dl (12.0-16.0); Imm Gran Abs Auto 0.01 X10*3/uL (0.00-0.03); Imm Gran Pct Auto 0.2 % (0.0-0.4); Lymphocytes Percent Auto 33.1 % (20-40); Mean Corpuscular HGB Conc 36.9 g/dl (31.0-35.0); Mean Corpuscular Hemoglobin 31.6 pg (27.0-33.0); Mean Corpuscular Volume 85.7 fL (80.0-98.0); Mean Platelet Volume 11.6 fL (9.4-12.3); Monocytes Absolute Auto 0.7 X10*3/uL (0.1-1.2); Monocytes Percent Auto 11.6 % (2-11); Neutrophils Absolute Auto 3.1 x10*3/uL (2.0-8.3); Neutrophils Percent Auto 51.6 % (45-73); Platelet Count 293 X10*3/uL (160-400); Red Blood Count 5.03 X10*6/uL (4.20-5.50)
[2024-09-13 08:37] LABS: INTERNATIONAL NORM RATIO 0.9 (0.9-1.1)
[2024-09-13 08:39] LABS: Estimated Average Glucose 97 mg/dL; Hemoglobin A1C 129.7296 umol/L; Total Hemoglobin (HGBA1C) 4135.5796 umol/L
[2024-09-13 08:40] LABS: Partial Thromboplastin Time 33.2 SEC (26.0-36.8)
[2024-09-13 08:58] LABS: Alanine Aminotransferase 25 U/L (0-31); Albumin Level 4.3 g/dL (3.5-5.0); Alkaline Phosphatase 75 U/L (39-117); Anion Gap 15 (12-20); Aspartate Amino Transferase 26 U/L (5-31); Bilirubin Total 0.7 mg/dL (0.0-1.0); Blood Urea Nitrogen 10 mg/dL (9-16); C Reactive Protein 0.86 mg/dL (< or = 0.50); Calcium 9.5 mg/dL (8.4-10.2); Carbon Dioxide 25 mmol/L (22-29); Chloride 105 mmol/L (96-108); Cholesterol 237 mg/dL (<200); Estimated Glomerular Filt Rate > 60; Glucose Random 72 mg/dL (60-115); HDL Cholesterol 68 mg/dL (>40); Iron 96 mcg/dL (30-160); LDL Cholesterol Calculated 149 mg/dL (<100); Percent Iron Saturation 37 % (15-50); Sodium 141 mmol/L (135-145); Total Iron Binding Capacity 262 mcg/dL (228-428); Total Protein 7.2 g/dL (6.5-8.0); Triglycerides 103 mg/dL (<150); Unsaturated Iron Binding 166 ug/dL
[2024-09-13 09:28] LABS: Folate 12.5 ng/mL (> or = 4.0); Vitamin B12 668 pg/mL (200-900)
[2024-09-13 09:31] LABS: Ferritin 143 ng/mL (10-250); TSH reflex Free T4 4.17 uIU/mL (0.32-4.0); Vitamin D 25-OH Total 42.4 ng/mL (>30)
[2024-09-13 10:30] LABS: Free T4 (Free Thyroxine) 1.17 ng/dL (0.71-1.85)
[2024-09-13 11:43] LABS: Insulin 2 uU/mL (2-29)
[2024-09-17 10:09] LABS: Zinc 73 mcg/dL (60-130)
[2024-09-17 23:19] LABS: Vitamin A 34 mcg/dL (38-98)
[2024-09-21 16:54] LABS: Vitamin B1 13 nmol/L (8-30)
== END 2024-09-13 07:37 | disposition home or self-care (01) ==
LOC: HO.LAB 07:36
PROVIDERS: Visit Provider Surgery
DX: E66.811 Obesity, class 1 (principal); E66.09 Other obesity due to excess calories; Z68.34 Body mass index [BMI] 34.0-34.9, adult; E03.9 Hypothyroidism, unspecified; E78.5 Hyperlipidemia, unspecified; I10 Essential (primary) hypertension; E66.9 Obesity, unspecified; Z13.1 Encounter for screening for diabetes mellitus
CPT/HCPCS: 36415; 80053; 80061; 82306; 82607; 82728; 82746; 83036; 83525; 83540; 84425; 84439; 84443; 84590; 84630; 85025; 85610; 85730; 86140

== ENCOUNTER 2024-09-19 05:47 | Day surgery (SDC) | payer OTHER, SELFPAY ==
--- OUTSIDE RECORDS SUMMARY | 2024-08-24 13:49 | XMS_ITS | Patient Health Record ---
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 Role Phone YUNG DAMICO Unavailable [phone] ALLERGIES No Known Allergies RESULTS Component Value Reference Range Notes Vanna Screening Digital Reviewed date:04/12/2024 11:27:03 AM Interpretation: Performing Lab: Notes/Report: Original Ordering Provider: CHRISTINE DAVENPORT MD [facility] REASON FOR REFERRAL No Information MEDICATIONS Medication SIG (Take, Route, Frequency, Duration) Notes Start Date End Date Status Levothyroxine Sodium 88 MCG 1 tablet in the morning on an empty stomach Orally Once a day for 30 days 07/25/2024 Active [place] Thyroid 90 MG 1 tablet on an [...] unspecified (E55.9) Active confirmed Vitamin D deficiency (75717374) Problem Encounter for general adult medical examination without abnormal findings (Z00.00) Active confirmed Adult heal th examination (899284123) Problem Encounter for screening for diabetes mellitus (Z13.1) Active confirmed 238439544 Problem Pure hypercholesterole chasity, unspecified (E78.00) Active confirmed 233379918 Problem Hyperlipidemia, unspecified hyperlipidemia type (E78.5) Active confirmed Hyperlipidaemia (55733588) Problem Acquired hypothyroidism (E03.9) Active confirmed 542241572 Problem Obesity (BMI 30.0-34.9) (E66.9) Active confirmed [id number] Problem Pre-diabetes (R73.03) Active confirmed Prediabetes (434847552) Problem Vitamin B 12 deficiency (E53.8) Active confirmed Vitamin B12 deficiency (non anemic) (16767046) Problem BMI 33.0-33.9,adult (Z68.33) Active confirmed 584751899 Problem BMI 32.0-32.9,adult (Z68.32) Active confirmed 047746145 Problem Anemia due to vitamin B12 deficiency, unspecified B12 deficiency type (D51.9) Active confirmed 51859237 Problem BMI 34.0-34.9,adult (Z68.34) Active confirmed 559563058 VITAL SIGNS Heart Rate 75 /min 08/02/2024 Oximetry 98 % 08/02/2024 Blood pressure diastolic 82 mm Hg 08/02/2024 Height 65 in 08/02/2024 Blood pressure systolic 126 mm Hg 08/02/2024 Weight 196 lbs 08/02/2024 BMI 32.61 kg/m2 08/02/2024 Encounters Encounter Location Date Provider Diagnosis [place] [address] [address] 09/02/2023 YUNG DAMICO [place] [address] [address] 10/18/2023 YUNG DAMICO Acquired hypothyroid ism E03.9 ; Obesity (BMI 30.0-34.9) E66.9 ; Pure hypercholesterolemia, unspecified E78.00 ; BMI 32.0-32.9,adult Z68.32 and Vitamin B 12 deficiency E53.8 [place] [address] [address] 12/07/2023 YUNG DAMICO [facility] [address] [place] [address] 06/09/2024 YUNG DAMICO [place] [address] [address] 09/01/2023 YUNG DAMICO Acquired hypothyroid ism E03.9 ; Obesity (BMI 30.0-34.9) E66.9 ; Pure hypercholesterolemia, unspecified E78.00 ; Vitamin D deficiency, unspecified E55.9 ; BMI 32.0-32.9,adult Z68.32 and Vitamin B 12 deficiency E53.8 [place] [address] [address] 01/31/2024 YUNG DUVALL BMI 33.0-33.9,adult Z68.33 ; Obesity (BMI 30.0-34.9) E66.9 ; Dietary counseling and surveillance Z71.3 ; Acquired hypothyroidism E03.9 ; Pure hypercholesterolemia, unspecified E78.00 and Vitamin B 12 deficiency E53.8 [place] [address] [address] 08/02/2024 YUNG DUVALL Obesity (BMI 30.0-34 .9) E66.9 ; Annual physical exam Z00.00 ; Dietary counseling and surveillance Z71.3 ; Acquired hypothyroidism E03.9 ; Pure hypercholesterolemia, unspecified E78.00 and Vitamin B 12 deficiency E53.8 [place] [address] [address] 08/26/2023 [facility] [address] [address] 09/01/2023 [facility] [address] [place] [address] 09/08/2023 [facility] [address] [address] 09/15/2023 [place] [address] [address] 06/08/2024 [place] [address] [address] 07/20/2024 YUNG DUVALL Acquired hypothyroid ism E03.9 [address] [address] 09/15/2023 YUNG DAMICO ASSESSMENTS Encounter Date Diagnosis [...] minimum of 6 months The most recent [place] [employer] of clinical endocrinologists and [place] [employer] endocrin[employer] guidelines recommend patients who [...] track activity level. Consider using apps like [employer], [employer], lose it, stick as needed for self-monitoring and weight management. Consider group exercises. Consider hiring a personal consultant. Regular exercise is fel[place] to sustainable health [...] counseling and psychiatry and Dr Gloria at [facility]. We would like to cover regular topics [...] from an Electronic Health Record CohortMethods: Obesity ([place]). 2019 Sep;27(4):591-602. doi: [email or web address].67033 Using electronic health record data 13,972 adults [...] software and direct typing Please excuse inadvertent human resources officer or typing errors, or uncorrected word substitutions Although every attempt has been made by the provider to proofread this document, occasional misspellings and typographical errors may still be present Due to the previous pandemic, and the use of personal protective equipment (PPE) This may decrease voice recognition accuracy Inadvertent human resources officer errors may occur 09/01/2023 Obesity (BMI 30.0-34.9) [...] minimum of 6 months The most recent [place] [employer] of clinical endocrinologists and [place] [employer] endocrin[employer] guidelines recommend patients who [...] track activity level. Consider using apps like [employer], [employer], lose it, stick as needed for self-monitoring and weight management. Consider group exercises. Consider hiring a personal consultant. Regular exercise is fel[place] to sustainable health [...] counseling and psychiatry and Dr Gloria at [facility]. We would like to cover regular topics [...] from an Electronic Health Record CohortMethods: Obesity ([place]). 2019 Sep;27(4):591-602. doi: [email or web address].00790 Using electronic health record data 13,972 adults [...] software and direct typing Please excuse inadvertent human resources officer or typing errors, or uncorrected word substitutions Although every attempt has been made by the provider to proofread this document, occasional misspellings and typographical errors may still be present Due to the previous pandemic, and the use of personal protective equipment (PPE) This may decrease voice recognition accuracy Inadvertent human resources officer errors may occur 10/18/2023 Acquired hypothyroidism (ICD-10 [...] minimum of 6 months The most recent [place] [employer] of clinical endocrinologists and [place] [employer] endocrin[employer] guidelines recommend patients who [...] track activity level. Consider using apps like [employer], [employer], lose it, stick as needed for self-monitoring and weight management. Consider group exercises. Consider hiring a personal consultant. Regular exercise is fel[place] to sustainable health [...] counseling and psychiatry and Dr Gloria at [facility]. We would like to cover regular topics [...] from an Electronic Health Record CohortMethods: Obesity ([place]). 2019 Apr;27(4):591-602. doi: [email or web address].26265 Using electronic health record data 13,972 adults [...] software and direct typing Please excuse inadvertent human resources officer or typing errors, or uncorrected word substitutions Although every attempt has been made by the provider to proofread this document, occasional misspellings and typographical errors may still be present Due to the previous pandemic, and the use of personal protective equipment (PPE) This may decrease voice recognition accuracy Inadvertent human resources officer errors may occur 01/31/2024 BMI 33.0-33.9,adult (ICD-10 [...] software and direct typing Please excuse inadvertent human resources officer or typing errors, or uncorrected word substitutions Although every attempt has been made by the provider to proofread this document, occasional misspellings and typographical errors may still be present Due to the previous pandemic, and the use of personal protective equipment (PPE) This may decrease voice recognition accuracy Inadvertent human resources officer errors may occur 07/20/2024 Acquired hypothyroidism (ICD-10 [...] software and direct typing Please excuse inadvertent human resources officer or typing errors, or uncorrected word substitutions Although every attempt has been made by the provider to proofread this document, occasional misspellings and typographical errors may still be present Due to the previous pandemic, and the use of personal protective equipment (PPE) This may decrease voice recognition accuracy Inadvertent human resources officer errors may occur 08/02/2024 Annual physical exam [...] software and direct typing Please excuse inadvertent human resources officer or typing errors, or uncorrected word substitutions Although every attempt has been made by the provider to proofread this document, occasional misspellings and typographical errors may still be present Due to the previous pandemic, and the use of personal protective equipment (PPE) This may decrease voice recognition accuracy Inadvertent human resources officer errors may occur 08/02/2024 Dietary counseling and [...] software and direct typing Please excuse inadvertent human resources officer or typing errors, or uncorrected word substitutions Although every attempt has been made by the provider to proofread this document, occasional misspellings and typographical errors may still be present Due to the previous pandemic, and the use of personal protective equipment (PPE) This may decrease voice recognition accuracy Inadvertent human resources officer errors may occur 01/31/2024 Obesity (BMI 30.0-34.9) [...] software and direct typing Please excuse inadvertent human resources officer or typing errors, or uncorrected word substitutions Although every attempt has been made by the provider to proofread this document, occasional misspellings and typographical errors may still be present Due to the previous pandemic, and the use of personal protective equipment (PPE) This may decrease voice recognition accuracy Inadvertent human resources officer errors may occur 10/18/2023 Obesity (BMI 30.0-34.9) [...] minimum of 6 months The most recent [place] [employer] of clinical endocrinologists and [place] [employer] endocrinology guidelines recommend patients who [...] track activity level. Consider using apps like [employer], [employer], lose it, stick as needed for self-monitoring and weight management. Consider group exercises. Consider hiring a personal consultant. Regular exercise is fel[place] to sustainable health [...] counseling and psychiatry and Dr Gloria at [facility]. We would like to cover regular topics [...] from an Electronic Health Record CohortMethods: Obesity ([place]). 2019 Sep;27(4):591-602. doi: [email or web address].68446 Using electronic health record data 13,972 adults [...] software and direct typing Please excuse inadvertent human resources officer or typing errors, or uncorrected word substitutions Although every attempt has been made by the provider to proofread this document, occasional misspellings and typographical errors may still be present Due to the previous pandemic, and the use of personal protective equipment (PPE) This may decrease voice recognition accuracy Inadvertent human resources officer errors may occur 01/31/2024 Dietary counseling and [...] software and direct typing Please excuse inadvertent human resources officer or typing errors, or uncorrected word substitutions Although every attempt has been made by the provider to proofread this document, occasional misspellings and typographical errors may still be present Due to the previous pandemic, and the use of personal protective equipment (PPE) This may decrease voice recognition accuracy Inadvertent human resources officer errors may occur 09/01/2023 Pure hypercholesterole chasity, [...] minimum of 6 months The most recent [place] [employer] of clinical endocrinologists and [place] [employer] of endocrinology guidelines recommend patients who [...] track activity level. Consider using apps like [employer], [employer], lose it, stick as needed for self-monitoring and weight management. Consider group exercises. Consider hiring a personal consultant. Regular exercise is fel[place] to sustainable health [...] counseling and psychiatry and Dr Gloria at [facility]. We would like to cover regular topics [...] from an Electronic Health Record CohortMethods: Obesity ([place]). 2019 Apr;27(4):591-602. doi: [email or web address].77024 Using electronic health record data 13,972 adults [...] software and direct typing Please excuse inadvertent human resources officer or typing errors, or uncorrected word substitutions Although every attempt has been made by the provider to proofread this document, occasional misspellings and typographical errors may still be present Due to the previous pandemic, and the use of personal protective equipment (PPE) This may decrease voice recognition accuracy Inadvertent human resources officer errors may occur 09/01/2023 Vitamin D deficiency, [...] minimum of 6 months The most recent [place] [employer] of clinical endocrinologists and [place] [employer] of endocrinology guidelines recommend patients who [...] track activity level. Consider using apps like [employer], [employer], lose it, stick as needed for self-monitoring and weight management. Consider group exercises. Consider hiring a personal consultant. Regular exercise is fel[place] to sustainable health [...] counseling and psychiatry and Dr Gloria at [facility]. We would like to cover regular topics [...] from an Electronic Health Record CohortMethods: Obesity ([place]). 2019 Sep;27(4):591-602. doi: [email or web address].99158 Using electronic health record data 13,972 adults [...] software and direct typing Please excuse inadvertent human resources officer or typing errors, or uncorrected word substitutions Although every attempt has been made by the provider to proofread this document, occasional misspellings and typographical errors may still be present Due to the previous pandemic, and the use of personal protective equipment (PPE) This may decrease voice recognition accuracy Inadvertent human resources officer errors may occur 10/18/2023 Pure hypercholesterole chasity, [...] minimum of 6 months The most recent [place] [employer] of clinical endocrinologists and [place] [employer] of endocrinology guidelines recommend patients who [...] track activity level. Consider using apps like [employer], [employer], lose it, stick as needed for self-monitoring and weight management. Consider group exercises. Consider hiring a personal consultant. Regular exercise is felton to sustainable health [...] counseling and psychiatry and Dr Gloria at [facility]. We would like to cover regular topics [...] from an Electronic Health Record CohortMethods: Obesity ([place]). 2019 Sep;27(4):591-602. doi: [email or web address].97316 Using electronic health record data 13,972 adults [...] software and direct typing Please excuse inadvertent human resources officer or typing errors, or uncorrected word substitutions Although every attempt has been made by the provider to proofread this document, occasional misspellings and typographical errors may still be present Due to the previous pandemic, and the use of personal protective equipment (PPE) This may decrease voice recognition accuracy Inadvertent human resources officer errors may occur 01/31/2024 Acquired hypothyroidism (ICD-10 [...] software and direct typing Please excuse inadvertent human resources officer or typing errors, or uncorrected word substitutions Although every attempt has been made by the provider to proofread this document, occasional misspellings and typographical errors may still be present Due to the previous pandemic, and the use of personal protective equipment (PPE) This may decrease voice recognition accuracy Inadvertent human resources officer errors may occur 08/02/2024 Acquired hypothyroidism (ICD-10 [...] software and direct typing Please excuse inadvertent human resources officer or typing errors, or uncorrected word substitutions Although every attempt has been made by the provider to proofread this document, occasional misspellings and typographical errors may still be present Due to the previous pandemic, and the use of personal protective equipment (PPE) This may decrease voice recognition accuracy Inadvertent human resources officer errors may occur 10/18/2023 BMI 32.0-32.9,adult (ICD-10 [...] minimum of 6 months The most recent [place] [employer] of clinical endocrinologists and [place] [employer] of endocrinology guidelines recommend patients who [...] track activity level. Consider using apps like [employer], [employer], lose it, stick as needed for self-monitoring and weight management. Consider group exercises. Consider hiring a personal consultant. Regular exercise is fel[place] to sustainable health [...] counseling and psychiatry and Dr Gloria at [facility]. We would like to cover regular topics [...] from an Electronic Health Record CohortMethods: Obesity ([place]). 2019 Sep;27(4):591-602. doi: [email or web address].26782 Using electronic health record data 13,972 adults [...] software and direct typing Please excuse inadvertent human resources officer or typing errors, or uncorrected word substitutions Although every attempt has been made by the provider to proofread this document, occasional misspellings and typographical errors may still be present Due to the previous pandemic, and the use of personal protective equipment (PPE) This may decrease voice recognition accuracy Inadvertent human resources officer errors may occur 08/02/2024 Pure hypercholesterole chasity, [...] software and direct typing Please excuse inadvertent human resources officer or typing errors, or uncorrected word substitutions Although every attempt has been made by the provider to proofread this document, occasional misspellings and typographical errors may still be present Due to the previous pandemic, and the use of personal protective equipment (PPE) This may decrease voice recognition accuracy Inadvertent human resources officer errors may occur 09/01/2023 BMI 32.0-32.9,adult (ICD-10 [...] minimum of 6 months The most recent [place] [employer] of clinical endocrinologists and [place] [employer] of endocrinology guidelines recommend patients who [...] track activity level. Consider using apps like [employer], [employer], lose it, stick as needed for self-monitoring and weight management. Consider group exercises. Consider hiring a personal consultant. Regular exercise is fel[place] to sustainable health [...] counseling and psychiatry and Dr Gloria at [facility]. We would like to cover regular topics [...] from an Electronic Health Record CohortMethods: Obesity ([place]). 2019 Sep;27(4):591-602. doi: [email or web address].20166 Using electronic health record data 13,972 adults [...] software and direct typing Please excuse inadvertent human resources officer or typing errors, or uncorrected word substitutions Although every attempt has been made by the provider to proofread this document, occasional misspellings and typographical errors may still be present Due to the previous pandemic, and the use of personal protective equipment (PPE) This may decrease voice recognition accuracy Inadvertent human resources officer errors may occur 01/31/2024 Pure hypercholesterole chasity, [...] software and direct typing Please excuse inadvertent human resources officer or typing errors, or uncorrected word substitutions Although every attempt has been made by the provider to proofread this document, occasional misspellings and typographical errors may still be present Due to the previous pandemic, and the use of personal protective equipment (PPE) This may decrease voice recognition accuracy Inadvertent human resources officer errors may occur 10/18/2023 Vitamin B 12 [...] minimum of 6 months The most recent [place] [employer] of clinical endocrinologists and [place] [employer] of endocrinology guidelines recommend patients who [...] track activity level. Consider using apps like [employer], [employer], lose it, stick as needed for self-monitoring and weight management. Consider group exercises. Consider hiring a personal consultant. Regular exercise is fel[place] to sustainable health [...] counseling and psychiatry and Dr Gloria at [facility]. We would like to cover regular topics [...] from an Electronic Health Record CohortMethods: Obesity ([place]). 2019 Sep;27(4):591-602. doi: [email or web address].55461 Using electronic health record data 13,972 adults [...] software and direct typing Please excuse inadvertent human resources officer or typing errors, or uncorrected word substitutions Although every attempt has been made by the provider to proofread this document, occasional misspellings and typographical errors may still be present Due to the previous pandemic, and the use of personal protective equipment (PPE) This may decrease voice recognition accuracy Inadvertent human resources officer errors may occur 09/01/2023 Vitamin B 12 [...] minimum of 6 months The most recent [place] [employer] of clinical endocrinologists and [place] [employer] of endocrinology guidelines recommend patients who [...] track activity level. Consider using apps like [employer], [employer], lose it, stick as needed for self-monitoring and weight management. Consider group exercises. Consider hiring a personal consultant. Regular exercise is fel[place] to sustainable health [...] counseling and psychiatry and Dr Gloria at [facility]. We would like to cover regular topics [...] from an Electronic Health Record CohortMethods: Obesity ([place]). 2019 Sep;27(4):591-602. doi: [email or web address].82801 Using electronic health record data 13,972 adults [...] software and direct typing Please excuse inadvertent human resources officer or typing errors, or uncorrected word substitutions Although every attempt has been made by the provider to proofread this document, occasional misspellings and typographical errors may still be present Due to the previous pandemic, and the use of personal protective equipment (PPE) This may decrease voice recognition accuracy Inadvertent human resources officer errors may occur 01/31/2024 Vitamin B 12 [...] software and direct typing Please excuse inadvertent human resources officer or typing errors, or uncorrected word substitutions Although every attempt has been made by the provider to proofread this document, occasional misspellings and typographical errors may still be present Due to the previous pandemic, and the use of personal protective equipment (PPE) This may decrease voice recognition accuracy Inadvertent human resources officer errors may occur 08/02/2024 Vitamin B 12 [...] software and direct typing Please excuse inadvertent human resources officer or typing errors, or uncorrected word substitutions Although every attempt has been made by the provider to proofread this document, occasional misspellings and typographical errors may still be present Due to the previous pandemic, and the use of personal protective equipment (PPE) This may decrease voice recognition accuracy Inadvertent human resources officer errors may occur PLAN OF TREATMENT Pending [...] Details Provider Name:YUNG DAMICO, 11/30/2024 08:15:00 AM, [address] [place] [address], [phone], Insurance Providers Payer Name Payer Address Payer Phone Subscriber Number Group Number Insured Name Patient Relationship to Insured Coverage Start Date Coverage End Date [facility] [address] [place] [address] [id number] Kanika Staton Self - patient is the insured 3 MEDICATIONS ADMINISTERED Medication Instructions Date of Administration Dosage Notes MICC B12 INJECTION 02/03/2023 MEDICAL (GENERAL) HISTORY Medical History History ICD Code high cholesterol seasonal allergies thyroid disease depression Surgical History Surgery Date(Month/Year) wisdom teeth extraction 1989
--- OUTSIDE RECORDS SUMMARY | 2024-08-24 13:49 | XMS_ITS | Clinical Summary ---
Author Organization [facility] Address [address] [place] [address] Phone Care Team Providers Care Assisted Living Executive Director Name Role Phone Christine Coto MD Primary Care Provider [phone] Medications Hospital, Clinic, or Other Facility Administered [...] Description 08/14/2024 3:30 PM EST Ancillary Procedure [facility] [address] [place] [address] [place] [phone] Abnormal electrocardiogram 08/08/2024 2:30 PM EST Ancillary Procedure [facility] - [address] [place] [address] [place] [id number] Abnormal electrocardiogram 07/19/2024 8:46 AM EST - 07/19/2024 11:59 PM EST Hospital Encounter [facility] Non-Invasive Cardiology [address] [place] [address] Obesity, class 1; Other obesity due to excess calories; Body mass index (BMI) 34.0-34.9, adult; Hypothyroidism, unspecified; Hyperlipidemia, unspecified; Essential (primary) hypertension Discharge Disposition: Home or Self Care 07/19/2024 8:43 AM EST - 07/19/2024 11:59 PM EST Hospital Encounter [facility] Xray [address] [place] [address] Bariatric surgery status Discharge Disposition: Home or [...] AM EDT [facility]ointment [facility] [address] [phone] Health Maintenance Due Date Last Done Comments [...] Routine 08/08/2024 3:37 PM EST Abnormal electrocardiogram XR UGI W AIR CONTRAST Routine 07/19/2024 [...] (08/14/2024 4:10 PM EST) Left Atrium Minor [place] 5.3 cm CV PACS Left Atrium Major [place] 5.4 cm CV PACS LA Area Sys [...] Volume 63 mL CV PACS MV Deceleration [place] 3.9 m/s2 CV PACS E Wave Deceleration [...] Definity contrast was given to enhance imaging. us Anup Montenegro MD CV ECHO PROCEDURES Final Result * STRESS ECHOCARDIOGRAM EXERCISE WITH CONTRAST (08/08/2024 3:37 PM EST) IVSD 0.9 0.6 - 0.9 cm CV PACS STRESS LVIDD 4.3 3.8 - 5.2 cm CV PACS STRESS LVIDS 2.8 2.2 - 3.5 cm CV PACS STRESS LVPWD 0.9 0.6 - 0.9 cm CV PACS STRESS Relative Wall Thickness ratio 0.42 CV PACS STRESS FS 35 % CV PACS STRESS LV Mass 2D 123 g CV PACS STRESS LVIDD Index 2.22 cm/m2 CV PACS STRESS LVIDS Index 1.44 cm/m2 CV PACS STRESS LV Mass Index 2D 64 g/m2 CV PACS STRESS BSA 1.99 m2 CV PACS STRESS Target HR 144 bpm CV PACS STRESS Baseline HR 71 bpm CV PACS STRESS Baseline SBP 110 mmHg CV PACS STRESS Baseline DBP 70 mmHg CV PACS STRESS Peak HR 150 bpm CV PACS STRESS Peak SBP 140 mmHg CV PACS STRESS Peak DBP 80 mmHg CV PACS STRESS Estimated workload 8.6 METS CV PACS STRESS Rate Pressure Product 21,000.0 mmHg*bpm CV PACS STRESS Percent HR 89 % CV PACS STRESS Exercise/inject ion duration (min) 6 min CV PACS STRESS Exercise/inject ion duration (sec) 51 sec CV PACS STRESS Angina Index 0 CV PACS STRESS Franklin Treadmill Score [address] Depression (mm) 0 mm CV PACS STRESS Anatomical Region Laterality Modality Ultrasound Narrative 08/20/2024 11:43 AM EDT ?Stress ECG was normal. ?Exercise stress test was performed. Patient reported no symptoms during the stress test. Exercise capacity was average. Normal blood pressure response. The patient surpassed the target heart rate. ??Image quality was suboptimal even with the use of contrast. ??But LV size and function appears to be normal at rest and there is normal augmentation of contractility in all wall segments with the appropriate decrease in internal cavity dimensions. Left Ventricle Left ventricle was not well visualized. Wall thickness is normal. Systolic function is normal with an ejection fraction of 55-60%. There are no regional LV wall motion abnormalities. Unable to assess diastolic function. Right Ventricle Right ventricle was not well visualized. Systolic function is normal. Left Atrium Left atrium cavity size is normal. Right Atrium Right atrium was not well visualized. Mitral Valve Mitral valve structure is normal. There is no regurgitation or stenosis. Tricuspid Valve The leaflets exhibit probably normal excursion. There is no regurgitation or stenosis. Aortic Valve The aortic valve is trileaflet. There is no regurgitation or stenosis. Pulmonic Valve Pulmonic valve not assessed due to limited exam. Pulmonic valve stenosis not assessed due to limited exam. Ascending Aorta The aorta was not well visualized. Pericardium Pericardium appears normal. Study Details Overall the study quality was [...] the stress ECG was negative for ischemia. Echo Post Stress Left ventricular cavity size decreased from baseline. Left ventricular systolic function improved from baseline. Right ventricle systolic function is normal post-stress. us Anup Montenegro MD CV ECHO PROCEDURES Final [...] Signed Date: 07/19/2024 10:33 ET Workstation ID: [id number] Transcribed By: Self Edit Transcribed Date: 07/19/2024 10:30 ET Resident/PA/COLD MEAT CHEF: Sydnie David Narrative 07/19/2024 10:33 AM EST FINDINGS: Double contrast UGI performed. COMPARISON: None. HISTORY: Patient is a 53-year-old female with no significant past medical history. Preop bariatric surgery. CERTIFIED ACTIVITIES DIRECTOR radiographs: Dip Unit Operator AP radiograph of the abdomen obtained. Bowel [...] no significant past medicalhistory. Preop bariatric surgery. CERTIFIED ACTIVITIES DIRECTOR radiographs: Dip Unit Operator AP radiograph of the abdomen obtained. Bowel [...] Signed Date: 07/19/2024 10:33 ET Workstation ID: [id number] Transcribed By: Self Edit Transcribed Date: 07/19/2024 10:30 ET Resident/PA/COLD MEAT CHEF: David, Sydnie Anup Montenegro MD IMG FLUOROSCOPY PROCEDURE S [...] Signed Date: 07/19/2024 09:53 ET Workstation ID: [id number] Transcribed By: Self Edit Transcribed Date: 07/19/2024 09:53 ET Impressions 07/19/2024 9:35 AM EST Normal examination. ??No change since the prior study performed 07/20/2023. Code 02360 -------- FINAL REPORT -------- Dictated By: Brenden Morocho Dictated Date: 07/19/2024 09:34 ET Assigned Physician: Brenden Morocho Reviewed and Electronically Signed By: Brenden Morocho Signed Date: 07/19/2024 09:35 ET Workstation ID: [id number] Transcribed By: Self Edit Transcribed Date: 07/19/2024 [...] since the prior study performed 07/20/2023. Code 71656 -------- FINAL REPORT -------- Dictated By: Brenden Morocho Dictated Date: 07/19/2024 09:34 ET Assigned Physician: Brenden Morocho Reviewed and Electronically Signed By: Brenden Morocho Signed Date: 07/19/2024 09:35 ET Workstation ID: [id number] Transcribed By: Self Edit Transcribed Date: 07/19/2024 09:34 ET Anup Montenegro MD IMG XR PROCEDURES Edited Result - Final * ECG 12 lead (07/19/2024 9:04 AM EST) Ventricular Rate ECG 74 BPM GEMUSE Atrial Rate 74 BPM GEMUSE P-R Interval 164 ms GEMUSE QRS Duration 80 ms GEMUSE Q-T Interval 386 ms GEMUSE QTc 428 ms GEMUSE P Wave [place] 20 degrees GEMUSE R [place] -97 degrees GEMUSE T [place] 29 degrees GEMUSE ECG Interpretation Normal sinus [...] LAB CHEMISTRY METHOD 07/19/2024 9:17 AM EST [facility] Blood Venous blood specimen / Unknown Venipuncture / Unknown 07/19/2024 8:12 AM EST 07/19/2024 8:28 AM EST Anup Montenegro MD LAB BLOOD ORDERABLES Suyapa l Result Performing Organization Address City/[facility]/ZIP Co de Phone Number [facility] [address] [place] [address], [place] [phone] * Free thyroxine with reflex to free triiodothyronine (07/19/2024 8:12 AM EST) [facility] Free T4 0.78 0.70 - 1.80 ng/dL LAB CHEMISTRY METHOD 07/19/2024 9:44 AM [facility] Blood Venous blood specimen / Unknown Venipuncture / Unknown 07/19/2024 8:12 AM EST 07/19/2024 8:28 AM EST Anup Montenegro MD LAB BLOOD ORDERABLES Suyapa l Result Performing Organization Address [facility]/ZIP Co de Phone Number [facility] [address] [place] [address], [place] [phone] * (ABNORMAL) Lipid panel with reflex to direct LDL (07/19/2024 8:12 AM EST) [facility] Cholesterol 282(H) 0 - 200 mg/dL LAB CHEMISTRY METHOD 07/19/2024 9:11 AM [facility] Triglycerides 102 0 - 150 mg/dL LAB CHEMISTRY METHOD 07/19/2024 9:11 AM [facility] HDL 109 >=40 mg/dL LAB CHEMISTRY METHOD 07/19/2024 9:11 AM [facility] LDL Calculated 153(H) 0 - 100 mg/dL LAB CHEMISTRY METHOD 07/19/2024 9:11 AM [facility] VLDL Cholesterol Ruddy 20.4 mg/dL LAB CHEMISTRY METHOD 07/19/2024 9:11 AM [facility] Non HDL Chol. (LDL+VLDL) 173(H) <145 mg/dL LAB CHEMISTRY METHOD 07/19/2024 9:11 AM EST [facility] Chol/HDL Ratio 2.6 0.0 - 4.4 LAB CHEMISTRY METHOD 07/19/2024 9:11 AM EST [facility] Blood Venous blood specimen / Unknown Venipuncture / Unknown 07/19/2024 8:12 AM EST 07/19/2024 8:28 AM EST Anup Montenegro MD LAB BLOOD ORDERABLES Suyapa l Result [facility] [address] [place] [address], [place] [phone] * Insulin antibody (07/19/2024 8:12 AM EST) [facility] Insulin Antibody <0.4 0.0 - 0.4 U/mL 07/23/2024 11:51 PM EST [facility] Comment: INTERPRETIVE INFORMATION: Insulin Antibody A [...] the context of clinical symptoms. Performed By: [facility] [address] [place] [id number] Banana Carrier: Krishan Villagomez MD, PhD CLIA Number: [id number] Blood Venous blood specimen / Unknown Venipuncture / Unknown 07/19/2024 8:12 AM EST 07/19/2024 8:28 AM EST Anup Montenegro MD LAB BLOOD ORDERABLES Suyapa l Result [facility] [address] [place] [address] * Zinc (07/19/2024 8:12 AM EST) Zinc 86 60 - 130 ug/dL 07/23/2024 12:57 PM EST [facility] Comment: Elevated results may be due to sample collected in a non-certified trace element-free tube. This test was developed and the performance characteristics determined by [facility]. It has not been cleared or approved by the FDA. The laboratory is regulated under CLIA as qualified to perform high-complexity testing. This test is used for patient testing purposes. It should not be regarded as investigational or for research. Test performed at [facility], [address] [place], [place] ??[address] ? [phone] Shwetha Donahue MD, PhD - Change Of Address Clerk Blood Venous blood specimen / Unknown Venipuncture / Unknown 07/19/2024 8:12 AM EST 07/19/2024 8:28 AM EST Anup Montenegro MD LAB BLOOD ORDERABLES Suyapa l Result Performing Organization Address City/State/[facility] Co de Phone Number [facility] [address] [place] [address] * Vitamin A (07/19/2024 8:12 AM EST) Vitamin A 56 38 - 106 ug/dL 07/25/2024 6:21 AM EST [facility] Comment: This test was developed and the performance characteristics determined by [facility]. It has not been cleared or approved by the FDA. The laboratory is regulated under CLIA as qualified to perform high-complexity testing. This test is used for patient testing purposes. It should not be regarded as investigational or for research. Test performed at [facility], [address] [place], [place] ??[address] ? [phone] Shwetha Donahue MD, PhD - Change Of Address Clerk Blood Venous blood specimen / Unknown Venipuncture / Unknown 07/19/2024 8:12 AM EST 07/19/2024 8:29 AM EST Anup Montneegro MD LAB BLOOD ORDERABLES Suyapa l Result [facility] [address] [place] [address] * (ABNORMAL) Vitamin D 25 hydroxy (07/19/2024 8:12 AM EST) Vit D, 25-Hydroxy 24.6(L) 30.0 - 80.0 ng/mL LAB CHEMISTRY METHOD 07/19/2024 9:17 AM EST [facility] Blood Venous blood specimen / Unknown Venipuncture / Unknown 07/19/2024 8:12 AM EST 07/19/2024 8:28 AM EST Anup Montenegro MD LAB BLOOD ORDERABLES Suyapa l Result Performing Organization Address City/[facility]/ZIP Co de Phone Number [facility] [address] [place] [address], * (ABNORMAL) Complete blood count (07/19/2024 8:12 AM EST) [facility] WBC 4.6(L) 4.8 - 10.8 K/mcL LAB HEMETOLOGY METHOD 07/19/2024 8:43 AM [facility] RBC 4.80 3.80 - 4.80 M/mcL LAB HEMETOLOGY METHOD 07/19/2024 8:43 AM [facility] Hemoglobin 15.0 11.5 - 16.0 g/dL LAB HEMETOLOGY METHOD 07/19/2024 8:43 AM [facility] Hematocrit 43.7 35.0 - 47.0 % LAB HEMETOLOGY METHOD 07/19/2024 8:43 AM [facility] MCV 90.7 79.0 - 98.0 FL LAB HEMETOLOGY METHOD 07/19/2024 8:43 AM [facility] MCH 31.1 27.0 - 32.0 pcg LAB HEMETOLOGY METHOD 07/19/2024 8:43 AM EST [facility] MCHC 34.3 32.0 - 37.0 g/dL LAB HEMETOLOGY METHOD 07/19/2024 8:43 AM EST [facility] RDW 12.9 11.0 - 15.0 % LAB HEMETOLOGY METHOD 07/19/2024 8:43 AM [facility] Platelets 301 130 - 400 K/mcL LAB HEMETOLOGY METHOD 07/19/2024 8:43 AM EST [facility] MPV 10.9 7.0 - 11.0 FL LAB HEMETOLOGY METHOD 07/19/2024 8:43 AM EST [facility] NRBC 0.0 <1.0 % LAB HEMETOLOGY METHOD 07/19/2024 8:43 AM [facility] NRBC Absolute 0.00 <0.10 K/mcL LAB HEMETOLOGY METHOD 07/19/2024 8:43 AM EST [facility] Blood Venous blood specimen / Unknown Venipuncture / Unknown 07/19/2024 8:12 AM EST 07/19/2024 8:28 AM EST us Anup Montenegro MD LAB BLOOD ORDERABLES Suyapa l Result [facility] [address] [place] [address], * (ABNORMAL) C-reactive protein (07/19/2024 8:12 AM EST) C-Reactive Protein 0.79(H) <=0.50 mg/dL LAB CHEMISTRY METHOD 07/19/2024 9:10 AM EST [facility] Blood Venous blood specimen / Unknown Venipuncture / Unknown 07/19/2024 8:12 AM EST 07/19/2024 8:28 AM EST Anup Montenegro MD LAB BLOOD ORDERABLES Suyapa l Result [facility] [address] [place] [address], [place] [phone] * Triiodothyronine free (07/19/2024 8:12 AM EST) T3, Free 270 230 - 420 pcg/dL LAB CHEMISTRY METHOD 07/19/2024 10:10 AM EST [facility] Blood Venous blood specimen / Unknown Venipuncture / Unknown 07/19/2024 8:12 AM EST 07/19/2024 8:28 AM EST Anup Montenegro MD LAB BLOOD ORDERABLES Suyapa l Result Performing Organization Address [facility] Co de Phone Number [facility] [address] [place] [address], [place] [phone] * Vitamin B1 (07/19/2024 8:12 AM EST) [facility] Vitamin B1 Whole Blood 101 38 - 122 ug/L 07/24/2024 5:27 AM EST [facility] Comment: This test was developed and the performance characteristics determined by [facility]. It has not been cleared or approved by the FDA. The laboratory is regulated under CLIA as qualified to perform high-complexity testing. This test is used for patient testing purposes. It should not be regarded as investigational or for research. Test performed at [facility], [address] [place], [place] ??[address] ? [phone] Shwetha Donahue MD, PhD - Change Of Address Clerk Blood Venous blood specimen / Unknown Venipuncture / Unknown 07/19/2024 8:12 AM EST 07/19/2024 8:28 AM EST Anup Montenegro MD LAB BLOOD ORDERABLES Suyapa l Result [facility] [address] [place] [address] * Iron (07/19/2024 8:12 AM EST) Iron 146 40 - 150 mcg/dL LAB CHEMISTRY METHOD 07/19/2024 9:10 AM EST [facility] Blood Venous blood specimen / Unknown Venipuncture / Unknown 07/19/2024 8:12 AM EST 07/19/2024 8:28 AM EST Anup Montenegro MD LAB BLOOD ORDERABLES Suyapa l Result [facility] [address] [place] [address], [place] [phone] * Hemoglobin A1c (07/19/2024 8:12 AM EST) [facility] Hemoglobin A1C 5.5 <6.5 % LAB CHEMISTRY METHOD 07/19/2024 12:00 PM EST [facility] Mean Bld Glu Estim. 111 mg/dL LAB CHEMISTRY METHOD 07/19/2024 12:00 PM EST [facility] Blood Venous blood specimen / Unknown Venipuncture / Unknown 07/19/2024 8:12 AM EST 07/19/2024 8:28 AM EST Anup Montenegro MD LAB BLOOD ORDERABLES Suyapa l Result [facility] [address] [place] [address], [place] [phone] * (ABNORMAL) Folate (07/19/2024 8:12 AM EST) [facility] Folate >20.0(H) 2.8 - 17.0 ng/ml LAB CHEMISTRY METHOD 07/19/2024 9:32 AM EST [facility] Blood Venous blood specimen / Unknown Venipuncture / Unknown 07/19/2024 8:12 AM EST 07/19/2024 8:28 AM EST us Anup Montenegro MD LAB BLOOD ORDERABLES Suyapa l Result Performing Organization Address [facility]/ZIP Co de Phone Number [facility] [address] [place] [address], [place] [phone] * Ferritin (07/19/2024 8:12 AM EST) [facility] Ferritin 108 8 - 252 ng/mL LAB CHEMISTRY METHOD 07/19/2024 9:32 AM EST [facility] Blood Venous blood specimen / Unknown Venipuncture / Unknown 07/19/2024 8:12 AM EST 07/19/2024 8:28 AM EST us Anup Montenegro MD LAB BLOOD ORDERABLES Suyapa l Result Performing Organization Address [facility] de Phone Number [facility] [address] [place] [address], [place] [phone] * Vitamin B12 (07/19/2024 8:12 AM EST) [facility] Vitamin B-12 723 250 - 900 pcg/mL LAB CHEMISTRY METHOD 07/19/2024 9:32 AM EST [facility] Blood Venous blood specimen / Unknown Venipuncture / Unknown 07/19/2024 8:12 AM EST 07/19/2024 8:28 AM EST us Anup Montenegro MD LAB BLOOD ORDERABLES Suyapa l Result Performing Organization Address [facility]/ZIP Co de Phone Number [facility] [address] [place] [address], [place] [phone] * Comprehensive metabolic panel (07/19/2024 8:12 AM EST) [facility] Sodium 138 133 - 145 mmol/L LAB CHEMISTRY METHOD 07/19/2024 9:10 AM [facility] Potassium 3.9 3.5 - 5.5 mmol/L LAB CHEMISTRY METHOD 07/19/2024 9:10 AM [facility] Chloride 105 96 - 110 mmol/L LAB CHEMISTRY METHOD 07/19/2024 9:10 AM [facility] CO2 27 21 - 32 mmol/L LAB CHEMISTRY METHOD 07/19/2024 9:10 AM [facility] Anion Gap 6 3 - 11 LAB CHEMISTRY METHOD 07/19/2024 9:10 AM [facility] Glucose 93 70 - 100 mg/dL LAB CHEMISTRY METHOD 07/19/2024 9:10 AM [facility] BUN 7 5 - 25 mg/dL LAB CHEMISTRY METHOD 07/19/2024 9:10 AM [facility] Creatinine 0.92 0.50 - 1.10 mg/dL LAB CHEMISTRY METHOD 07/19/2024 9:10 AM [facility] eGFR 76 >=60 mL/min/1. 73m2 LAB CHEMISTRY METHOD 07/19/2024 9:10 AM [facility] Comment:Calculation based on the??Chronic Kidney Disease Epidemiology Collaboration (CKD-EPI) equation refit??without adjustment for race. BUN/Creatinine Ratio 7.6 LAB CHEMISTRY METHOD 07/19/2024 9:10 AM [facility] Calcium 9.4 8.5 - 10.5 mg/dL LAB CHEMISTRY METHOD 07/19/2024 9:10 AM [facility] AST (SGOT) 26 10 - 42 unit/L LAB CHEMISTRY METHOD 07/19/2024 9:10 AM [facility] ALT (SGPT) 47 10 - 60 unit/L LAB CHEMISTRY METHOD 07/19/2024 9:10 AM [facility] Alkaline Phosphatase 80 42 - 121 unit/L LAB CHEMISTRY METHOD 07/19/2024 9:10 AM [facility] Total Protein 7.5 6.0 - 8.0 g/dL LAB CHEMISTRY METHOD 07/19/2024 9:10 AM EST [facility] Albumin 4.2 3.2 - 5.0 g/dL LAB CHEMISTRY METHOD 07/19/2024 9:10 AM EST [facility] Total Bilirubin 0.7 0.0 - 1.4 mg/dL LAB CHEMISTRY METHOD 07/19/2024 9:10 AM EST [facility] Blood Venous blood specimen / Unknown Venipuncture / Unknown 07/19/2024 8:12 AM EST 07/19/2024 8:28 AM EST us Anup Montenegro MD LAB BLOOD ORDERABLES Suyapa jin Result [facility] [address] [place] [address], * VANNA SCREENING DIGITAL (04/11/2024 1:36 PM EDT) Anatomical Region Laterality Modality Mammography 04/11/2024 9:56 AM EDT Narrative 04/11/2024 1:36 PM EDT [facility] Diagnostic Imaging Department [address] [place] [address] Patient: ??RENNY SAMPSON ?/Age/Sex: 1970 - - F Unit#: ??[id number] ? Location/Status: ??SPDIMAM/REG CLI ? Mnemonic/Ordering Site: ??DIGSC/SPMAM Ordering Physician: ??CHRISTINE COTO MD Vanna Screening Digital - 04/11/24 - 1025 Report Status:Signed EXAM: Vanna Screening Digital EXAM DATE AND TIME: 04/11/2024 10:26 AM HISTORY: ??Screening. Paternal cousin had breast carcinoma. COMPARISON: ??09/22/22, 05/04/21, 05/02/20, 09/08/18, 07/22/17 TECHNIQUE: Bilateral digital breast tomosynthesis was performed in the CC and MLO projections. Computer aided detection with Sentillion 3D 3.1 was employed. TISSUE DENSITY: b. [...] Mammogram performed at [facility] [place] [address] Dictating Physician: ??RAYNA ALANIS MD Electronically Signed by: ??RAYNA ALANIS MD Dic Date/Time: ??04/11/24 1331 Sign date/Time: ??04/11/24 1336 Procedure Note Rayna Alanis MD - 04/14/2024 [facility] Diagnostic Imaging Department [address] [place] [id number] Patient: SHADIJustinoRENNY VOGEL./Age/Sex: 1970 - 53 - F Unit#: [id number] Location/Status: SPDIMAM/REG CLI Mnemonic/Ordering Site: [facility] Ordering Physician: CHRISTINE COTO MD Vanna Screening Digital - 04/11/24 - 1025 Report Status:Signed EXAM: [facility] Screening Digital EXAM DATE AND TIME: 04/11/2024 10:26 AM HISTORY: Screening. Paternal cousin had breast carcinoma. COMPARISON: 09/22/22, 05/04/21, 05/02/20, 09/08/18, 07/22/17 TECHNIQUE: Bilateral digital breast tomosynthesis was performed in the CCand MLO projections. Computer aided detection with iCAD IPICO 3D 3.1was employed. TISSUE DENSITY: b. There [...] Mammogram performed at [facility] at [address] [address] Dictating Physician: RAYNA ALANIS MD Electronically Signed by: RAYNA ALANIS MD Dic Date/Time: 04/11/24 1331 Sign date/Time: 04/11/24 1336 us Christine Coto MD IMG BI PROCEDURES Final Result from Last 3 Months or Most Recently Relevant to Health Maintenance Insurance [facility] Care Teams Assisted Living Executive Director Relationship Specialty Start Date End Date Christine Coto MD [address] [place] [id number] PCP - General Internal Medicine 08/02/24
--- OUTSIDE RECORDS SUMMARY | 2024-08-24 13:49 | XMS_ITS ---
Author Organization [facility] Address [address] [place] [address] Care Team Providers Care Record Searcher Name Role Phone YUNG DAMICO Unavailable [phone] MEDICATIONS Medication SIG (Take, Route, Frequency, Duration) Notes Start Date End Date Status Levothyroxine Sodium 88 MCG 1 tablet in the morning on an empty stomach Orally Once a day for 30 days 07/25/2024 Active Encounters Encounter Location Date Provider Diagnosis [facility] 119 [address] [facility] [address] [place] [address] 07/20/2024 YUNG DAMICO Acquired hypothyroid ism E03.9 [...] Provider Name:YUNG DAMICO, 11/30/2024 08:15:00 AM, 299 [facility], [facility] [address], [place], [address], Progress Notes * Kanika STATONDOB: 3 (53 yo F)Acc No.[id number]:07/20/2024 Patient:??Kanika STATON :1970?Age:53 Y?Sex:Fe male Address:[address] [place], [place] [address]ris[place] [address] * Refills?? Start Levothyroxine Sodium Tablet, 88 [...]
--- OUTSIDE RECORDS SUMMARY | 2024-08-24 13:50 | XMS_ITS ---
Author Organization [facility] Address [address] [place] [address] Care Team Providers Care Materials Management Supervisor Name Role Phone YUNG DAMICO Unavailable [phone] REASON FOR VISIT flu like snptoms Encounters Encounter Location Date Provider Diagnosis [facility] [address] [place] [address] 06/09/2024 YUNG DAMICO PLAN OF TREATMENT Next Appt Details Provider Name:YUNG DAMICO, 11/30/2024 08:15:00 AM, 299 [facility], [facility], [place], [address], Progress Notes * Kanika SAMPSONDOB: 3 (53 yo F)Acc No.[id number]:06/09/2024 Progress Notes Patient:??Kanika SAMPSON Provider:??YUNG DAMICO NP :1970?Age:53 Y?Sex:Fe male Date:06/09/2024 Address:[id number] Subjective: * Chief Complaints: * ?1. Flu like snptoms. * Medical History:?? Objective: Assessment: Plan: * Treatment: Care Plan: * Problems:?? * Images: Billing Information: * Visit Code:?? * Procedure Codes:?? Care Plan Details* * Sign off status: Pending * Provider:??YUNG DAMICO NP Date:??05/14
--- OUTSIDE RECORDS SUMMARY | 2024-08-24 13:50 | XMS_ITS | Encounter Summary ---
Author Organization [employer] Address [address] [place] [address] Care Team Providers Care Therapy Aide Name Role Phone Lina Coto MD Primary Care Provider [phone] Reason for Visit * Imaging (Routine) - Closed Specialty Diagnoses / Procedures Referred By Tenzin krishna Referred To Contact Cardiology Diagnoses Abnormal electrocardiogram Procedures Stress echocardiogram (TTE) exercise with PRN contrast, bubble, strain, and 3D order panel AL ECHOCARDIOGRAPHY TRANSTHORACIC 2D REST & STRESS W INTERPRETATION/REPORT AL ECHOCARDIOGRAPHY TRANSTHORACIC 2D REST & STRESS W/M-MODE AL DOPPLER ECHO COMPLETE AL ECHOCARDIOGRAPHY DOPPLER COLOR FLOW MAPPING AL CV TMST/BIKE MAX/SUBMAX CONTINUOUS ECG MON/PHARM STRESS SUPVSR ONLY AL TEST STRESS CARDIOVASCULAR TRACING ONLY AL CV STRESS TEST/BIKE CONT ECG MON/PHARM STRESS INTERP & REPORT ONLY Anup Montenegro MD [address] [place] [address] [address] [place] [address] Phone: tel: fax: [facility] Referral ID Status Reason Start Date Expiration Date Visits Re quested Visits Authorized [id number] Closed 07/31/2024 07/31/2025 1 1 Encounter Details Date Type Department Care Team (Latest Contact Info) Description 08/08/2024 2:30 PM EST Ancillary Procedure [facility] [address] [place] [address] Abnormal electrocardiogram Social History Tobacco [...] AM EDT Appointment [facility] at [address] [address] documented as of this encounter Procedures Procedure Name Priority Date/Time Associated Diagnosis Comments STRESS ECHOCARDIOGRAM EXERCISE WITH CONTRAST Routine 08/08/2024 3:37 PM EST Abnormal electrocardiogram documented in this encounter Results * STRESS ECHOCARDIOGRAM EXERCISE WITH CONTRAST (08/08/2024 [...] Right ventricle systolic function is normal post-stress. Anup Montenegro MD CV ECHO PROCEDURES Final [...] mL documented in this encounter Care Teams Therapy Aide Relationship Specialty Start Date End Date Lina Coto MD [address] [place] [address] PCP - General Internal Medicine 08/02/24 documented as of this encounter
--- OUTSIDE RECORDS SUMMARY | 2024-08-24 13:50 | XMS_ITS | Encounter Summary ---
Author Organization [employer] Address [address] [place] [address] Care Team Providers Care Professor Of Special Education Name Role Phone Lina Coto MD Primary Care Provider [phone] Reason for Visit * Imaging (Routine) - Closed Specialty Diagnoses / Procedures Referred By Tenzin krishna Referred To Contact Cardiology Diagnoses Abnormal electrocardiogram Procedures Transthoracic echocardiogram (TTE) complete with PRN contrast, bubble, strain, and 3D order panel NC TTE W 2D IMAGE COMPLETE W DOPPLER ECHO & COLOR FLOW DOPPLER ECHO NC CHELO 2D COMPLETE W/CONTRAST OR W & WO CONTRAST WITH DOPPLER Anup Montenegro MD [address] [place] [address] [address] [place] [address] Phone: tel: fax: [facility] Referral ID Status Reason Start Date Expiration Date Visits Re quested Visits Authorized [id number] Closed 07/31/2024 07/31/2025 1 1 Encounter Details Date Type Department Care Team (Latest Contact Info) Description 08/14/2024 3:30 PM EST Ancillary Procedure [facility] [address] [place] [address] Abnormal electrocardiogram Social History Tobacco Use Types [...] AM EDT Appointment [facility] at [address] [address] documented as of this encounter Procedures Procedure Name Priority Date/Time Associated Diagnosis Comments TRANSTHORACIC ECHOCARDIOGRAM (TTE) COMPLETE W/ CONTRAST Routine 08/14/2024 4:10 PM EST Abnormal electrocardiogram documented in this encounter Results * TRANSTHORACIC ECHOCARDIOGRAM (TTE) COMPLETE W/ CONTRAST (08/14/2024 4:10 PM EST) Left Atrium Minor [place] 5.3 cm CV PACS Left Atrium Major [place] 5.4 cm CV PACS LA Area Sys [...] Volume 63 mL CV PACS MV Deceleration [place] 3.9 m/s2 CV PACS E Wave Deceleration [...] 08/14/2024 documented in this encounter Care Teams Professor Of Special Education Relationship Specialty Start Date End Date Lina Coto MD [address] [place] [address] PCP - General Internal Medicine 08/02/24 documented as of this encounter
--- OUTSIDE RECORDS SUMMARY | 2024-08-24 13:50 | XMS_ITS ---
Author Organization [facility] Address [address] [place] [address] Care Team Providers Care Managing Manager Name Role Phone MOOKIE YUNG Unavailable [phone] ALLERGIES No Known Allergies REASON FOR VISIT Pt here for CPE, pt has no concerns. MEDICATIONS Medication SIG (Take, Route, Frequency, Duration) Notes Start Date End Date Status Levothyroxine Sodium 88 MCG 1 tablet in the morning on an empty stomach Orally Once a day for 30 days 07/25/2024 Active Crandon Thyroid 90 MG 1 tablet on an [...] 08/02/2024 Encounters Encounter Location Date Provider Diagnosis [facility] [address] [facility] [address] [facility] 119 [place] [address] 08/02/2024 YUNG DAMICO Obesity (BMI 30.0-34 .9) [...] software and direct typing Please excuse inadvertent green chain marker or typing errors, or uncorrected word substitutions Although every attempt has been made by the provider to proofread this document, occasional misspellings and typographical errors may still be present Due to the previous pandemic, and the use of personal protective equipment (PPE) This may decrease voice recognition accuracy Inadvertent green chain marker errors may occur 08/02/2024 Annual physical exam [...] software and direct typing Please excuse inadvertent green chain marker or typing errors, or uncorrected word substitutions Although every attempt has been made by the provider to proofread this document, occasional misspellings and typographical errors may still be present Due to the previous pandemic, and the use of personal protective equipment (PPE) This may decrease voice recognition accuracy Inadvertent green chain marker errors may occur 08/02/2024 Dietary counseling and [...] software and direct typing Please excuse inadvertent green chain marker or typing errors, or uncorrected word substitutions Although every attempt has been made by the provider to proofread this document, occasional misspellings and typographical errors may still be present Due to the previous pandemic, and the use of personal protective equipment (PPE) This may decrease voice recognition accuracy Inadvertent green chain marker errors may occur 08/02/2024 Acquired hypothyroidism (ICD-10 [...] software and direct typing Please excuse inadvertent green chain marker or typing errors, or uncorrected word substitutions Although every attempt has been made by the provider to proofread this document, occasional misspellings and typographical errors may still be present Due to the previous pandemic, and the use of personal protective equipment (PPE) This may decrease voice recognition accuracy Inadvertent green chain marker errors may occur 08/02/2024 Pure hypercholesterolem ia, [...] software and direct typing Please excuse inadvertent green chain marker or typing errors, or uncorrected word substitutions Although every attempt has been made by the provider to proofread this document, occasional misspellings and typographical errors may still be present Due to the previous pandemic, and the use of personal protective equipment (PPE) This may decrease voice recognition accuracy Inadvertent green chain marker errors may occur 08/02/2024 Vitamin B 12 [...] software and direct typing Please excuse inadvertent green chain marker or typing errors, or uncorrected word substitutions Although every attempt has been made by the provider to proofread this document, occasional misspellings and typographical errors may still be present Due to the previous pandemic, and the use of personal protective equipment (PPE) This may decrease voice recognition accuracy Inadvertent green chain marker errors may occur PLAN OF TREATMENT Medication Medication Name Sig Start Date Stop Date Notes Crandon Thyroid 90 MG 1 tablet on an [...] Details Provider Name:YUNG DAMICO, 11/30/2024 08:15:00 AM, [address] [place] [address], [address], Progress Notes * Kanika SAMPSONDOB: 3 (53 yo F)Acc No.[id number]:08/02/2024 CPE Patient:??Kanika SAMPSON Provider:??YUNG DAMICO NP :1970?Age:53 Y?Sex:Fe male Date:08/02/2024 Address:[address] [place], [place] [id number] Subjective: * Chief Complaints: * ?1. Pt here for CPE, pt has no concerns.. * HPI: ?Constitutional:? Patient is here today for annual CPE ?Full past medical history, social history, family history, ?allergies and current medications were reviewed and updated. ?Acute Concerns/Problem List: ?08/02/2024 ?Patient recently had bariatric consultation with Dr. Chavira in [place] ?Plan is for sleeve gastrectomy in the near future ?She had comprehensive labs which are reviewed below ?She recently was taken off of Crandon Thyroid and transition to levothyroxine due to [...] Orally Once a day , Discontinued Nystatin 296284 UNIT/ML Suspension 4 mL Mouth/Throat Four times a day , Discontinued Escitalopram Oxalate 10 MG Tablet 1 tablet Orally Once a day , Discontinued Crandon Thyroid 90 MG Tablet 1 tablet on [...] software and direct typing Please excuse inadvertent green chain marker or typing errors, or uncorrected word substitutions Although every attempt has been made by the provider to proofread this document, occasional misspellings and typographical errors may still be present Due to the previous pandemic, and the use of personal protective equipment (PPE) This may decrease voice recognition accuracy Inadvertent green chain marker errors may occur. Plan: * Treatment: 2.??Acquired hypothyroidism? ? Refill LORazepam Tablet, 0.5 MG, 1 tablet at bedtime as needed, Orally, Once a day, 90 days, 90 Tablet, Refills 1.?LAB: TOTAL T4 ?LAB: TSH * Images: Billing Information: * Visit Code:?? 74682 Preventive Care Est Pt. Age 40-64. * [...] had bariatric consultation with Dr. Chavira in [place] Plan is for sleeve gastrectomy in the near future She had comprehensive labs which are reviewed below She recently was taken off of Crandon Thyroid and transition to levothyroxine due to [...] General Examination GENERAL APPEARANCE: in no ac [place] distress, well developed, well nourished HEAD: normocephalic, [...]
[2024-09-04 14:12] VITALS: BMI 30.8
--- NOTE | 2024-09-18 09:46 | HO.ANESPROP2 ---
Documented by User: Emily Conner NP 09/18/24 09:56 HPI - Anesthesia Eval Consult details Narrative: 53yo F for Gastrectomy Sleeve - EGD, possible diaphragmatic hernia, possible ventral hernia, possible open PMFSH Active Problems Active Problems: All Active Problems Vitamin A deficiency (Acute) Abnormal EKG (Acute) BMI 34.0-34.9,adult (Acute) Hypothyroidism (Acute) Hyperlipidemia (Acute) Hypertension (Acute) Insomnia (Acute) Obesity (Acute) Past Medical History Medical History Hypothyroidism Hyperlipidemia Hypertension Insomnia Obesity Family History Family History Mother Cancer of kidney Hyperthyroidism Father Diabetes Surgical History Surgical History History of esophagogastroduodenoscopy (EGD) (07/25/24) Hx of cone biopsy of cervix (~1992) Hx of cosmetic surgery History of wisdom tooth extraction, class I edentulism Social History Social History Household Members: None Housing: House Are you a primary health care facilities inspector to a significant other at home: No Do you presently have visiting nurse or other home services: No Alcohol intake: current Alcohol intake frequency: holidays/special occasions only Patient Tobacco Use Status: Never used Tobacco Use of substances other than those prescribed or required for medical reasons: No Have you been hit, kicked, punched, or otherwise hurt by someone within the past year? 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 Allergy/AdvReac Type Severity Reaction Status Date / Time No Known Allergies Allergy Unknown U Verified 09/13/24 08:15 Home Medications ?Medication ?Instructions ?Recorded ?Confirmed ?Last Taken ?Type lorazepam 0.5 mg tablet 0.5 mg PO DAILY PRN Anxiety 06/28/24 09/07/24 Unknown History levothyroxine 88 mcg tablet 88 mcg PO DAILY 09/04/24 09/19/24 09/18/24 History vitamin B complex 1 cap PO DAILY 09/04/24 09/07/24 09/18/24 History Exam Height,Weight and Vital Signs: Height 5 ft 5 in Weight 83.915 kg Pertinent Lab Results Pertinent Lab Results: Laboratory Tests 09/13/24 07:49 Blood Type O Positive Antibody Screen NEGATIVE Laboratory Tests 09/13/24 08:07 WBC 6.0 Hgb 15.9 Hct 43.1 Plt Count 293 Sodium 141 Potassium 4.0 Chloride 105 Carbon Dioxide 25 BUN 10 Creatinine 0.70 Narrative Narrative: EKG 07/2024 NSR @ 74 Right superior axis deviation Low voltage QRS Poor R wave progression Exercise Stress ECHO 07/2024 Stress ECG negative for ischemia Post ECHO LV cavity size decreased from baseline, LV sys function improved from baseline, RV sys function is nml post-stress ECHO 08/2024 LV cavity size is nml. Wall thickness is nml. Sys function is nml with EF 60-65%. No regional WMA. No diastolic dysfunction LA cavity size nml RV cavity appears nml. Sys function is nml RA cavity is nml Trace mitral regurg Assessment and Plan Assessment Anesthesia Assessment: Chart Reviewed Documented by User: Blossom Khoury MD 09/19/24 08:01 [facility] Past Medical History Medical History Hypothyroidism Hyperlipidemia Hypertension Insomnia Obesity Family History Family History Mother Cancer of kidney Hyperthyroidism Father Diabetes Surgical History Surgical History History of esophagogastroduodenoscopy (EGD) (07/25/24) Hx of cone biopsy of cervix (~1992) Hx of cosmetic surgery History of wisdom tooth extraction, class I edentulism History of Problems with Anesthesia: No Social History Social History Household Members: None Housing: House Are you a primary health care facilities inspector to a significant other at home: No Do you presently have visiting nurse or other home services: No Alcohol intake: current Alcohol intake frequency: holidays/special occasions only Patient Tobacco Use Status: Never used Tobacco Use of substances other than those prescribed or required for medical reasons: No Have you been hit, kicked, punched, or otherwise hurt by someone within the past year? 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 Allergy/AdvReac Type Severity Reaction Status Date / Time No Known Allergies Allergy Unknown U Verified 09/13/24 08:15 Home Medications ?Medication ?Instructions ?Recorded ?Confirmed ?Last Taken ?Type lorazepam 0.5 mg tablet 0.5 mg PO DAILY PRN Anxiety 06/28/24 09/07/24 Unknown History levothyroxine 88 mcg tablet 88 mcg PO DAILY 09/04/24 09/19/24 09/18/24 History vitamin B complex 1 cap PO DAILY 09/04/24 09/07/24 09/18/24 History Exam Airway Mallampati Class: III TM Dist: >3cm Neck ROM: Full Loose/Missing/Broken Teeth: No Heart: RRR Lungs: CTA Assessment and Plan Assessment Anesthesia Assessment: Anesthesia Plan Discussed Final Anesthetic Review History of Problems with Anesthesia: No NPO: Yes ASA Class: II Final Preanesthetic Review: Meds/Allgs Chart Reviewed, Consent Obtained/Reviewed and Anes Risks/Benef Reviewed Patient Risk: Low Procedure Risk: Intermediate Anesthetic Plan Anesthetic Plan: GA Disposition: Standard PACU
[2024-09-19] VITALS (13 sets, daily range): BP systolic 117–177; BP diastolic 69–95; PULSE 72–88; RESP 16–20; TEMP 36.1–37; O2SAT 95–100; BMI 29.1
[2024-09-19] MEDS: Aprepitant 32 MG/4.4 ML VIAL IVPUSH (06:58)
[2024-09-19] MEDS: Lactated Ringers 1,000 ML 999 ML IV (06:58)
--- NOTE | 2024-09-19 07:21 | MHC.SHP ---
Pre-Procedural Eval Section A - 24 Hr Update-Section A only Date of Service: 09/19/24 The patient is an INPATIENT: No The patient has been examined within 24 hours of the surgical procedure. The History & Physical has been completed within 30 days and I have reviewed it.: Yes Section B - Complete if H&P > 30 days Chief Complaint: Obesity, unspecified Relevant Family History (Specify if Yes): No Relevant Social History: None Present Medications: None Medical History: No relevant PMH History of Previous Operations: No relevant previous surgery Allergies: Allergies Allergy/AdvReac Type Severity Reaction Status Date / Time No Known Allergies Allergy Unknown U Verified 09/13/24 08:15 Review of Systems Sugical H&P ROS: Negative: Constitution, Cardiovascular, Respiratory, Neurological, Psychiatric, Hem-Onc, Allergic/Immunologic, Gastrointestinal, Genitourinary, Musculoskeletal, Integumentary, Endocrine and Eyes/Ears/Nose/Throat Exam Surgical H&P Exam: Normal: HEENT, Normal: Heart, Normal: Lungs, Normal: Extremities, Normal: Abdomen, Normal: Skin and Normal: Neurological Plan Diagnosis/Plan: Unchanged I have reviewed the history and physical and performed a pertinent physical examination on my patient. No changes have occurred unless specified. Time Spent With Patient Time: Total time managing care of this patient today ____ minutes.
--- NOTE | 2024-09-19 09:44 | PM.OP ---
Brief Operative Note Date of Service: 09/19/24 Pre-op diagnosis: Severe obesity with comorbidities (see below) Post-op diagnosis: same Procedure: INITIAL PATIENT BMI ON PRESENTATION AT OUR OFFICE: 34 kg/m2 LAST BMI BEFORE SURGERY: 30 kg/m2 COMORBIDITIES: hypertension, hypothyroidism, hyperlipidemia, GERD, liver steatosis, insomnia ?The patient presented to the Weight Management Program with significant obesity that was negatively impacting the patient's comorbidities as listed above.? The program is a phased program with a special focus on preoperative medical weight management to promote substantial weight loss and prepare the patients for the second phase of the program: bariatric surgery. The patient participated in an intensive weekly lifestyle ?intervention and exercise program during which the patient ?has lost between the initial office visit and the last preoperative visit 25.4lbs, or 12.4% of initial actual body weight. It was deemed appropriate for the patient to now have bariatric surgery. In light of the current Covid-19 pandemic and the well documented strong association of obesity and increased risk of worse outcomes if infected with Covid-19 (REFERENCES:https://pubmed.ncbi.nlm.nih.gov/32067426/,?https://pubmed.ncbi.nlm.nih.gov/08198764/), any delay in undergoing bariatric surgery may lead to the patient's worsening health condition and increased?risk of more severe Covid-19 disease if infected. In addition a recent?study from [facility] published in [employer] on 06/08/2021 ([email or web address]) found that, among patients with obesity, substantial weight loss achieved with surgery was associated with improved outcomes of COVID-19 infection. The findings suggest that obesity can be a modifiable risk factor for the severity of COVID-19 infection. In addition, the patient met the BMI-criteria for bariatric surgery based on the BMI on initial presentation. The patient should not be penalized for achieving such weight loss because ?it is not sustainable long-term without surgical intervention and it was achieved in preparation for bariatric surgery ?under my direction and based on my published research ([email or web address]).[email or web address] and?https://www.soard.org/article/P1448-0305(77)30008-X/pdf) ?that a 10% preoperative weight loss improves long-term weight loss after surgery and reduces perioperative complications.? Insurance carriers such as [facility] have endorsed my recommendations ?and have included in their policies criteria to include a 10% preoperative weight loss requirement. PROCEDURE: Esophago-gastroscopy, laparoscopic sleeve gastrectomy and laparoscopic gastropexy INDICATIONS: This is a 53 year-old female who was electively scheduled for laparoscopic, possibly open sleeve gastrectomy. The risks and complications of the procedure were discussed with the patient in advance, particularly the possibility of ; pulmonary embolism; staple line leak; bleeding; GERD; cardiac, pulmonary, or renal complications; as well as long-term problems such as insufficient weight loss, vitamin deficiency, strictures, or ulcers. The patient understood all the risks, and was in agreement to proceed with surgery. DESCRIPTION OF PROCEDURE: After informed consent was obtained from the patient, the patient was given preoperative antibiotics, and was transferred to the operating room. After successful induction of general anesthesia, pneumatic compression devices were placed on both lower extremities. An upper endoscopy was performed next. The oropharynx and esophagus appeared to be within normal limits. There was no diaphragmatic hernia present. The stomach was entered. Then after all fluid and air were suctioned and the stomach was fully decompressed, the scope was withdrawn and secured in the mid esophagus. The patient was then prepped and draped in the usual sterile manner, and abdominal access was established at the right upper quadrant with the Anne-Marie technique. A 12 mm blunt port was inserted, and the abdomen was insufflated with CO2 to a pressure of 15 mmHg. Under direct visualization, additional ports were placed, specifically two 5 mm Versi-step ports to the left upper quadrant, and a 5 mm Versi-Step port to the right upper quadrant. 1% lidocaine plain was used to infiltrate all port sites as well as all fascia defects. Following that, the patient was placed in a steep reverse Trendelenburg position. An additional 5 mm port was placed to the right flank for the Mediflex retractor that was used to retract the left lobe of the liver. The gastro-esophageal fat pad was opened with the ultrasonic device (Themersonerbeat, Olympus) and the anterior esophagus and hiatus were exposed. The angle of His was opened with the ultrasonic device the fundus of the stomach from any diaphragmatic and splenic attachments. I then opened the gastrocolic ligament between the transverse colon and the greater curvature of the stomach with the ultrasonic device to enter the lesser sac and facilitate the ligation of the short gastric vessels. I started at a mid-point along the greater curvature and using the Thunderbeat, all short gastric vessels were divided all the way to the angle of His until the left shavon was completely dissected at its entirety. I then divided the gastro-colic ligament distally to a distance of about 3-4 cm proximal to the pylorus. The stomach was then divided transversely with three Endo KIMBERLY-45 purple and three KIMBERLY-60 articulating purple loads using the [employer] stapler and loads. Every effort was made that the gastric sleeve had a tubular shape and an even caliber throughout. Once the sleeve resection was completed, the staple line of the gastric sleeve was reinforced with Hemoclips. The resected stomach was retrieved without difficulty from the Anne-Marie port. A gastropexy was then performed in order to prevent postoperative GERD and partial gastric volvulus. Several interrupted 2.0 Surgidac sutures were placed between the sleeve's staple line and the previously divided greater omentum and gastro-colic ligament using the Endo-Stitch device. ?An upper endoscopy was performed. There was no narrowing at the GE junction. The scope was easily advanced all the way to the pylorus which was clearly visualized. There was no narrowing anywhere and the sleeve's caliber was even throughout. The sleeve's staple line was inspected and there was no evidence of ischemia, bleeding or dehiscence. At that point the gastroscope was withdrawn from the patient?s mouth while we were decompressing the bowel and the stomach from any remaining air. I looked into the lesser sac to see how the sleeve was situating and it was situating well. There was no bleeding from the staple line, spleen, or short gastric vessels. The Mediflex retractor was removed, and the undersurface of the liver was inspected and there was no bleeding. The patient was placed in supine position. I closed the fascial defect of the 12 mm port site with a figure of eight #1 Polysorb suture. Then 30cc Ropivacaine plain with 10 mg of Dexamethasone were used to infiltrate the fascial closure as well as all skin incisions. At this point, the abdomen was deflated, all ports were removed under direct vision, and no bleeding was noted from any of the port sites. The skin incisions were irrigated with saline and were closed with 4-0 absorbable monofilament sutures. Steri-Strips and OpSites were used to cover all incisions. The patient was extubated and was transferred in stable condition to the recovery room for further care. I was present and performed all felton parts of the procedure. Ms. Lyles was the esl instructional assistant. There were no residents to assist with this case. Lew Montenegro MD, PhD, FACS Surgeon: Anup Montenegro MD Anesthesia: GETA, local and other (TAP block) Was an Armhole Feller Handstitching Machine used for this Procedure?: Yes Armhole Feller Handstitching Machine: Colette Lyles Estimated blood loss (mL): 10 IV fluids (mL): 2,000 Urine output (mL): 0 (No Barrett to record output) Pathology: other (1) Stomach, 2) Gastro-esophageal fat pad) Condition: stable Disposition: PACU
--- NOTE | 2024-09-19 09:48 | P.PNGS_ITS ---
Subjective Subjective Date of Service: 09/20/24 Interval history: Feels well. Mild incisional pain. She is tolerating phase 1 bariatric diet Physical Exam 2 Vital Signs: Vital Signs: Last Vital Signs Temp 98.3 F 09/19/24 06:45 Pulse 88 09/19/24 06:45 Resp 16 09/19/24 06:45 BP 117/77 09/19/24 06:45 Pulse Ox 99 09/19/24 06:45 O2 Del Method Room Air 09/19/24 06:45 BMI result Body Mass Index 29.1 GI: Inspection: Yes normal to inspection, Yes incision (clean, dry and intact) and Yes obesity Palpation (GI): Soft to palpation Extrem: Right lower extremity: normal to inspection (no calf tenderness) L eft lower extremity: normal to inspection (no calf tenderness) Objective Data Active Medications Albuterol/Ipratropium (Albuterol/Iprat 2.5/0.5mg 3 Ml Ampul.Neb) 3 ml INHALE ONCE PRN PRN Reason: Bronchospasm/wheezing Stop: 09/19/24 14:02 Fentanyl (Fentanyl Citrate/Pf 100 Mcg/2 Ml Vial) 25 mcg IVPUSH Q5M PRN PRN Reason: Pain, Moderate to Severe (Pain Scale 4-10) Stop: 09/19/24 14:02 Hydromorphone HCl (Hydromorphone Hcl 0.5 Mg/0.5 Ml Syringe) 0.25 mg IVPUSH Q5M PRN PRN Reason: Pain, Moderate to Severe (Pain Scale 4-10) Stop: 09/19/24 14:02 Lactated Ringer's (Lr) 1,000 mls @ 100 mls/hr IVCONT .Q10H NOAH Naloxone HCl (Naloxone Hcl 0.4 Mg/Ml Vial) 0.04 mg IVPUSH Q5M PRN PRN Reason: Excessive sedation or RR < 8 Ondansetron HCl (Ondansetron Hcl 4 Mg/2 Ml Vial) 4 mg IVPUSH ONCE PRN PRN Reason: Nausea and Vomiting Stop: 09/19/24 14:02 Oxycodone HCl (Oxycodone Hcl Immed Release 5 Mg Tablet) 5 mg PO ONCE PRN PRN Reason: Pain, Moderate(Pain Scale 4-6) if no IV Access Stop: 09/19/24 14:02 Labs 09/20/24 05:32 09/20/24 05:32 Procedures Date of Service Date of Service: 09/20/24 Progress Note: A&P Assessment and plan (1) Obesity: Status: Acute Assessment and Plan: s/p laparoscopic sleeve gastrectomy, lysis of adhesions, diaphragmatic hernia repair and gastropexy Doing well Will check am labs and if OK the patient will be discharged home (2) BMI 30.0-30.9,adult: Status: Acute (3) Hypertension: Status: Acute (4) Hyperlipidemia: Status: Acute (5) Hypothyroidism: Status: Acute (6) GERD (gastroesophageal reflux disease): Status: Acute (7) Steatosis, liver: Status: Acute (8) Insomnia: Status: Acute Time Spent With Patient Time: Total time managing care of this patient today ____ minutes. Quality Stroke Does the patient have a stroke diagnosis?: No VTE Prior VTE?: No VTE Risk Level:: Medical - moderate - high VTE Device Contraindication: N/A - Device Ordered VTE Drug Contraindication: Treatment Not Indicated
--- NOTE | 2024-09-19 10:07 | P.DS_ITS ---
DS: Providers Provider Date of Service: 09/20/24 Date of discharge: 09/20/24 Primary care physician: Darian Rhodes NP DS: Diagnosis Discharge Diagnosis (1) Obesity: Status: Acute (2) BMI 30.0-30.9,adult: Status: Acute (3) Hypertension: Status: Acute (4) Hyperlipidemia: Status: Acute (5) Hypothyroidism: Status: Acute (6) GERD (gastroesophageal reflux disease): Status: Acute (7) Steatosis, liver: Status: Acute (8) Insomnia: Status: Acute DS: Summary Hospital Course Hospital Course: ADMITTING DIAGNOSIS: obesity,?GERD, hypothyroidism, HTN, hyperlipidemia, insomnia, liver steatosis ? DISCHARGE DIAGNOSIS: same, s/p laparoscopic sleeve gastrectomy and gastropexy ? PAST SURGICAL HISTORY:? Hx of cone biopsy of cervix Hx of cosmetic surgery History of wisdom tooth extraction, class I edentulism ? PROCEDURE: upper endoscopy, laparoscopic sleeve gastrectomy and gastropexy ? DISCHARGE SUMMARY: ? History of Present Illness: ? The patient is a?53?year-old woman with a BMI of?34 kg/m2 and associated co- morbidities as described above. The patient had extensive work-up, lost?29.1 lbs preoperatively and was electively scheduled for laparoscopic, possible open sleeve gastrectomy and gastropexy. Risks and complications of the surgery were discussed with the patient in advance, particularly the possibility of , pulmonary embolism, anastomotic leak, bleeding, bowel injury, GERD, cardiac, renal or pulmonary complications. The patient understood all the risks and was in agreement with the surgical plan. ? Hospital Course: ? The patient underwent an uneventful laparoscopic sleeve gastrectomy with gastropexy on the day of admission. Postoperatively, the patient was transferred to the surgical floor. The patient received IV Acetaminophen and IV dilaudid for pain control. Patient was started on bariatric phase 1 diet POD #0. On postoperative day one, the patient was feeling well without nausea, vomiting, fevers, or tachycardia. The patient had some mild incisional pain and the abdomen was soft.? ? On the morning of postoperative day one, the patient was continued on 1 ounce of water or ice every half hour. During the day, the patient did fairly well, having some incisional pain, but able to ambulate adequately and to tolerate liquids well. ? Since the patient is doing well, we decided that the patient was ready to be discharged. The patient was given instructions to follow-up with me next week and to call my office for any fever over 101, persistent abdominal pain, nausea, vomiting, GERD, symptoms of DVT such as calf tenderness, or leg swelling, or pulmonary embolism such as chest pain or shortness of breath.? The patient was also instructed to drink 40-60 ounces of liquids per day using the 1-ounce cups. The patient had been given prescriptions for Tylenol for pain, Zofran prn for nausea, and pantoprazole and carafate previously. The patient was encouraged to ambulate and use the incentive spirometer. The patient was allowed to shower, but no baths, and encouraged to stay active at home. All of these instructions were given to the patient personally. All questions were answered and the patient understood all instructions, the instructions were also given to the patient in print. Time Attestation Total time managing care of this patient today: 30 mintues. Discharge Coordination Time (in mins): 30 Quality: Safe Use of Opioids Does Pt have an Active Cancer Diagnosis on the Problem List?: No Quality: Stroke Does the patient have a stroke diagnosis?: No Physical Exam Vital Signs: Vital Signs: Last Vital Signs Temp 97.3 F 09/19/24 09:52 Pulse 82 09/19/24 10:02 Resp 16 09/19/24 10:02 BP 176/93 H 09/19/24 10:02 Pulse Ox 98 09/19/24 10:02 O2 Del Method Nasal Cannula 09/19/24 10:02 O2 Flow Rate 2 09/19/24 10:02 BMI result Body Mass Index 29.1 DS: Data Data Completed and Pending Pending studies at discharge: Pending at discharge 09/19/24 09:12 Surgical [PTH] Routine Discharge Plan Discharge Patient Disposition: Home, Self-Care Referrals: Darian Rhodes PROCEDURE WRITER [Primary Care Provider] - 1 Week Discharge Medications: Continued levothyroxine 88 mcg Tablet 88 mcg PO DAILY pantoprazole 40 mg tablet,delayed release (DR/EC) 40 mg PO DAILY Qty: 90 0RF sucralfate 100 mg/mL suspension 10 ml PO BID Qty: 600 2RF ondansetron 4 mg tablet,disintegrating 4 mg PO Q12H Qty: 20 0RF Rx Instructions: Only take one every 12 hours as needed if you have nausea lorazepam 0.5 mg tablet 0.5 mg PO DAILY PRN (Reason: Anxiety) Discontinued cholecalciferol (vitamin D3) 125 mcg (5,000 unit) capsule 125 mcg PO DAILY Qty: 90 0RF vitamin B complex Capsule 1 cap PO DAILY Discharge Orders: Discharge Order (Routine); Ordered 09/20/24 Ordered By: Anup Montenegro Activity on Discharge: No heavy lifting Activity Restrictions/Additional Instructions: No tub baths, sex or returning to work until discussed at first post op appointment. No alcohol, tobacco or illegal drug use. Continue to use incentive spirometer hourly while awake. Walk in home for 5- 10 minutes every 2 hours during the first week. Wear abdominal binder with activity. Follow all meal plan instructions from your bariatric surgeon. Review bariatric handbook and call with any questions. Discharge Instructions 1. Please call your doctor or come back to the emergency room should any new symptoms arise. 2. Activity: abstain from alcohol,? limited stair climbing, no bending, no driving, no exercise, no illicit substances, no lifting, no sex, no tub bath, no work. 4. Diet: follow your bariatric surgeons recommendations for advancing diet. 5. Dressing Change/Wound Care: Your incisions are covered with waterproof dressings. You can shower with these and pat dry. Do not rub over dressings or incisions. If the area is tender, you may apply an ice pack for short intervals (no more than 20 minutes on, followed by at least 20 minutes off). Do not apply heat. Do not use creams, lotions, or topical antibiotics unless instructed to do so by your surgeon. 6. Call your doctor if: - Your temperature exceeds 101.5 F - You experience excessive pain or swelling - You have an unexpected reaction to medication - You have excessive bleeding - You experience continued vomiting/nausea - Your incision begins to separate - Your incision shows signs of infection such as increased redness, swelling, excessive pain, heat, or drainage (light blood or clear fluid is normal) General instructions: No lifting greater than 10 lbs for the next 6 weeks[address] within 24 hours of taking narcotic pain medications. If you do not move your bowels in the next 2 days, please take milk of magnesia over the counter. Please follow the post op diet and do not advance your diet until you are seen in the office in about 2 weeks. Please walk around your home every hour or two to prevent blood clots from forming in your legs. You do not need to wake from sleeping to walk. Please sleep in a bed or couch to prevent kinking at the hips and knees. Please take your incentive spirometer (your lung employment educational coord) home with you and use it for the next few days to prevent pneumonias. You may shower, no hot tubs, baths or swimming pools. Please call the office with any questions or concerns such as increasing abdominal pain, fever, chills, shortness of breath, chest pain, leg pain or swelling, or redness or drainage from your incisions. Please make sure you are consuming 40-60 ounces of total fluids per day. Avoid all carbonation. Do not hesitate to contact the office with any questions at . The patient's medical history has been reviewed and they are considered low risk for post op DVT and therefore DVT prophylaxis is not considered necessary. Travel after surgery was reviewed. The patient has not disclosed any travel plans during the first 30 days after surgery and they have been advised that within the first 30 days after surgery any bus, plane, train or car travel over 2 hours in duration is contraindicated due to the possibility of developing blood clots from immobility. Any travel, needs to include periods of ambulation of 10 minutes in duration every 2 hours.? The patient was instructed to discuss any plans for travel during this period with their bariatric surgeon. Print Language: [place] Discharge Date/Time: 09/20/24 08:59
[2024-09-19] MEDS: ondansetron HCL 4 MG/2 ML VIAL IVPUSH (10:18)
[2024-09-19 10:43] LABS: Hematocrit 41.8 % (37.0-47.0); Hemoglobin 14.7 g/dl (12.0-16.0)
[2024-09-19] MEDS: Haloperidol Lactate 5 MG/ML VIAL 1 MG IVPUSH (10:47)
[2024-09-19 10:55] LABS: Anion Gap 18 (12-20); Blood Urea Nitrogen 7 mg/dL (9-16); Calcium 8.7 mg/dL (8.4-10.2); Carbon Dioxide 18 mmol/L (22-29); Chloride 106 mmol/L (96-108); Creatinine Clr Calc Pharmacy 94.9; Estimated Glomerular Filt Rate > 60; Glucose Random 111 mg/dL (60-115); Potassium 3.7 mmol/L (3.3-5.1); Sodium 138 mmol/L (135-145)
--- NOTE | 2024-09-19 11:18 | PHA.MEDREC ---
Pharmacy Consult ? Medication Reconciliation Pharmacy has reviewed the medication reconciliation done by RN
[2024-09-19] MEDS: ceFAZolin Sodium/Dextrose,Iso 2 GM/50 ML PIGGYBACK IV (12:59)
[2024-09-19] MEDS: Lactated Ringers 1,000 ML 100 ML IVCONT ×2 (13:12→21:28)
[2024-09-19] MEDS: Acetaminophen 1,000 MG/100 ML PIGGYBACK 16.7 MG IV ×2 (14:40→19:50)
[2024-09-19] MEDS: 0.9 % Sodium Chloride Flush 3 ML SYRINGE IVFLUSH (19:51)
[2024-09-19] MEDS: Famotidine/PF 20 MG/2 ML VIAL IVPUSH (19:51)
[2024-09-20] MEDS: Acetaminophen 1,000 MG/100 ML PIGGYBACK 16.7 MG IV (02:00)
[2024-09-20 04:00] VITALS: BP 140/73; PULSE 70; RESP 16; TEMP 36.4; O2SAT 99
[2024-09-20 05:56] LABS: MANUAL DIFF FLAG NO
[2024-09-20 06:02] LABS: Basophils Percent Auto 0.1 % (0-2); Hematocrit 39.5 % (37.0-47.0); Hemoglobin 14.6 g/dl (12.0-16.0); Imm Gran Abs Auto 0.02 X10*3/uL (0.00-0.03); Imm Gran Pct Auto 0.2 % (0.0-0.4); Lymphocytes Absolute Auto 1.5 X10*3/uL (1.2-4.9); Lymphocytes Percent Auto 17.7 % (20-40); Mean Corpuscular Hemoglobin 31.7 pg (27.0-33.0); Mean Corpuscular Volume 85.7 fL (80.0-98.0); Mean Platelet Volume 11.6 fL (9.4-12.3); Monocytes Absolute Auto 1.2 X10*3/uL (0.1-1.2); Monocytes Percent Auto 13.8 % (2-11); Neutrophils Absolute Auto 5.7 x10*3/uL (2.0-8.3); Neutrophils Percent Auto 68.2 % (45-73); Platelet Count 254 X10*3/uL (160-400); Red Blood Count 4.61 X10*6/uL (4.20-5.50); Red Cell Distribution Width 14.1 % (11.0-16.0); White Blood Count 8.3 X10*3/uL (4.8-10.8)
[2024-09-20 06:11] LABS: Anion Gap 15 (12-20); Blood Urea Nitrogen 5 mg/dL (9-16); Calcium 8.8 mg/dL (8.4-10.2); Carbon Dioxide 19 mmol/L (22-29); Chloride 107 mmol/L (96-108); Estimated Glomerular Filt Rate > 60; Glucose Random 114 mg/dL (60-115); Potassium 4.4 mmol/L (3.3-5.1); Sodium 137 mmol/L (135-145)
[2024-09-20 07:10] VITALS: BP 156/67; PULSE 71; RESP 16; TEMP 36.4; O2SAT 100
[2024-09-20] MEDS: Famotidine/PF 20 MG/2 ML VIAL IVPUSH (07:18)
--- NOTE | 2024-09-20 09:01 | MHC.CM.PN ---
Patient discharged prior to being seen by case management.
--- NOTE | 2024-09-20 09:10 | HO.POSTANES ---
Post Anesthesia Evaluation Post Anesthesia Evaluation Date of Service: 09/20/24 Vital Signs: Vital Signs Temp Pulse Resp BP Pulse Ox O2 Del Method 09/20/24 07:10 97.6 F 71 16 156/67 H 100 Room Air 09/20/24 04:00 97.6 F 70 16 140/73 H 99 Room Air 09/19/24 23:21 97.4 F 73 16 133/73 98 Room Air Anesthesia: General Mental Status: Awake Pain Control: Satisfactory Nausea/Vomiting: None Hydration: Adequate Anesthesia-Related Issues: No Anes. Related Issues
== END 2024-09-20 08:59 | disposition home or self-care (01) ==
LOC: HO.SSS 10:04 → HO.S3 10:17
PROVIDERS: Physician Assistant Surgical; PCP Nurse Practitioner Acute Care; Visit Provider Surgery
PROC: (CPT 43845; principal; 2024-09-19 07:30)
DX: E66.09 Other obesity due to excess calories (principal); Z68.30 Body mass index [BMI] 30.0-30.9, adult; I10 Essential (primary) hypertension; E03.9 Hypothyroidism, unspecified; E78.5 Hyperlipidemia, unspecified; K21.9 Gastro-esophageal reflux disease without esophagitis; K76.0 Fatty (change of) liver, not elsewhere classified; G47.00 Insomnia, unspecified; Z79.899 Other long term (current) drug therapy; Z98.890 Other specified postprocedural states
CPT/HCPCS: 43775; 43659; 36415; 80048; 85014; 85018; 85025; 86850; 86900; 86901; 88304; 88305; 88307; 88342; A4649; C9145; J0131; J0690; J1100; J1171; J1630; J1920; J2003; J2250; J2405; J2704; J2795; J3010; J7120

== ENCOUNTER → 2024-09-19 05:47 | Outpatient (BNV) | payer OTHER, SELFPAY | PROVIDERS: PCP Nurse Practitioner Acute Care; Visit Provider Surgery | DX: E66.811 Obesity, class 1 (principal); Z68.30 Body mass index [BMI] 30.0-30.9, adult | CPT/HCPCS: 43659; 43775; 99024; 99499 ==

== ENCOUNTER → 2024-09-26 10:19 | Outpatient (AMB) | payer OTHER, SELFPAY ==
--- NOTE | 2024-09-26 10:00 | MHC.WMTHER ---
Intake Intake Visit Reasons: TV PO LSG 09/19/24 Allergies No Known Allergies Allergy (Unknown, Verified 09/13/24 08:15) U PFSH Medical History Hypothyroidism Hyperlipidemia Hypertension Insomnia Obesity Surgical History History of esophagogastroduodenoscopy (EGD) (07/25/24) Hx of cone biopsy of cervix (~1992) Hx of cosmetic surgery History of wisdom tooth extraction, class I edentulism Family History Mother Cancer of kidney Hyperthyroidism Father Diabetes Social History Household Members: None Housing: House Are you a primary care assistant to a significant other at home: No Do you presently have visiting nurse or other home services: No 75 years or older and lives alone: No Alcohol intake: current Alcohol intake frequency: holidays/special occasions only Patient Tobacco Use Status: Never used Tobacco service: Yes 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 She reports doing well with pain management and overall recovery. At this stage, she denies experiencing hunger but notes a desire to change shake flavors or incorporate something different into her diet. The patient is currently off work until 10/04/2024 but expressed interest in extending her leave by an additional week. She denies symptoms of depression or anxiety and reports having a strong support system in place. Objective The patient presented for a behavioral health post-operative follow-up via telehealth as part of the Surgical Weight Loss Program, designed to provide ongoing support throughout her recovery. PHQ-9 was administered; no concerns were identified. Discussed current functioning, recovery routine, and emotional well-being. Reviewed post-operative goals and strategies to maintain motivation and engagement. Emphasized adherence to the dietary and exercise plan outlined by the Weight Management Program (WMP) provider. Encouraged the patient to communicate any concerns or challenges proactively. Assessment/Response Mental status: Within normal limits Risk: No risk concerns reported or identified Food/Weight/Diet Expectations of change PT started the program at 204 Lbs Day of surgery 09/19: 175Lbs Post-op weight 09/26: 170Lbs PT's target weight: 140-145 lbs. . Meal plans: 3 shakes and Propel water throughout the day. Exercise: Not cleared yet. Questionnaires PHQ-9 Over the last 2 weeks, how often have you been bothered by any of the following problems? 1. Little interest or pleasure in doing things: not at all 2. Feeling down, depressed, or hopeless: not at all 3. Trouble falling or staying asleep, or sleeping too much: not at all 4. Feeling tired or having little energy: several days 5. Poor appetite or overeating: not at all 6. Feeling bad about yourself - or that you are a failure or have let yourself or your family down: not at all 7. Trouble concentrating on things, such as reading the newspaper or watching television: not at all 8. Moving or speaking so slowly that other people could have noticed. Or the opposite - being so fidgety or restless that you have been moving around a lot more than usual: not at all 9. Thoughts that you would be better off or of hurting yourself in some way: not at all Total score: 1 Depression Screening Interpretation: Negative Depression Screening Done: Yes 59144 - PHQ-9 Billing: Yes Source: Developed by Drs. Ian Thorne, Samantha Ochoa, Misha Abdi and colleagues, with an educational kennedy from [email or web address]. Assessment & Plan Assessment & Plan (1) Complex posttraumatic stress disorder: Code(s): F43.10 - Post-traumatic stress disorder, unspecified Plan Advised the patient to contact the program nurse or speak with Colette regarding her request to extend medical leave. Patient will continue outpatient mental health services with her current therapist on a monthly basis and declined further follow-up with this provider at this time. Recommended joining the program's Facebook support group. Encouraged attendance at the upcoming in-person peer support group on 10/11 at 6:00 PM. Telehealth Telehealth [facility]health [facility] Location of provider rendering services: other Location of patient: address on file Patient Identification confirmed using: Name, : Yes Telehealth method: voice only Patient verbally consented to treatment: Yes Patient verbally consented to billing insurance company: Yes Patient informed of any privacy concerns related to visit: Yes Minutes spent on Phone/Video with Pt.: 25 Coding Level of Care Code Established Pt Tele Psytx 30 mins (87000) Patient Type Established Diagnoses Complex posttraumatic stress disorder F43.10 Additional Codes PHQ-9 - 76702 - PHQ-9 Billing: Yes ([id number]) Time Spent (min) 25
--- OUTSIDE RECORDS SUMMARY | 2024-09-26 11:59 | XMS_ITS | Clinical Summary ---
Author Organization [facility] Address [address] [place] [address] Phone Care Team Providers Care Senior Electrical Designer Name Role Phone Christine oCto MD Primary Care Provider [phone] Encounters Date Type Department Care Team Description 08/14/2024 3:30 PM EST Ancillary Procedure [facility] [address] [address] Abnormal electrocardiogram 08/08/2024 2:30 PM EST Ancillary Procedure [facility] - [address] [address] Abnormal electrocardiogram 07/19/2024 8:46 AM EST - 07/19/2024 11:59 PM EST Hospital Encounter [facility] Non-Invasive Cardiology [address] [place] [phone] Obesity, class 1; Other obesity due to excess calories; Body mass index (BMI) 34.0-34.9, adult; Hypothyroidism, unspecified; Hyperlipidemia, unspecified; Essential (primary) hypertension Discharge Disposition: Home or Self Care 07/19/2024 8:43 AM EST - 07/19/2024 11:59 PM EST Hospital Encounter [facility] Xray [address] [place] [phone] Bariatric surgery status Discharge Disposition: Home or [...] AM EDT [facility]ointment [facility] [address] [address] Health Maintenance Due Date Last [...] Influencers of Health Screening 05/15/2022 Influenza Vaccine (Season Ended) 2025 04/06/2023 Hypertension/CHF/CAD Annual BMP Blood Test 07/19/2025 [...] age to complete this topic Meningococcal B Vaccine Aged Out No l onger eligible based on patient's age to complete [...] (08/14/2024 4:10 PM EST) Left Atrium Minor [place] 5.3 cm CV PACS Left Atrium Major [place] 5.4 cm CV PACS LA Area Sys [...] 63 mL CV PACS MV Deceleration [place] 3.9 m/s2 CV PACS E Wave Deceleration [...] post-stress. Procedure Note Jes Zamora PA / Ge Rubio MD - 08/20/2024 ? ? Stress [...] Signed Date: 07/19/2024 10:33 ET Workstation ID: [id number] Transcribed By: Self Edit Transcribed Date: 07/19/2024 10:30 ET Resident/PA/ANIMAL CAREGIVER: Sydnie David Narrative 07/19/2024 10:33 AM EST FINDINGS: Double contrast UGI performed. COMPARISON: None. HISTORY: Patient is a 53-year-old female with no significant past medical history. Preop bariatric surgery. WET POUR SUPERVISOR radiographs: Chief Commercial Officer AP radiograph of the abdomen obtained. Bowel [...] no significant past medicalhistory. Preop bariatric surgery. WET POUR SUPERVISOR radiographs: Chief Commercial Officer AP radiograph of the abdomen obtained. Bowel [...] Signed Date: 07/19/2024 10:33 ET Workstation ID: [id number] Transcribed By: Self Edit Transcribed Date: 07/19/2024 10:30 ET Resident/PA/ANIMAL CAREGIVER: Sydnie David us Anup Montenegro MD IMG [...] Signed Date: 07/19/2024 09:53 ET Workstation ID: [id number] Transcribed By: Self Edit Transcribed Date: 07/19/2024 09:53 ET Impressions 07/19/2024 9:35 AM EST Normal examination. ??No change since the prior study performed 07/20/2023. Code 73706 -------- FINAL REPORT -------- Dictated By: Brenden Morocho Dictated Date: 07/19/2024 09:34 ET Assigned Physician: Brenden Morocho Reviewed and Electronically Signed By: Brenden Morocho Signed Date: 07/19/2024 09:35 ET Workstation ID: [id number] Transcribed By: Self Edit Transcribed Date: 07/19/2024 [...] since the prior study performed 07/20/2023. Code 83089 -------- FINAL REPORT -------- Dictated By: Brenden Morocho Dictated Date: 07/19/2024 09:34 ET Assigned Physician: Brenden Morocho Reviewed and Electronically Signed By: Brenden Morocho Signed Date: 07/19/2024 09:35 ET Workstation ID: [id number] Transcribed By: Self Edit Transcribed Date: 07/19/2024 09:34 ET Anup Montenegro MD IMG XR PROCEDURES Edited Result - Final * ECG 12 lead (07/19/2024 9:04 AM EST) Ventricular Rate ECG 74 BPM GEMUSE Atrial Rate 74 BPM GEMUSE P-R Interval 164 ms GEMUSE QRS Duration 80 ms GEMUSE Q-T Interval 386 ms GEMUSE QTc 428 ms GEMUSE P Wave [place] 20 degrees GEMUSE R [place] -97 degrees GEMUSE T [place] 29 degrees GEMUSE ECG Interpretation Normal sinus [...] LAB CHEMISTRY METHOD 07/19/2024 9:17 AM EST [facility] Blood Venous blood specimen / Unknown Venipuncture / Unknown 07/19/2024 8:12 AM EST 07/19/2024 8:28 AM EST Anup Montenegro MD LAB BLOOD ORDERABLES Suyapa l Result Performing Organization Address [facility]/ZIP Co de Phone Number [facility] [address] [place] [address], [place] [phone] * Free thyroxine with reflex to free triiodothyronine (07/19/2024 8:12 AM EST) Pathologist [facility] Free T4 0.78 0.70 - 1.80 ng/dL LAB CHEMISTRY METHOD 07/19/2024 9:44 AM [facility] Blood Venous blood specimen / Unknown Venipuncture / Unknown 07/19/2024 8:12 AM EST 07/19/2024 8:28 AM EST Anup Montenegro MD LAB BLOOD ORDERABLES Suyapa l Result Performing Organization Address [facility] Co de Phone Number [facility] [address] [place] [address], [place] [phone] * (ABNORMAL) Lipid panel with reflex to direct LDL (07/19/2024 8:12 AM EST) Cholesterol 282(H) 0 - 200 mg/dL LAB CHEMISTRY METHOD 07/19/2024 9:11 AM [facility] Triglycerides 102 0 - 150 mg/dL LAB CHEMISTRY METHOD 07/19/2024 9:11 AM [facility] HDL 109 >=40 mg/dL LAB CHEMISTRY METHOD 07/19/2024 9:11 AM [facility] LDL Calculated 153(H) 0 - 100 mg/dL LAB CHEMISTRY METHOD 07/19/2024 9:11 AM [facility] VLDL Cholesterol Ruddy 20.4 mg/dL LAB CHEMISTRY METHOD 07/19/2024 9:11 AM [facility] Non HDL Chol. (LDL+VLDL) 173(H) <145 mg/dL LAB CHEMISTRY METHOD 07/19/2024 9:11 AM EST [facility] Chol/HDL Ratio 2.6 0.0 - 4.4 LAB CHEMISTRY METHOD 07/19/2024 9:11 AM EST [facility] Blood Venous blood specimen / Unknown Venipuncture / Unknown 07/19/2024 8:12 AM EST 07/19/2024 8:28 AM EST Anup Montenegro MD LAB BLOOD ORDERABLES Suyapa l Result [facility] [address] [place] [address], [place] [phone] * Insulin antibody (07/19/2024 8:12 AM EST) [...] the context of clinical symptoms. Performed By: [facility] [address] [place] [address] Energy Assistant: Krishan Villagomez MD, PhD CLIA Number: [id number] Blood Venous blood specimen / Unknown Venipuncture / Unknown 07/19/2024 8:12 AM EST 07/19/2024 8:28 AM EST Anup Montenegro MD LAB BLOOD ORDERABLES Suyapa l Result [facility] [address] [place] [address] * Zinc (07/19/2024 8:12 AM EST) Zinc 86 60 - 130 ug/dL 07/23/2024 12:57 PM EST [facility] Comment: Elevated results may be due to sample collected in a non-certified trace element-free tube. This test was developed and the performance characteristics determined by [facility]. It has not been cleared or approved by the FDA. The laboratory is regulated under CLIA as qualified to perform high-complexity testing. This test is used for patient testing purposes. It should not be regarded as investigational or for research. Test performed at [facility], [address] [place], [place] ??[address] ? [phone] Shwetha Donahue MD, PhD - Dining Room Server Blood Venous blood specimen / Unknown Venipuncture / Unknown 07/19/2024 8:12 AM EST 07/19/2024 8:28 AM EST Anup Montenegro MD LAB BLOOD ORDERABLES Suyapa l Result [facility] [address] [place] [address] * Vitamin A (07/19/2024 8:12 AM EST) Vitamin A 56 38 - 106 ug/dL 07/25/2024 6:21 AM EST [facility] Comment: This test was developed and the performance characteristics determined by [facility]. It has not been cleared or approved by the FDA. The laboratory is regulated under CLIA as qualified to perform high-complexity testing. This test is used for patient testing purposes. It should not be regarded as investigational or for research. Test performed at [facility], [address] [place], [place] ??[address] ? [phone] Shwetha Donahue MD, PhD - Dining Room Server Blood Venous blood specimen / Unknown Venipuncture / Unknown 07/19/2024 8:12 AM EST 07/19/2024 8:29 AM EST us Anup Montenegro MD LAB BLOOD ORDERABLES Suyapa l Result [facility] [address] [place] [address] * (ABNORMAL) Vitamin D 25 hydroxy (07/19/2024 8:12 AM EST) Vit D, 25-Hydroxy 24.6(L) 30.0 - 80.0 ng/mL LAB CHEMISTRY METHOD 07/19/2024 9:17 AM EST [facility] Blood Venous blood specimen / Unknown Venipuncture / Unknown 07/19/2024 8:12 AM EST 07/19/2024 8:28 AM EST Anup Montenegro MD LAB BLOOD ORDERABLES Suyapa l Result [facility] [address] [place] [address], * (ABNORMAL) Complete blood count (07/19/2024 8:12 AM EST) Pathologist [facility] WBC 4.6(L) 4.8 - 10.8 K/mcL LAB HEMETOLOGY METHOD 07/19/2024 8:43 AM [facility] RBC 4.80 3.80 - 4.80 M/mcL LAB HEMETOLOGY METHOD 07/19/2024 8:43 AM [facility] Hemoglobin 15.0 11.5 - 16.0 g/dL LAB HEMETOLOGY METHOD 07/19/2024 8:43 AM [facility] Hematocrit 43.7 35.0 - 47.0 % LAB HEMETOLOGY METHOD 07/19/2024 8:43 AM [facility] MCV 90.7 79.0 - 98.0 FL LAB HEMETOLOGY METHOD 07/19/2024 8:43 AM [facility] MCH 31.1 27.0 - 32.0 pcg LAB HEMETOLOGY METHOD 07/19/2024 8:43 AM EST [facility] MCHC 34.3 32.0 - 37.0 g/dL LAB HEMETOLOGY METHOD 07/19/2024 8:43 AM EST [facility] RDW 12.9 11.0 - 15.0 % LAB HEMETOLOGY METHOD 07/19/2024 8:43 AM EST [facility] Platelets 301 130 - 400 K/mcL LAB HEMETOLOGY METHOD 07/19/2024 8:43 AM EST [facility] MPV 10.9 7.0 - 11.0 FL LAB HEMETOLOGY METHOD 07/19/2024 8:43 AM [facility] NRBC 0.0 <1.0 % LAB HEMETOLOGY METHOD 07/19/2024 8:43 AM [facility] NRBC Absolute 0.00 <0.10 K/mcL LAB HEMETOLOGY METHOD 07/19/2024 8:43 AM [facility] Blood Venous blood specimen / Unknown Venipuncture / Unknown 07/19/2024 8:12 AM EST 07/19/2024 8:28 AM EST Anup Montenegro MD LAB BLOOD ORDERABLES Suyapa l Result [facility] [address] [place] [address], * (ABNORMAL) C-reactive protein (07/19/2024 8:12 AM EST) C-Reactive Protein 0.79(H) <=0.50 mg/dL LAB CHEMISTRY METHOD 07/19/2024 9:10 AM EST [facility] Blood Venous blood specimen / Unknown Venipuncture / Unknown 07/19/2024 8:12 AM EST 07/19/2024 8:28 AM EST Anup Montenegro MD LAB BLOOD ORDERABLES Suyapa l Result Performing Organization Address [facility]/ZIP Co de Phone Number [facility] [address] [place] [address], [place] [phone] * Triiodothyronine free (07/19/2024 8:12 AM EST) T3, Free 270 230 - 420 pcg/dL LAB CHEMISTRY METHOD 07/19/2024 10:10 AM EST [facility] Blood Venous blood specimen / Unknown Venipuncture / Unknown 07/19/2024 8:12 AM EST 07/19/2024 8:28 AM EST Anup Montenegro MD LAB BLOOD ORDERABLES Suyapa l Result Performing Organization Address [facility] de Phone Number [facility] [address] [place] [address], [place] [phone] * Vitamin B1 (07/19/2024 8:12 AM EST) [facility] Vitamin B1 Whole Blood 101 38 - 122 ug/L 07/24/2024 5:27 AM EST [facility] Comment: This test was developed and the performance characteristics determined by [facility]. It has not been cleared or approved by the FDA. The laboratory is regulated under CLIA as qualified to perform high-complexity testing. This test is used for patient testing purposes. It should not be regarded as investigational or for research. Test performed at [facility], [address] [place], [place] ??[address] ? [phone] Shwetha Donahue MD, PhD - Dining Room Server Blood Venous blood specimen / Unknown Venipuncture / Unknown 07/19/2024 8:12 AM EST 07/19/2024 8:28 AM EST Anup Montenegro MD LAB BLOOD ORDERABLES Suyapa l Result [facility] [address] [place] [address] * Iron (07/19/2024 8:12 AM EST) [facility] Iron 146 40 - 150 mcg/dL LAB CHEMISTRY METHOD 07/19/2024 9:10 AM EST [facility] Blood Venous blood specimen / Unknown Venipuncture / Unknown 07/19/2024 8:12 AM EST 07/19/2024 8:28 AM EST Anup Montenegro MD LAB BLOOD ORDERABLES Suyapa l Result Performing Organization Address [facility]/ZIP Co de Phone Number [facility] [address] [place] [address], [place] [phone] * Hemoglobin A1c (07/19/2024 8:12 AM EST) [facility] Hemoglobin A1C 5.5 <6.5 % LAB CHEMISTRY METHOD 07/19/2024 12:00 PM EST [facility] Mean Bld Glu Estim. 111 mg/dL LAB CHEMISTRY METHOD 07/19/2024 12:00 PM [facility] Blood Venous blood specimen / Unknown Venipuncture / Unknown 07/19/2024 8:12 AM EST 07/19/2024 8:28 AM EST Anup Montenegro MD LAB BLOOD ORDERABLES Suyapa l Result [facility] [address] [place] [address], [place] [phone] * (ABNORMAL) Folate (07/19/2024 8:12 AM EST) [facility] Folate >20.0(H) 2.8 - 17.0 ng/ml LAB CHEMISTRY METHOD 07/19/2024 9:32 AM EST [facility] Blood Venous blood specimen / Unknown Venipuncture / Unknown 07/19/2024 8:12 AM EST 07/19/2024 8:28 AM EST us Anup Montenegro MD LAB BLOOD ORDERABLES Suyapa l Result Performing Organization Address City/[facility]/ZIP Co de Phone Number [facility] [address] [place] [address], [place] [phone] * Ferritin (07/19/2024 8:12 AM EST) [facility] Ferritin 108 8 - 252 ng/mL LAB CHEMISTRY METHOD 07/19/2024 9:32 AM EST [facility] Blood Venous blood specimen / Unknown Venipuncture / Unknown 07/19/2024 8:12 AM EST 07/19/2024 8:28 AM EST us Anup Montenegro MD LAB BLOOD ORDERABLES Suyapa l Result Performing Organization Address [facility]/ZIP Co de Phone Number [facility] [address] [place] [address], [place] [phone] * Vitamin B12 (07/19/2024 8:12 AM EST) [facility] Vitamin B-12 723 250 - 900 pcg/mL LAB CHEMISTRY METHOD 07/19/2024 9:32 AM EST [facility] Blood Venous blood specimen / Unknown Venipuncture / Unknown 07/19/2024 8:12 AM EST 07/19/2024 8:28 AM EST us Anup Montenegro MD LAB BLOOD ORDERABLES Suyapa l Result [facility] [address] [place] [address], [place] [phone] * Comprehensive metabolic panel (07/19/2024 8:12 AM EST) Sodium 138 133 - 145 mmol/L LAB CHEMISTRY METHOD 07/19/2024 9:10 AM [facility] Potassium 3.9 3.5 - 5.5 mmol/L LAB CHEMISTRY METHOD 07/19/2024 9:10 AM [facility] Chloride 105 96 - 110 mmol/L LAB CHEMISTRY METHOD 07/19/2024 9:10 AM [facility] CO2 27 21 - 32 mmol/L LAB CHEMISTRY METHOD 07/19/2024 9:10 AM [facility] Anion Gap 6 3 - 11 LAB CHEMISTRY METHOD 07/19/2024 9:10 AM [facility] Glucose 93 70 - 100 mg/dL LAB CHEMISTRY METHOD 07/19/2024 9:10 AM [facility] BUN 7 5 - 25 mg/dL LAB CHEMISTRY METHOD 07/19/2024 9:10 AM [facility] Creatinine 0.92 0.50 - 1.10 mg/dL LAB CHEMISTRY METHOD 07/19/2024 9:10 AM [facility] eGFR 76 >=60 mL/min/1. 73m2 LAB CHEMISTRY METHOD 07/19/2024 9:10 AM [facility] Comment:Calculation based on the??Chronic Kidney Disease Epidemiology Collaboration (CKD-EPI) equation refit??without adjustment for race. BUN/Creatinine Ratio 7.6 LAB CHEMISTRY METHOD 07/19/2024 9:10 AM [facility] Calcium 9.4 8.5 - 10.5 mg/dL LAB CHEMISTRY METHOD 07/19/2024 9:10 AM [facility] AST (SGOT) 26 10 - 42 unit/L LAB CHEMISTRY METHOD 07/19/2024 9:10 AM [facility] ALT (SGPT) 47 10 - 60 unit/L LAB CHEMISTRY METHOD 07/19/2024 9:10 AM [facility] Alkaline Phosphatase 80 42 - 121 unit/L LAB CHEMISTRY METHOD 07/19/2024 9:10 AM EST [facility] Total Protein 7.5 6.0 - 8.0 g/dL LAB CHEMISTRY METHOD 07/19/2024 9:10 AM EST [facility] Albumin 4.2 3.2 - 5.0 g/dL LAB CHEMISTRY METHOD 07/19/2024 9:10 AM EST [facility] Total Bilirubin 0.7 0.0 - 1.4 mg/dL LAB CHEMISTRY METHOD 07/19/2024 9:10 AM EST [facility] Blood Venous blood specimen / Unknown Venipuncture / Unknown 07/19/2024 8:12 AM EST 07/19/2024 8:28 AM EST us Anup Montenegro MD LAB BLOOD ORDERABLES uSyapa jin Result [facility] [address] [place] [address], * VANNA SCREENING DIGITAL (04/11/2024 1:36 PM EDT) Anatomical Region Laterality Modality Mammography 04/11/2024 9:56 AM EDT Narrative 04/11/2024 1:36 PM EDT [facility] Diagnostic Imaging Department [address] [place] [address] Patient: ??RENNY SAMPSON ?/Age/Sex: 1970 - 53 - F Unit#: ??[id number] ? Location/Status: ??SPDIMAM/REG CLI ? Mnemonic/Ordering Site: ??DIGSC/SPMAM Ordering Physician: ??CHRISTINE COTO MD Vanna Screening Digital - 04/11/24 - 1025 Report Status:Signed EXAM: Vanna Screening Digital EXAM DATE AND TIME: 04/11/2024 10:26 AM HISTORY: ??Screening. Paternal cousin had breast carcinoma. COMPARISON: ??09/22/22, 05/04/21, 05/02/20, 09/08/18, 07/22/17 TECHNIQUE: Bilateral digital breast tomosynthesis was performed in the CC and MLO projections. Computer aided detection with Givey 3D 3.1 was employed. TISSUE DENSITY: b. [...] Mammogram performed at [facility] [place] [address] Dictating Physician: ??RAYNA ALANIS MD Electronically Signed by: ??RAYNA ALANIS MD Dic Date/Time: ??04/11/24 1331 Sign date/Time: ??04/11/24 1336 Procedure Note Rayna Alanis MD - 04/14/2024 [facility] Diagnostic Imaging Department [address] [place] [id number] Patient: SHADIOMAIRARENNY Salas D.O.B./Age/Sex: 1970 - 53 - F Unit#: [id number] Location/Status: [facility] CLI Mnemonic/Ordering Site: [facility] Ordering Physician: CHRISTINE COTO MD [facility] Screening Digital - 04/11/24 - 1025 Report Status:Signed EXAM: [facility] Screening Digital EXAM DATE AND TIME: 04/11/2024 10:26 AM HISTORY: Screening. Paternal cousin had breast carcinoma. COMPARISON: 09/22/22, 05/04/21, 05/02/20, 09/08/18, 07/22/17 TECHNIQUE: Bilateral digital breast tomosynthesis was performed in the CCand MLO projections. Computer aided detection with Givey 3D 3.1was employed. TISSUE DENSITY: b. There [...] Mammogram performed at [facility] at [address] [address] Dictating Physician: RAYNA ALANIS MD Electronically Signed by: RAYNA ALANIS MD Dic Date/Time: 04/11/24 1331 Sign date/Time: 04/11/24 1336 Christine Coto MD IMG BI PROCEDURES Final Result from Last 3 Months or Most Recently Relevant to Health Maintenance Insurance [facility] Care Teams Senior Electrical Designer Relationship Specialty Start Date End Date Christine Coto MD [address] [place] [id number] PCP - General Internal Medicine 08/02/24
--- OUTSIDE RECORDS SUMMARY | 2024-09-26 11:59 | XMS_ITS | Patient Health Record ---
Author Organization [facility] Address [address] [place] [address] Care Team Providers Care Respiratory Therapy Technician Name Role Phone YUNG DAMICO Unavailable [phone] ALLERGIES No Known Allergies RESULTS Component Value Reference Range Notes Vanna Screening Digital Reviewed date:04/12/2024 11:27:03 AM Interpretation: Performing Lab: Notes/Report: Original Ordering Provider: CHRISTINE DAVENPORT MD [facility] REASON FOR REFERRAL No Information MEDICATIONS Medication SIG (Take, Route, Frequency, Duration) Notes Start Date End Date Status [place] Thyroid 90 MG 1 tablet on an empt y stomach Orally Once a day for 90 days Active hydroCHLOROthiazide 12.5 MG 1 tablet in the morning Orally Once a day for 90 days Active LORazepam 0.5 MG 1 tablet at bedtime as needed Orally Once a day for 90 days Active Levothyroxine Sodium 88 MCG 1 tablet in the morning on an empty stomach Orally Once a day for 30 days 07/25/2024 Active Vitamin B Complex - as directed [...] unspecified (E55.9) Active confirmed Vitamin D deficiency (57510862) Problem Encounter for general adult medical examination without abnormal findings (Z00.00) Active confirmed Adult heal th examination (476119614) Problem Encounter for screening for diabetes mellitus (Z13.1) Active confirmed 688109828 Problem Pure hypercholesterole chasity, unspecified (E78.00) Active confirmed 632275219 Problem Hyperlipidemia, unspecified hyperlipidemia type (E78.5) Active confirmed Hyperlipidaemia (44539385) Problem Acquired hypothyroidism (E03.9) Active confirmed 233422717 Problem Obesity (BMI 30.0-34.9) (E66.9) Active confirmed [id number] Problem Pre-diabetes (R73.03) Active confirmed Prediabetes (157341927) Problem Vitamin B 12 deficiency (E53.8) Active confirmed Vitamin B12 deficiency (non anemic) (10452050) Problem BMI 33.0-33.9,adult (Z68.33) Active confirmed 014873459 Problem BMI 32.0-32.9,adult (Z68.32) Active confirmed 544724719 Problem Anemia due to vitamin B12 deficiency, unspecified B12 deficiency type (D51.9) Active confirmed 60304755 Problem BMI 34.0-34.9,adult (Z68.34) Active confirmed 792777197 VITAL SIGNS Heart Rate 75 /min 08/02/2024 Oximetry 98 % 08/02/2024 Blood pressure diastolic 82 mm Hg 08/02/2024 Height 65 in 08/02/2024 Blood pressure systolic 126 mm Hg 08/02/2024 Weight 196 lbs 08/02/2024 BMI 32.61 kg/m2 08/02/2024 Encounters Encounter Location Date Provider Diagnosis [place] [address] [address] 10/18/2023 YUNG DAMICO Acquired hypothyroid ism E03.9 ; Obesity (BMI 30.0-34.9) E66.9 ; Pure hypercholesterolemia, unspecified E78.00 ; BMI 32.0-32.9,adult Z68.32 and Vitamin B 12 deficiency E53.8 [place] [address] [address] 12/07/2023 YUNG DAMICO [facility] [address] [place] [address] 06/09/2024 YUNG DAMICO [place] [address] [address] 01/31/2024 YUNG DAMICO BMI 33.0-33.9,adult Z68.33 ; Obesity (BMI 30.0-34.9) E66.9 ; Dietary counseling and surveillance Z71.3 ; Acquired hypothyroidism E03.9 ; Pure hypercholesterolemia, unspecified E78.00 and Vitamin B 12 deficiency E53.8 [facility] [address] [address] 08/02/2024 YUNG DAMICO Obesity (BMI 30.0-34 .9) E66.9 ; Annual physical exam Z00.00 ; Dietary counseling and surveillance Z71.3 ; Acquired hypothyroidism E03.9 ; Pure hypercholesterolemia, unspecified E78.00 and Vitamin B 12 deficiency E53.[address] [facility] [address] 06/08/2024 YUNG DAMICO [place] [address] 07/20/2024 YUNG DAMICO Acquired hypothyroid ism E03.9 [facility] [address] [place] [phone] 09/24/2024 YUNG DAMICO ASSESSMENTS Encounter Date Diagnosis Assessment [...] minimum of 6 months The most recent [place] Association of clinical endocrinologists and [place] [employer] of endocrinology guidelines recommend patients who [...] track activity level. Consider using apps like [employer], Syntensiapal, lose it, stick as needed for self-monitoring and weight management. Consider group exercises. Consider hiring a regional trainer. Regular exercise is fel[place] to sustainable [...] counseling and psychiatry and Dr Gloria at [facility]. We would like to cover regular topics [...] from an Electronic Health Record CohortMethods: Obesity ([place]). 2019 Sep;27(4):591-602. doi: [email or web address].77842 Using electronic health record data 13,972 adults [...] software and direct typing Please excuse inadvertent consulting practice manager or typing errors, or uncorrected word substitutions Although every attempt has been made by the provider to proofread this document, occasional misspellings and typographical errors may still be present Due to the previous pandemic, and the use of personal protective equipment (PPE) This may decrease voice recognition accuracy Inadvertent consulting practice manager errors may occur 01/31/2024 BMI 33.0-33.9,adult [...] software and direct typing Please excuse inadvertent consulting practice manager or typing errors, or uncorrected word substitutions Although every attempt has been made by the provider to proofread this document, occasional misspellings and typographical errors may still be present Due to the previous pandemic, and the use of personal protective equipment (PPE) This may decrease voice recognition accuracy Inadvertent consulting practice manager errors may occur 07/20/2024 Acquired hypothyroidism [...] software and direct typing Please excuse inadvertent consulting practice manager or typing errors, or uncorrected word substitutions Although every attempt has been made by the provider to proofread this document, occasional misspellings and typographical errors may still be present Due to the previous pandemic, and the use of personal protective equipment (PPE) This may decrease voice recognition accuracy Inadvertent consulting practice manager errors may occur 08/02/2024 Annual physical [...] software and direct typing Please excuse inadvertent consulting practice manager or typing errors, or uncorrected word substitutions Although every attempt has been made by the provider to proofread this document, occasional misspellings and typographical errors may still be present Due to the previous pandemic, and the use of personal protective equipment (PPE) This may decrease voice recognition accuracy Inadvertent consulting practice manager errors may occur 08/02/2024 Dietary counseling [...] software and direct typing Please excuse inadvertent consulting practice manager or typing errors, or uncorrected word substitutions Although every attempt has been made by the provider to proofread this document, occasional misspellings and typographical errors may still be present Due to the previous pandemic, and the use of personal protective equipment (PPE) This may decrease voice recognition accuracy Inadvertent consulting practice manager errors may occur 01/31/2024 Obesity (BMI [...] software and direct typing Please excuse inadvertent consulting practice manager or typing errors, or uncorrected word substitutions Although every attempt has been made by the provider to proofread this document, occasional misspellings and typographical errors may still be present Due to the previous pandemic, and the use of personal protective equipment (PPE) This may decrease voice recognition accuracy Inadvertent consulting practice manager errors may occur 10/18/2023 Obesity (BMI [...] minimum of 6 months The most recent [place] Association of clinical endocrinologists and [place] [employer] of endocrinology guidelines recommend patients who [...] track activity level. Consider using apps like [employer], Syntensiapal, lose it, stick as needed for self-monitoring and weight management. Consider group exercises. Consider hiring a regional trainer. Regular exercise is fel[place] to sustainable [...] counseling and psychiatry and Dr Gloria at [facility]. We would like to cover regular topics [...] from an Electronic Health Record CohortMethods: Obesity ([place]). 2019 Sep;27(4):591-602. doi: [email or web address]/marva.91932 Using electronic health record data 13,972 adults [...] software and direct typing Please excuse inadvertent consulting practice manager or typing errors, or uncorrected word substitutions Although every attempt has been made by the provider to proofread this document, occasional misspellings and typographical errors may still be present Due to the previous pandemic, and the use of personal protective equipment (PPE) This may decrease voice recognition accuracy Inadvertent consulting practice manager errors may occur 01/31/2024 Dietary counseling [...] software and direct typing Please excuse inadvertent consulting practice manager or typing errors, or uncorrected word substitutions Although every attempt has been made by the provider to proofread this document, occasional misspellings and typographical errors may still be present Due to the previous pandemic, and the use of personal protective equipment (PPE) This may decrease voice recognition accuracy Inadvertent consulting practice manager errors may occur 10/18/2023 Pure hypercholesterole [...] minimum of 6 months The most recent [place] Association of clinical endocrinologists and [place] [employer] of endocrinology guidelines recommend patients who [...] track activity level. Consider using apps like [employer], Syntensiapal, lose it, stick as needed for self-monitoring and weight management. Consider group exercises. Consider hiring a regional trainer. Regular exercise is fel[place] to sustainable [...] counseling and psychiatry and Dr Gloria at [facility]. We would like to cover regular topics [...] from an Electronic Health Record CohortMethods: Obesity ([place]). 2019 Sep;27(4):591-602. doi: [email or web address]/marva.74932 Using electronic health record data 13,972 adults [...] software and direct typing Please excuse inadvertent consulting practice manager or typing errors, or uncorrected word substitutions Although every attempt has been made by the provider to proofread this document, occasional misspellings and typographical errors may still be present Due to the previous pandemic, and the use of personal protective equipment (PPE) This may decrease voice recognition accuracy Inadvertent consulting practice manager errors may occur 01/31/2024 Acquired hypothyroidism [...] software and direct typing Please excuse inadvertent consulting practice manager or typing errors, or uncorrected word substitutions Although every attempt has been made by the provider to proofread this document, occasional misspellings and typographical errors may still be present Due to the previous pandemic, and the use of personal protective equipment (PPE) This may decrease voice recognition accuracy Inadvertent consulting practice manager errors may occur 08/02/2024 Acquired hypothyroidism [...] software and direct typing Please excuse inadvertent consulting practice manager or typing errors, or uncorrected word substitutions Although every attempt has been made by the provider to proofread this document, occasional misspellings and typographical errors may still be present Due to the previous pandemic, and the use of personal protective equipment (PPE) This may decrease voice recognition accuracy Inadvertent consulting practice manager errors may occur 10/18/2023 BMI 32.0-32.9,adult [...] minimum of 6 months The most recent [place] Association of clinical endocrinologists and [place] College of endocrinology guidelines recommend patients who [...] track activity level. Consider using apps like [employer], Syntensiapal, lose it, stick as needed for self-monitoring and weight management. Consider group exercises. Consider hiring a regional trainer. Regular exercise is felton to sustainable [...] counseling and psychiatry and Dr Gloria at [facility]. We would like to cover regular topics [...] from an Electronic Health Record CohortMethods: Obesity ([place]). 2019 Sep;27(4):591-602. doi: [email or web address]/marva.34008 Using electronic health record data 13,972 adults [...] software and direct typing Please excuse inadvertent consulting practice manager or typing errors, or uncorrected word substitutions Although every attempt has been made by the provider to proofread this document, occasional misspellings and typographical errors may still be present Due to the previous pandemic, and the use of personal protective equipment (PPE) This may decrease voice recognition accuracy Inadvertent consulting practice manager errors may occur 08/02/2024 Pure hypercholesterole [...] software and direct typing Please excuse inadvertent consulting practice manager or typing errors, or uncorrected word substitutions Although every attempt has been made by the provider to proofread this document, occasional misspellings and typographical errors may still be present Due to the previous pandemic, and the use of personal protective equipment (PPE) This may decrease voice recognition accuracy Inadvertent consulting practice manager errors may occur 01/31/2024 Pure hypercholesterole [...] software and direct typing Please excuse inadvertent consulting practice manager or typing errors, or uncorrected word substitutions Although every attempt has been made by the provider to proofread this document, occasional misspellings and typographical errors may still be present Due to the previous pandemic, and the use of personal protective equipment (PPE) This may decrease voice recognition accuracy Inadvertent consulting practice manager errors may occur 10/18/2023 Vitamin B [...] minimum of 6 months The most recent [place] Association of clinical endocrinologists and [place] College of endocrinology guidelines recommend patients who [...] track activity level. Consider using apps like [employer], [employer]ilitypal, lose it, stick as needed for self-monitoring and weight management. Consider group exercises. Consider hiring a regional trainer. Regular exercise is felton to sustainable [...] counseling and psychiatry and Dr Gloria at [facility]. We would like to cover regular topics [...] from an Electronic Health Record CohortMethods: Obesity ([place]). 2019 Sep;27(4):591-602. doi: [email or web address]/marva.53573 Using electronic health record data 13,972 adults [...] software and direct typing Please excuse inadvertent consulting practice manager or typing errors, or uncorrected word substitutions Although every attempt has been made by the provider to proofread this document, occasional misspellings and typographical errors may still be present Due to the previous pandemic, and the use of personal protective equipment (PPE) This may decrease voice recognition accuracy Inadvertent consulting practice manager errors may occur 01/31/2024 Vitamin B [...] software and direct typing Please excuse inadvertent consulting practice manager or typing errors, or uncorrected word substitutions Although every attempt has been made by the provider to proofread this document, occasional misspellings and typographical errors may still be present Due to the previous pandemic, and the use of personal protective equipment (PPE) This may decrease voice recognition accuracy Inadvertent consulting practice manager errors may occur 08/02/2024 Vitamin B [...] software and direct typing Please excuse inadvertent consulting practice manager or typing errors, or uncorrected word substitutions Although every attempt has been made by the provider to proofread this document, occasional misspellings and typographical errors may still be present Due to the previous pandemic, and the use of personal protective equipment (PPE) This may decrease voice recognition accuracy Inadvertent consulting practice manager errors may occur PLAN OF TREATMENT [...] URINALYSIS 09/16/2022 Next Appt Details Provider Name:YUNG DUVALLMaritza, 11/30/2024 08:15:00 AM, [address] [facility], [facility] [address], [place], [address], Insurance Providers Payer Name Payer Address Payer Phone Subscriber Number Group Number Insured Name Patient Relationship to Insured Coverage Start Date Coverage End Date [facility] [address] [place] [address] [id number] Kanika Staton Self - patient is the insured 3 MEDICATIONS ADMINISTERED Medication Instructions Date of Administration Dosage Notes MICC B12 INJECTION 02/03/2023 MEDICAL (GENERAL) HISTORY Medical History History ICD Code high cholesterol seasonal allergies thyroid disease depression Surgical History Surgery Date(Month/Year) wisdom teeth extraction 1989
--- OUTSIDE RECORDS SUMMARY | 2024-09-26 11:59 | XMS_ITS ---
Author Organization [facility] Address [address] [place] [address] Care Team Providers Care Cnc Machine Programmer Name Role Phone YUNG DAMICO Unavailable [phone] MEDICATIONS Medication SIG (Take, Route, Frequency, Duration) Notes Start Date End Date Status Levothyroxine Sodium 88 MCG 1 tablet in the morning on an empty stomach Orally Once a day for 30 days 07/25/2024 Active Encounters Encounter Location Date Provider Diagnosis [facility] 119 299 [facility] [address] [place] [address] 07/20/2024 YUNG DAMICO Acquired hypothyroid ism E03.9 [...] Provider Name:YUNG DAMICO, 11/30/2024 08:15:00 AM, 299 [facility], [facility] [address], [place], [address], Progress Notes * Kanika STATONDOB: 3 (53 yo F)Acc No.[id number]:07/20/2024 Patient:??Kanika STATON :1970?Age:53 Y?Sex:Fe male Address:[address] [place], [place] [address] [address] * Refills?? Start Levothyroxine Sodium Tablet, 88 [...]
--- OUTSIDE RECORDS SUMMARY | 2024-09-26 11:59 | XMS_ITS ---
Author Organization [facility] Address [address] [place] [address] Care Team Providers Care Allocation Analyst Name Role Phone NOYUNG RAI [facility] [phone] MEDICATIONS Medication SIG (Take, Route, Frequency, Duration) Notes Start Date End Date Status Levothyroxine Sodium 88 MCG 1 tablet in the morning on an empty stomach Orally Once a day for 30 days 07/25/2024 Active Encounters Encounter Location Date Provider Diagnosis [facility] [address] [place] [phone] 09/24/2024 YUNG DAMICO PLAN OF TREATMENT Medication Medication Name Sig Start Date Stop Date Notes Levothyroxine Sodium 88 MCG 1 tablet in the morning on an empty stomach Orally Once a day for 30 days 07/25/2024 Next Appt Details Provider Name:YUNG DAMICO, 11/30/2024 08:15:00 AM, [address] [place] [address], [phone], Progress Notes * Kanika SAMPSONDOB: 3 (53 yo F)Acc No.[id number]:09/24/2024 Patient:??Kanika SAMPSON :1970?Age:53 Y?Sex:Fe male Address:[place] [address] * Refills?? Refill Levothyroxine Sodium Tablet, 88 MCG, Orally, 30 Tablet, 1 tablet in the morning on an empty stomach, Once a day, 30 days, Refills=3 * true * Date:??
--- OUTSIDE RECORDS SUMMARY | 2024-09-26 12:00 | XMS_ITS ---
Author Organization [facility] Address [address] [place] [id number] Care Team Providers Care Director Women Name Role Phone MOOKIE YUNG Unavailable [phone] ALLERGIES No Known Allergies REASON FOR VISIT Pt here for CPE, pt has no concerns. MEDICATIONS Medication SIG (Take, Route, Frequency, Duration) Notes Start Date End Date Status Levothyroxine Sodium 88 MCG 1 tablet in the morning on an empty stomach Orally Once a day for 30 days 07/25/2024 Active [place] Thyroid 90 MG 1 tablet on an [...] 08/02/2024 Encounters Encounter Location Date Provider Diagnosis [facility] [place] [address] [facility] [address] [place] [address] 08/02/2024 YUNG DAMICO Obesity (BMI 30.0-34 .9) [...] software and direct typing Please excuse inadvertent screen printing equipment setter or typing errors, or uncorrected word substitutions Although every attempt has been made by the provider to proofread this document, occasional misspellings and typographical errors may still be present Due to the previous pandemic, and the use of personal protective equipment (PPE) This may decrease voice recognition accuracy Inadvertent screen printing equipment setter errors may occur 08/02/2024 Annual physical exam [...] software and direct typing Please excuse inadvertent screen printing equipment setter or typing errors, or uncorrected word substitutions Although every attempt has been made by the provider to proofread this document, occasional misspellings and typographical errors may still be present Due to the previous pandemic, and the use of personal protective equipment (PPE) This may decrease voice recognition accuracy Inadvertent screen printing equipment setter errors may occur 08/02/2024 Dietary counseling and [...] software and direct typing Please excuse inadvertent screen printing equipment setter or typing errors, or uncorrected word substitutions Although every attempt has been made by the provider to proofread this document, occasional misspellings and typographical errors may still be present Due to the previous pandemic, and the use of personal protective equipment (PPE) This may decrease voice recognition accuracy Inadvertent screen printing equipment setter errors may occur 08/02/2024 Acquired hypothyroidism (ICD-10 [...] software and direct typing Please excuse inadvertent screen printing equipment setter or typing errors, or uncorrected word substitutions Although every attempt has been made by the provider to proofread this document, occasional misspellings and typographical errors may still be present Due to the previous pandemic, and the use of personal protective equipment (PPE) This may decrease voice recognition accuracy Inadvertent screen printing equipment setter errors may occur 08/02/2024 Pure hypercholesterolem ia, [...] software and direct typing Please excuse inadvertent screen printing equipment setter or typing errors, or uncorrected word substitutions Although every attempt has been made by the provider to proofread this document, occasional misspellings and typographical errors may still be present Due to the previous pandemic, and the use of personal protective equipment (PPE) This may decrease voice recognition accuracy Inadvertent screen printing equipment setter errors may occur 08/02/2024 Vitamin B 12 [...] software and direct typing Please excuse inadvertent screen printing equipment setter or typing errors, or uncorrected word substitutions Although every attempt has been made by the provider to proofread this document, occasional misspellings and typographical errors may still be present Due to the previous pandemic, and the use of personal protective equipment (PPE) This may decrease voice recognition accuracy Inadvertent screen printing equipment setter errors may occur PLAN OF TREATMENT Medication Medication Name Sig Start Date Stop Date Notes [place] Thyroid 90 MG 1 tablet on an [...] Details Provider Name:YUNG DAMICO, 11/30/2024 08:15:00 AM, [address] [place] [address], [phone], Progress Notes * Kanika SAMPSONDOB: 3 (53 yo F)Acc No.[id number]:08/02/2024 CPE Patient:??Kanika SAMPSON Provider:??YUNG DAMICO NP :1970?Age:53 Y?Sex:Fe male Date:08/02/2024 Address:[address] [place], [place] [id number] Subjective: * Chief Complaints: * ?1. Pt here for CPE, pt has no concerns.. * HPI: ?Constitutional:? Patient is here today for annual CPE ?Full past medical history, social history, family history, ?allergies and current medications were reviewed and updated. ?Acute Concerns/Problem List: ?08/02/2024 ?Patient recently had bariatric consultation with Dr. Chavira in [place] ?Plan is for sleeve gastrectomy in the near future ?She had comprehensive labs which are reviewed below ?She recently was taken off of [place] Thyroid and transition to levothyroxine due to [...] Orally Once a day , Discontinued Nystatin 037131 UNIT/ML Suspension 4 mL Mouth/Throat Four times a day , Discontinued Escitalopram Oxalate 10 MG Tablet 1 tablet Orally Once a day , Discontinued [place] Thyroid 90 MG Tablet 1 tablet on [...] software and direct typing Please excuse inadvertent screen printing equipment setter or typing errors, or uncorrected word substitutions Although every attempt has been made by the provider to proofread this document, occasional misspellings and typographical errors may still be present Due to the previous pandemic, and the use of personal protective equipment (PPE) This may decrease voice recognition accuracy Inadvertent screen printing equipment setter errors may occur. Plan: * Treatment: 2.??Acquired hypothyroidism? ? Refill LORazepam Tablet, 0.5 MG, 1 tablet at bedtime as needed, Orally, Once a day, 90 days, 90 Tablet, Refills 1.?LAB: TOTAL T4 ?LAB: TSH * Images: Billing Information: * Visit Code:?? 95304 Preventive Care Est Pt. Age 40-64. * [...] had bariatric consultation with Dr. Chavira in [place] Plan is for sleeve gastrectomy in the near future She had comprehensive labs which are reviewed below She recently was taken off of [place] Thyroid and transition to levothyroxine due to [...] General Examination GENERAL APPEARANCE: in no ac chicken ranch distress, well developed, well nourished HEAD: normocephalic, [...]
== END ==
LOC: HO.HBST 10:19
PROVIDERS: PCP Nurse Practitioner Acute Care; Visit Provider Counselor Mental Health
DX: F43.10 Post-traumatic stress disorder, unspecified (principal)
CPT/HCPCS: 90832

== ENCOUNTER 2024-09-27 14:16 | Outpatient (AMB) | payer OTHER, SELFPAY ==
--- NOTE | 2024-09-27 14:27 | A.OFFVIS_ITS ---
VS Expanded 09/27/24 14:51 BP 121/75 Blood Pressure Location Rt brachial Blood Pressure Position Sitting Pulse 71 Pulse Source Pulse Oximeter Temp 97.9 F Temperature Source Temporal Artery Scan Pulse Oximetry 100 Oxygen Delivery Method Room Air Height 5 ft 5 in Weight 170 lb 9.6 oz BMI 28.4 Body Fat % 37.1 Body Fat Mass 63.2 Fat Free Mass 107.2 Visceral Fat Rating 8.0 Body Water % 44.6 Body Water Mass 76.0 Muscle Mass/Score 101.6 Basal Metabolic Rate/Score 1,465 Intake Visit Reasons: (OV) PO LSG 09/19/24 Allergies No Known Allergies Allergy (Unknown, Verified 09/27/24 14:45) U Medication List - Last Reconciled 09/27/24 by NASREEN Ansari levothyroxine 88 mcg PO DAILY lorazepam 0.5 mg PO DAILY PRN patythtjaanr-ykw-mgiw-FA-vit K 45 mg iron- 800 mcg-120 mcg (Bariatric Multivitam ins) caps PO nystatin 1 mL PO DAILY pantoprazole 40 mg PO DAILY sucralfate 10 mL PO BID HPI Comments Details: Pt is 8 days s/p LSG 09/19/2024. Pain is controlled. Tolerating 3 Celebrate Rebuild shakes each with 2 scoop in 10oz UAM. She also purchased Celebrate MVI. Getting 40-45oz fluids per day. Did develop oral thrush over the weekend. Has not had a BM yet but plans to try fiber and MoM if needed. [facility] Medical History (Updated 09/27/24 @ 15:19 by NASREEN Ansari) Hypothyroidism Hyperlipidemia Hypertension Insomnia Obesity Surgical History (Updated 09/27/24 @ 15:19 by NASREEN Ansari) S/P gastric sleeve procedure History of esophagogastroduodenoscopy (EGD) (07/25/24) Hx of cone biopsy of cervix (~1992) Hx of cosmetic surgery History of wisdom tooth extraction, class I edentulism Family History Mother Cancer of kidney Hyperthyroidism Father Diabetes Social History Household Members: None Housing: House Are you a primary resident care provider to a significant other at home: No Do you presently have visiting nurse or other home services: No 75 years or older and lives alone: No Alcohol intake: former Patient Tobacco Use Status: Never used Tobacco service: Yes Current occupational status: employed 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 May start exercise.? No abdominal exercises x 6 weeks. Abdominal binder for the next 2 weeks with activity or exercise. Continue meal plan per Dr Pitt until next f/u in 2 weeks. Reviewed pantoprazole and carafate dosing. Reminded of the pace of drinking 2 mL/min or 1oz per 15 min. Will be emailed link for post op video for review. Work note provided to return 10/15/2024. RTC 2-3 weeks.
[2024-09-27 14:51] VITALS: BP 121/75; PULSE 71; TEMP 36.6; O2SAT 100; BMI 28.4
--- OUTSIDE RECORDS SUMMARY | 2024-09-27 17:18 | XMS_ITS | Clinical Summary ---
Author Organization [facility] Address [address] [place] [address] Phone Care Team Providers Care Seam Stayer Name Role Phone Christine Coto MD Primary Care Provider [phone] Encounters Date Type Department Care Team Description 08/14/2024 3:30 PM EST Ancillary Procedure [facility] - [address] [address] Abnormal electrocardiogram 08/08/2024 2:30 PM EST Ancillary Procedure [facility] - [address] [address] Abnormal electrocardiogram 07/19/2024 8:46 AM EST - 07/19/2024 11:59 PM EST Hospital Encounter [facility] Non-Invasive Cardiology [address] [place] [phone] Obesity, class 1; Other obesity due to excess calories; Body mass index (BMI) 34.0-34.9, adult; Hypothyroidism, unspecified; Hyperlipidemia, unspecified; Essential (primary) hypertension Discharge Disposition: Home or Self Care 07/19/2024 8:43 AM EST - 07/19/2024 11:59 PM EST Hospital Encounter [facility] Xray [address] [place] [phone] Bariatric surgery status Discharge Disposition: Home or [...] AM EDT [facility]ointment [facility] [address] [address] Health Maintenance Due Date Last [...] (08/14/2024 4:10 PM EST) Left Atrium Minor Reno 5.3 cm CV PACS Left Atrium Major Reno 5.4 cm CV PACS LA Area Sys [...] Volume 63 mL CV PACS MV Deceleration [place] 3.9 m/s2 CV PACS E Wave Deceleration [...] Signed Date: 07/19/2024 10:33 ET Workstation ID: [id number] Transcribed By: Self Edit Transcribed Date: 07/19/2024 10:30 ET Resident/PA/RESIST COATER DEVELOPER: Sydnie David Narrative 07/19/2024 10:33 AM EST FINDINGS: Double contrast UGI performed. COMPARISON: None. HISTORY: Patient is a 53-year-old female with no significant past medical history. Preop bariatric surgery. SECURITY TECH radiographs: Integration Manager AP radiograph of the abdomen obtained. Bowel [...] no significant past medicalhistory. Preop bariatric surgery. SECURITY TECH radiographs: Integration Manager AP radiograph of the abdomen obtained. Bowel [...] Dictated Date: 07/19/2024 10:26 ET Assigned Physician: Brenedn Morocho Reviewed and Electronically Signed By: Brenden Morocho Signed Date: 07/19/2024 10:33 ET Workstation ID: [id number] Transcribed By: Self Edit Transcribed Date: 07/19/2024 10:30 ET Resident/PA/RESIST COATER DEVELOPER: Sydnie David us Anup Montenegro MD IMG [...] Signed Date: 07/19/2024 09:53 ET Workstation ID: [id number] Transcribed By: Self Edit Transcribed Date: 07/19/2024 09:53 ET Impressions 07/19/2024 9:35 AM EST Normal examination. ??No change since the prior study performed 07/20/2023. Code 25005 -------- FINAL REPORT -------- Dictated By: Brenden Morocho Dictated Date: 07/19/2024 09:34 ET Assigned Physician: Brenden Morocho Reviewed and Electronically Signed By: Brenden Morocho Signed Date: 07/19/2024 09:35 ET Workstation ID: [id number] Transcribed By: Self Edit Transcribed Date: 07/19/2024 [...] since the prior study performed 07/20/2023. Code 65399 -------- FINAL REPORT -------- Dictated By: Brenden Morocho Dictated Date: 07/19/2024 09:34 ET Assigned Physician: Brenden Morocho Reviewed and Electronically Signed By: Brenden Morocho Signed Date: 07/19/2024 09:35 ET Workstation ID: [id number] Transcribed By: Self Edit Transcribed Date: 07/19/2024 09:34 ET Anup Montenegro MD IMG XR PROCEDURES Edited Result - Final * ECG 12 lead (07/19/2024 9:04 AM EST) Ventricular Rate ECG 74 BPM GEMUSE Atrial Rate 74 BPM GEMUSE P-R Interval 164 ms GEMUSE QRS Duration 80 ms GEMUSE Q-T Interval 386 ms GEMUSE QTc 428 ms GEMUSE P Wave Reno 20 degrees GEMUSE R Reno -97 degrees GEMUSE T Reno 29 degrees GEMUSE ECG Interpretation Normal sinus [...] LAB CHEMISTRY METHOD 07/19/2024 9:17 AM EST [facility] Blood Venous blood specimen / Unknown Venipuncture / Unknown 07/19/2024 8:12 AM EST 07/19/2024 8:28 AM EST Anup Montenegro MD LAB BLOOD ORDERABLES Suyapa l Result Performing Organization Address [facility]/ZIP Co de Phone Number [facility] [address] [place] [address], [place] [phone] * Free thyroxine with reflex to free triiodothyronine (07/19/2024 8:12 AM EST) Pathologist [facility] Free T4 0.78 0.70 - 1.80 ng/dL LAB CHEMISTRY METHOD 07/19/2024 9:44 AM [facility] Blood Venous blood specimen / Unknown Venipuncture / Unknown 07/19/2024 8:12 AM EST 07/19/2024 8:28 AM EST Anup Montenegro MD LAB BLOOD ORDERABLES Suyapa l Result Performing Organization Address [facility] Co de Phone Number [facility] [address] [place] [address], [place] [phone] * (ABNORMAL) Lipid panel with reflex to direct LDL (07/19/2024 8:12 AM EST) Cholesterol 282(H) 0 - 200 mg/dL LAB CHEMISTRY METHOD 07/19/2024 9:11 AM [facility] Triglycerides 102 0 - 150 mg/dL LAB CHEMISTRY METHOD 07/19/2024 9:11 AM [facility] HDL 109 >=40 mg/dL LAB CHEMISTRY METHOD 07/19/2024 9:11 AM [facility] LDL Calculated 153(H) 0 - 100 mg/dL LAB CHEMISTRY METHOD 07/19/2024 9:11 AM [facility] VLDL Cholesterol Ruddy 20.4 mg/dL LAB CHEMISTRY METHOD 07/19/2024 9:11 AM [facility] Non HDL Chol. (LDL+VLDL) 173(H) <145 mg/dL LAB CHEMISTRY METHOD 07/19/2024 9:11 AM EST [facility] Chol/HDL Ratio 2.6 0.0 - 4.4 LAB CHEMISTRY METHOD 07/19/2024 9:11 AM EST [facility] Blood Venous blood specimen / Unknown Venipuncture / Unknown 07/19/2024 8:12 AM EST 07/19/2024 8:28 AM EST Anup Montenegro MD LAB BLOOD ORDERABLES Suyapa l Result [facility] [address] [place] [address], [place] [phone] * Insulin antibody (07/19/2024 8:12 AM EST) [...] the context of clinical symptoms. Performed By: [employer] [address] [place] [address] Books Salesperson: Krishan Villagomez MD, PhD CLIA Number: [id number] Blood Venous blood specimen / Unknown Venipuncture / Unknown 07/19/2024 8:12 AM EST 07/19/2024 8:28 AM EST Anup Montenegro MD LAB BLOOD ORDERABLES Suyapa l Result [facility] [address] [place] [address] * Zinc (07/19/2024 8:12 AM EST) Zinc 86 60 - 130 ug/dL 07/23/2024 12:57 PM EST [facility] Comment: Elevated results may be due to sample collected in a non-certified trace element-free tube. This test was developed and the performance characteristics determined by [facility]. It has not been cleared or approved by the FDA. The laboratory is regulated under CLIA as qualified to perform high-complexity testing. This test is used for patient testing purposes. It should not be regarded as investigational or for research. Test performed at [facility], [address] [place], [place] ??[address] ? [phone] Shwetha Donahue MD, PhD - Business Computers Teacher Blood Venous blood specimen / Unknown Venipuncture / Unknown 07/19/2024 8:12 AM EST 07/19/2024 8:28 AM EST Anup Montenegro MD LAB BLOOD ORDERABLES Suyapa l Result [facility] [address] [place] [address] * Vitamin A (07/19/2024 8:12 AM EST) Vitamin A 56 38 - 106 ug/dL 07/25/2024 6:21 AM EST [facility] Comment: This test was developed and the performance characteristics determined by [facility]. It has not been cleared or approved by the FDA. The laboratory is regulated under CLIA as qualified to perform high-complexity testing. This test is used for patient testing purposes. It should not be regarded as investigational or for research. Test performed at [facility], [address] [place], [place] ??[address] ? [phone] Shwetha Donahue MD, PhD - Business Computers Teacher Blood Venous blood specimen / Unknown Venipuncture / Unknown 07/19/2024 8:12 AM EST 07/19/2024 8:29 AM EST us Anup Montenegro MD LAB BLOOD ORDERABLES Suyapa l Result [facility] [address] [place] [address] * (ABNORMAL) Vitamin D 25 hydroxy (07/19/2024 8:12 AM EST) Vit D, 25-Hydroxy 24.6(L) 30.0 - 80.0 ng/mL LAB CHEMISTRY METHOD 07/19/2024 9:17 AM EST [facility] Blood Venous blood specimen / Unknown Venipuncture / Unknown 07/19/2024 8:12 AM EST 07/19/2024 8:28 AM EST Anup Montenegro MD LAB BLOOD ORDERABLES Suyapa l Result [facility] [address] [place] [address], * (ABNORMAL) Complete blood count (07/19/2024 8:12 AM EST) Pathologist [facility] WBC 4.6(L) 4.8 - 10.8 K/mcL LAB HEMETOLOGY METHOD 07/19/2024 8:43 AM [facility] RBC 4.80 3.80 - 4.80 M/mcL LAB HEMETOLOGY METHOD 07/19/2024 8:43 AM [facility] Hemoglobin 15.0 11.5 - 16.0 g/dL LAB HEMETOLOGY METHOD 07/19/2024 8:43 AM [facility] Hematocrit 43.7 35.0 - 47.0 % LAB HEMETOLOGY METHOD 07/19/2024 8:43 AM [facility] MCV 90.7 79.0 - 98.0 FL LAB HEMETOLOGY METHOD 07/19/2024 8:43 AM [facility] MCH 31.1 27.0 - 32.0 pcg LAB HEMETOLOGY METHOD 07/19/2024 8:43 AM EST [facility] MCHC 34.3 32.0 - 37.0 g/dL LAB HEMETOLOGY METHOD 07/19/2024 8:43 AM EST [facility] RDW 12.9 11.0 - 15.0 % LAB HEMETOLOGY METHOD 07/19/2024 8:43 AM EST [facility] Platelets 301 130 - 400 K/mcL LAB HEMETOLOGY METHOD 07/19/2024 8:43 AM EST [facility] MPV 10.9 7.0 - 11.0 FL LAB HEMETOLOGY METHOD 07/19/2024 8:43 AM [facility] NRBC 0.0 <1.0 % LAB HEMETOLOGY METHOD 07/19/2024 8:43 AM [facility] NRBC Absolute 0.00 <0.10 K/mcL LAB HEMETOLOGY METHOD 07/19/2024 8:43 AM [facility] Blood Venous blood specimen / Unknown Venipuncture / Unknown 07/19/2024 8:12 AM EST 07/19/2024 8:28 AM EST Anup Montenegro MD LAB BLOOD ORDERABLES Suyapa l Result [facility] [address] [place] [address], * (ABNORMAL) C-reactive protein (07/19/2024 8:12 AM EST) C-Reactive Protein 0.79(H) <=0.50 mg/dL LAB CHEMISTRY METHOD 07/19/2024 9:10 AM EST [facility] Blood Venous blood specimen / Unknown Venipuncture / Unknown 07/19/2024 8:12 AM EST 07/19/2024 8:28 AM EST Anup Montenegro MD LAB BLOOD ORDERABLES Suyapa l Result Performing Organization Address [facility]/ZIP Co de Phone Number [facility] [address] [place] [address], [place] [phone] * Triiodothyronine free (07/19/2024 8:12 AM EST) T3, Free 270 230 - 420 pcg/dL LAB CHEMISTRY METHOD 07/19/2024 10:10 AM EST [facility] Blood Venous blood specimen / Unknown Venipuncture / Unknown 07/19/2024 8:12 AM EST 07/19/2024 8:28 AM EST Anup Montenegro MD LAB BLOOD ORDERABLES Suyapa l Result Performing Organization Address [facility] de Phone Number [facility] [address] [place] [address], [place] [phone] * Vitamin B1 (07/19/2024 8:12 AM EST) [facility] Vitamin B1 Whole Blood 101 38 - 122 ug/L 07/24/2024 5:27 AM EST [facility] Comment: This test was developed and the performance characteristics determined by [facility]. It has not been cleared or approved by the FDA. The laboratory is regulated under CLIA as qualified to perform high-complexity testing. This test is used for patient testing purposes. It should not be regarded as investigational or for research. Test performed at [facility], [address] , [place], [place] ??[address] ? [phone] Shwetha Donahue MD, PhD - Business Computers Teacher Blood Venous blood specimen / Unknown Venipuncture / Unknown 07/19/2024 8:12 AM EST 07/19/2024 8:28 AM EST Anup Montenegro MD LAB BLOOD ORDERABLES Suyapa l Result [facility] [address] [place] [address] * Iron (07/19/2024 8:12 AM EST) [facility] Iron 146 40 - 150 mcg/dL LAB CHEMISTRY METHOD 07/19/2024 9:10 AM EST [facility] Blood Venous blood specimen / Unknown Venipuncture / Unknown 07/19/2024 8:12 AM EST 07/19/2024 8:28 AM EST Anup Montenegro MD LAB BLOOD ORDERABLES Suyapa l Result Performing Organization Address [facility]/ZIP Co de Phone Number [facility] [address] [place] [address], [place] [phone] * Hemoglobin A1c (07/19/2024 8:12 AM EST) [facility] Hemoglobin A1C 5.5 <6.5 % LAB CHEMISTRY METHOD 07/19/2024 12:00 PM EST [facility] Mean Bld Glu Estim. 111 mg/dL LAB CHEMISTRY METHOD 07/19/2024 12:00 PM [facility] Blood Venous blood specimen / Unknown Venipuncture / Unknown 07/19/2024 8:12 AM EST 07/19/2024 8:28 AM EST Anup Montenegro MD LAB BLOOD ORDERABLES Suyapa l Result [facility] [address] [place] [address], [place] [phone] * (ABNORMAL) Folate (07/19/2024 8:12 AM EST) [facility] Folate >20.0(H) 2.8 - 17.0 ng/ml LAB CHEMISTRY METHOD 07/19/2024 9:32 AM EST [facility] Blood Venous blood specimen / Unknown Venipuncture / Unknown 07/19/2024 8:12 AM EST 07/19/2024 8:28 AM EST us Anup Montenergo MD LAB BLOOD ORDERABLES Suyapa l Result Performing Organization Address City/[facility]/ZIP Co de Phone Number [facility] [address] [place] [address], [place] [phone] * Ferritin (07/19/2024 8:12 AM EST) [facility] Ferritin 108 8 - 252 ng/mL LAB CHEMISTRY METHOD 07/19/2024 9:32 AM EST [facility] Blood Venous blood specimen / Unknown Venipuncture / Unknown 07/19/2024 8:12 AM EST 07/19/2024 8:28 AM EST us Anup Montenegro MD LAB BLOOD ORDERABLES Suyapa l Result Performing Organization Address [facility]/ZIP Co de Phone Number [facility] [address] [place] [address], [place] [phone] * Vitamin B12 (07/19/2024 8:12 AM EST) [facility] Vitamin B-12 723 250 - 900 pcg/mL LAB CHEMISTRY METHOD 07/19/2024 9:32 AM EST [facility] Blood Venous blood specimen / Unknown Venipuncture / Unknown 07/19/2024 8:12 AM EST 07/19/2024 8:28 AM EST us Anup Montenegro MD LAB BLOOD ORDERABLES Suyapa l Result [facility] [address] [place] [address], [place] [phone] * Comprehensive metabolic panel (07/19/2024 8:12 AM EST) Sodium 138 133 - 145 mmol/L LAB CHEMISTRY METHOD 07/19/2024 9:10 AM [facility] Potassium 3.9 3.5 - 5.5 mmol/L LAB CHEMISTRY METHOD 07/19/2024 9:10 AM [facility] Chloride 105 96 - 110 mmol/L LAB CHEMISTRY METHOD 07/19/2024 9:10 AM [facility] CO2 27 21 - 32 mmol/L LAB CHEMISTRY METHOD 07/19/2024 9:10 AM [facility] Anion Gap 6 3 - 11 LAB CHEMISTRY METHOD 07/19/2024 9:10 AM [facility] Glucose 93 70 - 100 mg/dL LAB CHEMISTRY METHOD 07/19/2024 9:10 AM [facility] BUN 7 5 - 25 mg/dL LAB CHEMISTRY METHOD 07/19/2024 9:10 AM [facility] Creatinine 0.92 0.50 - 1.10 mg/dL LAB CHEMISTRY METHOD 07/19/2024 9:10 AM [facility] eGFR 76 >=60 mL/min/1. 73m2 LAB CHEMISTRY METHOD 07/19/2024 9:10 AM [facility] Comment:Calculation based on the??Chronic Kidney Disease Epidemiology Collaboration (CKD-EPI) equation refit??without adjustment for race. BUN/Creatinine Ratio 7.6 LAB CHEMISTRY METHOD 07/19/2024 9:10 AM [facility] Calcium 9.4 8.5 - 10.5 mg/dL LAB CHEMISTRY METHOD 07/19/2024 9:10 AM [facility] AST (SGOT) 26 10 - 42 unit/L LAB CHEMISTRY METHOD 07/19/2024 9:10 AM [facility] ALT (SGPT) 47 10 - 60 unit/L LAB CHEMISTRY METHOD 07/19/2024 9:10 AM [facility] Alkaline Phosphatase 80 42 - 121 unit/L LAB CHEMISTRY METHOD 07/19/2024 9:10 AM EST [facility] Total Protein 7.5 6.0 - 8.0 g/dL LAB CHEMISTRY METHOD 07/19/2024 9:10 AM EST [facility] Albumin 4.2 3.2 - 5.0 g/dL LAB CHEMISTRY METHOD 07/19/2024 9:10 AM EST [facility] Total Bilirubin 0.7 0.0 - 1.4 mg/dL LAB CHEMISTRY METHOD 07/19/2024 9:10 AM EST [facility] Blood Venous blood specimen / Unknown Venipuncture / Unknown 07/19/2024 8:12 AM EST 07/19/2024 8:28 AM EST us Anup Montenegro MD LAB BLOOD ORDERABLES Suyapa jin Result [facility] [address] [place] [address], * VANNA SCREENING DIGITAL (04/11/2024 1:36 PM EDT) Anatomical Region Laterality Modality Mammography 04/11/2024 9:56 AM EDT Narrative 04/11/2024 1:36 PM EDT [facility] Diagnostic Imaging Department [address] [place] [address] Patient: ??RENNY SAMPSON ?/Age/Sex: 1970 - 53 - F Unit#: ??[id number] ? Location/Status: ??SPDIMAM/REG CLI ? Mnemonic/Ordering Site: ??DIGSC/SPMAM Ordering Physician: ??CHRISTINE COTO MD Vanna Screening Digital - 04/11/24 - 1025 Report Status:Signed EXAM: Vanna Screening Digital EXAM DATE AND TIME: 04/11/2024 10:26 AM HISTORY: ??Screening. Paternal cousin had breast carcinoma. COMPARISON: ??09/22/22, 05/04/21, 05/02/20, 09/08/18, 07/22/17 TECHNIQUE: Bilateral digital breast tomosynthesis was performed in the CC and MLO projections. Computer aided detection with [employer] 3D 3.1 was employed. TISSUE DENSITY: b. [...] Mammogram performed at [facility] [place] [address] Dictating Physician: ??RAYNA ALANIS MD Electronically Signed by: ??RAYNA ALANIS MD Dic Date/Time: ??04/11/24 1331 Sign date/Time: ??04/11/24 1336 Procedure Note Rayna Alanis MD - 04/14/2024 [facility] Diagnostic Imaging Department [address] [place] [id number] Patient: SHADIOMAIRARENNY Salas D.O.B./Age/Sex: 1970 - 53 - F Unit#: [id number] Location/Status: [facility] CLI Mnemonic/Ordering Site: [facility] Ordering Physician: CHRISTINE COTO MD [facility] Screening Digital - 04/11/24 - 1025 Report Status:Signed EXAM: [facility] Screening Digital EXAM DATE AND TIME: 04/11/2024 10:26 AM HISTORY: Screening. Paternal cousin had breast carcinoma. COMPARISON: 09/22/22, 05/04/21, 05/02/20, 09/08/18, 07/22/17 TECHNIQUE: Bilateral digital breast tomosynthesis was performed in the CCand MLO projections. Computer aided detection with [employer] 3D 3.1was employed. TISSUE DENSITY: b. There [...] Mammogram performed at [facility] at [address] [address] Dictating Physician: RAYNA ALANIS MD Electronically Signed by: RAYNA ALANIS MD Dic Date/Time: 04/11/24 1331 Sign date/Time: 04/11/24 1336 Christine Coto MD IMG BI PROCEDURES Final Result from Last 3 Months or Most Recently Relevant to Health Maintenance Insurance [facility] Care Teams Seam Stayer Relationship Specialty Start Date End Date Christine Coto MD [address] [place] [phone] PCP - General Internal Medicine 08/02/24
--- OUTSIDE RECORDS SUMMARY | 2024-09-27 17:18 | XMS_ITS ---
Author Organization [facility] Address [address] [place] [address] Care Team Providers Care Emotionally Impaired Teacher Name Role Phone YUNG DAMICO Unavailable [phone] MEDICATIONS Medication SIG (Take, Route, Frequency, Duration) Notes Start Date End Date Status Levothyroxine Sodium 88 MCG 1 tablet in the morning on an empty stomach Orally Once a day for 30 days 07/25/2024 Active Encounters Encounter Location Date Provider Diagnosis [facility] [address] [facility] [address] [place] [address] 07/20/2024 YUNG DAMICO Acquired hypothyroid ism E03.9 [...] Provider Name:YUNG DAMICO, 11/30/2024 08:15:00 AM, [address] [facility], [facility] [address], [place], [address], Progress Notes * Kanika STATONDOB: 3 (53 yo F)Acc No.[id number]:07/20/2024 Patient:??Kanika STATON :1970?Age:53 Y?Sex:Fe male Address:[address] [place], [place] [address]ris[place] [address] * Refills?? Start Levothyroxine Sodium Tablet, 88 [...]
--- OUTSIDE RECORDS SUMMARY | 2024-09-27 17:18 | XMS_ITS | Patient Health Record ---
Author Organization [facility] Address [address] [place] [address] Care Team Providers Care Chief Vendor Quality Name Role Phone YUNG DAMICO Unavailable [phone] ALLERGIES No Known Allergies RESULTS Component Value Reference Range Notes Vanna Screening Digital Reviewed date:04/12/2024 11:27:03 AM Interpretation: Performing Lab: Notes/Report: Original Ordering Provider: CHRISTINE DAVENPORT MD [facility] REASON FOR REFERRAL No Information MEDICATIONS Medication SIG (Take, Route, Frequency, Duration) Notes Start Date End Date Status Stevenson Thyroid 90 MG 1 tablet on an empt y stomach Orally Once a day for 90 days Active hydroCHLOROthiazide 12.5 MG 1 tablet in the morning Orally Once a day for 90 days Active LORazepam 0.5 MG 1 tablet at bedtime as needed Orally Once a day for 90 days Active Levothyroxine Sodium 88 MCG TAKE 1 TABLE T BY MOUTH EVERY MORNING ON AN EMPTY STOMACH FOR 30 DAYS for 90 Active Vitamin B Complex - as directed [...] unspecified (E55.9) Active confirmed Vitamin D deficiency (59587874) Problem Encounter for general adult medical examination without abnormal findings (Z00.00) Active confirmed Adult heal th examination (881541363) Problem Encounter for screening for diabetes mellitus (Z13.1) Active confirmed 181048379 Problem Pure hypercholesterole chasity, unspecified (E78.00) Active confirmed 706406362 Problem Hyperlipidemia, unspecified hyperlipidemia type (E78.5) Active confirmed Hyperlipidaemia (39481751) Problem Acquired hypothyroidism (E03.9) Active confirmed 937607133 Problem Obesity (BMI 30.0-34.9) (E66.9) Active confirmed [id number] Problem Pre-diabetes (R73.03) Active confirmed Prediabetes (948161667) Problem Vitamin B 12 deficiency (E53.8) Active confirmed Vitamin B12 deficiency (non anemic) (50879206) Problem BMI 33.0-33.9,adult (Z68.33) Active confirmed 632151821 Problem BMI 32.0-32.9,adult (Z68.32) Active confirmed 597130751 Problem Anemia due to vitamin B12 deficiency, unspecified B12 deficiency type (D51.9) Active confirmed 97436855 Problem BMI 34.0-34.9,adult (Z68.34) Active confirmed 226721776 VITAL SIGNS Heart Rate 75 /min 08/02/2024 Oximetry 98 % 08/02/2024 Blood pressure diastolic 82 mm Hg 08/02/2024 Height 65 in 08/02/2024 Blood pressure systolic 126 mm Hg 08/02/2024 Weight 196 lbs 08/02/2024 BMI 32.61 kg/m2 08/02/2024 Encounters Encounter Location Date Provider Diagnosis [address] [address] 10/18/2023 YUNG DAMICO Acquired hypothyroid ism E03.9 ; Obesity (BMI 30.0-34.9) E66.9 ; Pure hypercholesterolemia, unspecified E78.00 ; BMI 32.0-32.9,adult Z68.32 and Vitamin B 12 deficiency E53.8 [place] [address] [address] 12/07/2023 YUNG DAMICO [facility] [address] [place] [address] 06/09/2024 YUNG DAMICO [place] [address] [address] 01/31/2024 YUNG DAMICO BMI 33.0-33.9,adult Z68.33 ; Obesity (BMI 30.0-34.9) E66.9 ; Dietary counseling and surveillance Z71.3 ; Acquired hypothyroidism E03.9 ; Pure hypercholesterolemia, unspecified E78.00 and Vitamin B 12 deficiency E53.8 [place] [address] 08/02/2024 YUNG DAMICO Obesity (BMI 30.0-34 .9) E66.9 ; Annual physical exam Z00.00 ; Dietary counseling and surveillance Z71.3 ; Acquired hypothyroidism E03.9 ; Pure hypercholesterolemia, unspecified E78.00 and Vitamin B 12 deficiency E53.8 [facility] [address] 06/08/2024 YUNG DAMICO [place] [address] 07/20/2024 YUNG DAMICO Acquired hypothyroid ism E03.9 [facility] [address] [place] [phone] 09/24/2024 YUNGPÉREZ DAMICO ASSESSMENTS Encounter Date Diagnosis Assessment Notes [...] minimum of 6 months The most recent [place] [employer] of clinical endocrinologists and [place] [employer] of endocrin[employer] guidelines recommend patients who [...] track activity level. Consider using apps like Weblo.com, Daptiv, lose it, stick as needed for self-monitoring and weight management. Consider group exercises. Consider hiring a personal service representative. Regular exercise is fel[place] to sustainable health [...] counseling and psychiatry and Dr Gloria at [facility]. We would like to cover regular topics [...] from an Electronic Health Record CohortMethods: Obesity ([place]). 2019 Sep;27(4):591-602. doi: [email or web address]/marva.83800 Using electronic health record data 13,972 adults [...] software and direct typing Please excuse inadvertent powertrain calibration engineer or typing errors, or uncorrected word substitutions Although every attempt has been made by the provider to proofread this document, occasional misspellings and typographical errors may still be present Due to the previous pandemic, and the use of personal protective equipment (PPE) This may decrease voice recognition accuracy Inadvertent powertrain calibration engineer errors may occur 01/31/2024 BMI 33.0-33.9,adult (ICD-10 [...] software and direct typing Please excuse inadvertent powertrain calibration engineer or typing errors, or uncorrected word substitutions Although every attempt has been made by the provider to proofread this document, occasional misspellings and typographical errors may still be present Due to the previous pandemic, and the use of personal protective equipment (PPE) This may decrease voice recognition accuracy Inadvertent powertrain calibration engineer errors may occur 07/20/2024 Acquired hypothyroidism (ICD-10 [...] software and direct typing Please excuse inadvertent powertrain calibration engineer or typing errors, or uncorrected word substitutions Although every attempt has been made by the provider to proofread this document, occasional misspellings and typographical errors may still be present Due to the previous pandemic, and the use of personal protective equipment (PPE) This may decrease voice recognition accuracy Inadvertent powertrain calibration engineer errors may occur 08/02/2024 Annual physical exam [...] software and direct typing Please excuse inadvertent powertrain calibration engineer or typing errors, or uncorrected word substitutions Although every attempt has been made by the provider to proofread this document, occasional misspellings and typographical errors may still be present Due to the previous pandemic, and the use of personal protective equipment (PPE) This may decrease voice recognition accuracy Inadvertent powertrain calibration engineer errors may occur 08/02/2024 Dietary counseling and [...] software and direct typing Please excuse inadvertent powertrain calibration engineer or typing errors, or uncorrected word substitutions Although every attempt has been made by the provider to proofread this document, occasional misspellings and typographical errors may still be present Due to the previous pandemic, and the use of personal protective equipment (PPE) This may decrease voice recognition accuracy Inadvertent powertrain calibration engineer errors may occur 01/31/2024 Obesity (BMI 30.0-34.9) [...] software and direct typing Please excuse inadvertent powertrain calibration engineer or typing errors, or uncorrected word substitutions Although every attempt has been made by the provider to proofread this document, occasional misspellings and typographical errors may still be present Due to the previous pandemic, and the use of personal protective equipment (PPE) This may decrease voice recognition accuracy Inadvertent powertrain calibration engineer errors may occur 10/18/2023 Obesity (BMI 30.0-34.9) [...] minimum of 6 months The most recent [place] Association of clinical endocrinologists and [place] [employer] of endocrinology guidelines recommend patients who [...] track activity level. Consider using apps like Weblo.com, NewsPinfitRocketickpal, lose it, stick as needed for self-monitoring and weight management. Consider group exercises. Consider hiring a personal service representative. Regular exercise is fel[place] to sustainable health [...] counseling and psychiatry and Dr Gloria at [facility]. We would like to cover regular topics [...] from an Electronic Health Record CohortMethods: Obesity ([place]). 2019 Sep;27(4):591-602. doi: [email or web address]/marva.81527 Using electronic health record data 13,972 adults were identified with a first phentermine fill in 2009 to 2014, creating exposure categories according to a patient's duration of use (referent: = 3 months). Multivariable linear models were used to compare percent weight loss across categories at 6, 12, and 24 months, and Gracía proportional hazards models were used to compare [...] software and direct typing Please excuse inadvertent powertrain calibration engineer or typing errors, or uncorrected word substitutions Although every attempt has been made by the provider to proofread this document, occasional misspellings and typographical errors may still be present Due to the previous pandemic, and the use of personal protective equipment (PPE) This may decrease voice recognition accuracy Inadvertent powertrain calibration engineer errors may occur 01/31/2024 Dietary counseling and [...] software and direct typing Please excuse inadvertent powertrain calibration engineer or typing errors, or uncorrected word substitutions Although every attempt has been made by the provider to proofread this document, occasional misspellings and typographical errors may still be present Due to the previous pandemic, and the use of personal protective equipment (PPE) This may decrease voice recognition accuracy Inadvertent powertrain calibration engineer errors may occur 10/18/2023 Pure hypercholesterole chasity, [...] minimum of 6 months The most recent [place] Association of clinical endocrinologists and [place] [employer] of endocrinology guidelines recommend patients who [...] track activity level. Consider using apps like Weblo.com, Canal Internetpal, lose it, stick as needed for self-monitoring and weight management. Consider group exercises. Consider hiring a personal service representative. Regular exercise is felton to sustainable health [...] counseling and psychiatry and Dr Gloria at [facility]. We would like to cover regular topics [...] from an Electronic Health Record CohortMethods: Obesity ([place]). 2019 Sep;27(4):591-602. doi: [email or web address]/marva.94145 Using electronic health record data 13,972 adults [...] software and direct typing Please excuse inadvertent powertrain calibration engineer or typing errors, or uncorrected word substitutions Although every attempt has been made by the provider to proofread this document, occasional misspellings and typographical errors may still be present Due to the previous pandemic, and the use of personal protective equipment (PPE) This may decrease voice recognition accuracy Inadvertent powertrain calibration engineer errors may occur 01/31/2024 Acquired hypothyroidism (ICD-10 [...] software and direct typing Please excuse inadvertent powertrain calibration engineer or typing errors, or uncorrected word substitutions Although every attempt has been made by the provider to proofread this document, occasional misspellings and typographical errors may still be present Due to the previous pandemic, and the use of personal protective equipment (PPE) This may decrease voice recognition accuracy Inadvertent powertrain calibration engineer errors may occur 08/02/2024 Acquired hypothyroidism (ICD-10 [...] software and direct typing Please excuse inadvertent powertrain calibration engineer or typing errors, or uncorrected word substitutions Although every attempt has been made by the provider to proofread this document, occasional misspellings and typographical errors may still be present Due to the previous pandemic, and the use of personal protective equipment (PPE) This may decrease voice recognition accuracy Inadvertent powertrain calibration engineer errors may occur 10/18/2023 BMI 32.0-32.9,adult (ICD-10 [...] minimum of 6 months The most recent [place] [employer] of clinical endocrinologists and [place] [employer] of endocrinology guidelines recommend patients who [...] track activity level. Consider using apps like Weblo.com, Canal Internetpal, lose it, stick as needed for self-monitoring and weight management. Consider group exercises. Consider hiring a personal service representative. Regular exercise is fel[place] to sustainable health [...] counseling and psychiatry and Dr Gloria at [facility]. We would like to cover regular topics [...] from an Electronic Health Record CohortMethods: Obesity ([place]). 2019 Sep;27(4):591-602. doi: [email or web address]/marva.84137 Using electronic health record data 13,972 adults [...] software and direct typing Please excuse inadvertent powertrain calibration engineer or typing errors, or uncorrected word substitutions Although every attempt has been made by the provider to proofread this document, occasional misspellings and typographical errors may still be present Due to the previous pandemic, and the use of personal protective equipment (PPE) This may decrease voice recognition accuracy Inadvertent powertrain calibration engineer errors may occur 08/02/2024 Pure hypercholesterole chasity, [...] software and direct typing Please excuse inadvertent powertrain calibration engineer or typing errors, or uncorrected word substitutions Although every attempt has been made by the provider to proofread this document, occasional misspellings and typographical errors may still be present Due to the previous pandemic, and the use of personal protective equipment (PPE) This may decrease voice recognition accuracy Inadvertent powertrain calibration engineer errors may occur 01/31/2024 Pure hypercholesterole chasity, [...] software and direct typing Please excuse inadvertent powertrain calibration engineer or typing errors, or uncorrected word substitutions Although every attempt has been made by the provider to proofread this document, occasional misspellings and typographical errors may still be present Due to the previous pandemic, and the use of personal protective equipment (PPE) This may decrease voice recognition accuracy Inadvertent powertrain calibration engineer errors may occur 10/18/2023 Vitamin B 12 [...] minimum of 6 months The most recent [place] Association of clinical endocrinologists and [place] [employer] of endocrinology guidelines recommend patients who [...] track activity level. Consider using apps like Weblo.com, myfitnesspal, lose it, stick as needed for self-monitoring and weight management. Consider group exercises. Consider hiring a personal service representative. Regular exercise is eflton to sustainable health and prevents as a [...] counseling and psychiatry and Dr Gloria at [facility]. We would like to cover regular topics [...] from an Electronic Health Record CohortMethods: Obesity ([place]). 2019 Apr;27(4):591-602. doi: [email or web address]/marva.10740 Using electronic health record data 13,972 adults [...] software and direct typing Please excuse inadvertent powertrain calibration engineer or typing errors, or uncorrected word substitutions Although every attempt has been made by the provider to proofread this document, occasional misspellings and typographical errors may still be present Due to the previous pandemic, and the use of personal protective equipment (PPE) This may decrease voice recognition accuracy Inadvertent powertrain calibration engineer errors may occur 01/31/2024 Vitamin B 12 [...] software and direct typing Please excuse inadvertent powertrain calibration engineer or typing errors, or uncorrected word substitutions Although every attempt has been made by the provider to proofread this document, occasional misspellings and typographical errors may still be present Due to the previous pandemic, and the use of personal protective equipment (PPE) This may decrease voice recognition accuracy Inadvertent powertrain calibration engineer errors may occur 08/02/2024 Vitamin B 12 [...] software and direct typing Please excuse inadvertent powertrain calibration engineer or typing errors, or uncorrected word substitutions Although every attempt has been made by the provider to proofread this document, occasional misspellings and typographical errors may still be present Due to the previous pandemic, and the use of personal protective equipment (PPE) This may decrease voice recognition accuracy Inadvertent powertrain calibration engineer errors may occur PLAN OF TREATMENT Pending [...] Provider Name:YUNG DAMICO, 11/30/2024 08:15:00 AM, [address] [facility] [address], [place], [address], Insurance Providers Payer Name Payer Address Payer Phone Subscriber Number Group Number Insured Name Patient Relationship to Insured Coverage Start Date Coverage End Date [facility] [address] [place] [address] [id number] Kanika Staton Self - patient is the insured 3 MEDICATIONS ADMINISTERED Medication Instructions Date of Administration Dosage Notes MICC B12 INJECTION 02/03/2023 MEDICAL (GENERAL) HISTORY Medical History History ICD Code high cholesterol seasonal allergies thyroid disease depression Surgical History Surgery Date(Month/Year) wisdom teeth extraction 1989
--- OUTSIDE RECORDS SUMMARY | 2024-09-27 17:18 | XMS_ITS ---
Author Organization [facility] Address [address] [place] [phone] Care Team Providers Care Cruise Director Name Role Phone NOYUNG RAI [facility] [phone] MEDICATIONS Medication SIG (Take, Route, Frequency, Duration) Notes Start Date End Date Status Levothyroxine Sodium 88 MCG 1 tablet in the morning on an empty stomach Orally Once a day for 30 days 07/25/2024 Active Encounters Encounter Location Date Provider Diagnosis [facility] [address] [place] [phone] 09/24/2024 YUNG DAMICO PLAN OF TREATMENT Medication Medication Name Sig Start Date Stop Date Notes Levothyroxine Sodium 88 MCG 1 tablet in the morning on an empty stomach Orally Once a day for 30 days 07/25/2024 Next Appt Details Provider Name:YUNG DAMICO, 11/30/2024 08:15:00 AM, [address] [place] [address], [phone], Progress Notes * Kanika SAMPSONDOB: 3 (53 yo F)Acc No.[id number]:09/24/2024 Patient:??Kanika SAMPSON :1970?Age:53 Y?Sex:Fe male Address:[place] [address] * Refills?? Refill Levothyroxine Sodium Tablet, 88 MCG, Orally, 30 Tablet, 1 tablet in the morning on an empty stomach, Once a day, 30 days, Refills=3 * true * Date:??
--- OUTSIDE RECORDS SUMMARY | 2024-09-27 17:19 | XMS_ITS ---
Author Organization [facility] Address [address] [place] [id number] Care Team Providers Care [employer] Metallurgist Name Role Phone MOOKIE YUNG Unavailable [phone] ALLERGIES No Known Allergies REASON FOR VISIT Pt here for CPE, pt has no concerns. MEDICATIONS Medication SIG (Take, Route, Frequency, Duration) Notes Start Date End Date Status Levothyroxine Sodium 88 MCG 1 tablet in the morning on an empty stomach Orally Once a day for 30 days 07/25/2024 Active [place] Thyroid 90 MG 1 tablet on an [...] 08/02/2024 Encounters Encounter Location Date Provider Diagnosis [facility] [address] [facility] [address] [facility] [address] [place] [address] 08/02/2024 YUNG DAMICO Obesity (BMI 30.0-34 .9) [...] software and direct typing Please excuse inadvertent industrial conveyor belt repairer or typing errors, or uncorrected word substitutions Although every attempt has been made by the provider to proofread this document, occasional misspellings and typographical errors may still be present Due to the previous pandemic, and the use of personal protective equipment (PPE) This may decrease voice recognition accuracy Inadvertent industrial conveyor belt repairer errors may occur 08/02/2024 Annual physical exam [...] software and direct typing Please excuse inadvertent industrial conveyor belt repairer or typing errors, or uncorrected word substitutions Although every attempt has been made by the provider to proofread this document, occasional misspellings and typographical errors may still be present Due to the previous pandemic, and the use of personal protective equipment (PPE) This may decrease voice recognition accuracy Inadvertent industrial conveyor belt repairer errors may occur 08/02/2024 Dietary counseling and [...] software and direct typing Please excuse inadvertent industrial conveyor belt repairer or typing errors, or uncorrected word substitutions Although every attempt has been made by the provider to proofread this document, occasional misspellings and typographical errors may still be present Due to the previous pandemic, and the use of personal protective equipment (PPE) This may decrease voice recognition accuracy Inadvertent industrial conveyor belt repairer errors may occur 08/02/2024 Acquired hypothyroidism (ICD-10 [...] software and direct typing Please excuse inadvertent industrial conveyor belt repairer or typing errors, or uncorrected word substitutions Although every attempt has been made by the provider to proofread this document, occasional misspellings and typographical errors may still be present Due to the previous pandemic, and the use of personal protective equipment (PPE) This may decrease voice recognition accuracy Inadvertent industrial conveyor belt repairer errors may occur 08/02/2024 Pure hypercholesterolem ia, [...] software and direct typing Please excuse inadvertent industrial conveyor belt repairer or typing errors, or uncorrected word substitutions Although every attempt has been made by the provider to proofread this document, occasional misspellings and typographical errors may still be present Due to the previous pandemic, and the use of personal protective equipment (PPE) This may decrease voice recognition accuracy Inadvertent industrial conveyor belt repairer errors may occur 08/02/2024 Vitamin B 12 [...] software and direct typing Please excuse inadvertent industrial conveyor belt repairer or typing errors, or uncorrected word substitutions Although every attempt has been made by the provider to proofread this document, occasional misspellings and typographical errors may still be present Due to the previous pandemic, and the use of personal protective equipment (PPE) This may decrease voice recognition accuracy Inadvertent industrial conveyor belt repairer errors may occur PLAN OF TREATMENT Medication Medication Name Sig Start Date Stop Date Notes [place] Thyroid 90 MG 1 tablet on an [...] Details Provider Name:YUNG DAMICO, 11/30/2024 08:15:00 AM, [address] [place] [address], [id number], Progress Notes * Kanika SAMPSONDOB: 3 (53 yo F)Acc No.[id number]:08/02/2024 CPE Patient:??Kanika SAMPSON Provider:??YUNG DAMICO NP :1970?Age:53 Y?Sex:Fe male Date:08/02/2024 Address:[address] [place], [place] [id number] Subjective: * Chief Complaints: * ?1. Pt here for CPE, pt has no concerns.. * HPI: ?Constitutional:? Patient is here today for annual CPE ?Full past medical history, social history, family history, ?allergies and current medications were reviewed and updated. ?Acute Concerns/Problem List: ?08/02/2024 ?Patient recently had bariatric consultation with Dr. Chavira in [place] ?Plan is for sleeve gastrectomy in the near future ?She had comprehensive labs which are reviewed below ?She recently was taken off of [place] Thyroid and transition to levothyroxine due to [...] Orally Once a day , Discontinued Nystatin 894401 UNIT/ML Suspension 4 mL Mouth/Throat Four times a day , Discontinued Escitalopram Oxalate 10 MG Tablet 1 tablet Orally Once a day , Discontinued [place] Thyroid 90 MG Tablet 1 tablet on [...] software and direct typing Please excuse inadvertent industrial conveyor belt repairer or typing errors, or uncorrected word substitutions Although every attempt has been made by the provider to proofread this document, occasional misspellings and typographical errors may still be present Due to the previous pandemic, and the use of personal protective equipment (PPE) This may decrease voice recognition accuracy Inadvertent industrial conveyor belt repairer errors may occur. Plan: * Treatment: 2.??Acquired hypothyroidism? ? Refill LORazepam Tablet, 0.5 MG, 1 tablet at bedtime as needed, Orally, Once a day, 90 days, 90 Tablet, Refills 1.?LAB: TOTAL T4 ?LAB: TSH * Images: Billing Information: * Visit Code:?? 97300 Preventive Care Est Pt. Age 40-64. * [...] had bariatric consultation with Dr. Chavira in [place] Plan is for sleeve gastrectomy in the near future She had comprehensive labs which are reviewed below She recently was taken off of [place] Thyroid and transition to levothyroxine due to [...] General Examination GENERAL APPEARANCE: in no ac augustine distress, well developed, well nourished HEAD: normocephalic, [...]
== END 2024-09-27 15:41 | disposition home or self-care (01) ==
LOC: HO.HBS 14:17
PROVIDERS: PCP Nurse Practitioner Acute Care; Visit Provider Physician Assistant Surgical
DX: E66.3 Overweight (principal); Z90.3 Acquired absence of stomach [part of]
CPT/HCPCS: 99024

== ENCOUNTER → 2024-09-27 14:16 | Outpatient (BNVA) | payer OTHER, SELFPAY | PROVIDERS: PCP Nurse Practitioner Acute Care; Visit Provider Physician Assistant Surgical ==

== ENCOUNTER 2024-10-17 13:43 | Outpatient (AMB) | payer OTHER, SELFPAY ==
--- NOTE | 2024-10-17 13:32 | A.OFFVIS_ITS ---
VS Expanded 10/17/24 13:36 Height 5 ft 5 in Weight 163 lb BMI 27.1 Intake Visit Reasons: TV PO LSG 09/19/24 Allergies No Known Allergies Allergy (Unknown, Verified 09/27/24 14:45) U Medication List - Last Reconciled 10/17/24 by NASREEN Ansari levothyroxine 88 mcg PO DAILY lorazepam 0.5 mg PO DAILY PRN [id number]-vit K 45 mg iron- 800 mcg-120 mcg (Bariatric Multivitamins) caps PO pantoprazole 40 mg PO DAILY sucralfate 10 mL PO BID HPI Comments Details: This?is a?53?yo F who is s/p LSG 09/19/2024. Presents for 1mo post op visit. W eight at last visit on 09/27/2024 was 170.6 pounds with a BMI of 28.4, weight today is 163 pounds, representing a 7.6 pound weight loss with a BMI today of 27.1.? No complaints of nausea, emesis, abdominal pain or reflux, or constipation. Went back to work this week. Texted Dr Pitt about the possibility of adding food. Tired of shakes. Yeast infection resolved, however did have a cold sore. Present meal plan includes: 1 Celebrate Rebuild shakes each with 2 scoop 2 shakes each with 1 scoop Exercise: treadmill every day, 3.0 speed at 30 min, 160 mis per workout, has weighted walking sticks gets very thirsty while exercising PFSH Medical History (Updated 09/27/24 @ 15:19 by NASREEN Ansari) Hypothyroidism Hyperlipidemia Hypertension Insomnia Obesity Surgical History (Updated 09/27/24 @ 15:19 by NASREEN Ansari) S/P gastric sleeve procedure History of esophagogastroduodenoscopy (EGD) (07/25/24) Hx of cone biopsy of cervix (~1992) Hx of cosmetic surgery History of wisdom tooth extraction, class I edentulism Family History Mother Cancer of kidney Hyperthyroidism Father Diabetes Social History (Updated 09/27/24 @ 14:47 by Mirella Romero CMA) Household Members: None Housing: House Are you a primary respiratory care specialist to a significant other at home: No Do you presently have visiting nurse or other home services: No 75 years or older and lives alone: No Alcohol intake: former Patient Tobacco Use Status: Never used Tobacco service: Yes Current occupational status: employed 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 Telehealth Platform: Telephone Location of provider rendering services: other Location of patient: address on file Patient Identification confirmed using: Name, : Yes Telehealth method: voice only Patient verbally consented to treatment: Yes Patient verbally consented to billing insurance company: Yes Patient informed of any privacy concerns related to visit: Yes Minutes spent on Phone/Video with Pt.: 15 Assessment & Plan Assessment & Plan (1) S/P gastric sleeve procedure: Code(s): Z90.3 - Acquired absence of stomach [part of] Category: Surgical (2) Overweight: Code(s): E66.3 - Overweight Category: Medical Plan Pt to continue weekly communication with Dr Bentley Gave options for 20g protein castle which pt could exchange for Celebrate Sienna garcia. Discussed heavy lifting restriction until 6w postop. RTC 1mo.
[2024-10-17 13:36] VITALS: BMI 27.1
--- OUTSIDE RECORDS SUMMARY | 2024-10-17 15:01 | XMS_ITS | Patient Health Record ---
Author Organization [facility] Address [address] [place] [address] Care Team Providers Care Retail Merchandiser Name Role Phone YUNG DAMICO Unavailable [phone] ALLERGIES No Known Allergies RESULTS Component Value Reference Range Notes Vanna Screening Digital Reviewed date:04/12/2024 11:27:03 AM Interpretation: Performing Lab: Notes/Report: Original Ordering Provider: CHRISTINE DAVENPORT MD [facility] REASON FOR REFERRAL No Information MEDICATIONS Medication SIG (Take, Route, Frequency, Duration) Notes Start Date End Date Status [place] Thyroid 90 MG 1 tablet on an [...] unspecified (E55.9) Active confirmed Vitamin D deficiency (05834506) Problem Encounter for general adult medical examination without abnormal findings (Z00.00) Active confirmed Adult heal th examination (848872821) Problem Encounter for screening for diabetes mellitus (Z13.1) Active confirmed 655886519 Problem Pure hypercholesterole chasity, unspecified (E78.00) Active confirmed 473105433 Problem Hyperlipidemia, unspecified hyperlipidemia type (E78.5) Active confirmed Hyperlipidaemia (88562430) Problem Acquired hypothyroidism (E03.9) Active confirmed 952157738 Problem Obesity (BMI 30.0-34.9) (E66.9) Active confirmed [id number] Problem Pre-diabetes (R73.03) Active confirmed Prediabetes (720218637) Problem Vitamin B 12 deficiency (E53.8) Active confirmed Vitamin B12 deficiency (non anemic) (33910628) Problem BMI 33.0-33.9,adult (Z68.33) Active confirmed 888809747 Problem BMI 32.0-32.9,adult (Z68.32) Active confirmed 302795932 Problem Anemia due to vitamin B12 deficiency, unspecified B12 deficiency type (D51.9) Active confirmed 75916589 Problem BMI 34.0-34.9,adult (Z68.34) Active confirmed 679434962 VITAL SIGNS Heart Rate 75 /min 08/02/2024 Blood pressure diastolic 82 mm Hg 08/02/2024 Oximetry 98 % 08/02/2024 Height 65 in 08/02/2024 Blood pressure systolic 126 mm Hg 08/02/2024 Weight 196 lbs 08/02/2024 BMI 32.61 kg/m2 08/02/2024 Encounters Encounter Location Date Provider Diagnosis [address] [address] 10/18/2023 YUNG DAMICO Acquired hypothyroid ism E03.9 ; Obesity (BMI 30.0-34.9) E66.9 ; Pure hypercholesterolemia, unspecified E78.00 ; BMI 32.0-32.9,adult Z68.32 and Vitamin B 12 deficiency E53.8 [place] [address] [address] 12/07/2023 YUNG DAMICO [facility] [address] [place] [address] 06/09/2024 YUNG DAMICO [place] [address] [address] 01/31/2024 YUNG DAMICO BMI 33.0-33.9,adult Z68.33 ; Obesity (BMI 30.0-34.9) E66.9 ; Dietary counseling and surveillance Z71.3 ; Acquired hypothyroidism E03.9 ; Pure hypercholesterolemia, unspecified E78.00 and Vitamin B 12 deficiency E53.8 [place] [address] 08/02/2024 YUNG DAMICO Obesity (BMI 30.0-34 .9) E66.9 ; Annual physical exam Z00.00 ; Dietary counseling and surveillance Z71.3 ; Acquired hypothyroidism E03.9 ; Pure hypercholesterolemia, unspecified E78.00 and Vitamin B 12 deficiency E53.8 [facility] [address] 06/08/2024 YUNG DAMICO [place] [address] 07/20/2024 YUNG DAMICO Acquired hypothyroid ism E03.9 [facility] [address] [place] [address] 09/24/2024 YUNGPÉREZ DAMICO ASSESSMENTS Encounter Date Diagnosis [...] minimum of 6 months The most recent [place] [employer] clinical endocrinologists and [place] [employer] guidelines recommend patients who [...] track activity level. Consider using apps like [employer], [employer], lose it, stick as needed for self-monitoring and weight management. Consider group exercises. Consider hiring a personal shopper. Regular exercise is [place] to sustainable health [...] counseling and psychiatry and Dr Gloria at [email or web address]. We would like to cover regular topics [...] from an Electronic Health Record CohortMethods: Obesity ([place]). 2019 Sep;27(4):591-602. doi: [email or web address].66609 Using electronic health record data 13,972 adults [...] software and direct typing Please excuse inadvertent job order clerk or typing errors, or uncorrected word substitutions Although every attempt has been made by the provider to proofread this document, occasional misspellings and typographical errors may still be present Due to the previous pandemic, and the use of personal protective equipment (PPE) This may decrease voice recognition accuracy Inadvertent job order clerk errors may occur 01/31/2024 BMI 33.0-33.9,adult (ICD-10 [...] software and direct typing Please excuse inadvertent job order clerk or typing errors, or uncorrected word substitutions Although every attempt has been made by the provider to proofread this document, occasional misspellings and typographical errors may still be present Due to the previous pandemic, and the use of personal protective equipment (PPE) This may decrease voice recognition accuracy Inadvertent job order clerk errors may occur 07/20/2024 Acquired hypothyroidism (ICD-10 [...] software and direct typing Please excuse inadvertent job order clerk or typing errors, or uncorrected word substitutions Although every attempt has been made by the provider to proofread this document, occasional misspellings and typographical errors may still be present Due to the previous pandemic, and the use of personal protective equipment (PPE) This may decrease voice recognition accuracy Inadvertent job order clerk errors may occur 08/02/2024 Annual physical exam [...] software and direct typing Please excuse inadvertent job order clerk or typing errors, or uncorrected word substitutions Although every attempt has been made by the provider to proofread this document, occasional misspellings and typographical errors may still be present Due to the previous pandemic, and the use of personal protective equipment (PPE) This may decrease voice recognition accuracy Inadvertent job order clerk errors may occur 08/02/2024 Dietary counseling and [...] software and direct typing Please excuse inadvertent job order clerk or typing errors, or uncorrected word substitutions Although every attempt has been made by the provider to proofread this document, occasional misspellings and typographical errors may still be present Due to the previous pandemic, and the use of personal protective equipment (PPE) This may decrease voice recognition accuracy Inadvertent job order clerk errors may occur 01/31/2024 Obesity (BMI 30.0-34.9) [...] software and direct typing Please excuse inadvertent job order clerk or typing errors, or uncorrected word substitutions Although every attempt has been made by the provider to proofread this document, occasional misspellings and typographical errors may still be present Due to the previous pandemic, and the use of personal protective equipment (PPE) This may decrease voice recognition accuracy Inadvertent job order clerk errors may occur 10/18/2023 Obesity (BMI 30.0-34.9) [...] minimum of 6 months The most recent [place] [employer] endocrinologists and [place] [employer] guidelines recommend patients who [...] track activity level. Consider using apps like [employer], [employer], lose it, stick as needed for self-monitoring and weight management. Consider group exercises. Consider hiring a personal shopper. Regular exercise is fel[place] to sustainable health [...] counseling and psychiatry and Dr Gloria at [email or web address]. We would like to cover regular topics [...] from an Electronic Health Record CohortMethods: Obesity ([place]). 2019 Sep;27(4):591-602. doi: [email or web address]/marva.39295 Using electronic health record data 13,972 adults [...] software and direct typing Please excuse inadvertent job order clerk or typing errors, or uncorrected word substitutions Although every attempt has been made by the provider to proofread this document, occasional misspellings and typographical errors may still be present Due to the previous pandemic, and the use of personal protective equipment (PPE) This may decrease voice recognition accuracy Inadvertent job order clerk errors may occur 01/31/2024 Dietary counseling and [...] software and direct typing Please excuse inadvertent job order clerk or typing errors, or uncorrected word substitutions Although every attempt has been made by the provider to proofread this document, occasional misspellings and typographical errors may still be present Due to the previous pandemic, and the use of personal protective equipment (PPE) This may decrease voice recognition accuracy Inadvertent job order clerk errors may occur 10/18/2023 Pure hypercholesterole chasity, [...] minimum of 6 months The most recent [place] [employer] of clinical endocrinologists and [place] [employer] guidelines recommend patients who [...] track activity level. Consider using apps like [employer], [employer], lose it, stick as needed for self-monitoring and weight management. Consider group exercises. Consider hiring a personal shopper. Regular exercise is fel[place] to sustainable health [...] counseling and psychiatry and Dr Gloria at [email or web address]. We would like to cover regular topics [...] from an Electronic Health Record CohortMethods: Obesity ([place]). 2019 Sep;27(4):591-602. doi: [email or web address].98543 Using electronic health record data 13,972 adults [...] software and direct typing Please excuse inadvertent job order clerk or typing errors, or uncorrected word substitutions Although every attempt has been made by the provider to proofread this document, occasional misspellings and typographical errors may still be present Due to the previous pandemic, and the use of personal protective equipment (PPE) This may decrease voice recognition accuracy Inadvertent job order clerk errors may occur 01/31/2024 Acquired hypothyroidism (ICD-10 [...] software and direct typing Please excuse inadvertent job order clerk or typing errors, or uncorrected word substitutions Although every attempt has been made by the provider to proofread this document, occasional misspellings and typographical errors may still be present Due to the previous pandemic, and the use of personal protective equipment (PPE) This may decrease voice recognition accuracy Inadvertent job order clerk errors may occur 08/02/2024 Acquired hypothyroidism (ICD-10 [...] software and direct typing Please excuse inadvertent job order clerk or typing errors, or uncorrected word substitutions Although every attempt has been made by the provider to proofread this document, occasional misspellings and typographical errors may still be present Due to the previous pandemic, and the use of personal protective equipment (PPE) This may decrease voice recognition accuracy Inadvertent job order clerk errors may occur 10/18/2023 BMI 32.0-32.9,adult (ICD-10 [...] minimum of 6 months The most recent [place] [employer] of clinical endocrinologists and [place] [employer] guidelines recommend patients who [...] track activity level. Consider using apps like [employer], [employer], lose it, stick as needed for self-monitoring and weight management. Consider group exercises. Consider hiring a personal shopper. Regular exercise is fel[place] to sustainable health [...] counseling and psychiatry and Dr Gloria at [email or web address]. We would like to cover regular topics [...] from an Electronic Health Record CohortMethods: Obesity ([place]). 2019 Sep;27(4):591-602. doi: [email or web address]/marva.98318 Using electronic health record data 13,972 adults [...] software and direct typing Please excuse inadvertent job order clerk or typing errors, or uncorrected word substitutions Although every attempt has been made by the provider to proofread this document, occasional misspellings and typographical errors may still be present Due to the previous pandemic, and the use of personal protective equipment (PPE) This may decrease voice recognition accuracy Inadvertent job order clerk errors may occur 08/02/2024 Pure hypercholesterole chasity, [...] software and direct typing Please excuse inadvertent job order clerk or typing errors, or uncorrected word substitutions Although every attempt has been made by the provider to proofread this document, occasional misspellings and typographical errors may still be present Due to the previous pandemic, and the use of personal protective equipment (PPE) This may decrease voice recognition accuracy Inadvertent job order clerk errors may occur 01/31/2024 Pure hypercholesterole chasity, [...] software and direct typing Please excuse inadvertent job order clerk or typing errors, or uncorrected word substitutions Although every attempt has been made by the provider to proofread this document, occasional misspellings and typographical errors may still be present Due to the previous pandemic, and the use of personal protective equipment (PPE) This may decrease voice recognition accuracy Inadvertent job order clerk errors may occur 10/18/2023 Vitamin B 12 [...] minimum of 6 months The most recent [place] [employer] of clinical endocrinologists and [place] [employer] guidelines recommend patients who [...] track activity level. Consider using apps like [employer], [employer], lose it, stick as needed for self-monitoring and weight management. Consider group exercises. Consider hiring a personal shopper. Regular exercise is fel[place] to sustainable health [...] counseling and psychiatry and Dr Gloria at [email or web address]. We would like to cover regular topics [...] from an Electronic Health Record CohortMethods: Obesity ([place]). 2019 Apr;27(4):591-602. doi: [email or web address]/marva.82808 Using electronic health record data 13,972 adults [...] software and direct typing Please excuse inadvertent job order clerk or typing errors, or uncorrected word substitutions Although every attempt has been made by the provider to proofread this document, occasional misspellings and typographical errors may still be present Due to the previous pandemic, and the use of personal protective equipment (PPE) This may decrease voice recognition accuracy Inadvertent job order clerk errors may occur 01/31/2024 Vitamin B 12 [...] software and direct typing Please excuse inadvertent job order clerk or typing errors, or uncorrected word substitutions Although every attempt has been made by the provider to proofread this document, occasional misspellings and typographical errors may still be present Due to the previous pandemic, and the use of personal protective equipment (PPE) This may decrease voice recognition accuracy Inadvertent job order clerk errors may occur 08/02/2024 Vitamin B 12 [...] software and direct typing Please excuse inadvertent job order clerk or typing errors, or uncorrected word substitutions Although every attempt has been made by the provider to proofread this document, occasional misspellings and typographical errors may still be present Due to the previous pandemic, and the use of personal protective equipment (PPE) This may decrease voice recognition accuracy Inadvertent job order clerk errors may occur PLAN OF TREATMENT Pending [...] Provider Name:YUNG DAMICO, 11/30/2024 08:15:00 AM, [address] [facility] [address], [place], [address], Insurance Providers Payer Name Payer Address Payer Phone Subscriber Number Group Number Insured Name Patient Relationship to Insured Coverage Start Date Coverage End Date [facility] [address] [place] [address] [id number] Kanika Staton Self - patient is the insured 3 MEDICATIONS ADMINISTERED Medication Instructions Date of Administration Dosage Notes MICC B12 INJECTION 02/03/2023 MEDICAL (GENERAL) HISTORY Medical History History ICD Code high cholesterol seasonal allergies thyroid disease depression Surgical History Surgery Date(Month/Year) wisdom teeth extraction 1989
--- OUTSIDE RECORDS SUMMARY | 2024-10-17 15:01 | XMS_ITS ---
Author Organization [facility] Address [address] [place] [address] Care Team Providers Care Clay Worker Name Role Phone YUNG DAMICO Unavailable [phone] MEDICATIONS Medication SIG (Take, Route, Frequency, Duration) Notes Start Date End Date Status Levothyroxine Sodium 88 MCG 1 tablet in the morning on an empty stomach Orally Once a day for 30 days 07/25/2024 Active Encounters Encounter Location Date Provider Diagnosis [facility] 119 [address] [facility] [address] [place] [address] 07/20/2024 YUNG DAMICO Acquired hypothyroid ism E03.9 [...] Provider Name:YUNG DAMICO, 11/30/2024 08:15:00 AM, [address] [facility], [facility] [address], [place], [address], Progress Notes * Kanika STATONDOB: [birth year] (53 yo F)Acc No.[id number]:07/20/2024 Patient:??Kanika STATON :1970?Age:53 Y?Sex:Fe male Address:[address] [place], [place] [address]ris[place] [address] * Refills?? Start Levothyroxine Sodium Tablet, 88 [...]
--- OUTSIDE RECORDS SUMMARY | 2024-10-17 15:01 | XMS_ITS | Clinical Summary ---
Author Organization [facility] Address [address] [place] [address] Phone Care Team Providers Care Vice President Global Digital Marketing Name Role Phone Christine Coto MD Primary Care Provider [phone] Encounters Date Type Department Care Team Description 08/14/2024 3:30 PM EST Ancillary Procedure [facility] [address] [phone] Abnormal electrocardiogram 08/08/2024 2:30 PM EST Ancillary Procedure [facility] [address] [place] [phone] Abnormal electrocardiogram from Last 3 Months Social History Tobacco [...] 08/14/2024 3:51 PM EST Plan of Treatment Health Maintenance Due Date Last Done Comments [...] Routine 08/08/2024 3:37 PM EST Abnormal electrocardiogram COMPREHENSIVE METABOLIC PANEL Routine 07/19/2024 8:12 AM [...] (08/14/2024 4:10 PM EST) Left Atrium Minor [place] 5.3 cm CV PACS Left Atrium Major [place] 5.4 cm CV PACS LA Area Sys [...] Volume 63 mL CV PACS MV Deceleration [place] 3.9 m/s2 CV PACS E Wave Deceleration [...] to enhance imaging. us Anup Montenegro MD ECHO PROCEDURES Final Result * STRESS ECHOCARDIOGRAM EXERCISE WITH CONTRAST (08/08/2024 3:37 PM EST) [facility] IVSD 0.9 0.6 - 0.9 cm CV [...] with the appropriate decrease in internal cavitydimensions. Anup Montenegro MD CV ECHO PROCEDURES Final Result * (ABNORMAL) Lipid panel with reflex to direct LDL (07/19/2024 8:12 AM EST) Cholesterol 282(H) 0 - 200 mg/dL LAB CHEMISTRY METHOD 07/19/2024 9:11 AM EST [facility] Triglycerides 102 0 - 150 mg/dL LAB CHEMISTRY METHOD 07/19/2024 9:11 AM EST [facility] HDL 109 >=40 mg/dL LAB CHEMISTRY METHOD 07/19/2024 9:11 AM EST [facility] LDL Calculated 153(H) 0 - 100 mg/dL LAB CHEMISTRY METHOD 07/19/2024 9:11 AM [facility] VLDL Cholesterol Ruddy 20.4 mg/dL LAB CHEMISTRY METHOD 07/19/2024 9:11 AM [facility] Non HDL Chol. (LDL+VLDL) 173(H) <145 mg/dL LAB CHEMISTRY METHOD 07/19/2024 9:11 AM [facility] Chol/HDL Ratio 2.6 0.0 - 4.4 LAB CHEMISTRY METHOD 07/19/2024 9:11 AM [facility] Blood Venous blood specimen / Unknown Venipuncture / Unknown 07/19/2024 8:12 AM EST 07/19/2024 8:28 AM EST us Anup Montenegro MD LAB BLOOD ORDERABLES Suyapa l Result [facility] [address] [place] [address], * Comprehensive metabolic panel (07/19/2024 8:12 AM EST) Sodium 138 133 - 145 mmol/L LAB CHEMISTRY METHOD 07/19/2024 9:10 AM [facility] Potassium 3.9 3.5 - 5.5 mmol/L LAB CHEMISTRY METHOD 07/19/2024 9:10 AM [facility] Chloride 105 96 - 110 mmol/L LAB CHEMISTRY METHOD 07/19/2024 9:10 AM [facility] CO2 27 21 - 32 mmol/L LAB CHEMISTRY METHOD 07/19/2024 9:10 AM [facility] Anion Gap 6 3 - 11 LAB CHEMISTRY METHOD 07/19/2024 9:10 AM [facility] Glucose 93 70 - 100 mg/dL LAB CHEMISTRY METHOD 07/19/2024 9:10 AM [facility] BUN 7 5 - 25 mg/dL LAB CHEMISTRY METHOD 07/19/2024 9:10 AM [facility] Creatinine 0.92 0.50 - 1.10 mg/dL LAB CHEMISTRY METHOD 07/19/2024 9:10 AM [facility] eGFR 76 >=60 mL/min/1. 73m2 LAB CHEMISTRY METHOD 07/19/2024 9:10 AM [facility] Comment:Calculation based on the??Chronic Kidney Disease Epidemiology Collaboration (CKD-EPI) equation refit??without adjustment for race. BUN/Creatinine Ratio 7.6 LAB CHEMISTRY METHOD 07/19/2024 9:10 AM [facility] Calcium 9.4 8.5 - 10.5 mg/dL LAB CHEMISTRY METHOD 07/19/2024 9:10 AM [facility] AST (SGOT) 26 10 - 42 unit/L LAB CHEMISTRY METHOD 07/19/2024 9:10 AM [facility] ALT (SGPT) 47 10 - 60 unit/L LAB CHEMISTRY METHOD 07/19/2024 9:10 AM [facility] Alkaline Phosphatase 80 42 - 121 unit/L LAB CHEMISTRY METHOD 07/19/2024 9:10 AM [facility] Total Protein 7.5 6.0 - 8.0 g/dL LAB CHEMISTRY METHOD 07/19/2024 9:10 AM [facility] Albumin 4.2 3.2 - 5.0 g/dL LAB CHEMISTRY METHOD 07/19/2024 9:10 AM [facility] Total Bilirubin 0.7 0.0 - 1.4 mg/dL LAB CHEMISTRY METHOD 07/19/2024 9:10 AM [facility] Blood Venous blood specimen / Unknown Venipuncture / Unknown 07/19/2024 8:12 AM EST 07/19/2024 8:28 AM EST us Anup Montenegro MD LAB BLOOD ORDERABLES Suyapa l Result [facility] [address] [place] [address], * VANNA SCREENING DIGITAL (04/11/2024 1:36 PM EDT) Anatomical Region Laterality Modality Mammography 04/11/2024 9:56 AM EDT Narrative 04/11/2024 1:36 PM EDT [facility] Diagnostic Imaging Department [address] [place] [address] Patient: ??RENNY SAMPSON ?/Age/Sex: 1970 - 53 - F Unit#: ??[id number] ? Location/Status: ??SPDIMAM/REG CLI ? Mnemonic/Ordering Site: ??DIGSC/SPMAM Ordering Physician: ??CHRISTINE COTO MD Vanna Screening Digital - 04/11/24 - 1025 Report Status:Signed EXAM: Vanna Screening Digital EXAM DATE AND TIME: 04/11/2024 10:26 AM HISTORY: ??Screening. Paternal cousin had breast carcinoma. COMPARISON: ??09/22/22, 05/04/21, 05/02/20, 09/08/18, 07/22/17 TECHNIQUE: Bilateral digital breast tomosynthesis was performed in the CC and MLO projections. Computer aided detection with [employer] 3D 3.1 was employed. TISSUE DENSITY: [...] Mamm[facility] performed at [facility] [address] [place] [address] Dictating Physician: ??RAYNA ALANIS MD Electronically Signed by: ??RAYNA ALANIS MD Dic Date/Time: ??04/11/24 1331 Sign date/Time: ??04/11/24 1336 Procedure Note Rayna Alanis MD - 04/14/2024 [facility] Diagnostic Imaging Department [address] [place] [address] Patient: RENNY SAMPSON D.O.B./Age/Sex: 1970 - 53 - F Unit#: [id number] Location/Status: SPDIMAM/REG CLI Mnemonic/Ordering Site: [facility] Ordering Physician: CHRISTINE COTO MD [facility] Screening Digital - 04/11/24 - 1025 Report Status:Signed EXAM: [facility] Screening Digital EXAM DATE AND TIME: 04/11/2024 10:26 AM HISTORY: Screening. Paternal cousin had breast carcinoma. COMPARISON: 09/22/22, 05/04/21, 05/02/20, 09/08/18, 07/22/17 TECHNIQUE: Bilateral digital breast tomosynthesis was performed in the CCand MLO projections. Computer aided detection with [employer] 3D 3.1was employed. TISSUE DENSITY: b. [...] Mammogram performed at [facility] [place] [address] Dictating Physician: RAYNA ALANIS MD Electronically Signed by: RAYNA ALANIS MD Dic Date/Time: 04/11/24 1331 Sign date/Time: 04/11/24 1336 Christine Coto MD IMG BI PROCEDURES Final Result from Last 3 Months or Most Recently Relevant to Health Maintenance Insurance [facility] Care Teams Vice President Global Digital Marketing Relationship Specialty Start Date End Date Christine Coto MD [address] [place] [address] [place] [id number] PCP - General Internal Medicine 08/02/24
--- OUTSIDE RECORDS SUMMARY | 2024-10-17 15:01 | XMS_ITS ---
Author Organization [facility] Address [address] [place] [phone] Care Team Providers Care Hedis Manager Name Role Phone NOYUNG RAI [facility] [phone] MEDICATIONS Medication SIG (Take, Route, Frequency, Duration) Notes Start Date End Date Status Levothyroxine Sodium 88 MCG 1 tablet in the morning on an empty stomach Orally Once a day for 30 days 07/25/2024 Active Encounters Encounter Location Date Provider Diagnosis [facility] [address] [place] [phone] 09/24/2024 YUNG DAMICO PLAN OF TREATMENT Medication Medication Name Sig Start Date Stop Date Notes Levothyroxine Sodium 88 MCG 1 tablet in the morning on an empty stomach Orally Once a day for 30 days 07/25/2024 Next Appt Details Provider Name:YUNG DAMICO, 11/30/2024 08:15:00 AM, [address] [place] [address], [phone], Progress Notes * Kanika SAMPSONDOB: 3 (53 yo F)Acc No.[id number]:09/24/2024 Patient:??Kanika SAMPSON :1970?Age:53 Y?Sex:Fe male Address:[place] [address] * Refills?? Refill Levothyroxine Sodium Tablet, 88 MCG, Orally, 30 Tablet, 1 tablet in the morning on an empty stomach, Once a day, 30 days, Refills=3 * true * Date:??
--- OUTSIDE RECORDS SUMMARY | 2024-10-17 15:02 | XMS_ITS ---
Author Organization [facility] Address [address] [place] [phone] Care Team Providers Care Test Worker Name Role Phone MOOKIE YUNG Unavailable [phone] ALLERGIES No Known Allergies REASON FOR VISIT Pt here for CPE, pt has no concerns. MEDICATIONS Medication SIG (Take, Route, Frequency, Duration) Notes Start Date End Date Status Levothyroxine Sodium 88 MCG 1 tablet in the morning on an empty stomach Orally Once a day for 30 days 07/25/2024 Active [place] Thyroid 90 MG 1 tablet on an [...] 08/02/2024 Encounters Encounter Location Date Provider Diagnosis [facility] [address] [facility] [address] [facility] [address] [place] [address] 08/02/2024 YUNG DAMICO Obesity (BMI 30.0-34 .9) [...] software and direct typing Please excuse inadvertent chain saw driver or typing errors, or uncorrected word substitutions Although every attempt has been made by the provider to proofread this document, occasional misspellings and typographical errors may still be present Due to the previous pandemic, and the use of personal protective equipment (PPE) This may decrease voice recognition accuracy Inadvertent chain saw driver errors may occur 08/02/2024 Annual physical exam [...] software and direct typing Please excuse inadvertent chain saw driver or typing errors, or uncorrected word substitutions Although every attempt has been made by the provider to proofread this document, occasional misspellings and typographical errors may still be present Due to the previous pandemic, and the use of personal protective equipment (PPE) This may decrease voice recognition accuracy Inadvertent chain saw driver errors may occur 08/02/2024 Dietary counseling and [...] software and direct typing Please excuse inadvertent chain saw driver or typing errors, or uncorrected word substitutions Although every attempt has been made by the provider to proofread this document, occasional misspellings and typographical errors may still be present Due to the previous pandemic, and the use of personal protective equipment (PPE) This may decrease voice recognition accuracy Inadvertent chain saw driver errors may occur 08/02/2024 Acquired hypothyroidism (ICD-10 [...] software and direct typing Please excuse inadvertent chain saw driver or typing errors, or uncorrected word substitutions Although every attempt has been made by the provider to proofread this document, occasional misspellings and typographical errors may still be present Due to the previous pandemic, and the use of personal protective equipment (PPE) This may decrease voice recognition accuracy Inadvertent chain saw driver errors may occur 08/02/2024 Pure hypercholesterolem ia, [...] software and direct typing Please excuse inadvertent chain saw driver or typing errors, or uncorrected word substitutions Although every attempt has been made by the provider to proofread this document, occasional misspellings and typographical errors may still be present Due to the previous pandemic, and the use of personal protective equipment (PPE) This may decrease voice recognition accuracy Inadvertent chain saw driver errors may occur 08/02/2024 Vitamin B 12 [...] software and direct typing Please excuse inadvertent chain saw driver or typing errors, or uncorrected word substitutions Although every attempt has been made by the provider to proofread this document, occasional misspellings and typographical errors may still be present Due to the previous pandemic, and the use of personal protective equipment (PPE) This may decrease voice recognition accuracy Inadvertent chain saw driver errors may occur PLAN OF TREATMENT Medication Medication Name Sig Start Date Stop Date Notes Menasha Thyroid 90 MG 1 tablet on an [...] Details Provider Name:YUNG DAMICO, 11/30/2024 08:15:00 AM, [address] [place] [address], [phone], Progress Notes * Kanika SAMPSONDOB: 3 (53 yo F)Acc No.[id number]:08/02/2024 CPE Patient:??Kanika SAMPSON Provider:??YUNG DAMICO NP :1970?Age:53 Y?Sex:Fe male Date:08/02/2024 Address:[address] [place], [place] [id number] Subjective: * Chief Complaints: * ?1. Pt here for CPE, pt has no concerns.. * HPI: ?Constitutional:? Patient is here today for annual CPE ?Full past medical history, social history, family history, ?allergies and current medications were reviewed and updated. ?Acute Concerns/Problem List: ?08/02/2024 ?Patient recently had bariatric consultation with Dr. Chavira in [place] ?Plan is for sleeve gastrectomy in the near future ?She had comprehensive labs which are reviewed below ?She recently was taken off of [place]asha Thyroid and transition to levothyroxine due to [...] Orally Once a day , Discontinued Nystatin 451186 UNIT/ML Suspension 4 mL Mouth/Throat Four times a day , Discontinued Escitalopram Oxalate 10 MG Tablet 1 tablet Orally Once a day , Discontinued [place]asha Thyroid 90 MG Tablet 1 tablet on [...] software and direct typing Please excuse inadvertent chain saw driver or typing errors, or uncorrected word substitutions Although every attempt has been made by the provider to proofread this document, occasional misspellings and typographical errors may still be present Due to the previous pandemic, and the use of personal protective equipment (PPE) This may decrease voice recognition accuracy Inadvertent chain saw driver errors may occur. Plan: * Treatment: 2.??Acquired hypothyroidism? ? Refill LORazepam Tablet, 0.5 MG, 1 tablet at bedtime as needed, Orally, Once a day, 90 days, 90 Tablet, Refills 1.?LAB: TOTAL T4 ?LAB: TSH * Images: Billing Information: * Visit Code:?? 45001 Preventive Care Est Pt. Age 40-64. * [...] had bariatric consultation with Dr. Chavira in [place] Plan is for sleeve gastrectomy in the near future She had comprehensive labs which are reviewed below She recently was taken off of Menasha Thyroid and transition to levothyroxine due to [...]
== END 2024-10-17 13:58 | disposition home or self-care (01) ==
LOC: HO.HBS 13:43
PROVIDERS: PCP Nurse Practitioner Acute Care; Visit Provider Physician Assistant Surgical
DX: E66.3 Overweight (principal); Z68.27 Body mass index [BMI] 27.0-27.9, adult; Z90.3 Acquired absence of stomach [part of]; Z98.84 Bariatric surgery status
CPT/HCPCS: 99024

== ENCOUNTER → 2024-10-17 13:43 | Outpatient (BNVA) | payer OTHER, SELFPAY | PROVIDERS: PCP Nurse Practitioner Acute Care; Visit Provider Physician Assistant Surgical ==

== ENCOUNTER 2024-11-15 10:52 | Outpatient (AMB) | payer OTHER, SELFPAY ==
--- NOTE | 2024-11-15 11:00 | MHC.OFFVISWM ---
VS Expanded 11/15/24 11:11 BP 130/74 Blood Pressure Location Rt brachial Blood Pressure Position Sitting Pulse 76 Pulse Source Pulse Oximeter Temp 97.9 F Temperature Source Temporal Artery Scan Pulse Oximetry 99 Oxygen Delivery Method Room Air Height 5 ft 5 in Weight 151 lb 9.6 oz BMI 25.2 Body Fat % 29.3 Body Fat Mass 44.4 Fat Free Mass 107.2 Visceral Fat Rating 6.0 Body Water % 50.2 Body Water Mass 76.0 Muscle Mass/Score 101.6 Basal Metabolic Rate/Score 1,433 Intake Visit Reasons: OV PO LSG 09/19/2024 Allergies No Known Allergies Allergy (Unknown, Verified 11/15/24 11:03) U HPI Comments Details: 53-year-old female returns to the office today in follow-up. She is approximately 2 months post sleeve gastrectomy performed on 09/19/2024. She had called the office yesterday complaining of feeling somewhat lightheaded. She states that she had been following the meal plan although not tracking her fluid intake. She also reports that she has been working a lot and admitted to not drinking as much as she should be. She was seen in the office several weeks ago. Weight today is 151.6 lb with a BMI of 25.2. She states that she has been checking her blood pressure at home, this morning it was around 100 systolically decreasing to 90s with positional change from sitting to standing. She did feel lightheaded with this positional change lasting only sec. She did not have any syncopal events. recommended meal plan was: Present meal plan includes: 1 Celebrate Rebuild shakes each with 1 scoop and 8 oz unsweetened almond milk at 8-10, celebrate bar 11-1 shake 1 scoop 2-4 pm meal at 530 pm w 3 forks cottage cheese or egg celebrate bar 7-9 pm Drinking 25-30 oz daily including shakes Exercise: treadmill 6 days per week, 3.0 speed at 30 min, 150-200 mis per workout, lightheaded with exercise [facility] Medical History (Updated 09/27/24 @ 15:19 by NASREEN Ansari) Hypothyroidism Hyperlipidemia Hypertension Insomnia Obesity Surgical History S/P gastric sleeve procedure History of esophagogastroduodenoscopy (EGD) (07/25/24) Hx of cone biopsy of cervix (~1992) Hx of cosmetic surgery History of wisdom tooth extraction, class I edentulism Family History Mother Cancer of kidney Hyperthyroidism Father Diabetes Social History (Updated 09/27/24 @ 14:47 by Mirella Romero CMA) Household Members: None Housing: House Are you a primary patient care specialist to a significant other at home: No Do you presently have visiting nurse or other home services: No 75 years or older and lives alone: No Alcohol intake: former Patient Tobacco Use Status: Never used Tobacco service: Yes Current occupational status: employed 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 She is not truly orthostatic, but rather symptomatic with soft blood pressures. In the office she was neither hypotensive nor tachycardic. She was instructed to take the rest of the day off and tomorrow as well as the weekend. She was given a note to be excused from work today tomorrow, Tuesday, Tuesday. She was instructed to drink fluids, she did have Gatorade 0 in her pocket book. She certainly could go to the emergency room if her symptoms worsen. She will discuss with Dr. Montenegro, possibly changing her meal plan to exclude 1 if not both bars to allow more time for fluids. She will keep her appointment with Colette on 11/26/2024. I additionally did order a Chem 7 although she states she will get this done at [facility] due to insurance reasons. Patient was in agreement with the plan to take the rest of the day off as well as tomorrow. She did mention that she does have yard work to do this weekend although I explained to her that she should not do any yard work this weekend. Orders: Orders Basic Metabolic Panel Today Z90.3 - Acquired absence of stomach [part of]
[2024-11-15 11:11] VITALS: BP 130/74; PULSE 76; TEMP 36.6; O2SAT 99; BMI 25.2
--- OUTSIDE RECORDS SUMMARY | 2024-11-15 12:48 | XMS_ITS | Clinical Summary ---
Author Organization [facility] Address [address] [place] [address] Phone Care Team Providers Care Supervisor Blasting Name Role Phone Christine Coto MD Primary Care Provider [phone] Social History Tobacco Use Types Packs/Day Years [...] Procedure Name Priority Date/Time Associated Diagnosis Comments THYROID STIMULATING HORMONE Routine 11/13/2024 8:36 AM EDT Hypothyroidism (acquired) THYROXINE TOTAL Routine 11/13/2024 8:36 AM EDT Hypothyroidism (acquired) COMPREHENSIVE METABOLIC PANEL Routine 07/19/2024 8:12 AM [...] Recently Relevant to Health Maintenance Results * Thyroid stimulating hormone (11/13/2024 8:36 AM EDT) TSH 2.58 0.40 - 4.00 mcIU/mL LAB CHEMISTRY METHOD 11/13/2024 11:55 AM EDT [facility] Blood Venous blood specimen / Unknown Venipuncture / Unknown 11/13/2024 8:36 AM EDT 11/13/2024 11:25 AM EDT Fortino Gonzalez MD LAB BLOOD ORDERABLES Final Res ult [facility] [address] [place] [address], [place] [phone] * (ABNORMAL) Thyroxine total (11/13/2024 8:36 AM EDT) T4, Total 12.1(H) 4.5 - 10.9 mcg/dL LAB CHEMISTRY METHOD 11/13/2024 2:02 PM EDT [facility] Blood Venous blood specimen / Unknown Venipuncture / Unknown 11/13/2024 8:36 AM EDT 11/13/2024 11:25 AM EDT us Fortino Gonzalez MD LAB BLOOD ORDERABLES Final Res ult [facility] [address] [place] [address], [place] [phone] * (ABNORMAL) Lipid panel with reflex to direct LDL (07/19/2024 8:12 AM EST) Cholesterol 282(H) 0 - 200 mg/dL LAB CHEMISTRY METHOD 07/19/2024 9:11 AM [facility] Triglycerides 102 0 - 150 mg/dL LAB CHEMISTRY METHOD 07/19/2024 9:11 AM [facility] HDL 109 >=40 mg/dL LAB CHEMISTRY METHOD 07/19/2024 9:11 AM [facility] LDL Calculated 153(H) 0 - 100 mg/dL LAB CHEMISTRY METHOD 07/19/2024 9:11 AM [facility] VLDL Cholesterol Ruddy 20.4 mg/dL LAB CHEMISTRY METHOD 07/19/2024 9:11 AM [facility] Non HDL Chol. (LDL+VLDL) 173(H) <145 mg/dL LAB CHEMISTRY METHOD 07/19/2024 9:11 AM [facility] Chol/HDL Ratio 2.6 0.0 - 4.4 LAB CHEMISTRY METHOD 07/19/2024 9:11 AM [facility] Blood Venous blood specimen / Unknown Venipuncture / Unknown 07/19/2024 8:12 AM EST 07/19/2024 8:28 AM EST us Anup Montenegro MD LAB BLOOD ORDERABLES Suyapa l Result [facility] [address] [place] [address], * Comprehensive metabolic panel (07/19/2024 8:12 AM EST) Sodium 138 133 - 145 mmol/L LAB CHEMISTRY METHOD 07/19/2024 9:10 AM [facility] Potassium 3.9 3.5 - 5.5 mmol/L LAB CHEMISTRY METHOD 07/19/2024 9:10 AM [facility] Chloride 105 96 - 110 mmol/L LAB CHEMISTRY METHOD 07/19/2024 9:10 AM [facility] CO2 27 21 - 32 mmol/L LAB CHEMISTRY METHOD 07/19/2024 9:10 AM [facility] Anion Gap 6 3 - 11 LAB CHEMISTRY METHOD 07/19/2024 9:10 AM [facility] Glucose 93 70 - 100 mg/dL LAB CHEMISTRY METHOD 07/19/2024 9:10 AM [facility] BUN 7 5 - 25 mg/dL LAB CHEMISTRY METHOD 07/19/2024 9:10 AM [facility] Creatinine 0.92 0.50 - 1.10 mg/dL LAB CHEMISTRY METHOD 07/19/2024 9:10 AM [facility] eGFR 76 >=60 mL/min/1. 73m2 LAB CHEMISTRY METHOD 07/19/2024 9:10 AM [facility] Comment:Calculation based on the??Chronic Kidney Disease Epidemiology Collaboration (CKD-EPI) equation refit??without adjustment for race. BUN/Creatinine Ratio 7.6 LAB CHEMISTRY METHOD 07/19/2024 9:10 AM [facility] Calcium 9.4 8.5 - 10.5 mg/dL LAB CHEMISTRY METHOD 07/19/2024 9:10 AM [facility] AST (SGOT) 26 10 - 42 unit/L LAB CHEMISTRY METHOD 07/19/2024 9:10 AM [facility] ALT (SGPT) 47 10 - 60 unit/L LAB CHEMISTRY METHOD 07/19/2024 9:10 AM [facility] Alkaline Phosphatase 80 42 - 121 unit/L LAB CHEMISTRY METHOD 07/19/2024 9:10 AM [facility] Total Protein 7.5 6.0 - 8.0 g/dL LAB CHEMISTRY METHOD 07/19/2024 9:10 AM [facility] Albumin 4.2 3.2 - 5.0 g/dL LAB CHEMISTRY METHOD 07/19/2024 9:10 AM EST [facility] Total Bilirubin 0.7 0.0 - 1.4 mg/dL LAB CHEMISTRY METHOD 07/19/2024 9:10 AM EST [facility] Blood Venous blood specimen / Unknown Venipuncture / Unknown 07/19/2024 8:12 AM EST 07/19/2024 8:28 AM EST us Anup Montenegro MD LAB BLOOD ORDERABLES Suyapa l Result [facility] [address] [place] [address], * VANNA SCREENING DIGITAL (04/11/2024 1:36 PM EDT) Anatomical Region Laterality Modality Mammography 04/11/2024 9:56 AM EDT Narrative 04/11/2024 1:36 PM EDT [facility] Diagnostic Imaging Department [address] [place] [address] Patient: ??RENNY SAMPSON ?/Age/Sex: 1970 - F Unit#: ??[id number] ? Location/Status: ??SPDIMAM/REG CLI ? Mnemonic/Ordering Site: ??DIGSC/SPMAM Ordering Physician: ??CHRISTINE COTO MD Vanna Screening Digital - 04/11/24 - 1025 Report Status:Signed EXAM: [facility] Screening Digital EXAM DATE AND TIME: 04/11/2024 10:26 AM HISTORY: ??Screening. Paternal cousin had breast carcinoma. COMPARISON: ??09/22/22, 05/04/21, 05/02/20, 09/08/18, 07/22/17 TECHNIQUE: Bilateral digital breast tomosynthesis was performed in the CC and MLO projections. Computer aided detection with FastDue 3D 3.1 was employed. TISSUE DENSITY: b. [...] Mammogram performed at [facility] [address] [place] [address] Dictating Physician: ??RAYNA ALANIS MD Electronically Signed by: ??RAYNA ALANIS MD Dic Date/Time: ??04/11/24 1331 Sign date/Time: ??04/11/24 1336 Procedure Note Rayna Alanis MD - 04/14/2024 [facility] Diagnostic Imaging Department [address] [place] [address] Patient: RENNY SAMPSON /Age/Sex: 1970 - 53 - F Unit#: [id number] Location/Status: SPDIMAM/REG CLI Mnemonic/Ordering Site: [facility] Ordering Physician: CHRISTINE COTO MD [facility] Screening Digital - 04/11/24 - 1025 Report Status:Signed EXAM: [facility] Screening Digital EXAM DATE AND TIME: 04/11/2024 10:26 AM HISTORY: Screening. Paternal cousin had breast carcinoma. COMPARISON: 09/22/22, 05/04/21, 05/02/20, 09/08/18, 07/22/17 TECHNIQUE: Bilateral digital breast tomosynthesis was performed in the CCand MLO projections. Computer aided detection with IntY AI 3D 3.1was employed. TISSUE DENSITY: b. [...] Mammogram performed at [facility] [address] [place] [address] Dictating Physician: RAYNA ALANIS MD Electronically Signed by: RAYNA ALANIS MD Dic Date/Time: 04/11/24 1331 Sign date/Time: 04/11/24 1336 Christine Coto MD IMG BI PROCEDURES Final Result from Last 3 Months or Most Recently Relevant to Health [place] [address] [facility] Care Teams Supervisor Blasting Relationship Specialty Start Date End Date Christine Coto MD [address] [place] [id number] PCP - General Internal Medicine 08/02/24
== END 2024-11-15 11:52 | disposition home or self-care (01) ==
LOC: HO.HBS 10:53
PROVIDERS: PCP Nurse Practitioner Acute Care; Visit Provider Physician Assistant Surgical
DX: Z90.3 Acquired absence of stomach [part of] (principal)
CPT/HCPCS: 99024

== ENCOUNTER → 2024-11-15 10:52 | Outpatient (BNVA) | payer OTHER, SELFPAY | PROVIDERS: PCP Nurse Practitioner Acute Care; Visit Provider Physician Assistant Surgical ==

== ENCOUNTER 2024-11-22 10:39 | Outpatient (AMB) | payer OTHER, SELFPAY ==
--- NOTE | 2024-11-22 10:32 | A.OFFVIS_ITS ---
VS Expanded 11/22/24 10:35 Height 5 ft 5 in Weight 151 lb 4 oz BMI 25.2 Intake Visit Reasons: TELEPHONE PO LSG 09/19/24 Allergies No Known Allergies Allergy (Unknown, Verified 11/15/24 11:03) U Medication List - Last Reconciled 11/22/24 by NASREEN Ansari levothyroxine 88 mcg PO DAILY uloinsjlwqpe-kif-ejvm-FA-vit K 45 mg iron- 800 mcg-120 mcg (Bariatric Multivitamins) caps PO pantoprazole 40 mg PO DAILY sucralfate 10 mL PO BID HPI Comments Details: This?is a?53?yo F who is s/p LSG 09/19/2024. Presents for 2mo post op visit. Weight loss of 0.2lbs since last OV 1 week ago.? No complaints of nausea, emesis, abdominal pain or reflux, or constipation. Pt was seen last week for low BP; did not have to go to the ER. Feeling a bit better, SBP 110s; weakness is improved. Trying to move more slowly. Increased her fluid intake, close to 40oz/day with electrolytes. Present meal plan includes: 1 Celebrate Rebuild shakes each with 1 scoop and 8 oz unsweetened almond milk at 8-10am celebrate bar 11am-1pm shake 1 scoop 2-4pm meal at 530 pm w 3 forks cottage cheese or egg-- this week started solids with chicken/broccoli celebrate bar 7-9pm Exercise: treadmill 6 days per week, 3.0 speed at 30 min, 150-200 mis per workout took a few days off due to blood pressure issues but did go walking at [facility] and felt fine [facility] Medical History (Updated 09/27/24 @ 15:19 by NASREEN Ansari) Hypothyroidism Hyperlipidemia Hypertension Insomnia Obesity Surgical History S/P gastric sleeve procedure History of esophagogastroduodenoscopy (EGD) (07/25/24) Hx of cone biopsy of cervix (~1992) Hx of cosmetic surgery History of wisdom tooth extraction, class I edentulism Family History Mother Cancer of kidney Hyperthyroidism Father Diabetes Social History Household Members: None Housing: House Are you a primary healthcare consultant to a significant other at home: No Do you presently have visiting nurse or other home services: No 75 years or older and lives alone: No Alcohol intake: former Patient Tobacco Use Status: Never used Tobacco service: Yes 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 occupational status: employed 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 Physical Exam Vital Signs: BMI result Body Mass Index 25.2 Telehealth Telehealth Telehealth Platform: Telephone Location of provider rendering services: other Location of patient: address on file Patient Identification confirmed using: Name, : Yes Telehealth method: voice only Patient verbally consented to treatment: Yes Patient verbally consented to billing insurance company: Yes Patient informed of any privacy concerns related to visit: Yes Minutes spent on Phone/Video with Pt.: 16 Assessment & Plan Assessment & Plan (1) S/P gastric sleeve procedure: Code(s): Z90.3 - Acquired absence of stomach [part of] Category: Medical (2) Overweight: Code(s): E66.3 - Overweight Category: Medical Plan Pt continuing to work on fluid intake. Monitoring BP. Very close to healthy BMI. Continue meal plan per Dr Mc NATARAJAN and carafate course to complete this month. Cleared for all activity, no restrictions. RTC 1 mo.
[2024-11-22 10:35] VITALS: BMI 25.2
--- OUTSIDE RECORDS SUMMARY | 2024-11-22 12:26 | XMS_ITS | Clinical Summary ---
Author Organization [facility] Address [address] [place] [address] Phone Care Team Providers Care Channeler Runner Name Role Phone Christine Coto MD Primary Care Provider [phone] Social History Tobacco Use Types Packs/Day Years [...] 2025 04/06/2023 Hypertension/CHF/CAD Annual BMP Blood Test 11/16/2025 11/16/2024, 07/19/2024 Breast Cancer Screening 04/11/2026 04/11/20 24, [...] Procedure Name Priority Date/Time Associated Diagnosis Comments BASIC METABOLIC PANEL Routine 11/16/2024 8:40 AM EDT Acquired absence of stomach THYROID STIMULATING HORMONE Routine 11/13/2024 8:36 AM EDT Hypothyroidism (acquired) THYROXINE TOTAL Routine 11/13/2024 8:36 AM EDT Hypothyroidism (acquired) LIPID PANEL WITH REFLEX TO DIRECT LDL Routine 07/19/2024 8:12 AM EST Obesity, Class I, BMI 30-34.9 Obesity due to excess calories Body mass index 34.0-34.9, adult Hypothyroidism, adult Hyperlipemia Hypertension, essential VANNA SCREENING DIGITAL Routine 04/11/2024 1:36 PM EDT from Last 3 Months or Most Recently Relevant to Health Maintenance Results * Basic metabolic panel (11/16/2024 8:40 AM EDT) Pathologist [facility] Sodium 141 133 - 145 mmol/L LAB CHEMISTRY METHOD 11/16/2024 12:08 PM [facility] Potassium 3.9 3.5 - 5.5 mmol/L LAB CHEMISTRY METHOD 11/16/2024 12:08 PM [facility] Chloride 106 96 - 110 mmol/L LAB CHEMISTRY METHOD 11/16/2024 12:08 PM [facility] CO2 25 21 - 32 mmol/L LAB CHEMISTRY METHOD 11/16/2024 12:08 PM [facility] Anion Gap 10 3 - 11 LAB CHEMISTRY METHOD 11/16/2024 12:08 PM [facility] Glucose 72 70 - 100 mg/dL LAB CHEMISTRY METHOD 11/16/2024 12:08 PM [facility] BUN 10 5 - 25 mg/dL LAB CHEMISTRY METHOD 11/16/2024 12:08 PM [facility] Creatinine 0.62 0.50 - 1.10 mg/dL LAB CHEMISTRY METHOD 11/16/2024 12:08 PM [facility] eGFR 108 >=60 mL/min/1. 73m2 LAB CHEMISTRY METHOD 11/16/2024 12:08 PM [facility] Comment:Calculation based on the Chronic Kidney Disease Epidemiology Collaboration (CKD-EPI) equation refit without adjustment for race. BUN/Creatinine Ratio 16.1 LAB CHEMISTRY METHOD 11/16/2024 12:08 PM [facility] Calcium 8.8 8.5 - 10.5 mg/dL LAB CHEMISTRY METHOD 11/16/2024 12:08 PM EDT [facility] Blood Venous blood specimen / Unknown Venipuncture / Unknown 11/16/2024 8:40 AM EDT 11/16/2024 11:27 AM EDT us Baldo DOWNEY LAB BLOOD ORDERABLES Final Resul t Performing Organization Address City/[facility] Co de Phone Number [facility] [address] [place] [address], [place] [phone] * Thyroid stimulating hormone (11/13/2024 8:36 AM EDT) TSH 2.58 0.40 - 4.00 mcIU/mL LAB CHEMISTRY METHOD 11/13/2024 11:55 AM EDT [facility] Blood Venous blood specimen / Unknown Venipuncture / Unknown 11/13/2024 8:36 AM EDT 11/13/2024 11:25 AM EDT us Fortino Gonzalez MD LAB BLOOD ORDERABLES Final Res ult Performing Organization Address [facility] de Phone Number [facility] [address] [place] [address], [place] [phone] * (ABNORMAL) Thyroxine total (11/13/2024 8:36 AM EDT) T4, Total 12.1(H) 4.5 - 10.9 mcg/dL LAB CHEMISTRY METHOD 11/13/2024 2:02 PM EDT [facility] Blood Venous blood specimen / Unknown Venipuncture / Unknown 11/13/2024 8:36 AM EDT 11/13/2024 11:25 AM EDT us Fortino Gonzalez MD LAB BLOOD ORDERABLES Final Res ult Performing Organization Address City/[facility]/ZIP Co de Phone Number [facility] [address] [place] [address], [place] [phone] * (ABNORMAL) Lipid panel with reflex to direct LDL (07/19/2024 8:12 AM EST) Cholesterol 282(H) 0 - 200 mg/dL LAB CHEMISTRY METHOD 07/19/2024 9:11 AM EST [facility] Triglycerides 102 0 - 150 mg/dL LAB CHEMISTRY METHOD 07/19/2024 9:11 AM [facility] HDL 109 >=40 mg/dL LAB CHEMISTRY METHOD 07/19/2024 9:11 AM [facility] LDL Calculated 153(H) 0 - 100 mg/dL LAB CHEMISTRY METHOD 07/19/2024 9:11 AM [facility] VLDL Cholesterol Ruddy 20.4 mg/dL LAB CHEMISTRY METHOD 07/19/2024 9:11 AM [facility] Non HDL Chol. (LDL+VLDL) 173(H) <145 mg/dL LAB CHEMISTRY METHOD 07/19/2024 9:11 AM [facility] Chol/HDL Ratio 2.6 0.0 - 4.4 LAB CHEMISTRY METHOD 07/19/2024 9:11 AM [facility] Blood Venous blood specimen / Unknown Venipuncture / Unknown 07/19/2024 8:12 AM EST 07/19/2024 8:28 AM EST us Anup Montenegro MD LAB BLOOD ORDERABLES Suyapa l Result [facility] [address] [place] [address], [place] [phone] * VANNA SCREENING DIGITAL (04/11/2024 1:36 PM EDT) Anatomical Region Laterality Modality Mammography 04/11/2024 9:56 AM EDT Narrative 04/11/2024 1:36 PM EDT [facility] Diagnostic Imaging Department [address] [place] [address] Patient: ??RENNY SAMPSON ?/Age/Sex: 1970 - 53 - F Unit#: ??[id number] ? Location/Status: ??SPDIMAM/REG CLI ? Mnemonic/Ordering Site: ??DIGSC/SPMAM Ordering Physician: ??CHRISTINE COTO MD Vanna Screening Digital - 04/11/24 - 1025 Report Status:Signed EXAM: [facility]anna Screening Digital EXAM DATE AND TIME: 04/11/2024 10:26 AM HISTORY: ??Screening. Paternal cousin had breast carcinoma. COMPARISON: ??09/22/22, 05/04/21, 05/02/20, 09/08/18, 07/22/17 TECHNIQUE: Bilateral digital breast tomosynthesis was performed in the CC and MLO projections. Computer aided detection with iConText 3D 3.1 was employed. TISSUE DENSITY: b. [...] Mammogram performed at [facility] [address] [place] [address] Dictating Physician: ??RAYNA ALANIS MD Electronically Signed by: ??RAYNA ALANIS MD Dic Date/Time: ??04/11/24 9377 Sign date/Time: ??04/11/24 5807 Procedure Note Rayna Alanis MD - 04/14/2024 [facility] Diagnostic Imaging Department [address] [place] [address] Patient: ADRIÁNRENNY Salas D.O.B./Age/Sex: 1970 - 53 - F Unit#: [id number] Location/Status: [facility] CLI Mnemonic/Ordering Site: [facility] Ordering Physician: CHRISTINE COTO MD [facility] Screening Digital - 04/11/24 - 1025 Report Status:Signed EXAM: [facility] Screening Digital EXAM DATE AND TIME: 04/11/2024 10:26 AM HISTORY: Screening. Paternal cousin had breast carcinoma. COMPARISON: 09/22/22, 05/04/21, 05/02/20, 09/08/18, 07/22/17 TECHNIQUE: Bilateral digital breast tomosynthesis was performed in the CCand MLO projections. Computer aided detection with iCAD [email or web address] AI 3D 3.1was employed. TISSUE DENSITY: b. [...] Mammogram performed at [facility] [place] [address] Dictating Physician: RAYNA ALANIS MD Electronically Signed by: RAYNA ALANIS MD Dic Date/Time: 04/11/24 1331 Sign date/Time: 04/11/24 1336 Christine Coto MD IMG BI PROCEDURES Final Result from Last 3 Months or Most Recently Relevant to Health Maintenance Insurance [facility] [place] [address] [facility] Care Teams Channeler Runner Relationship Specialty Start Date End Date Christine Coto MD [address] [place] [id number] PCP - General Internal Medicine 08/02/24
== END 2024-11-22 13:22 | disposition home or self-care (01) ==
LOC: HO.HBS 10:39
PROVIDERS: PCP Nurse Practitioner Acute Care; Visit Provider Physician Assistant Surgical
DX: E66.3 Overweight (principal); Z68.25 Body mass index [BMI] 25.0-25.9, adult; Z90.3 Acquired absence of stomach [part of]; Z98.84 Bariatric surgery status
CPT/HCPCS: 99024

== ENCOUNTER → 2024-11-22 10:39 | Outpatient (BNVA) | payer OTHER, SELFPAY | PROVIDERS: PCP Nurse Practitioner Acute Care; Visit Provider Physician Assistant Surgical ==

== ENCOUNTER 2024-12-27 09:27 | Outpatient (AMB) | payer OTHER, SELFPAY ==
--- NOTE | 2024-12-27 09:05 | MHC.OFFVISWM ---
VS Expanded 12/27/24 09:07 Height 5 ft 5 in Weight 138 lb BMI 23.0 Intake Visit Reasons: TELEPHONE PO LSG 09/19/24 CALL [phone] Allergies No Known Allergies Allergy (Unknown, Verified 11/15/24 11:03) U Medication List - Last Reconciled 12/27/24 by NASREEN Ansari levothyroxine 75 mcg PO DAILY qlewgtvuzhbv-lbw-lqnc-FA-vit K 45 mg iron- 800 mcg-120 mcg (Bariatric Multivitamins) caps PO HPI Comments Details: This?is a?54?yo F who is s/p LSG 09/19/2024. Presents for 3mo post op visit. Weight loss of 13.4lbs since last OV 1mo ago. No complaints of nausea, emesis, abdominal pain or reflux, or constipation. Her BP is occasionally low; once in a while gets postural dizziness. No syncope. Had thyroid med dose adjusted down based on labs. Present meal plan includes: 1 Celebrate Rebuild shakes each with 1 scoop and 8 oz unsweetened almond milk at 8-10am celebrate bar 11am-1pm shake 1 scoop 2-4pm meal at 530 pm w 3 forks protein celebrate bar 7-9pm close to 40ml per day, trying to do electrolyte based liquids as well taking MVI with iron Exercise: walks [place] 3[place] 4.5 miles 3-4x week, also free weights PFSH Medical History (Updated 09/27/24 @ 15:19 by NASREEN Ansari) Hypothyroidism Hyperlipidemia Hypertension Insomnia Obesity Surgical History S/P gastric sleeve procedure History of esophagogastroduodenoscopy (EGD) (07/25/24) Hx of cone biopsy of cervix (~1992) Hx of cosmetic surgery History of wisdom tooth extraction, class I edentulism Family History Mother Cancer of kidney Hyperthyroidism Father Diabetes Social History Household Members: None Housing: House Are you a primary childcare center administrator to a significant other at home: No Do you presently have visiting nurse or other home services: No 75 years or older and lives alone: No Alcohol intake: former Patient Tobacco Use Status: Never used Tobacco service: Yes Current occupational status: employed 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 Telehealth Platform: Telephone Location of provider rendering services: practice address Location of patient: other Patient Identification confirmed using: Name, : Yes Telehealth method: voice only Patient verbally consented to treatment: Yes Patient verbally consented to billing insurance company: Yes Patient informed of any privacy concerns related to visit: Yes Minutes spent on Phone/Video with Pt.: 16 Assessment & Plan Assessment & Plan (1) S/P gastric sleeve procedure: Code(s): Z90.3 - Acquired absence of stomach [part of] Category: Surgical Plan Pt doing very well with weight loss, has achieved healthy BMI, no surgical complications. She has goal of 135lbs and will discuss maintenance meal plan with Dr Pitt once achieved. In the meantime, ok to have Oikos yogurt or Celebrate soup in place of protein bar for lunch a few times a week if she wants. Will continue to ensure adequate hydration. RTC 3mo.
[2024-12-27 09:07] VITALS: BMI 23.0
--- OUTSIDE RECORDS SUMMARY | 2024-12-27 09:44 | XMS_ITS | Clinical Summary ---
Author Organization [facility] Address [address] [place] [address] Phone Care Team Providers Care Enamel Shader Name Role Phone Christine Coto MD Primary Care Provider [phone] Social History Tobacco Use Types Packs/Day Years [...] Years (1 of 2 - PCV) 12/17/1991 Zoster Vaccines (1 of 2) 12/17/1991 Cervical Cancer Screening: Pap Smear 1993 COVID-19 Vaccine (3 - Pfizer risk series) 02/19/2021 01/22/2021, 01/01/2021 Colorectal Cancer Screening: Colonoscopy 05/15/2022 Depression Screening 05/15/2022 HIV Screening 05/15/2022 Hepatitis C Screening 05/15/2022 Social Influencers of Health Screening 05/15/2022 Influenza Vaccine (#1) 2025 04/06/2023 Hypertension/CHF/CAD Annual BMP Blood Test [...] Basic metabolic panel (11/16/2024 8:40 AM EDT) Sodium 141 133 - 145 mmol/L LAB [...] 8:40 AM EDT 11/16/2024 11:27 AM EDT Baldo DOWNEY LAB BLOOD ORDERABLES Final Resul t Performing Organization Address City/[facility]/ZIP Co de Phone Number [facility] [address] [place] [address], [place] [phone] * Thyroid stimulating hormone (11/13/2024 8:36 AM EDT) TSH 2.58 0.40 - 4.00 mcIU/mL LAB CHEMISTRY METHOD 11/13/2024 11:55 AM EDT [facility] Blood Venous blood specimen / Unknown Venipuncture / Unknown 11/13/2024 8:36 AM EDT 11/13/2024 11:25 AM EDT Fortino Gonzalez MD LAB BLOOD ORDERABLES Final Res ult Performing Organization Address [facility]/ZIP Co de Phone Number [facility] [address] [place] [address], [place] [phone] * (ABNORMAL) Thyroxine total (11/13/2024 8:36 AM EDT) T4, Total 12.1(H) 4.5 - 10.9 mcg/dL LAB CHEMISTRY METHOD 11/13/2024 2:02 PM EDT [facility] Blood Venous blood specimen / Unknown Venipuncture / Unknown 11/13/2024 8:36 AM EDT 11/13/2024 11:25 AM EDT us Fortino Gonzalez MD LAB BLOOD ORDERABLES Final Res ult Performing Organization Address City/[facility]/ZIP Co de Phone Number [facility] [address] [place] [address], [place] [phone] * (ABNORMAL) Lipid panel with reflex to direct LDL (07/19/2024 8:12 AM EST) Cholesterol 282(H) 0 - 200 mg/dL LAB CHEMISTRY METHOD 07/19/2024 9:11 AM [facility] Triglycerides 102 0 - 150 mg/dL LAB CHEMISTRY METHOD 07/19/2024 9:11 AM [facility] HDL 109 >=40 mg/dL LAB CHEMISTRY METHOD 07/19/2024 9:11 AM [facility] LDL Calculated 153(H) 0 - 100 mg/dL LAB CHEMISTRY METHOD 07/19/2024 9:11 AM [facility] VLDL Cholesterol Ruddy 20.4 mg/dL LAB CHEMISTRY METHOD 07/19/2024 9:11 AM [facility] Non HDL Chol. (LDL+VLDL) 173(H) <145 mg/dL LAB CHEMISTRY METHOD 07/19/2024 9:11 AM [facility] Chol/HDL Ratio 2.6 0.0 - 4.4 LAB CHEMISTRY METHOD 07/19/2024 9:11 AM [facility] Blood Venous blood specimen / Unknown Venipuncture / Unknown 07/19/2024 8:12 AM EST 07/19/2024 8:28 AM EST us Anup Montenegro MD LAB BLOOD ORDERABLES Suyapa l Result [facility] [address] [place] [address], [place] [phone] * KALYAN SCREENING DIGITAL (04/11/2024 1:36 PM EDT) Anatomical Region Laterality Modality Mammography 04/11/2024 9:56 AM EDT Narrative 04/11/2024 1:36 PM EDT [facility] Diagnostic Imaging Department [address] [place] [address] Patient: KANIKA SAMPSON /Age/Sex: 1970 - 53 - F Unit#: [id number] Location/Status: SPDIMAM/REG CLI Mnemonic/Ordering Site: [facility] Ordering Physician: CHRISTINE COTO MD [facility] Screening Digital - 04/11/24 - 1025 Report Status:Signed EXAM: [facility] Screening Digital EXAM DATE AND TIME: 04/11/2024 10:26 AM HISTORY: Screening. Paternal cousin had breast carcinoma. COMPARISON: 09/22/22, 05/04/21, 05/02/20, 09/08/18, 07/22/17 TECHNIQUE: Bilateral digital breast tomosynthesis was performed in the CC and MLO projections. Computer aided detection with [employer] app 3D 3.1 was employed. TISSUE DENSITY: b. [...] Mammogram performed at [facility] [address] [place] [address] Dictating Physician: BRENDEN ALANIS MD Electronically Signed by: BRENDEN ALANIS MD Dic Date/Time: 04/11/24 1331 Sign date/Time: 04/11/24 1336 Procedure Note Brenden Alanis MD - 04/14/2024 [facility] Diagnostic Imaging Department [address] [place] [address] Patient: KANIKA SAMPSON /Age/Sex: 1970 - 53 - F Unit#: [id number] [facility]ing Site: [facility] Ordering Physician: CHRISTINE COTO MD [facility] Screening Digital - 04/11/24 - 1025 Report Status:Signed EXAM: [facility] Screening Digital EXAM DATE AND TIME: 04/11/2024 10:26 AM HISTORY: Screening. Paternal cousin had breast carcinoma. COMPARISON: 09/22/22, 05/04/21, 05/02/20, 09/08/18, 07/22/17 TECHNIQUE: Bilateral digital breast tomosynthesis was performed in the CCand MLO projections. Computer aided detection with [employer] 3D 3.1was employed. TISSUE DENSITY: b. There [...] Mammogram performed at [facility] [place] [address] Dictating Physician: BRENDEN ALANIS MD Electronically Signed by: BRENDEN ALANIS MD Dic Date/Time: 04/11/24 1331 Sign date/Time: 04/11/24 1336 Christine Coto MD IMG BI PROCEDURES Final Result from Last 3 Months or Most Recently Relevant to Health Maintenance Insurance [facility] Care Teams Enamel Shader Relationship Specialty Start Date End Date Christine Coto MD [address] [place], [place] [id number] PCP - General Internal Medicine 08/02/24
--- OUTSIDE RECORDS SUMMARY | 2024-12-27 09:44 | XMS_ITS | Patient Health Record ---
Author Organization [facility] [place] Address [address] [place] [address] Care Team Providers Care Information Security Name Role Phone Omar Cunha MD Primary Care Provider Unav ailable Jonathan Moon Unavailable [phone] Reason For Referral No Information Medications Medication SIG (Take, Route, Frequency, Duration) Notes Start Date End Date Status Night Splint AFO - L1930 as directed 01/17/2018 Active Levothyroxine Sodium 137 MCG 1 tablet on an empty stomach in the morning Orally Once a day Active Immunizations Vaccine Route Administration Date Status Comme nts Influenza Unknown 04/05/2019 Administered Social History Tobacco Use: Social History Observation Description Date Details (start date - stop date) Former Smoker NA - NA Tobacco Use/Smoking Question Answer Notes Are you a: former smoker When did you start smoking? 20yrs ago When did you stop smoking? 20 yrs ago How long has it been since you last smoked? < 1 month Additional Findings: Tobacco Non-User Current no n-smoker Alcohol Screen Question Answer Notes Did you have a drink containing alcohol in the p ast year? No Points 0 Interpretation Negative Tobacco use other than smoking: Question Answer Notes Are you an other tobacco user? No Problems Problem Type SNOMED Code ICD Code Onset Dates Problem Status W/U Status Risk Notes Problem Acquired hallux valgus (46662270) Hallux valgus (acquired), left foot (M20.12) Active confirmed Problem Acquired hallux valgus (05396544) Hallux valgus (acquired), right foot (M20.11) Active confirmed Plan Of Treatment Pending Test Test Name Order Date X ray : Foot, left 2V 07/19/2017 X ray : Foot, right 2V 07/19/2017 X ray : Foot, left 3V 01/17/201877991, C2266-MEJDY/INJECT, JOINT/BURSA 1 06/21/201714837, R1467-JWPKY/INJECT, JOINT/BURSA 0 07/22/2017, M6070-SLHGC/INJECT, JOINT/BURSA 1 06/27/201887044,E6021-ITJ TENDON SHEATH/LIGAMENT 1 06/21/201760565,E8780-TEM TENDON SHEATH/LIGAMENT 0 01/20/2018 21653, J0702- Neuroma/Injection 07/22/19 18 Insurance Providers Payer Name Payer Address Payer Phone Subscriber Number Group Number Insured Name Patient Relationship to Insured Coverage Start Date Coverage End Date [facility] [address] [place] [phone] [id number] Kanika Staton Self - patient is the insured Medical (General) History Medical History History ICD Code Migraines Chicken pox Graves disease Hypothyroidism Surgical History Surgery Date(Month/Year) wisdom teeth extraction 1997 Cosmetic Surgery IUD removal under conscious sedation 2018
--- OUTSIDE RECORDS SUMMARY | 2024-12-27 09:44 | XMS_ITS | Patient Health Record ---
Author Organization [facility] [address] Address [address] [place] [address] Care Team Providers Care Senior Devops Engineer Name Role Phone YUNG DAMICO Unavailable [phone] Allergies No Known Allergies Results Component Value Reference Range Notes BASIC METABOLIC PANEL Reviewed date:11/20/2024 11:17:05 AM Interpretation: Performing Lab: Notes/Report: Sodium 141 133-145 mmol/L Potassium 3.9 3.5-5.5 mmol/L Chloride 106 96-110 mmol/L CO2 25 21-32 mmol/L Anion Gap 10 3-11 Glucose 72 70-100 mg/dL BUN 10 5-25 mg/dL Creatinine 0.62 0.50-1.10 mg/dL eGFR 108 >=60 mL/min/1.73m2 Calculati on based on the Chronic Kidney Disease Epidemiology Collaboration (CKD-EPI) equation refit without adjustment for race. BUN/Creatinine Ratio 16.1 Calcium 8.8 8.5-10.5 mg/dL THYROID STIMULATING HORMONE Reviewed date:11/13/2024 12:53:44 PM Interpretation: Performing Lab: Notes/Report: TSH 2.58 0.40-4.00 mcIU/mL [facility] Reviewed date:04/12/2024 11:27:03 AM Interpretation: Performing Lab: Notes/Report: Original Ordering Provider: CHRISTINE DAVENPORT MD [facility] THYROXINE TOTAL Reviewed date:11/16/2024 12:07:19 PM Interpretation: Performing Lab: Notes/Report: T4, Total 12.1 4.5-10.9 mcg/dL Reason For Referral No Information Medications Medication SIG (Take, Route, Frequency, Duration) Notes Start Date End Date Status Levothyroxine Sodium 75 MCG TAKE 1 TABLE T BY MOUTH EVERY MORNING ON AN EMPTY STOMACH FOR 30 DAYS Orally Once a day; Duration: 30 days Active Vitamin B Complex - as directed Orally Active [place] Thyroid 90 MG 1 tablet on an empt y stomach Orally Once a day; Duration: 90 days Active LORazepam 0.5 MG 1 tablet at bedtime as needed Orally Once a day; Duration: 90 days Active Social History Tobacco Use: Social History Observation Description Date Details (start date - stop date) Never Smoker NA - NA Tobacco Use/Smoking Question Answer Notes Are you a nonsmoker Problems Problem Type SNOMED Code ICD Code Onset Dates Problem Status W/U Status Risk Notes Problem Vitamin D deficiency (95778566) Vitamin D deficiency, unspecified (E55.9) Active confirmed Problem Adult health examination (118613480) Encounter for general adult medical examination without abnormal findings (Z00.00) Active confirmed Problem Diabetes mellitus screening (306189755) Encounter for screening for diabetes mellitus (Z13.1) Active confirmed Problem Pure hypercholesterolemia (760163451) Pure hypercholesterol emia, unspecified (E78.00) Active confirmed Problem Hyperlipidaemia (29930962) Hyperlipidemia, unspecified hyperlipidemia type (E78.5) Active confirmed Problem Acquired hypothyroidism (374339124) Acquired hypothyroidism (E03.9) Active confirmed Problem Obese class I (finding) (864243526187267) Obesity (BMI 30.0-34.9) (E66.9) Active confirmed Problem Prediabetes (805092480) Pre-diabetes (R73.03) Active confirmed Problem Vitamin B12 deficien cy (non anemic) (10350060) Vitamin B 12 deficiency (E53.8) Active confirmed Problem Obese class I (622978381719040) BMI 33.0-33.9,adult (Z68.33) Active confirmed Problem BMI 30+ - obesity (119164429) BMI 32.0-32.9,adult (Z68.32) Active confirmed Problem Vitamin B>12< deficiency anaemia (40787096) Anemia due to vitamin B12 deficiency, unspecified B12 deficiency type (D51.9) Active confirmed Problem Body mass index 30.0 0 to 34.99 (452717330575569) BMI 34.0-34.9,adult (Z68.34) Active confirmed Vital Signs Heart Rate 72 /min 11/30/2024 Oximetry 99 % 11/30/2024 Blood pressure diastolic 72 mm Hg 11/30/2024 Height 65 in 11/30/2024 Blood pressure systolic 124 mm Hg 11/30/2024 Weight 150.6 lbs 11/30/2024 BMI 25.06 kg/m2 11/30/2024 Encounters Encounter Location Date Provider Diagnosis [facility] [address] [address] 01/31/2024 YUNG BORCECELIA BMI 33.0-33.9,adult Z68.33 ; Obesity (BMI 30.0-34.9) E66.9 ; Dietary counseling and surveillance Z71.3 ; Acquired hypothyroidism E03.9 ; Pure hypercholesterolemia, unspecified E78.00 and Vitamin B 12 deficiency E53.8 [facility] [address] 08/02/2024 YUNG DAMICO Obesity (BMI 30.0-34 .9) E66.9 ; Annual physical exam Z00.00 ; Dietary counseling and surveillance Z71.3 ; Acquired hypothyroidism E03.9 ; Pure hypercholesterolemia, unspecified E78.00 and Vitamin B 12 deficiency E53.8 [facility] [address] [address] 11/30/2024 YUNG DAMICO Obesity (BMI 30.0-34 .9) E66.9 ; Dietary counseling and surveillance Z71.3 ; Acquired hypothyroidism E03.9 ; Pure hypercholesterolemia, unspecified E78.00 ; Vitamin B 12 deficiency E53.8 ; Encounter for examination of blood pressure without abnormal findings Z01.30 and Orthostatic dizziness R42 [facility] [address] [address] 06/08/2024 YUNG DAMICO [facility] [address] 07/20/2024 YUNG DAMICO Acquired hypothyroid ism E03.[address] [facility] [address] [place] [address] 09/24/2024 YUNG DAMICO [facility] [address] [place] [address] 11/16/2024 YUNG DAMICO [facility] [address] [address] 11/16/2024 YUNG BORHOT [facility] [address] [address] 12/06/2024 YUNG BORHOT Obesity (BMI 30.0-34 .9) E66.9 [facility] [address] [address] 12/10/2024 YUNG BORHOT Obesity (BMI 30.0-34 .9) E66.9 Assessments Encounter Date Diagnosis (ICD Code) Assessment Notes Treatment Notes Treatment Clinical Notes Section Notes 01/31/2024 BMI 33.0-33.9,adult (ICD-10 - Z68.33) #Weight [...] software and direct typing Please excuse inadvertent regional guide or typing errors, or uncorrected word substitutions Although every attempt has been made by the provider to proofread this document, occasional misspellings and typographical errors may still be present Due to the previous pandemic, and the use of personal protective equipment (PPE) This may decrease voice recognition accuracy Inadvertent regional guide errors may occur 07/20/2024 Acquired hypothyroidism (ICD-10 [...] software and direct typing Please excuse inadvertent regional guide or typing errors, or uncorrected word substitutions Although every attempt has been made by the provider to proofread this document, occasional misspellings and typographical errors may still be present Due to the previous pandemic, and the use of personal protective equipment (PPE) This may decrease voice recognition accuracy Inadvertent regional guide errors may occur 08/02/2024 Annual physical exam [...] software and direct typing Please excuse inadvertent regional guide or typing errors, or uncorrected word substitutions Although every attempt has been made by the provider to proofread this document, occasional misspellings and typographical errors may still be present Due to the previous pandemic, and the use of personal protective equipment (PPE) This may decrease voice recognition accuracy Inadvertent regional guide errors may occur 11/30/2024 Obesity (BMI 30.0-34.9) (ICD-10 - E66.9) Acute Concerns/Problem List: 11/30/2024 Patient is 6 month post bariatric surgery, down 55lbs. Patient intrested in getting repeat labs. Will resend 75mcg of Levothyroxine 30 day supply to pharmacy Lets reassess thyroid function as this was recently decreased and given weight loss we should watch this closely Stress echocardiogram recently done was unremarkable Discussed properly following up regarding mammography Advised to follow up in 3 month. Patient understands, all questions and concerned addressed. Of note, some information is being carried forward from prior records for informational purposes only and is being cited so that efficiency, safety and quality of the patient's care is not compromised This note was prepared using voice recognition software and direct typing Please excuse inadvertent regional guide or typing errors, or uncorrected word substitutions Although every attempt has been made by the provider to proofread this document, occasional misspellings and typographical errors may still be present Due to the previous pandemic, and the use of personal protective equipment (PPE) This may decrease voice recognition accuracy Inadvertent regional guide errors may occur 12/06/2024 Obesity (BMI 30.0-34.9) (ICD-10 - E66.9) 12/10/2024 Obesity (BMI 30.0-34.9) (ICD-10 - E66.9) 11/30/2024 Dietary counseling and surveillance (ICD-10 - Z71.3) Acute Concerns/Problem List: 11/30/2024 Patient is 6 month post bariatric surgery, down 55lbs. Patient intrested in getting repeat labs. Will resend 75mcg of Levothyroxine 30 day supply to pharmacy Lets reassess thyroid function as this was recently decreased and given weight loss we should watch this closely Stress echocardiogram recently done was unremarkable Discussed properly following up regarding mammography Advised to follow up in 3 month. Patient understands, all questions and concerned addressed. Of note, some information is being carried forward from prior records for informational purposes only and is being cited so that efficiency, safety and quality of the patient's care is not compromised This note was prepared using voice recognition software and direct typing Please excuse inadvertent regional guide or typing errors, or uncorrected word substitutions Although every attempt has been made by the provider to proofread this document, occasional misspellings and typographical errors may still be present Due to the previous pandemic, and the use of personal protective equipment (PPE) This may decrease voice recognition accuracy Inadvertent regional guide errors may occur 08/02/2024 Dietary counseling and [...] software and direct typing Please excuse inadvertent regional guide or typing errors, or uncorrected word substitutions Although every attempt has been made by the provider to proofread this document, occasional misspellings and typographical errors may still be present Due to the previous pandemic, and the use of personal protective equipment (PPE) This may decrease voice recognition accuracy Inadvertent regional guide errors may occur 01/31/2024 Obesity (BMI 30.0-34.9) [...] software and direct typing Please excuse inadvertent regional guide or typing errors, or uncorrected word substitutions Although every attempt has been made by the provider to proofread this document, occasional misspellings and typographical errors may still be present Due to the previous pandemic, and the use of personal protective equipment (PPE) This may decrease voice recognition accuracy Inadvertent regional guide errors may occur 01/31/2024 Dietary counseling and [...] software and direct typing Please excuse inadvertent regional guide or typing errors, or uncorrected word substitutions Although every attempt has been made by the provider to proofread this document, occasional misspellings and typographical errors may still be present Due to the previous pandemic, and the use of personal protective equipment (PPE) This may decrease voice recognition accuracy Inadvertent regional guide errors may occur 01/31/2024 Acquired hypothyroidism (ICD-10 [...] software and direct typing Please excuse inadvertent regional guide or typing errors, or uncorrected word substitutions Although every attempt has been made by the provider to proofread this document, occasional misspellings and typographical errors may still be present Due to the previous pandemic, and the use of personal protective equipment (PPE) This may decrease voice recognition accuracy Inadvertent regional guide errors may occur 08/02/2024 Acquired hypothyroidism (ICD-10 [...] software and direct typing Please excuse inadvertent regional guide or typing errors, or uncorrected word substitutions Although every attempt has been made by the provider to proofread this document, occasional misspellings and typographical errors may still be present Due to the previous pandemic, and the use of personal protective equipment (PPE) This may decrease voice recognition accuracy Inadvertent regional guide errors may occur 11/30/2024 Acquired hypothyroidism (ICD-10 - E03.9) Acute Concerns/Problem List: 11/30/2024 Patient is 6 month post bariatric surgery, down 55lbs. Patient intrested in getting repeat labs. Will resend 75mcg of Levothyroxine 30 day supply to pharmacy Lets reassess thyroid function as this was recently decreased and given weight loss we should watch this closely Stress echocardiogram recently done was unremarkable Discussed properly following up regarding mammography Advised to follow up in 3 month. Patient understands, all questions and concerned addressed. Of note, some information is being carried forward from prior records for informational purposes only and is being cited so that efficiency, safety and quality of the patient's care is not compromised This note was prepared using voice recognition software and direct typing Please excuse inadvertent regional guide or typing errors, or uncorrected word substitutions Although every attempt has been made by the provider to proofread this document, occasional misspellings and typographical errors may still be present Due to the previous pandemic, and the use of personal protective equipment (PPE) This may decrease voice recognition accuracy Inadvertent regional guide errors may occur 11/30/2024 Pure hypercholesterolem ia, unspecified (ICD-10 - E78.00) Acute Concerns/Problem List: 11/30/2024 Patient is 6 month post bariatric surgery, down 55lbs. Patient intrested in getting repeat labs. Will resend 75mcg of Levothyroxine 30 day supply to pharmacy Lets reassess thyroid function as this was recently decreased and given weight loss we should watch this closely Stress echocardiogram recently done was unremarkable Discussed properly following up regarding mammography Advised to follow up in 3 month. Patient understands, all questions and concerned addressed. Of note, some information is being carried forward from prior records for informational purposes only and is being cited so that efficiency, safety and quality of the patient's care is not compromised This note was prepared using voice recognition software and direct typing Please excuse inadvertent regional guide or typing errors, or uncorrected word substitutions Although every attempt has been made by the provider to proofread this document, occasional misspellings and typographical errors may still be present Due to the previous pandemic, and the use of personal protective equipment (PPE) This may decrease voice recognition accuracy Inadvertent regional guide errors may occur 08/02/2024 Pure hypercholesterolem ia, [...] software and direct typing Please excuse inadvertent regional guide or typing errors, or uncorrected word substitutions Although every attempt has been made by the provider to proofread this document, occasional misspellings and typographical errors may still be present Due to the previous pandemic, and the use of personal protective equipment (PPE) This may decrease voice recognition accuracy Inadvertent regional guide errors may occur 01/31/2024 Pure hypercholesterolem ia, unspecified (ICD-10 - E78.00) #Weight Management 01/31/2024 [...] software and direct typing Please excuse inadvertent regional guide or typing errors, or uncorrected word substitutions Although every attempt has been made by the provider to proofread this document, occasional misspellings and typographical errors may still be present Due to the previous pandemic, and the use of personal protective equipment (PPE) This may decrease voice recognition accuracy Inadvertent regional guide errors may occur 01/31/2024 Vitamin B 12 [...] software and direct typing Please excuse inadvertent regional guide or typing errors, or uncorrected word substitutions Although every attempt has been made by the provider to proofread this document, occasional misspellings and typographical errors may still be present Due to the previous pandemic, and the use of personal protective equipment (PPE) This may decrease voice recognition accuracy Inadvertent regional guide errors may occur 08/02/2024 Vitamin B 12 [...] software and direct typing Please excuse inadvertent regional guide or typing errors, or uncorrected word substitutions Although every attempt has been made by the provider to proofread this document, occasional misspellings and typographical errors may still be present Due to the previous pandemic, and the use of personal protective equipment (PPE) This may decrease voice recognition accuracy Inadvertent regional guide errors may occur 11/30/2024 Vitamin B 12 deficiency (ICD-10 - E53.8) Acute Concerns/Problem List: 11/30/2024 Patient is 6 month post bariatric surgery, down 55lbs. Patient intrested in getting repeat labs. Will resend 75mcg of Levothyroxine 30 day supply to pharmacy Lets reassess thyroid function as this was recently decreased and given weight loss we should watch this closely Stress echocardiogram recently done was unremarkable Discussed properly following up regarding mammography Advised to follow up in 3 month. Patient understands, all questions and concerned addressed. Of note, some information is being carried forward from prior records for informational purposes only and is being cited so that efficiency, safety and quality of the patient's care is not compromised This note was prepared using voice recognition software and direct typing Please excuse inadvertent regional guide or typing errors, or uncorrected word substitutions Although every attempt has been made by the provider to proofread this document, occasional misspellings and typographical errors may still be present Due to the previous pandemic, and the use of personal protective equipment (PPE) This may decrease voice recognition accuracy Inadvertent regional guide errors may occur 11/30/2024 Encounter for examination of blood pressure without abnormal findings (ICD-10 - Z01.30) Acute Concerns/Problem List: 11/30/2024 Patient is 6 month post bariatric surgery, down 55lbs. Patient intrested in getting repeat labs. Will resend 75mcg of Levothyroxine 30 day supply to pharmacy Lets reassess thyroid function as this was recently decreased and given weight loss we should watch this closely Stress echocardiogram recently done was unremarkable Discussed properly following up regarding mammography Advised to follow up in 3 month. Patient understands, all questions and concerned addressed. Of note, some information is being carried forward from prior records for informational purposes only and is being cited so that efficiency, safety and quality of the patient's care is not compromised This note was prepared using voice recognition software and direct typing Please excuse inadvertent regional guide or typing errors, or uncorrected word substitutions Although every attempt has been made by the provider to proofread this document, occasional misspellings and typographical errors may still be present Due to the previous pandemic, and the use of personal protective equipment (PPE) This may decrease voice recognition accuracy Inadvertent regional guide errors may occur 11/30/2024 Orthostatic dizziness (ICD-10 - R42) Acute Concerns/Problem List: 11/30/2024 Patient is 6 month post bariatric surgery, down 55lbs. Patient intrested in getting repeat labs. Will resend 75mcg of Levothyroxine 30 day supply to pharmacy Lets reassess thyroid function as this was recently decreased and given weight loss we should watch this closely Stress echocardiogram recently done was unremarkable Discussed properly following up regarding mammography Advised to follow up in 3 month. Patient understands, all questions and concerned addressed. Of note, some information is being carried forward from prior records for informational purposes only and is being cited so that efficiency, safety and quality of the patient's care is not compromised This note was prepared using voice recognition software and direct typing Please excuse inadvertent regional guide or typing errors, or uncorrected word substitutions Although every attempt has been made by the provider to proofread this document, occasional misspellings and typographical errors may still be present Due to the previous pandemic, and the use of personal protective equipment (PPE) This may decrease voice recognition accuracy Inadvertent regional guide errors may occur Plan Of Treatment Pending Test Test Name Order Date 25OH VITAMIN D 09/16/2022 CBC (COMPLETE BLOOD COUNT) 09/16/2022 COMPREHENSIVE METABOLIC PANEL 09/16/2022 HEMOGLOBIN A1C 09/16/2022 LIPID PANEL 09/16/2022 T4, TOTAL 09/16/2022 T4, TOTAL 11/03/2022 T4, TOTAL 05/18/2023 TSH 11/03/2022 TSH 05/18/2023 TSH 09/16/2022 TSH 07/20/2024 TSH WITH REFLEX TO FT4 07/20/2024 VITAMIN B12 09/16/2022 VITAMIN B12 05/18/2023 Insulin Level 09/16/2022 VITAMIN B12 11/30/2024 TOTAL T4 08/02/2024 LIPID PANEL, STANDARD 01/31/2024 COMPREHENSIVE METABOLIC PANEL 11/30/2024 COMPREHENSIVE METABOLIC PANEL 01/31/2024 CBC (INCLUDES DIFF/PLT) 11/30/2024 CBC (INCLUDES DIFF/PLT) 01/31/2024 URINALYSIS, COMPLETE 01/31/2024 HEMOGLOBIN A1c 01/31/2024 VITAMIN B12 01/31/2024 T4, FREE 01/31/2024 T4 (THYROXINE), TOTAL 11/30/2024 TSH 08/02/2024 TSH 11/30/2024 TSH 01/31/2024 VITAMIN D,25-OH,TOTAL,IA 01/31/2024 COMPLETE URINALYSIS 09/16/2022 Next Appt Details Provider Name:YUNG DAMICO, 03/11/2025 08:15:00 AM, [address] [place] [address], [id number], Insurance Providers Payer Name Payer Address Payer Phone Subscriber Number Group Number Insured Name Patient Relationship to Insured Coverage Start Date Coverage End Date [facility] [address] [place] [address] [id number] Kanika Staton Self - patient is the insured 3 Medications Administered Medication Instructions Date of Administration Dosage Notes MICC B12 INJECTION 02/03/2023 Medical (General) History Medical History History ICD Code high cholesterol seasonal allergies thyroid disease depression Surgical History Surgery Date(Month/Year) wisdom teeth extraction 1989
== END 2024-12-27 09:32 | disposition home or self-care (01) ==
LOC: HO.HBS 09:27
PROVIDERS: PCP Nurse Practitioner Acute Care; Visit Provider Physician Assistant Surgical
DX: Z71.3 Dietary counseling and surveillance (principal); Z90.3 Acquired absence of stomach [part of]; Z98.84 Bariatric surgery status
CPT/HCPCS: 98013